=== PATIENT | male | born 1950 | race Caucasian/White ===

== ENCOUNTER → 2016-05-24 | Outpatient (CLI) | payer OTHER ==
[~2016-05-24] MED LIST: ASPI81TA28 PO; GABA-113 PO; HYDR-1838 PO; IBUP-1050 PO; LISI40TA PO; METO1TAB68 PO; NAPR1TAB9 PO; RIVA1TAB4 PO; TERA1CAP63 PO; TPRSR50 PO
--- NOTE | 2016-05-24 13:25 | DIAGNOSTIC IMAGING REPORT ---
Venous Doppler left leg LEFT VENOUS DOPP LOWER EXT UNILAT CLINICAL HISTORY: R60.0 pain. Edema. TECHNIQUE: Venous Doppler COMPARISON STUDY: None FINDINGS: No evidence for deep venous thrombosis left leg. Compressibility and augmentation characteristics are unremarkable. There is note is made of superficial thrombophlebitis of the right lower leg. IMPRESSION: 1. No evidence for deep venous thrombosis left leg. 2. Incidental note is made of superficial thrombophlebitis right lower leg Electronically signed by: Kelechi Russell M.D. 05/24/2016 1:23 PM Dictated Date/Time: 05/24/2016 1:22 PM
== END | disposition home or self-care (01) ==
LOC: C.ULTRBC 12:54
PROVIDERS: ATTEND Nurse Practitioner Family
DX: R60.0 Localized edema (principal)

== ENCOUNTER 2016-06-07 09:08 | Inpatient (IN) | payer OTHER ==
[~2016-06-07] VITALS: Ht 182.9 cm; Wt 140.3 kg
[~2016-06-07 09:08] MED LIST changes: -ASPI81TA28 PO; -GABA-113 PO; -METO1TAB68 PO; -RIVA1TAB4 PO; -TPRSR50 PO
[2016-06-07] MEDS ORDERED: ONDANSETRON INJ 2 MG/ML 2 ML VIAL IV STA (09:28)
[2016-06-07] MEDS ORDERED: SODIUM CHLORIDE 0.9% 1000ML 1,000 ML IV STA (09:28)
[2016-06-07] MEDS ORDERED: DILTIAZEM HCL 5 MG/ML 5 ML VIAL IV STA (09:28)
--- NOTE | 2016-06-07 09:41 | EMERGENCY ROOM VISIT NOTE ---
History Report prepared by Jackelyn: Joaquim Paul Under the Supervision of: Dr. Tyler Mayorga D.O. First contact with patient: 09:20 Chief Complaint: TACHYCARDIA Stated Complaint: RAPID HEART BEAT History of Present Illness The patient is a 65 year old male who presents to the Emergency Room with complaints of constant tachycardia starting prior to arrival. The patient states that he went in for a physical, and his heart rate was very fast. The patient additionally states that he is having nausea and some shortness of breath. The patient denies any chest pain or abdominal pain. He states that he can feel some chest discomfort when his heart rate goes up. The patient sates that he can become very winded after he walks. He states that he hasn't been feeling well this week, and he got a Doppler recently due to the possibility of a blood clot, however it was negative. The patient states that he has a history of hypertension, hernia repairs, and a cholecystectomy. He denies any history of A-fib. He states that he is taking lisinopril. Source of History: patient Onset: prior to arrival Position: other (global) Quality: other (tachycardia) Timing: constant Associated Symptoms: + SOB, + nausea, No abdominal pain, No chest pain Review of Systems See HPI for pertinent positives & negatives. A total of 10 systems reviewed and were otherwise negative. Past Medical & Surgical Medical Problems: (1) Bilateral pulmonary embolism (2) SVT (supraventricular tachycardia) Surgical Problems: (1) Hx of cholecystectomy Family History Cancer Social History Smoking Status: Former Smoker Alcohol Use: none Marital Status: Occupation Status: employed Current/Historical Medications Scheduled Aspirin (Aspirin Ec), 81 MG PO DAILY Gabapentin (Neurontin), 300 MG PO BID Lisinopril (Zestril), 40 MG PO QAM Terazosin Hcl (Hytrin), 10 MG PO QPM Allergies Coded Allergies: Oxycodone (Verified Adverse Reaction, Unknown, "DOESN'T LIKE FEELING", ) Physical Exam Vital Signs Date Time Temp Pulse Resp B/P Pulse Ox O2 Delivery O2 Flow Rate FiO2 06/07/16 13:16 91 18 128/91 96 Room Air 06/07/16 12:17 101 20 149/89 94 Room Air 06/07/16 10:52 103 16 118/78 96 Room Air 06/07/16 10:20 96 Nasal Cannula 3.0 06/07/16 10:18 102 17 153/96 88 Room Air 06/07/16 10:08 100 06/07/16 10:01 82 06/07/16 09:59 148 06/07/16 09:25 95 Room Air 06/07/16 09:25 95 Room Air 06/07/16 09:16 36.3 147 18 143/90 95 Room Air Physical Exam GENERAL: Patient is awake, alert, and is somewhat anxious appearing but not in pain. EYES: The conjunctivae are clear. The pupils are round and reactive. EARS, NOSE, MOUTH AND THROAT: The nose is without any evidence of any deformity. Mucous membranes are moist tongue is midline NECK: The neck is nontender and supple. RESPIRATORY: Normal respiratory effort is noted there is no evidence of wheezing rhonchi or rales CARDIOVASCULAR: Heart sounds are tachycardic and regular. No definite murmur noted to auscultation. GASTROINTESTINAL: The abdomen is mildly distended but soft. No tenderness, guarding, or rigidity noted MUSCULOSKELETAL/EXTREMITIES: There is no evidence of gross deformity full range of motion is noted in the hips and shoulders SKIN: Pedal edema bilaterally. Erythema in the left calf with mild tenderness. NEUROLOGIC: Patient is awake alert and oriented x3 Medical Decision & Procedures ER Provider Diagnostic Interpretation: Radiology results as stated below per my review and radiologist interpretation: CHEST ONE VIEW PORTABLE CLINICAL HISTORY: Atypical chest pain and tachycardia COMPARISON STUDY: No previous studies for comparison. FINDINGS: The heart is mildly enlarged. There is aortic tortuosity/ectasia. There is mild central vascular prominence without evidence of overt failure. There is no lobar consolidation. There are no pleural effusions.[ IMPRESSION: Cardiomegaly with central vascular prominence. No evidence of focal pulmonary consolidation Electronically signed by: Addison Nicole M.D. 06/07/2016 10:29 AM Dictated Date/Time: 06/07/2016 10:28 AM CHEST CTA for PULMONARY ARTERIES CT DOSE: 800.15 mGy.cm HISTORY: Chest pain dyspnea TECHNIQUE: Multiaxial CT images of the chest were performed following the intravenous administration of contrast to evaluate the pulmonary arteries. Maximal intensity projection images were also obtained. COMPARISON STUDY: None. FINDINGS: Thoracic ureters normal in course and caliber. Study is positive for bilateral pulmonary emboli. These involve the right middle as well as a right lower lobe pulmonary arterial distributions. Less common involvement is seen in the left upper lobe and third order left basilar pulmonary arterial structures. No evidence for a central or saddle embolus. IMPRESSION: 1. The study is positive for bilateral pulmonary emboli. 2. No evidence for central or saddle embolus. 3. Lungs are grossly clear. Electronically signed by: Kelechi Russell M.D. 06/07/2016 12:18 PM Dictated Date/Time: 06/07/2016 12:14 PM Laboratory Results 06/07/16 09:35 Red Blood Count 4.59, Mean Corpuscular Volume 91.9, Mean Corpuscular Hemoglobin 32.7, Mean Corpuscular Hemoglobin Concent 35.5, Mean Platelet Volume 12.1, Neutrophils (%) (Auto) 71.2, Lymphocytes (%) (Auto) 14.7, Monocytes (%) (Auto) 8.9, Eosinophils (%) (Auto) 4.4, Basophils (%) (Auto) 0.6, Neutrophils # (Auto) 6.05, Lymphocytes # (Auto) 1.25, Monocytes # (Auto) 0.76, Eosinophils # (Auto) 0.37, Basophils # (Auto) 0.05 06/07/16 09:35 Test 06/07/16 09:35 White Blood Count 8.50 K/uL (4.8-10.8) Red Blood Count 4.59 M/uL (4.7-6.1) Hemoglobin 15.0 g/dL (14.0-18.0) Hematocrit 42.2 % (42-52) Mean Corpuscular Volume 91.9 fL (80-100) Mean Corpuscular Hemoglobin 32.7 pg (25-34) Mean Corpuscular Hemoglobin Concent 35.5 g/dl (32-36) Platelet Count 189 K/uL (130-400) Mean Platelet Volume 12.1 fL (7.4-10.4) Neutrophils (%) (Auto) 71.2 % Lymphocytes (%) (Auto) 14.7 % Monocytes (%) (Auto) 8.9 % Eosinophils (%) (Auto) 4.4 % Basophils (%) (Auto) 0.6 % Neutrophils # (Auto) 6.05 K/uL (1.4-6.5) Lymphocytes # (Auto) 1.25 K/uL (1.2-3.4) Monocytes # (Auto) 0.76 K/uL (0.11-0.59) Eosinophils # (Auto) 0.37 K/uL (0-0.5) Basophils # (Auto) 0.05 K/uL (0-0.2) RDW Standard Deviation 45.7 fL (36.4-46.3) RDW Coefficient of Variation 13.6 % (11.5-14.5) Immature Granulocyte % (Auto) 0.2 % Immature Granulocyte # (Auto) 0.02 K/uL (0.00-0.02) Prothrombin Time 11.4 SECONDS (9.0-12.0) Prothromb Time International Ratio 1.1 (0.9-1.1) Activated Partial Thromboplast Time 29.4 SECONDS (21.0-31.0) Partial Thromboplastin Ratio 1.1 D-Dimer 3090 ug/L FEU (0-500) Anion Gap 12.0 mmol/L (3-11) Est Creatinine Clear Calc Drug Dose 108.6 ml/min Estimated GFR () 92.7 Estimated GFR (Non- 80.0 BUN/Creatinine Ratio 11.3 (10-20) Calcium Level 9.1 mg/dl (8.5-10.1) Magnesium Level 2.1 mg/dl (1.8-2.4) Total Bilirubin 0.8 mg/dl (0.2-1) Direct Bilirubin 0.2 mg/dl (0-0.2) Aspartate Amino Transf (AST/SGOT) 19 U/L (15-37) Alanine Aminotransferase (ALT/SGPT) 38 U/L (12-78) Alkaline Phosphatase 75 U/L (45-117) Total Creatine Kinase 48 U/L (39-308) Creatine Kinase MB 0.6 ng/ml (0.5-3.6) Creatine Kinase MB Ratio 1.3 (0-3.0) Troponin I < 0.015 ng/ml (0-0.045) Pro-B-Type Natriuretic Peptide 523 pg/ml (0-900) Total Protein 7.5 gm/dl (6.4-8.2) Albumin 3.4 gm/dl (3.4-5.0) Lipase 122 U/L (73-393) Thyroid Stimulating Hormone (TSH) 0.349 uIu/ml (0.300-4.500) Free Thyroxine 1.34 ng/dl (0.80-1.60) Laboratory results per my review. Medications Administered Medications (Trade) Dose Ordered Sig/Marcelino Route Start Time Stop Time Status Last Admin Dose Admin Sodium Chloride (Nss 1000ml) 1,000 ml @ 999 mls/hr Q1H1M STAT IV 06/07/16 09:28 06/07/16 10:28 DC 06/07/16 09:50 999 MLS/HR Ondansetron HCl (Zofran Inj) 4 mg NOW STAT IV 06/07/16 09:28 06/07/16 09:30 DC 06/07/16 09:47 4 MG Diltiazem HCl (Cardizem Inj) 20 mg NOW STAT IV 06/07/16 09:28 06/07/16 09:30 DC 06/07/16 09:52 20 MG Heparin Sodium/ Dextrose (Heparin 25,000 Unit/500ml D5W) 25,000 unit STK-MED ONCE .ROUTE 06/07/16 12:32 06/07/16 12:34 DC 06/07/16 12:38 25,000 UNIT Heparin Sodium (Porcine) (Heparin Sq 5000 Unit/0.5ml) 5,000 unit STK-MED ONCE .ROUTE 06/07/16 12:32 06/07/16 12:34 DC 06/07/16 12:38 5,000 UNIT Acetaminophen (Tylenol Tab) 650 mg Q4H PRN PO 06/07/16 13:00 07/07/16 12:59 06/07/16 17:29 650 MG ECG Indication: tachycardia Rate (beats per minute): 148 Rhythm: atrial flutter Findings: RBBB, other (No PVC) Comparison ECG Date: no prior available Change: REPEAT EKG: Sinus Tachycardia 106bpm. No ectopy, right bundle branch block noted ED Course 921: The patient was evaluated in room B12. A complete history and physical examination were performed. 0928: Cardizem Inj 20mg IV, Zofran Inj 4mg IV, NSS 1,000 ml @ 999 mls/hr IV 1117: I reevaluated the patient and discussed the plan with him. 1232: Heparin Sodium 5000 unit IV, Heparin Sodium/ Dextrose 83568 unit IV 1233: I discussed the patient's case with Dr. Hernandez. He is going to evaluate the patient for further treatment Medical Decision Differential diagnosis: Etiologies such as premature contractions, electrolyte abnormality, cardiac dysrhythmia, thyroid dysfunction, pulmonary embolism, infection, gastrointestinal, as well as others were entertained. Nursing notes reviewed. Additional history was obtained from the patient's significant other. 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 The patient was found to be in rapid wide-complex tachycardia but it had the appearance of SVT with aberrancy versus a possible atrial flutter with 2:1 conduction with an underlying right bundle- branch block. The patient was treated with Cardizem in the emergency department and appeared to convert to a sinus tachycardia. He still had very significant symptoms such as chest discomfort and difficulty breathing. He was also found have hypoxia and an elevated d-dimer. He was recently seen for leg swelling and had a Doppler which only showed superficial thrombophlebitis. The patient had a CT the chest which revealed bilateral pulmonary emboli. He was started on IV heparin in the emergency department. He was reevaluated multiple times. He was given IV fluids. His blood pressure did not drop while he was in the emergency department. I feel this represents a submassive pulmonary embolism at this time. He did have bilateral PEs however. I discussed the patient's laboratory and radiographic studies with him. I also discussed his case with the on-call [facility] hospitalist group. They have agreed to evaluate the patient in the emergency apartment for further management and disposition. The patient was reevaluated multiple times. I discussed the patient's laboratory and radiographic studies with him. Consults Time Called: 1230 Consulting Physician: Dr. Hernandez Returned Call: 1232 I discussed the patient's case with Dr. Hernandez. He is going to evaluate the patient for further treatment Impression Primary Impression: Bilateral pulmonary embolism Additional Impressions: SVT (supraventricular tachycardia) Hypoxia Critical Care I have personally spent greater than 45 minutes of critical care time in the direct management of this patient. This includes bedside care, interpretation of diagnostic studies, and testing, discussion with consultants, patient, and family members, and other required patient management activities. This 45 minutes is in excess of all separately billable procedures. Scribe Attestation The scribe's documentation has been prepared under my direction and personally reviewed by me in its entirety. I confirm that the note above accurately reflects all work, treatment, procedures, and medical decision making performed by me. Departure Information Dispostion Being Evaluated By Hospitalist Referrals Shikha Tilley (PCP) Problem Qualifiers
[2016-06-07] MEDS ORDERED: GABA-113 PO (09:46)
[2016-06-07] MEDS ORDERED: ASPI81TA28 PO (09:46)
[2016-06-07 10:24] LABS: BASO % 0.6 %; BASO ABS # 0.05 K/uL (0-0.2); COMPLETE YES; EOS % 4.4 %; HEMATOCRIT 42.2 % (42-52); IG% 0.2 %; LYMPH % 14.7 %; LYMPH ABS # 1.25 K/uL (1.2-3.4); MEAN CELL VOLUME 91.9 fL (80-100); MEAN CORPUSCULAR HEMOGLOBIN 32.7 pg (25-34); MEAN CORPUSCULAR HGB CONC 35.5 g/dl (32-36); MEAN PLATELET VOLUME 12.1 fL (7.4-10.4); MONO % 8.9 %; NEUT % 71.2 %; PLATELET COUNT 189 K/uL (130-400); RED BLOOD COUNT 4.59 M/uL (4.7-6.1)
--- NOTE | 2016-06-07 10:30 | DIAGNOSTIC IMAGING REPORT ---
CHEST ONE VIEW PORTABLE CLINICAL HISTORY: Atypical chest pain and tachycardia COMPARISON STUDY: No previous studies for comparison. FINDINGS: The heart is mildly enlarged. There is aortic tortuosity/ectasia. There is mild central vascular prominence without evidence of overt failure. There is no lobar consolidation. There are no pleural effusions.[ IMPRESSION: Cardiomegaly with central vascular prominence. No evidence of focal pulmonary consolidation Electronically signed by: Addison Nicole M.D. 06/07/2016 10:29 AM Dictated Date/Time: 06/07/2016 10:28 AM
[2016-06-07 10:42] LABS: ALT/SGPT 38 U/L (12-78); BLOOD UREA NITROGEN 11 mg/dl (7-18); BUN/CREATININE RATIO 11.3 (10-20); CALCIUM 9.1 mg/dl (8.5-10.1); CARBON DIOXIDE 24 mmol/L (21-32); CHLORIDE 106 mmol/L (98-107); CREATININE 0.98 mg/dl (0.60-1.40); GLUCOSE 133 mg/dl (70-99); POTASSIUM 3.6 mmol/L (3.5-5.1); SODIUM 142 mmol/L (136-145)
[2016-06-07 10:47] LABS: ALKALINE PHOSPHATASE 75 U/L (45-117); AST/SGOT 19 U/L (15-37); CKMB/CK RATIO 1.3 (0-3.0)
[2016-06-07 11:02] LABS: INR 1.1 (0.9-1.1); PARTIAL THROMBOPLASTIN RATIO 1.1; PROTHROMBIN TIME (PATIENT) 11.4 SECONDS (9.0-12.0)
[2016-06-07] MEDS ORDERED: OPTIRAY 320 IV PRN (11:30)
[2016-06-07 12:12] LABS: MAGNESIUM 2.1 mg/dl (1.8-2.4); THYROID STIMULATING HORMONE 0.349 uIu/ml (0.300-4.500)
--- NOTE | 2016-06-07 12:19 | DIAGNOSTIC IMAGING REPORT ---
CHEST CTA for PULMONARY ARTERIES CT DOSE: 800.15 mGy.cm HISTORY: Chest pain dyspnea TECHNIQUE: Multiaxial CT images of the chest were performed following the intravenous administration of contrast to evaluate the pulmonary arteries. Maximal intensity projection images were also obtained. COMPARISON STUDY: None. FINDINGS: Thoracic ureters normal in course and caliber. Study is positive for bilateral pulmonary emboli. These involve the right middle as well as a right lower lobe pulmonary arterial distributions. Less common involvement is seen in the left upper lobe and third order left basilar pulmonary arterial structures. No evidence for a central or saddle embolus. IMPRESSION: 1. The study is positive for bilateral pulmonary emboli. 2. No evidence for central or saddle embolus. 3. Lungs are grossly clear. Electronically signed by: Kelechi Russell M.D. 06/07/2016 12:18 PM Dictated Date/Time: 06/07/2016 12:14 PM
[2016-06-07] MEDS ORDERED: HEPARIN 25000 UNIT/500 ML D5W ONE (12:32)
[2016-06-07] MEDS ORDERED: HEPARIN SOD 5000 UNIT/0.5 ML CARP ONE (12:32)
[2016-06-07] MEDS ORDERED: ONDANSETRON INJ 2 MG/ML 2 ML VIAL IV PRN (13:00)
[2016-06-07] MEDS ORDERED: HEPARIN IV BOLUS 5,000 UNIT in SYRINGE 0 ML IV ONE (13:30)
[2016-06-07] MEDS ORDERED: METOPROLOL TARTRATE 1 MG/ML VIAL IV PRN (13:45)
[2016-06-07 13:50] VITALS: BP 150/97; TEMP 36.3; Ht 182.9 cm; Wt 140.3 kg
--- NOTE | 2016-06-07 14:10 | HISTORY & PHYSICAL EXAMINATION ---
DATE OF ADMISSION: 06/07/2016 CHIEF COMPLAINT: Tachycardia. HISTORY OF PRESENT ILLNESS: A 65-year-old male who presents to Emergency Room with tachycardia. This started earlier this morning. The patient states that a few weeks ago he noticed some redness in his left leg and it was a little swollen and he was concerned about DVT and he went to his primary care who did an ultrasound which was negative for DVT, according to the patient. Then last Sunday he started having shortness of breath but this morning he started having tachycardia. He has no chest pain, abdominal pain and he feels that he had some chest discomfort when his heart rate goes up. 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 He never had any blood clots or DVTs before. He has no history of atrial fibrillation. The patient stated he has a history of hypertension, hernia repair, cholecystectomy. He stated he also takes lisinopril. REVIEW OF SYSTEMS: Negative except as above. Ten out of 14 systems were reviewed. PAST MEDICAL HISTORY: Hypertension, hernia repair. FAMILY HISTORY: Significant for coronary artery disease and cancer. SOCIAL HISTORY: Does not smoke, does not drink, does not use drugs. . Employed. ALLERGIES: OXYCODONE. CURRENT MEDICATIONS: Aspirin 81 mg p.o. daily, gabapentin 300 mg p.o. b.i.d., lisinopril 40 mg p.o. daily, terazosin 10 mg p.o. at bedtime. PHYSICAL EXAMINATION: VITAL SIGNS: Temperature 36.3, pulse 101, respirations 20, blood pressure 149/89, pulse ox 94 on room air. GENERAL: Not in acute distress. HEAD, EYES, EARS, NOSE, AND THROAT: Normocephalic, atraumatic. PERRLA, EOMI. Mouth moist, no lesions. NECK: No JVD. Trachea midline. Throat is not enlarged. LUNGS: Clear to auscultation bilateral. No wheezes, no rhonchi. HEART: Tachycardia, S1, S2. RRR. GASTROINTESTINAL: Soft, nontender, nondistended. Bowel sounds present bilateral. Obese. EXTREMITIES: No clubbing, cyanosis, edema. SKIN: No rash, no jaundice. NEUROLOGICAL: Alert, oriented x3. Motor and sensory normal. PSYCHIATRIC: Mood and judgment are normal. DIAGNOSTIC INTERPRETATION: Chest x-ray: Cardiomegaly with central vascular prominence. No evidence of focal pulmonary consolidation. CT chest showed bilateral pulmonary embolism. No normal central saddle embolus. LABORATORY DATA: CBC normal. BMP normal except for glucose of 133. D-dimer is 3,090. LFTs are normal. His troponin less than 0.015. BNP 523, albumin of 3.4. TSH 0.349, free thyroxine 1.34. EKG 148 beats per minute, atrial flutter, right bundle branch block. Repeat EKG, heart rate 106 beats per minute. ASSESSMENT AND PLAN: This is a 65-year-old gentleman who comes with tachycardia, shortness of breath. 1. Acute bilateral pulmonary embolism. Admit patient to telemetry. Start patient on IV heparin and consult nurse navigator to see if insurance approves Xarelto or Eliquis. Continue aspirin. check ECHO 2. Tachycardia, likely related to PE. We will start patient on metoprolol as needed. 3. History of hypertension. Continue with lisinopril. 4. Deep venous thrombosis prophylaxis with IV heparin. THE PATIENT IS A FULL CODE. Time spent doing this admission 50 minutes. MTDD
[2016-06-07] MEDS ORDERED: PERFLUTREN LIPID MICROSPHERE (DEFINITY) IV ONE (15:32)
[2016-06-07 16:00] VITALS: BP 144/89; PULSE 89; TEMP 36.7; O2SAT 97
--- NOTE | 2016-06-07 16:55 | ECHOCARDIOGRAM REPORT ---
*NOTICE TO RECEIVING REPUBLICAN AGENCY This information is strictly Confidential and protected under [place] law. [place] law prohibits you from making any further disclosure of this information unless further disclosure is expressly permitted by the written consent of the person to whom it pertains or is authorized by law. A general authorization for the release of medical or other information is not sufficient for this purpose. Hospital accepts no responsibility if the information is made available to any other person, INCLUDING THE PATIENT. Interpretation Summary * Name: EVARISTO BERG Study Date: 06/07/2016 03:06 PM BP: 150/97 mmHg * Patient Location: C.ED HR: 98 * : 1950 (M/d/yyyy) Gender: Male Height: 72 in * Age: 65 yrs Ethnicity: CA Weight: 314 lb * Ordering Physician: MOIZ HERNANEDZ DO * Performed By: Becki Wong RCS * * Reason For Study: PULMONARY EMBOLUS * BSA: 2.6 m2 * -- Conclusions -- * 1. Normal left ventricular size and systolic function. Estimated EF 55-60%. No regional wall motion abnormalities. Septal flattening during diastole suggests right ventricular volume overload. Moderate concentric left ventricular hypertrophy. * 2. Moderately dilated right ventricle with mildly reduced systolic function. * 3. Mild aortic root dilatation. * 4. Mildly dilated ascending aorta. * 5. Small pericardial effusion with echogenic component. 6. No significant valvular abnormalities. * 7. Technically difficult study, enhanced with IV Definity. * 8. No prior study available for comparison. Ordering physician (Dr. Hernandez) notified of findings. Procedure Details * A complete two-dimensional transthoracic echocardiogram was performed (2D, M-mode, Doppler and color flow Doppler). * A contrast injection of Definity was performed to improve assessment of LV function. * Contrast was injected into an intravenous site in the right arm. * One vial of Definity ultrasound contrast was diluted in normal saline to a total volume of 10 ml. A total of '2' ml of solution was administered during imaging. * Lot # [id number] of Definity utilized for procedure. * Expiration date 1 JUN 03. * The attending nurse who injected the contrast agent was BECKI CHAMBERLAIN ED, RN. Left Ventricle * Normal left ventricular size and systolic function. Estimated EF 55-60%. No regional wall motion abnormalities. Septal flattening during diastole suggests right ventricular volume overload. Moderate concentric left ventricular hypertrophy. Right Ventricle * Moderately dilated right ventricle with mildly reduced systolic function. * The right ventricular systolic function is reduced as assessed by tricuspid annular plane systolic excursion (TAPSE) (TAPSE <1.6 cm). Atria * The left atrial size is normal. * The right atrium is borderline dilated. * There is no evidence of atrial septal defect, but resolution does not allow assessment for a patent foramen ovale. Mitral Valve * The mitral valve is grossly normal. * There is no mitral valve stenosis. * Significant mitral regurgitation is absent. Tricuspid Valve * The tricuspid valve is not well visualized, but is grossly normal. * There is no tricuspid stenosis. * Significant tricuspid regurgitation is absent. * Could not estimate right ventricular systolic pressure as there was no suitable TR jet. Aortic Valve * The aortic valve is trileaflet. * The aortic valve is normal in structure and function. * No hemodynamically significant valvular aortic stenosis. * There is no significant aortic regurgitation. Pulmonic Valve * The pulmonary valve is inadequately visualized, but the Doppler data is adequate for interpretation. * There is no pulmonic valvular stenosis. * There is no significant pulmonary regurgitation. Great Vessels * Mild aortic root dilatation. * Mildly dilated ascending aorta. Pericardium/Pleural * Small pericardial effusion with echogenic component. There was no visualize compression of cardiac chambers. Great Vessels * Normal inferior vena cava size and collapsability with sniff indicates a normal right atrial pressure of 3 mmHg MMode 2D Measurements and Calculations IVSd 1.5 cm IVSs 1.7 cm LVIDd 4.6 cm LVIDs 2.7 cm LVPWd 1.4 cm LVPWs 1.9 cm IVS/LVPW 1.1 FS 42.4 % EDV(Teich) 99.0 ml ESV(Teich) 26.3 ml EF(Teich) 73.5 % EDV(cubed) 99.5 ml ESV(cubed) 19.0 ml EF(cubed) 80.9 % % IVS thick 15.6 % % LVPW thick 37.4 % LV mass(C)d 268.4 grams LV mass(C)dI 104.0 grams/m\S\2 LV mass(C)s 190.4 grams LV mass(C)sI 73.8 grams/m\S\2 SV(Teich) 72.8 ml SI(Teich) 28.2 ml/m\S\2 SV(cubed) 80.5 ml SI(cubed) 31.2 ml/m\S\2 Ao root diam 4.7 cm Ao root area 17.4 cm\S\2 LA dimension 3.3 cm asc Aorta Diam 4.2 cm LA/Ao 0.71 LVOT diam 2.0 cm LVOT area 3.2 cm\S\2 LVAd ap4 34.3 cm\S\2 LVLd ap4 8.4 cm EDV(MOD-sp4) 115.8 ml EDV(sp4-el) 118.9 ml LVAs ap4 22.9 cm\S\2 LVLs ap4 7.8 cm ESV(MOD-sp4) 53.8 ml ESV(sp4-el) 57.1 ml EF(MOD-sp4) 53.5 % EF(sp4-el) 52.0 % SV(MOD-sp4) 62.0 ml SI(MOD-sp4) 24.0 ml/m\S\2 SV(sp4-el) 61.8 ml SI(sp4-el) 24.0 ml/m\S\2 Doppler Measurements and Calculations MV E max liset 107.7 cm/sec MV P1/2t max liset 114.0 cm/sec MV P1/2t 41.5 msec MVA(P1/2t) 5.3 cm\S\2 MV dec slope 804.1 cm/sec\S\2 MV dec time 0.12 sec Ao V2 max 112.5 cm/sec Ao max PG 5.1 mmHg Ao max PG (full) 2.4 mmHg MARCO(V,A) 2.3 cm\S\2 MARCO(V,D) 2.3 cm\S\2 LV V1 max PG 2.7 mmHg LV V1 max 81.5 cm/sec TV E max liset 91.2 cm/sec PA V2 max 116.7 cm/sec PA max PG 5.5 mmHg
[2016-06-07 17:21] VITALS: BP 173/95; PULSE 103; TEMP 36.5; O2SAT 91
[2016-06-07] MEDS: ACETAMINOPHEN 325 MG TAB PO PRN ×2 (17:29→23:36)
[2016-06-07 19:08] VITALS: BP 147/93; PULSE 98; TEMP 36.5; O2SAT 93
[2016-06-07 19:25] LABS: PARTIAL THROMBOPLASTIN RATIO 2.1
[2016-06-07] MEDS: GABAPENTIN 300 MG CAP PO SCH (20:45)
[2016-06-07 23:32] VITALS: BP 138/80; PULSE 103; TEMP 36.6; O2SAT 92
[2016-06-08] VITALS (10 sets, daily range): BP systolic 127–164; BP diastolic 77–100; PULSE 75–119; TEMP 36.3–36.8; O2SAT 92–96
[2016-06-08] MEDS ORDERED: IBUPROFEN 200 MG TAB PO PRN (01:45)
[2016-06-08] MEDS: HEPARIN 25,000 UNIT/500ML D5W 500 ML IV PRN ×2 (02:06→15:50)
[2016-06-08 05:12] LABS: BASO % 0.6 %; BASO ABS # 0.04 K/uL (0-0.2); COMPLETE YES; EOS % 6.4 %; HEMATOCRIT 39.7 % (42-52); IG% 0.3 %; LYMPH % 20.9 %; LYMPH ABS # 1.47 K/uL (1.2-3.4); MEAN CELL VOLUME 92.3 fL (80-100); MEAN CORPUSCULAR HEMOGLOBIN 32.1 pg (25-34); MEAN CORPUSCULAR HGB CONC 34.8 g/dl (32-36); MEAN PLATELET VOLUME 11.3 fL (7.4-10.4); MONO % 9.5 %; NEUT % 62.3 %; PLATELET COUNT 167 K/uL (130-400); WHITE BLOOD COUNT 7.04 K/uL (4.8-10.8)
[2016-06-08 05:35] LABS: PARTIAL THROMBOPLASTIN RATIO 2.6
[2016-06-08 05:50] LABS: BUN/CREATININE RATIO 11.9 (10-20); CALCIUM 8.3 mg/dl (8.5-10.1); CREATININE 0.88 mg/dl (0.60-1.40); MAGNESIUM 2.2 mg/dl (1.8-2.4); POTASSIUM 3.8 mmol/L (3.5-5.1)
--- NOTE | 2016-06-08 08:35 | Clinical Documentation Query ---
Dr. BR[facility] [place] : CLINICAL DOCUMENTATION QUERY Patient is a 65 year old male admitted for treatment of bilateral pulmonary emboli. Patient with reportedly known SVT(s). He states that recent US of the legs was negative for DVT. Studies have shown either extension of a known SVT to the deep venous system and/or release of all or most of the DVT to the lung to result in subclinical findings on ultrasound. As able, consider clarification as to the possible/suspected/likely etiology of the PE's. Your clinical opinion is sufficient. In your clinical opinion is this patient being managed for: ( x ) Bilateral PE's due to (suspected) occult DVT and/or extension of known SVT ( ) Bilateral PE's due to thromboembolism associated with atrial flutter ( ) Other explanation of clinical findings (Please Explain) ( ) Unable to determine (Please Define) ( ) Need to Discuss ( ) Not Agree The medical record reflects the following clinical findings, treatment, and risk factors. Clinical Indicators: As above Treatment: Telemetry, echocardiogram, IV Heparin, ASA Risk Factors: Sedentary employment, atrial flutter, known SVT. Please clarify and document your clinical opinion in the progress notes and discharge summary. Terms such as "probable", "suspected", "likely", "questionable", "possible", or "still to be ruled out" are acceptable. IF IN AGREEMENT, YOU MUST DOCUMENT ABOVE DIAGNOSTIC STATEMENT IN DAILY PROGRESS NOTES AND DISCHARGE SUMMARY. This document is not part of the patient's record. Thank You, Darrion Jiang, [place] [phone]
[2016-06-08] MEDS: ASPIRIN 81 MG ECTAB PO SCH (08:54)
[2016-06-08] MEDS: GABAPENTIN 300 MG CAP PO SCH ×2 (08:54→20:31)
[2016-06-08] MEDS: LISINOPRIL 40 MG TAB PO SCH (08:55)
--- NOTE | 2016-06-08 09:07 | Progress Note ---
Subjective Subjective Date of Service: Jun 08, 2016. Problem List Medical Problems: (1) Hypoxia Status: Acute Physical Exam Vital Signs Vital Signs Past 24 Hours: Date Time Temp Pulse Resp B/P Pulse Ox O2 Delivery O2 Flow Rate FiO2 06/08/16 07:56 Room Air 06/08/16 07:55 36.5 119 18 141/85 94 Room Air 06/08/16 04:00 92 Room Air 06/08/16 03:17 36.4 102 20 136/80 92 Room Air 06/08/16 00:01 Room Air 06/07/16 23:32 36.6 103 18 138/80 92 06/07/16 20:00 Room Air 06/07/16 19:08 36.5 98 18 147/93 93 Room Air 06/07/16 18:16 115 06/07/16 17:21 36.5 103 20 173/95 91 Room Air 06/07/16 16:00 97 Room Air 06/07/16 16:00 36.7 89 18 144/89 97 Room Air 06/07/16 13:50 36.3 18 150/97 Room Air 06/07/16 13:48 91 18 150/97 95 Room Air 06/07/16 13:16 91 18 128/91 96 Room Air 06/07/16 12:17 101 20 149/89 94 Room Air 06/07/16 10:52 103 16 118/78 96 Room Air 06/07/16 10:20 96 Nasal Cannula 3.0 06/07/16 10:18 102 17 153/96 88 Room Air 06/07/16 10:08 100 06/07/16 10:01 82 06/07/16 09:59 148 06/07/16 09:25 95 Room Air 06/07/16 09:25 95 Room Air 06/07/16 09:16 36.3 147 18 143/90 95 Room Air Assessment and Plan 1. Bilateral PE's due to (suspected) occult DVT and/or extension of known SVT
[2016-06-08] MEDS ORDERED: METOPROLOL SUCC 50MG EXT REL TAB PO SCH (10:00)
[2016-06-08] MEDS ORDERED: METOPROLOL TARTRATE 1 MG/ML VIAL IV PRN (12:00)
--- NOTE | 2016-06-08 12:05 | Pulmonary Consultation ---
History General Date of Service: Jun 08, 2016. Stated Complaint: Bilateral Pulmonary Embolism, Svt HPI The patient is a 65 year old male who presents to [facility] with complaints of Bilateral Pulmonary Embolism, Svt. The patient's primary care provider is Shikha Tilley. 65-yo male with PMHx hypertension, obesity and former tobacco (2-3pps x 20-years , quit 1990) presented to [facility] 06/07/16 from his physician's office with symptoms of tachycardia. He reported 1-week history of left medial calf and anterior thigh erythema and edema for which he underwent LLE doppler 05/24/16 - this was negative for DVT incidental note of superficial phlebitis of the RLE. He states that following this report, he was prescribed Gabapentin with improvement in his symptoms. Several days later he began to notice increased heart rate and sensation that he needed to take a deep breath. He denies any associated chest pain but did reports mild increased SAN with activity such as ambulating steps. He denies any associated cough or wheeze. Last week, he reported 2-day history of a "GI-flu" with abdominal symptoms and loose stools, this resolved without intervention. 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 In the ER CXR described cardiomegaly with central vascular prominence. D-dimer was elevated 3090. WBC/Hgb/Hct/Plts: 8.5/42.2/91.9. EG: tachycardia (106BPM) with LBBB. Telemetry: episodes of atrial flutter. CTA 06/07/16: Emboli suggested involving RML, RLL, AD, and left basilar vessels without saddle obstruction. Echocardiogram described diastolic septal flattening suggestive of RV overload, moderate LVH, moderate RV dilation with mild reduction in systolic function. No significant valvular abnormalities. Anticoagulation and rate control initiated and he was admitted to telemetry. Of note, he did require supplemental O2 briefly but has since been stable on room air. Today he reports he is feeling ok. He described an episode of palpitations - self limited 20-minutes prior to my arrival after taking medication. He has been ambulating to the bathroom without increased dyspnea or chest discomfort. 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 His last trip was 05/18/16 - 20-hours to the [facility]. He states he is compliant with regulations to stop every 3-4 hours to ambulate/rest. He denies any preceding trauma or other extended periods of immobility. He denies any family history of clotting disorders. He Denies any personal prior history of DVT/PE. He denies any personal oncologic history. He reports regular colonoscopies as instructed by his physician. He denies any personal history of asthma, COPD, heart disease (stress ECHO 2006: unremarkable) or dysphagia. He is a life-long [place] resident. He lives with his wive. They do not have any pets. He denies ETOH consumption. Historian: patient, family () Review of Systems Constitutional: denies: chills, fever, weakness Eyes: reports: no symptoms ENT: reports: no symptoms Cardiovascular: reports: as stated in HPI, chest pressure, edema Respiratory: reports: shortness of breath, denies: cough, wheezing Gastrointestinal: reports: no symptoms Integumentary: reports: as stated in HPI Past Medical History Past Medical History: 1. Hypertension 2. Obesity Past Surgical History: 1. Tooth extraction 2. Cholecystectomy 2004 3. Umbilical hernia repair 4. Inguinal hernia repair x 2 with mesh 2014 Family History Cancer Social History Hx Tobacco Use In Past Year?: No Smoking Status: Former Smoker Alcohol: never Drug Use: none Marital status: Housing status: lives with family Occupational Status: employed History of MDRO History of MDRO: No Allergies Coded Allergies: Oxycodone (Verified Adverse Reaction, Unknown, "DOESN'T LIKE FEELING", ) Current Medications Reported Home Medications Medications Dose Route/Sig Max Daily Dose Days Date Category Aspirin Ec (Aspirin) 81 Mg Tab 81 Mg PO DAILY 06/07/16 Reported Neurontin (Gabapentin) 300 Mg Cap 300 Mg PO BID 06/07/16 Reported Hytrin (Terazosin HCl) 10 Mg Cap 10 Mg PO QPM 05/02/13 Reported Zestril (Lisinopril) 40 Mg Tab 40 Mg PO QAM 05/02/13 Reported Physical Physical Exam Vital Signs: Date Time Temp Pulse Resp B/P Pulse Ox O2 Delivery O2 Flow Rate FiO2 06/08/16 11:32 36.6 102 18 128/77 95 Room Air 06/08/16 07:56 Room Air 2/23/17 07:55 36.5 119 18 141/85 94 Room Air 06/08/16 04:00 92 Room Air 06/08/16 03:17 36.4 102 20 136/80 92 Room Air 06/08/16 00:01 Room Air 06/07/16 23:32 36.6 103 18 138/80 92 06/07/16 20:00 Room Air 06/07/16 19:08 36.5 98 18 147/93 93 Room Air 06/07/16 18:16 115 06/07/16 17:21 36.5 103 20 173/95 91 Room Air 06/07/16 16:00 97 Room Air 06/07/16 16:00 36.7 89 18 144/89 97 Room Air 06/07/16 13:50 36.3 18 150/97 Room Air 06/07/16 13:48 91 18 150/97 95 Room Air 06/07/16 13:16 91 18 128/91 96 Room Air 06/07/16 12:17 101 20 149/89 94 Room Air Constitutional: WDWN obese male sitting in chair. No acute distress HEENT: EOMi, PERRLA, moist mucous membranes Respiratory: Non-labored respirations. No wheeze. rales or rhonchi CV: Rapid rate. Regular rhythm. No murmur appreciated. Warm and perfused peripherally. Abdomen: Soft, obese Active bowel sounds. MSK/Extremities: Moving and developed symmetrically. No pitting edema or erythema. Mild chronic stasis changes at ankles Neurologic: Alert and oriented. Excellent data recall. Appropriate affect. Diagnostics Labs Results Past 24 Hours Test 06/07/16 18:55 06/08/16 05:00 Range/Units Activated Partial Thromboplast Time 55.1 68.3 21.0-31.0 SECONDS Partial Thromboplastin Ratio 2.1 2.6 White Blood Count 7.04 4.8-10.8 K/uL Red Blood Count 4.30 4.7-6.1 M/uL Hemoglobin 13.8 14.0-18.0 g/dL Hematocrit 39.7 42-52 % Mean Corpuscular Volume 92.3 80-100 fL Mean Corpuscular Hemoglobin 32.1 25-34 pg Mean Corpuscular Hemoglobin Concent 34.8 32-36 g/dl Platelet Count 167 130-400 K/uL Mean Platelet Volume 11.3 7.4-10.4 fL Neutrophils (%) (Auto) 62.3 % Lymphocytes (%) (Auto) 20.9 % Monocytes (%) (Auto) 9.5 % Eosinophils (%) (Auto) 6.4 % Basophils (%) (Auto) 0.6 % Neutrophils # (Auto) 4.39 1.4-6.5 K/uL Lymphocytes # (Auto) 1.47 1.2-3.4 K/uL Monocytes # (Auto) 0.67 0.11-0.59 K/uL Eosinophils # (Auto) 0.45 0-0.5 K/uL Basophils # (Auto) 0.04 0-0.2 K/uL RDW Standard Deviation 45.5 36.4-46.3 fL RDW Coefficient of Variation 13.5 11.5-14.5 % Immature Granulocyte % (Auto) 0.3 % Immature Granulocyte # (Auto) 0.02 0.00-0.02 K/uL Sodium Level 145 136-145 mmol/L Potassium Level 3.8 3.5-5.1 mmol/L Chloride Level 109 98-107 mmol/L Carbon Dioxide Level 30 21-32 mmol/L Anion Gap 6.0 3-11 mmol/L Blood Urea Nitrogen 10 7-18 mg/dl Creatinine 0.88 0.60-1.40 mg/dl Est Creatinine Clear Calc Drug Dose 121.0 ml/min Estimated GFR () 103.7 Estimated GFR (Non- 89.5 BUN/Creatinine Ratio 11.9 10-20 Random Glucose 98 70-99 mg/dl Calcium Level 8.3 8.5-10.1 mg/dl Magnesium Level 2.2 1.8-2.4 mg/dl Impression Assessment and Plan 65-yo male admitted with submassive bilateral pulmonary emboli: likely provoked with h/o long distance driving and recent illness 1. Agree with current anticoagulation - heparin gtt 2. Reviewed notes from social work therapist regarding cost of Xa inhibitors - all greater than $75/month - Xarelto would be preferred agent. 3. 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 Case Discussed with Dr. Luna Patient reviewed and plan agreed upon.
--- NOTE | 2016-06-08 15:02 | Progress Note ---
Subjective Subjective Date of Service: Jun 08, 2016. Pt evaluation today including: conversation w/ patient, physical exam, chart review, review of studies, review of inpatient medication list Notes: tachycardia on tele, 112-140 BPM, denies SOB, CP Problem List Medical Problems: (1) Hypoxia Status: Acute Review of Systems Constitutional: No fever ENT: No hearing loss Respiratory: + dyspnea on exertion, No cough Cardiac: No chest pain Abdomen: No pain Male : No dysuria Neurologic: No memory loss Psychiatric: No depression symptoms Endo: No fatigue Physical Exam Vital Signs Vital Signs Past 24 Hours: Date Time Temp Pulse Resp B/P Pulse Ox O2 Delivery O2 Flow Rate FiO2 06/08/16 11:55 95 Room Air 06/08/16 11:32 36.6 102 18 128/77 95 Room Air 06/08/16 07:56 Room Air 06/08/16 07:55 36.5 119 18 141/85 94 Room Air 06/08/16 04:00 92 Room Air 06/08/16 03:17 36.4 102 20 136/80 92 Room Air 06/08/16 00:01 Room Air 06/07/16 23:32 36.6 103 18 138/80 92 06/07/16 20:00 Room Air 06/07/16 19:08 36.5 98 18 147/93 93 Room Air 06/07/16 18:16 115 06/07/16 17:21 36.5 103 20 173/95 91 Room Air 06/07/16 16:00 97 Room Air 06/07/16 16:00 36.7 89 18 144/89 97 Room Air Physical Exam: General Appearance: WD/WN, no apparent distress Eyes: bilateral eyes normal inspection ENT: hearing grossly normal Neck: supple Respiratory/Chest: chest non-tender Cardiovascular: regular rate, rhythm, + tachycardia Abdomen: normal bowel sounds Extremities: normal range of motion Neurologic/Psychiatric: alert Skin: normal color Medications Medications: Current Inpatient Medications Medications (Trade) Dose Ordered Sig/Marcelino Route Start Time Stop Time Status Last Admin Dose Admin Ioversol (Optiray 320) 100 ml UD PRN IV 06/07/16 11:30 06/11/16 11:29 Acetaminophen (Tylenol Tab) 650 mg Q4H PRN PO 06/07/16 13:00 07/07/16 12:59 06/07/16 23:36 650 MG Ondansetron HCl (Zofran Inj) 4 mg Q6H PRN IV 06/07/16 13:00 07/07/16 12:59 Aspirin (Ecotrin Tab) 81 mg DAILY PO 06/08/16 09:00 07/08/16 08:59 06/08/16 08:54 81 MG Gabapentin (Neurontin Cap) 300 mg BID PO 06/07/16 21:00 07/07/16 20:59 06/08/16 08:54 300 MG Lisinopril (Zestril Tab) 40 mg QAM PO 06/08/16 09:00 07/08/16 08:59 06/08/16 08:55 40 MG Terazosin HCl 10 mg 10 mg QPM PO 06/07/16 21:00 07/07/16 20:59 06/07/16 20:45 10 MG Heparin Sodium/ Dextrose (Heparin 25,000 Unit/500ml D5W) 500 ml @ 37 mls/hr [id number] PRN IV 06/07/16 13:15 07/07/16 13:14 06/08/16 02:06 37 MLS/HR Ibuprofen (Advil Tab) 400 mg TID PRN PO 06/08/16 01:45 07/08/16 01:44 Metoprolol Tartrate (Lopressor Iv) 5 mg Q4 PRN IV 06/08/16 12:00 07/08/16 11:59 Metoprolol Succinate (Toprol Xl Tab) 50 mg QAM PO 06/08/16 10:00 07/08/16 09:59 06/08/16 10:26 50 MG Laboratory Data Labs: Last 24 Hours Test 06/07/16 18:55 06/08/16 05:00 Activated Partial Thromboplast Time 55.1 SECONDS 68.3 SECONDS Partial Thromboplastin Ratio 2.1 2.6 White Blood Count 7.04 K/uL Red Blood Count 4.30 M/uL Hemoglobin 13.8 g/dL Hematocrit 39.7 % Mean Corpuscular Volume 92.3 fL Mean Corpuscular Hemoglobin 32.1 pg Mean Corpuscular Hemoglobin Concent 34.8 g/dl Platelet Count 167 K/uL Mean Platelet Volume 11.3 fL Neutrophils (%) (Auto) 62.3 % Lymphocytes (%) (Auto) 20.9 % Monocytes (%) (Auto) 9.5 % Eosinophils (%) (Auto) 6.4 % Basophils (%) (Auto) 0.6 % Neutrophils # (Auto) 4.39 K/uL Lymphocytes # (Auto) 1.47 K/uL Monocytes # (Auto) 0.67 K/uL Eosinophils # (Auto) 0.45 K/uL Basophils # (Auto) 0.04 K/uL RDW Standard Deviation 45.5 fL RDW Coefficient of Variation 13.5 % Immature Granulocyte % (Auto) 0.3 % Immature Granulocyte # (Auto) 0.02 K/uL Sodium Level 145 mmol/L Potassium Level 3.8 mmol/L Chloride Level 109 mmol/L Carbon Dioxide Level 30 mmol/L Anion Gap 6.0 mmol/L Blood Urea Nitrogen 10 mg/dl Creatinine 0.88 mg/dl Est Creatinine Clear Calc Drug Dose 121.0 ml/min Estimated GFR () 103.7 Estimated GFR (Non- 89.5 BUN/Creatinine Ratio 11.9 Random Glucose 98 mg/dl Calcium Level 8.3 mg/dl Magnesium Level 2.2 mg/dl Assessment and Plan A 65 yo male comes with 1. 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 SVT/wide complex tachycardia sec to above metoprolol 50 mg daily IV Lopressor IV Prn consult cards DVT/GI proph FULL Code
[2016-06-08] MEDS ORDERED: METOPROLOL TARTRATE 50 MG TAB PO STA (16:47)
--- NOTE | 2016-06-08 18:02 | CARDIOLOGY CONSULTATION ---
DATE OF CONSULTATION: 06/08/2016 TIME: 16:51 p.m. CONSULTING PHYSICIAN: Dr. Mauricio. REASON FOR CONSULTATION: Dilated right ventricle, wide-complex tachycardia, pericardial effusion. HISTORY OF PRESENT ILLNESS: Mr. Rai is a very pleasant 65-year-old gentleman with a history significant for hypertension. He presented to [facility] yesterday due to tachycardia. Due to left lower extremity pain and erythema he went to see his PCP who ordered a lower extremity duplex. This was performed on 05/24/2016. There was no DVT, but there was superficial thrombophlebitis of the right lower leg. For the pain he was given gabapentin and this helped significantly. Then, this past weekend, approximately 4-5 days ago he developed mild dyspnea with exertion and noticed that his heart rate was more tachycardic. He noticed palpitations, mostly when lying in bed at night. He denies any significant shortness of breath, but rather only dyspnea with exertion. He denies chest pain, syncope, near syncope. 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 He was diagnosed with pulmonary emboli. He has been tachycardic for the most part, but intermittently has an acceptable heart rate. He does, however, have episodes where his heart rate is near 150 beats per minute. He was started on metoprolol succinate 50 mg daily. He was started on heparin for anticoagulation in regards to his acute pulmonary emboli. He denies any worsening edema, fevers, chills, abdominal pain, nausea, vomiting, bleeding such as melena, hematochezia, or hematuria. He did have approximately 2 days of diarrhea recently, but this has since resolved. He denies strokes, TIA, diabetes, heart failure, cardiovascular disease. He does have hypertension and is treated periodically by his PCP. 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 Currently, he feels relatively well without any significant complaints. He would like to be discharged tomorrow. REVIEW OF SYSTEMS: As above and review of systems is otherwise negative. PAST MEDICAL HISTORY: 1. Hypertension. 2. Status post hernia repairs. HOME MEDICATIONS: Include aspirin 81 mg daily, gabapentin 300 mg b.i.d., lisinopril 40 mg daily, terazosin 10 mg daily. HOSPITAL MEDICATIONS: Include aspirin 81 mg daily, gabapentin 300 mg p.o. b.i.d., heparin drip per protocol, lisinopril 40 mg daily, metoprolol succinate 50 mg daily, first dose today, metoprolol tartrate IV p.r.n., terazosin 10 mg q.p.m. ALLERGIES: No known drug allergies. He has a mild intolerance, oxycodone, stating he does not like the way it makes him feel. SOCIAL HISTORY: He smoked up to 2-3 packs per day for approximately 20 years but quit in 1990. No alcohol. No drugs. He is and lives with his . He is semi-retired. 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 He has 1 son and 1 daughter. No grandchildren. FAMILY HISTORY: No known premature CAD. PHYSICAL EXAMINATION: VITAL SIGNS: Temperature 36.8 degrees, heart rate 92 beats per minute, respiration rate 16, blood pressure 148/94 mmHg. Orthostatic vitals were unremarkable. He was not orthostatic. Oxygen saturation 96% on room air. Weight 139.8 kg. GENERAL: No acute distress. He is alert and oriented. HEENT: Anicteric sclerae. NECK: Thick, but no appreciable JVD. No bruits. Normal carotid upstrokes bilaterally. CARDIAC EXAM: PMI nondisplaced. There was no ventricular heave, tachycardic and mostly regular. Normal S1, S2. No audible murmurs, rubs or gallops. LUNGS: Clear to auscultation bilaterally without wheezes, rales or rhonchi. ABDOMEN: Obese, soft, nontender, nondistended, normoactive bowel sounds, no bruits noted. EXTREMITIES: Trace left lower extremity edema. No palpable cords. 2+ radial pulses bilaterally. 2+ dorsalis pedis pulses bilaterally. PSYCHIATRIC: Affect appears appropriate. DATA: ECGs were personally reviewed. Initial ECG, tachycardia at 148 beats per minute, possible atrial flutter. Right bundle-branch block. Possible inferior infarct. Repeat ECG on 06/07/2016 at 9:58 a.m. possible sinus rhythm at 106 beats per minute but could be underlying atrial flutter. Right bundle-branch block, possible inferior infarct. Repeat ECG this morning at 8:32 a.m. probable atrial flutter at 147 beats per minute. Right bundle-branch block. Inferior infarct. Telemetry was personally reviewed and demonstrates atrial flutter with variable AV block. Echocardiogram images personally reviewed. Echo was performed on 06/07/2016. Normal LV size and systolic function. Estimated EF 55%-60%. No regional wall motion abnormalities. Septal flattening during diastole suggests right ventricular volume overload. Moderate LVH. Moderately dilated right ventricle with mildly reduced systolic function. Mild aortic root dilation. Mildly dilated ascending aorta. Small pericardial effusion with echogenic components. No significant valvular abnormalities. LABORATORY DATA: White blood cell count 7, hemoglobin 13.8, platelets 167. Sodium 145, potassium 3.8, BUN 10, creatinine 0.8, magnesium 2.2. Troponin undetectable x1. TSH 03.49, albumin 3.4. INR was 1.1, PTT 68.3. CT scan imaging personally reviewed. There does appear to be a small pericardial effusion. Radiology has also noted bilateral pulmonary emboli. ASSESSMENT AND PLAN: 1. Atrial flutter with rapid ventricular response: We discussed the diagnosis with the help of a diagram. We discussed potential cardioversion, but would first require transesophageal echo if done soon as he was not anticoagulated within the first 48 hours of his symptoms which were 4 or 5 days ago. We will also hold off on antiarrhythmic therapy without transesophageal echo, if possible. He prefers a rate control strategy. We discussed the fact that atrial flutter is typically difficult to rate control, but he maintains this preference. Will increase metoprolol succinate to 100 mg daily tomorrow and give a 1 time dose of 25 mg now. His heart rate has improved. Atrial flutter, likely secondary to his pulmonary emboli and hopefully will spontaneously convert. Recommend anticoagulation for stroke risk reduction. Anticoagulation is being initiated for his pulmonary embolism as well. If rate control cannot be adequately achieved, would consider antiarrhythmic therapy or cardioversion. We did discuss this briefly as well as a transesophageal echo as they were considered. 2. Pericardial effusion: Etiology uncertain. There is a dense echogenic component. Recommend routine malignancy evaluations if not recently done. He does not appear to be in cardiac tamponade. The effusion is not large. Would not recommend pericardiocentesis at this time. Repeat limited echo tomorrow to evaluate for any significant change in the effusion. 3. Hypertension: Blood pressure is intermittently hypertensive. Metoprolol is being titrated as noted above. 4. Right ventricular dilatation with mildly reduced systolic function: Likely secondary to multiple pulmonary emboli. Treatment of pulmonary embolism as per primary service. Hopefully, this improves over time. 5. Disposition: Cardiology will continue to follow. Plan of care communicated with primary hospitalist, Dr. Mauricio. Cardiology will continue to follow along. Thank you for allowing me to participate in the care of Mr. Rai.
[2016-06-09 00:01] VITALS: O2SAT 95
[2016-06-09 03:38] VITALS: BP_SYST 137; BP_SYST 146; BP_SYST 148; BP_DIAS 85; BP_DIAS 88; BP_DIAS 95; PULSE 106; PULSE 95; PULSE 96; TEMP 36.6; O2SAT 95
[2016-06-09 04:00] VITALS: O2SAT 95
[2016-06-09 04:58] LABS: HEMATOCRIT 39.7 % (42-52); MEAN CELL VOLUME 91.3 fL (80-100); MEAN CORPUSCULAR HEMOGLOBIN 32.2 pg (25-34); MEAN PLATELET VOLUME 11.6 fL (7.4-10.4); PLATELET COUNT 168 K/uL (130-400); RED BLOOD COUNT 4.35 M/uL (4.7-6.1); WHITE BLOOD COUNT 6.58 K/uL (4.8-10.8)
[2016-06-09 05:00] LABS: MEAN CORPUSCULAR HGB CONC 35.3 g/dl (32-36)
[2016-06-09 05:16] LABS: PARTIAL THROMBOPLASTIN RATIO 2.1
[2016-06-09] MEDS: HEPARIN 25,000 UNIT/500ML D5W 500 ML IV PRN (05:39)
[2016-06-09] MEDS: LISINOPRIL 40 MG TAB PO SCH (07:32)
[2016-06-09] MEDS: GABAPENTIN 300 MG CAP PO SCH (07:32)
[2016-06-09] MEDS: ASPIRIN 81 MG ECTAB PO SCH (07:32)
[2016-06-09 07:34] VITALS: BP_SYST 123; BP_SYST 151; BP_SYST 163; BP_DIAS 103; BP_DIAS 89; BP_DIAS 99; PULSE 109; PULSE 112; PULSE 99; TEMP 36.6; O2SAT 99
[2016-06-09] MEDS ORDERED: METOPROLOL SUCC 50MG EXT REL TAB PO SCH (09:00)
--- NOTE | 2016-06-09 09:55 | CARDIOLOGY PROGRESS NOTE ---
DATE: 06/09/2016 TIME: 9:26 a.m. SUBJECTIVE: Denies chest pain, shortness of breath, syncope, near syncope, or palpitations. Tolerating increased dose of metoprolol thus far. He has not noted any bleeding such as melena, hematochezia or hematuria. OBJECTIVE: VITAL SIGNS: Temperature is 36.6 degrees, heart rate 90, respiration rate 20, blood pressure 151/103 mmHg, oxygen saturation 99% on room air. I's and O's negative 1.2 liters so far today. Weight is 140.3 kg. GENERAL: No acute distress. He is alert. NECK: No appreciable JVD but thick neck. CARDIAC EXAM: No ventricular heave. Regular with occasional irregularity. Normal S1, S2. No audible murmurs, rubs or gallops. LUNGS: Clear to auscultation bilaterally without wheezes, rales or rhonchi. ABDOMEN: Obese, soft, nontender, nondistended. Normoactive bowel sounds. EXTREMITIES: Trace to 1+ left lower extremity edema. Trace right lower extremity edema. No cyanosis. PSYCHIATRIC: Affect appears appropriate. MEDICATIONS: Include aspirin 81 mg daily, heparin drip per protocol, lisinopril 40 mg daily, metoprolol succinate 100 mg daily starting today, terazosin 10 mg q.p.m. LABORATORY DATA: White blood cell count is 6.58, hemoglobin 14, platelets 168. Sodium 145, potassium 3.8, BUN 10, creatinine 0.88, magnesium 2.2. He had limited echo done earlier today. The images were personally reviewed. Preliminarily, LV systolic function is stable and remains normal. Right ventricle still appears dilated with reduced systolic function. The pericardial effusion does not appear enlarged and overall appears stable. Telemetry personally reviewed. Heart rate overall has improved with increased beta-austin. ASSESSMENT AND PLAN: 1. Atrial flutter with rapid ventricular response: Heart rate has improved. We discussed once again that it is difficult to control heart rate with atrial flutter, but he prefers this treatment strategy. Metoprolol succinate increased to 100 mg today. Continue anticoagulation for stroke risk reduction. We discussed the fact that it may be much more reasonable to try to reestablish sinus rhythm if he does not spontaneously convert. He would like to avoid this for now, but we discussed potentially performing cardioversion after 4 weeks of anticoagulation and therefore, a transesophageal echo would not be required. He is thinking about it. Hopefully, he spontaneously converts. 2. Pericardial effusion: Etiology uncertain. Recommend outpatient malignancy evaluation by PCP. There is no compression of the cardiac chambers to suggest tamponade. This will be monitored over time. 3. Hypertension: Blood pressure is normotensive to mildly hypertensive. Beta-austin therapy was increased today. Further adjustments can be made if necessary. 4. Right ventricular dilatation with reduced systolic function: Likely secondary to multiple pulmonary emboli. Hopefully, this improves over time. 5. Disposition: If his heart rate is adequately controlled with ambulation in the hallways earlier this afternoon, he can be discharged with close cardiology followup. Cardiology office will make an appointment and contact the equal employment opportunity officer so that it can be entered into his discharge records. If his heart rate is not adequately controlled, would recommend further titration of beta-austin or initiation of calcium-channel austin such as diltiazem. If reasonable heart rate control cannot be achieved before discharge, then would recommend transesophageal echo and cardioversion or antiarrhythmic therapy.
[2016-06-09 11:51] VITALS: BP 161/96; PULSE 79; TEMP 36.5; O2SAT 95
--- NOTE | 2016-06-09 12:35 | ECHOCARDIOGRAM REPORT ---
*NOTICE TO RECEIVING LIBERTARIAN AGENCY This information is strictly Confidential and protected under [place] law. [place] law prohibits you from making any further disclosure of this information unless further disclosure is expressly permitted by the written consent of the person to whom it pertains or is authorized by law. A general authorization for the release of medical or other information is not sufficient for this purpose. Hospital accepts no responsibility if the information is made available to any other person, INCLUDING THE PATIENT. Interpretation Summary * Name: EVARISTO BERG Study Date: 06/09/2016 08:13 AM BP: 163/99 mmHg * Patient Location: C.2T\S\E215\S\1 HR: 98 * : 1950 (M/d/yyyy) Gender: Male Height: 72 in * Age: 65 yrs Ethnicity: CA Weight: 308 lb * Ordering Physician: Dash Jay * Referring Physician: Self, Referred * Performed By: Becki Wong RCS * * Reason For Study: PERICARDIAL EFFUSION / EVAL SIZE OF EFFUSION * BSA: 2.6 m2 * -- Conclusions -- * 1. Normal left ventricular size and systolic function. EF 60-65%. No definite regional wall motion abnormalities. Cannot rule out wall motion abnormalities on this limited echo. Moderate concentric left ventricular hypertrophy. * 2. Mildly dilated right ventricle with mildly reduced systolic function. * 3. Mild biatrial dilation. * 4. Small pericardial effusion with predominantly echo genetic component. * 5. Limited echo with limited spectral Doppler as per request. * 6. Mild aortic root dilation. * 7. Compared to prior study on 06/07/2016, pericardial effusion appears stable. Procedure Details * A complete two-dimensional transthoracic echocardiogram was performed (2D, M-mode, Doppler and color flow Doppler). Left Ventricle * Normal left ventricular size and systolic function. EF 60-65%. No definite regional wall motion abnormalities. Cannot rule out wall motion abnormalities on this limited echo. Moderate concentric left ventricular hypertrophy. Right Ventricle * Mildly dilated right ventricle with mildly reduced systolic function. Atria * The left atrium is mildly dilated. * The right atrium is mildly dilated. Mitral Valve * The mitral valve is not well visualized. * There is no mitral valve stenosis. Tricuspid Valve * Tricuspid valve not well visualized but appears grossly normal in structure. Aortic Valve * The aortic valve is not well visualized. Pulmonic Valve * The pulmonic valve is not well visualized. Great Vessels * Mild aortic root dilatation. Pericardium/Pleural * Small pericardial effusion with predominantly echo genetic component. No echocardiographic evidence of tamponade physiology noted. Great Vessels * Normal inferior vena cava size and collapsability with sniff indicates a normal right atrial pressure of 3 mmHg MMode 2D Measurements and Calculations IVSd 1.5 cm LVIDd 4.9 cm LVIDs 3.2 cm LVPWd 1.5 cm IVS/LVPW 1.0 FS 34.6 % EDV(Teich) 113.3 ml ESV(Teich) 41.3 ml EF(Teich) 63.5 % EDV(cubed) 118.3 ml ESV(cubed) 33.1 ml EF(cubed) 72.0 % LV mass(C)d 317.2 grams LV mass(C)dI 123.9 grams/m\S\2 SV(Teich) 72.0 ml SI(Teich) 28.1 ml/m\S\2 SV(cubed) 85.2 ml SI(cubed) 33.3 ml/m\S\2 Ao root diam 4.6 cm Ao root area 16.7 cm\S\2 Doppler Measurements and Calculations MV E max liset 105.6 cm/sec
[2016-06-09] MEDS ORDERED: RIVAROXABAN TAB 15 MG TAB PO SCH (13:15)
[2016-06-09] MEDS ORDERED: TPRSR50 PO (13:18)
[2016-06-09] MEDS ORDERED: RIVA1TAB4 PO (13:18)
--- NOTE | 2016-06-09 13:20 | Discharge Instructions ---
Discharge Instructions Admission Reason for Admission: Bilateral Pulmonary Embolism, Svt Discharge Discharge Diagnosis / Problem: PE, aflutter Discharge Goals Goal(s): Increase independence, Improve disease control, Diagnostic testing, Therapeutic intervention Activity Recommendations Activity Limitations: per Instructions/Follow-up section Driving or Machine Use: do not drive/fly for 3 months, if need to drive, then drive for 1.5-2 hours and stop for a rest 15 min . Instructions / Follow-Up Instructions / Follow-Up . . do not drive/fly for 3 months, if need to drive, then drive for 1.5-2 hours and stop for a rest 15 min follow up primary care doctor in 1-[address] Jay 4 weeks (cards) . . Current Hospital Diet Patient's current hospital diet: AHA Diet (Heart Healthy) Discharge Diet Recommended Diet: AHA Diet (Heart Healthy) Pending Studies Studies pending at discharge: no Laboratory Results Last 24 Hours Test 06/09/16 04:50 White Blood Count 6.58 K/uL Red Blood Count 4.35 M/uL Hemoglobin 14.0 g/dL Hematocrit 39.7 % Mean Corpuscular Volume 91.3 fL Mean Corpuscular Hemoglobin 32.2 pg Mean Corpuscular Hemoglobin Concent 35.3 g/dl RDW Standard Deviation 44.9 fL RDW Coefficient of Variation 13.4 % Platelet Count 168 K/uL Mean Platelet Volume 11.6 fL Activated Partial Thromboplast Time 55.3 SECONDS Partial Thromboplastin Ratio 2.1 Medical Emergencies . Who to Call and When: Medical Emergencies: If at any time you feel your situation is an emergency, please call 911 immediately. . Non-Emergent Contact Non-Emergency issues call your: Primary Care Provider Call Non-Emergent contact if: your pain is not controlled, you have any medication questions . Past History Medical & Surgical History: (1) Atrial flutter (2) Bilateral pulmonary embolism . "Provider Documentation" section prepared by Orlando Mauricio. VTE Core Measure Inpt VTE Proph given/why not?: Other Anticoagulation
--- NOTE | 2016-06-09 13:22 | Discharge Summary ---
Discharge Summary Date of Service Jun 09, 2016. Discharge Summary Admission Date: Jun 07, 2016 at 13:36 Discharge Date: Jun 09, 2016 Discharge Disposition: Home Principal Diagnosis: PE, aflutter Consultations: cards, pulm Medication Reconciliation New Medications: Metoprolol Succinate (Metoprolol Succinate ER) 50 Mg Tabcr 100 MG PO QAM, #90 TABS 3 Refills Rivaroxaban (Xarelto) 20 Mg Tab 20 MG PO DAILY, #90 TAB 3 Refills start taking 20 mg daily after finishing 15 mg twice a day for 21 days Continued Medications: Gabapentin (Neurontin) 300 Mg Cap 300 MG PO BID, CAP Lisinopril (Zestril) 40 Mg Tab 40 MG PO QAM, TAB Terazosin Hcl (Hytrin) 10 Mg Cap 10 MG PO QPM, CAP Discontinued Medications: Aspirin (Aspirin Ec) 81 Mg Tab 81 MG PO DAILY Referrals At Discharge Follow up Referrals: Cia Agent Referral - Within a Month with Dash Jay MD Physician Referral - Within 2 Weeks with Shikha Tilley Discharge Exam Review of Systems: Constitutional: No chills ENT: No unusual epistaxis Respiratory: No sputum Cardiovascular: No chest pain Abdomen: No pain Genitourinary - Male: No hematuria Neurologic: No memory loss Psychiatric: No depression symptoms Endocrine: No fatigue Physical Exam: General Appearance: WD/WN, no apparent distress Eyes: normal inspection, EOMI ENT: hearing grossly normal Neck: supple Respiratory/Chest: chest non-tender Cardiovascular: normal peripheral pulses, + irregularly irregular Abdomen / GI: non tender, no organomegaly Extremities: normal capillary refill Neurologic/Psychiatric: alert Skin: warm/dry Hospital Course A 65 yo male comes with 1. 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 aflutter/SVT/wide complex tachycardia sec to above metoprolol 100 mg daily xl f/u cards in 4 weeks for possible cardioversion f/u PCP 1-2 weeks needs to have malignancy w/u (concerned for small pericard effusion), he had colonoscopy 2 years ago with polyps removal recs given: do not drive/fly for 3 months, if need to drive, then drive for 1.5-2 hours and stop for a rest 15 min Total Time Spent: Greater than 30 minutes This includes examination of the patient, discharge planning, medication reconciliation, and communication with other providers. Discharge Instructions Please refer to the electronic Patient Visit Report (Discharge Instructions) for additional information. Additional Copies To Shikha Tilley; Dash Jay MD
[2016-06-09 13:32] VITALS: BP 161/96; PULSE 79; TEMP 36.5; O2SAT 95
[2016-06-29] MEDS ORDERED: RIVA1TAB4 PO (15:43)
[2016-06-29] MEDS ORDERED: METO1TAB68 PO (15:43)
== END 2016-06-09 14:22 | disposition home or self-care (01) | DRG 299 ==
LOC: ENRESERVDT → ENRESERVTM → CANRESERV → C.EDB 09:09 → C.EDINP 13:36 → C.2T 17:27
PROVIDERS: ADMIT Hospitalist; ATTEND Hospitalist
DX: I82.409 Acute embolism and thrombosis of unspecified deep veins of unspecified lower extremity (principal); I26.99 Other pulmonary embolism without acute cor pulmonale; I48.92 Unspecified atrial flutter; I31.3 Pericardial effusion (noninflammatory); Z68.41 Body mass index [BMI] 40.0-44.9, adult; I10 Essential (primary) hypertension; E66.9 Obesity, unspecified; Z79.82 Long term (current) use of aspirin; Z79.899 Other long term (current) drug therapy; Z87.891 Personal history of nicotine dependence; Z82.49 Family history of ischemic heart disease and other diseases of the circulatory system

== ENCOUNTER 2016-06-28 09:38 | Inpatient (IN) | payer OTHER ==
[~2016-06-28] VITALS: Ht 182.9 cm; Wt 129.3 kg
[~2016-06-28 09:38] MED LIST changes: +GABA-113 PO; -HYDR-1838 PO; -IBUP-1050 PO; -NAPR1TAB9 PO; +RIVA1TAB4 PO; +TPRSR50 PO
[2016-06-28] MEDS ORDERED: DILTIAZEM BOLUS / DRIP IV STA (10:04)
[2016-06-28] MEDS ORDERED: DILTIAZEM HCL 5 MG/ML 5 ML VIAL IV SCH (10:30)
[2016-06-28 10:35] LABS: HEMATOCRIT 42.1 % (42-52); MEAN CELL VOLUME 91.1 fL (80-100); MEAN CORPUSCULAR HEMOGLOBIN 32.3 pg (25-34); MEAN CORPUSCULAR HGB CONC 35.4 g/dl (32-36); MEAN PLATELET VOLUME 11.8 fL (7.4-10.4); PLATELET COUNT 170 K/uL (130-400); RED BLOOD COUNT 4.62 M/uL (4.7-6.1); WHITE BLOOD COUNT 7.95 K/uL (4.8-10.8)
[2016-06-28] MEDS ORDERED: DILTIAZEM HCL INJ 125 MG in DEXTROSE 5% 100ML IV PRN (10:45)
[2016-06-28 10:48] LABS: ALT/SGPT 38 U/L (12-78); BLOOD UREA NITROGEN 14 mg/dl (7-18); BUN/CREATININE RATIO 14.1 (10-20); CALCIUM 9.1 mg/dl (8.5-10.1); CARBON DIOXIDE 27 mmol/L (21-32); CHLORIDE 107 mmol/L (98-107); CREATININE 0.98 mg/dl (0.60-1.40); GLUCOSE 133 mg/dl (70-99); POTASSIUM 3.9 mmol/L (3.5-5.1); SODIUM 141 mmol/L (136-145)
[2016-06-28 10:51] LABS: INR 1.3 (0.9-1.1); PARTIAL THROMBOPLASTIN RATIO 1.5; PROTHROMBIN TIME (PATIENT) 14.2 SECONDS (9.0-12.0)
[2016-06-28 10:58] LABS: ALB/GLOB RATIO 0.9 (0.9-2); ALKALINE PHOSPHATASE 78 U/L (45-117); AST/SGOT 19 U/L (15-37); THYROID STIMULATING HORMONE 0.196 uIu/ml (0.300-4.500)
--- NOTE | 2016-06-28 11:35 | DIAGNOSTIC IMAGING REPORT ---
CHEST ONE VIEW PORTABLE HISTORY: Atypical CHEST PAIN COMPARISON: Chest CTA and chest x-ray 06/07/2016. FINDINGS: The cardiomegaly and central pulmonary vascular congestion have improved. No focal lung consolidations. No evidence for pulmonary edema. No pleural effusions. No pneumothorax. IMPRESSION: The cardiomegaly and central pulmonary vascular congestion have improved. Electronically signed by: Kyle Bray M.D. 06/28/2016 11:34 AM Dictated Date/Time: 06/28/2016 11:33 AM
[2016-06-28] MEDS ORDERED: POLYETHYLENE (MIRALAX) 17 GM PACK PO PRN (12:15)
[2016-06-28] MEDS ORDERED: ONDANSETRON INJ 2 MG/ML 2 ML VIAL IV PRN (12:15)
[2016-06-28 12:25] VITALS: BP 115/79; PULSE 103; TEMP 36.8; O2SAT 96; Ht 182.9 cm; Wt 129.3 kg
--- NOTE | 2016-06-28 12:35 | History and Physical ---
History & Physical Date & Time of Service: Jun 28, 2016 at 12:29 Chief Complaint: HEART Primary Care Physician: Shikha Tilley History of Present Illness This is a 65-year-old male with past medical history significant for pulmonary embolism diagnosed April 2015, was placed on the xarelto at that time, metoprolol succinate, and lisinopril. Other PMHx includes hypertension, remote tobacco history of 2-3 packs per day 20 years, quit 1990. The patient was being seen in hematology oncology office this morning with Dr. Marcano, where patient was found to be in A. fib with RVR, heart rate was 147 in the clinic. Patient admits to feeling lightheaded and "off", with minor chest tightness. The patient denies ever having chest pain or shortness of breath. 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 Likely PE was due to sedentary lifestyle. Hypercoagulability workup was being completed today in the heme/onc office. The patient currently complains of a minor frontal headache. He denies changes in vision, ringing in the ears, palpitation, flutter. Patient notes that occasionally his lower extremities are swollen, however denies any of this currently. In the ED the patient's blood pressure is maintained at 110s over 80s, HR= 97, still in A. fib on monitor at bedside. The patient has been started on a Cardizem drip. TSH= 196. Chest x-ray is clear for any signs of pulmonary congestion, does show cardiomegaly. Troponin is negative Past Medical/Surgical History Pulmonary embolism Hypertension Obesity, morbid, BMI 42.1 Family History Cancer Social History Smoking Status: Former Smoker Smokeless Tobacco Use: No Alcohol Use: none Drug Use: none Marital Status: Housing status: lives with family Occupational Status: employed Multi-Drug Resistant Organisms History of MDRO: No Allergies Coded Allergies: Oxycodone (Verified Adverse Reaction, Unknown, "DOESN'T LIKE FEELING", ) Home Medications Scheduled Gabapentin (Neurontin), 300 MG PO BID Lisinopril (Zestril), 40 MG PO QAM Metoprolol Succinate (Metoprolol Succinate ER), 100 MG PO QAM Rivaroxaban (Xarelto), 20 MG PO DAILY Terazosin Hcl (Hytrin), 10 MG PO QPM Review of Systems Constitutional: No chills, No fatigue, No fever, No sweats Eyes: No diplopia ENT: No sore throat Respiratory: + dyspnea on exertion, + shortness of breath, No dyspnea at rest Cardiovascular: No chest pain, No orthopnea Abdomen: No constipation, No diarrhea, No nausea, No pain, No vomiting Musculoskeletal: No joint pain, No muscle pain Genitourinary - Male: No dysuria, No hematuria Neurologic: No balance problems, No numbness/tingling Integumentary: No itch, No rash Physical Exam Vital Signs Date Time Temp Pulse Resp B/P Pulse Ox O2 Delivery O2 Flow Rate FiO2 06/28/16 12:17 104 20 115/79 96 Room Air 06/28/16 11:37 97 18 111/79 96 Room Air 06/28/16 11:12 102 20 101/75 94 06/28/16 10:54 140 18 127/90 95 Room Air 06/28/16 10:12 94 Room Air 06/28/16 09:54 141 06/28/16 09:45 36.8 141 22 151/113 94 Room Air General Appearance: WD/WN, no apparent distress, + obese Head: normocephalic, atraumatic Eyes: PERRL, EOMI ENT: hearing grossly normal, pharynx normal, + pertinent finding (endentulous) Neck: supple, no JVD Respiratory/Chest: chest non-tender, lungs clear, no respiratory distress, no accessory muscle use Cardiovascular: no murmur, + tachycardia, + irregularly irregular Abdomen/GI: normal bowel sounds, non tender, soft, no organomegaly, + pertinent finding (obese) Back: normal inspection Extremities/Musculoskelatal: normal inspection, no calf tenderness, no pedal edema Neurologic/Psych: alert, normal mood/affect, oriented x 3 Skin: normal color, warm/dry Diagnostics Laboratory Results Results Past 24 Hours Test 06/28/16 10:20 Range/Units White Blood Count 7.95 4.8-10.8 K/uL Red Blood Count 4.62 4.7-6.1 M/uL Hemoglobin 14.9 14.0-18.0 g/dL Hematocrit 42.1 42-52 % Mean Corpuscular Volume 91.1 80-100 fL Mean Corpuscular Hemoglobin 32.3 25-34 pg Mean Corpuscular Hemoglobin Concent 35.4 32-36 g/dl RDW Standard Deviation 44.1 36.4-46.3 fL RDW Coefficient of Variation 13.4 11.5-14.5 % Platelet Count 170 130-400 K/uL Mean Platelet Volume 11.8 7.4-10.4 fL Prothrombin Time 14.2 9.0-12.0 SECONDS Prothromb Time International Ratio 1.3 0.9-1.1 Activated Partial Thromboplast Time 38.0 21.0-31.0 SECONDS Partial Thromboplastin Ratio 1.5 Sodium Level 141 136-145 mmol/L Potassium Level 3.9 3.5-5.1 mmol/L Chloride Level 107 98-107 mmol/L Carbon Dioxide Level 27 21-32 mmol/L Anion Gap 7.0 3-11 mmol/L Blood Urea Nitrogen 14 7-18 mg/dl Creatinine 0.98 0.60-1.40 mg/dl Est Creatinine Clear Calc Drug Dose 108.0 ml/min Estimated GFR () 92.7 Estimated GFR (Non- 80.0 BUN/Creatinine Ratio 14.1 10-20 Random Glucose 133 70-99 mg/dl Calcium Level 9.1 8.5-10.1 mg/dl Magnesium Level 2.0 1.8-2.4 mg/dl Total Bilirubin 0.8 0.2-1 mg/dl Aspartate Amino Transf (AST/SGOT) 19 15-37 U/L Alanine Aminotransferase (ALT/SGPT) 38 12-78 U/L Alkaline Phosphatase 78 45-117 U/L Total Creatine Kinase 39 39-308 U/L Creatine Kinase MB < 0.5 0.5-3.6 ng/ml Creatine Kinase MB Ratio 0-3.0 Troponin I < 0.015 0-0.045 ng/ml Total Protein 7.3 6.4-8.2 gm/dl Albumin 3.4 3.4-5.0 gm/dl Globulin 3.9 2.5-4.0 gm/dl Albumin/Globulin Ratio 0.9 0.9-2 Thyroid Stimulating Hormone (TSH) 0.196 0.300-4.500 uIu/ml Free Thyroxine 1.24 0.80-1.60 ng/dl Diagnostic Radiology CHEST ONE VIEW PORTABLE HISTORY: Atypical CHEST PAIN COMPARISON: Chest CTA and chest x-ray 06/07/2016. FINDINGS: The cardiomegaly and central pulmonary vascular congestion have improved. No focal lung consolidations. No evidence for pulmonary edema. No pleural effusions. No pneumothorax. IMPRESSION: The cardiomegaly and central pulmonary vascular congestion have improved. Electronically signed by: Kyle Bray M.D. 06/28/2016 11:34 AM Dictated Date/Time: 06/28/2016 11:33 AM The status of this report is Signed. EKG Vent. rate 141 BPM OR interval 144 ms QRS duration 128 ms QT/QTc 322/493 ms P-R-T axes * 53 6 Atrial fibrillation, right bundle branch block, previous inferior infarct Impression Assessment and Plan This is a 65-year-old male with past medical history significant for pulmonary embolism diagnosed April 2015, was placed on the xarelto at that time, metoprolol succinate, and lisinopril. Other PMHx includes hypertension, remote tobacco history of 2-3 packs per day 20 years, quit 1990. New onset Atrial fibrillation with RVR HTN - Patient was being seen in heme/onc office for hypercoagulability workup with history of PE when developed A. fib with RVR. 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 No focal lung consolidations. No evidence for pulmonary edema. No pleural effusions. No pneumothorax. - repeat an EKG Morbid obesity -Diet and exercise was discussed at bedside, continue to encourage weight loss History of PE - Continue on Xarelto 20 mg daily - Patient reports he has been taking medication as prescribed - Follow coags daily History of tobacco abuse - Remote [id number] history, patient quit 1990 DVT prophylaxis: Teds, CAD, xarelto CODE STATUS: Full code Disposition: Patient from home, will need to be transitioned from Cardizem drip to oral, discharge when medically stable The patient was seen and discussed with the attending, was referred attending addendum for any additions or clarifications. Level of Care Telemetry Advanced Directives Existing Advance Directive: Yes Existing Living Will: Yes Existing Power of Clothespin Machine Operator: Yes Existing Health Care Proxy: Yes Resuscitation Status FULL RESUSCITATION VTE Prophylaxis VTE Risk Assessment Done? Y/N: Yes Risk Level: Low Given or contraindicated: Other Anticoagulation, T.E.D. 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 Discussed with TAMERA Rooney and agree with findings and plan as documented in the note. Any exceptions or clarifications are listed here: Pt with h/o atrial flutter with RVR since last admit for acute PE. Has been on AC with Xarelto since that admission 3 weeks ago. He did have some left sided chest pressure when the heart rate was rapid in the 140s. Pt and report his HR has been high since discharge 3 weeks ago. It was in the 120s at his PCP visit 2 weeks ago and has never been lower than 98 except one time was in the 80s at home when checks his BP frequently since discharge. He has had some intermittent palpitations like heart pounding out of chest over the last few weeks, which returned again today when he was in the Director [employer]'s office. Since admission he was placed on a dilt gtt and then then transitioned off when HR came down into the 70s. Vitals and tele reviewed NAD, morbidly obese Neck obese and cannot visualize neck veins, no carotid bruits, no adenopathy or thyromegaly irreg irreg and normal rate CTAB no wcr and breathing unlabored Abd +BS, soft, NT, ND morbidly obese, incisional scars infraumbilical and supraumbilical as well as RUQ Ext 1+ pitting edema L>R in legs SKin no rashes Labs and rads, ECGs reviewed images personally 65 yo male with morbid obesity, Atrial flutter with RVR, recent PE on anticoagulation, HTN, and prediabetes, here with recurrent rapid A-flutter. 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
[2016-06-28 12:44] VITALS: BP 128/83; PULSE 100; TEMP 36.8; O2SAT 95
--- NOTE | 2016-06-28 14:14 | Cardiology Consultation ---
Cardiology Consultation Date of Consultation: Jun 28, 2016. Requesting Physician: Dr. Moscoso Reason for Consultation: Atrial flutter with a rapid heart rate Pt evaluation today including: conversation w/ patient, conversation w/ family , physical exam, lab review, review of studies, review of inpatient medication list History of Present Illness This is a 65-year-old gentleman who has a history of hypertension and tobacco abuse although he quit in 1990. He has a more recent history of pulmonary emboli and atrial flutter. He presented with left leg swelling and erythema in early May 2016, an ultrasound was done on 05/24/2016 and was negative for DVT however. He then presented on 06/07/2016 with about 4 or 5 days of shortness of breath and palpitations, apparently this was a new symptom complex for him. At his [employer] physical he was noted to have a heart rate of 150 bpm and he was sent to the emergency room where pulmonary emboli and atrial flutter were identified and he was started on a heparin drip that day, which was changed to Xarelto which he tells me he has been taking faithfully. I believe he is just finishing the 15 mg twice a day dose and switching to 20 mg daily. With regard to his atrial flutter options were discussed with him and he preferred rate control rather than cardioversion, he was sent home on metoprolol succinate 100 mg a day which he has been taking. He has had intermittent feelings of palpitations, however he went to his hematology appointment (he is undergoing evaluation there for a hypercoagulable state) and he was noted to have a heart rate of about 150 bpm and he was sent to the emergency room. He was found to have rapid atrial flutter. He was started on intravenous diltiazem and admitted. At the moment he feels that his heart rate is under control and he has no complaints. He denies chest discomfort, does not have orthopnea or PND and has occasional peripheral edema but not currently. Past Medical/Surgical History (1) Atrial flutter (2) Bilateral pulmonary embolism (3) Hx of cholecystectomy Family History Cancer Social History Smoking Status: Former Smoker History of Alcohol Use: No Review of Systems Constitutional: No fever, No weakness, No weight loss Respiratory: + dyspnea on exertion Cardiac: + palpitations, + see HPI, No PND, No chest pain, No edema, No orthopnea Abdomen: No GI bleeding, No diarrhea, No nausea, No pain, No vomiting Male : No nocturia more than once/night, No sexual dysfunction, No slowing stream, No urinary frequency Neurologic: No balance problems, No numbness/tingling, No paralysis, No weakness Heme: No abnormal bleeding/bruising, No clotting problems Endo: No fatigue Skin: No problem reported All Other Systems: Reviewed and Negative Allergies Coded Allergies: Oxycodone (Verified Adverse Reaction, Unknown, "DOESN'T LIKE FEELING", ) Medications Current Inpatient Medications Medications (Trade) Dose Ordered Sig/Marcelino Route Start Time Stop Time Status Last Admin Dose Admin Diltiazem HCl/ Dextrose (Cardizem Inj/D5 100ml) 125 ml @ 0 mls/hr Q0M PRN IV 06/28/16 10:45 06/28/16 15:00 06/28/16 10:51 5 MLS/HR Ondansetron HCl (Zofran Inj) 4 mg Q6H PRN IV 06/28/16 12:15 07/28/16 12:14 Polyethylene (Miralax Powder Packet) 17 gm DAILY PRN PO 06/28/16 12:15 07/28/16 12:14 Gabapentin (Neurontin Cap) 300 mg BID PO 06/28/16 21:00 07/28/16 20:59 Lisinopril (Zestril Tab) 40 mg QAM PO 06/29/16 09:00 07/29/16 08:59 Metoprolol Succinate (Toprol Xl Tab) 100 mg QAM PO 06/29/16 09:00 07/29/16 08:59 Rivaroxaban (Xarelto Tab) 20 mg QDD PO 06/28/16 16:45 07/28/16 16:44 Terazosin HCl (Hytrin Cap) 10 mg QPM PO 06/28/16 21:00 07/28/16 20:59 Physical Exam Vital Signs Past 12 Hours Date Time Temp Pulse Resp B/P Pulse Ox O2 Delivery O2 Flow Rate FiO2 06/28/16 12:44 36.8 100 20 128/83 95 Room Air 06/28/16 12:25 36.8 103 20 115/79 96 Room Air 06/28/16 12:17 104 20 115/79 96 Room Air 06/28/16 11:37 97 18 111/79 96 Room Air 06/28/16 11:12 102 20 101/75 94 06/28/16 10:54 140 18 127/90 95 Room Air 06/28/16 10:12 94 Room Air 06/28/16 09:54 141 06/28/16 09:45 36.8 141 22 151/113 94 Room Air Constitutional: General Apperance: heathly-appearing Level of Distress: NAD Psychiatric: Mental Status: active & alert Head: normocephalic Eyes: EOM: EOMI ENMT: normal ENT inspection, hearing grossly normal Neck: supple, no masses Lungs: Respiratory effort: no dyspnea, good air movement Auscultation: breath sounds normal, no wheezing Cardiovascular: Heart Auscultation: no murmurs, no rubs, no gallops, irregular rate rhythm Peripheral Pulses: Bruits: none appreciated Abdomen: Bowel Sounds: normal Inspection & Palpation: soft, no tenderness, guarding & rebound, no masses Musculoskeletal: normal strength (5/5 throughout) Extremities: no edema, no palpable cord Neurologic: Cranial Nerves: grossly intact Sensation: grossly intact Data Laboratory Results: Last 24 Hours Test 06/28/16 10:20 White Blood Count 7.95 K/uL Red Blood Count 4.62 M/uL Hemoglobin 14.9 g/dL Hematocrit 42.1 % Mean Corpuscular Volume 91.1 fL Mean Corpuscular Hemoglobin 32.3 pg Mean Corpuscular Hemoglobin Concent 35.4 g/dl RDW Standard Deviation 44.1 fL RDW Coefficient of Variation 13.4 % Platelet Count 170 K/uL Mean Platelet Volume 11.8 fL Prothrombin Time 14.2 SECONDS Prothromb Time International Ratio 1.3 Activated Partial Thromboplast Time 38.0 SECONDS Partial Thromboplastin Ratio 1.5 Sodium Level 141 mmol/L Potassium Level 3.9 mmol/L Chloride Level 107 mmol/L Carbon Dioxide Level 27 mmol/L Anion Gap 7.0 mmol/L Blood Urea Nitrogen 14 mg/dl Creatinine 0.98 mg/dl Est Creatinine Clear Calc Drug Dose 108.0 ml/min Estimated GFR () 92.7 Estimated GFR (Non- 80.0 BUN/Creatinine Ratio 14.1 Random Glucose 133 mg/dl Calcium Level 9.1 mg/dl Magnesium Level 2.0 mg/dl Total Bilirubin 0.8 mg/dl Aspartate Amino Transf (AST/SGOT) 19 U/L Alanine Aminotransferase (ALT/SGPT) 38 U/L Alkaline Phosphatase 78 U/L Total Creatine Kinase 39 U/L Creatine Kinase MB < 0.5 ng/ml Creatine Kinase MB Ratio Troponin I < 0.015 ng/ml Total Protein 7.3 gm/dl Albumin 3.4 gm/dl Globulin 3.9 gm/dl Albumin/Globulin Ratio 0.9 Thyroid Stimulating Hormone (TSH) 0.196 uIu/ml Free Thyroxine 1.24 ng/dl EKG: Atrial flutter with 2-1 AV conduction and a ventricular rate of 141 bpm Telemetry reviewed: Atrial flutter, initially rapid, now well-controlled on diltiazem Assessment & Plan #1. Atrial flutter: He presented just 3 weeks ago in atrial flutter with 2-1 AV conduction, it sounds as though the duration at that time was not known and on discussing symptoms with him clearly preceded that presentation. It has been relatively recent however and he has been anticoagulated since 06/07/2016, that is 3 weeks today. It should be relatively safe to perform cardioversion at 3 weeks of anticoagulation. He tells me that he has been faithful in taking the medication. He has been taking his beta-blockade, however continues to have symptoms compatible with rapid atrial flutter and he has had documented recurrence of 2-1 AV conduction on metoprolol succinate 100 mg daily. We could probably control his rate with a combination of metoprolol and diltiazem (he is on IV diltiazem now with good heart rate control on top of his beta-blockade). On the other hand we really should try to get him back into normal rhythm, his atrial arrhythmia may have been related to his pulmonary emboli and as such he may not have a recurrence in the near future. I therefore recommended that we perform cardioversion without antiarrhythmic therapy. I discussed the indications, procedure, wrists and alternatives with him and his and they understand and he agrees to proceed. Consent obtained. We will arrange this for tomorrow. In the meantime will continue Xarelto, which is being switched from the 15 mg twice a day dose which is used for the first 3 weeks to the 20 mg daily dose. This is the normal dose for atrial fibrillation. Thank you for allowing me to participate in his care.
--- NOTE | 2016-06-28 14:17 | EMERGENCY ROOM VISIT NOTE ---
History Report prepared by Jackelyn: Aleida Rawls Under the Supervision of: Dr. Juwan Camara M.D. First contact with patient: 09:52 Chief Complaint: CHEST PAIN Stated Complaint: HEART Nursing Triage Summary: chest discomfort on left side started at 4 am today sent over from [facility] with concerns about his EKG +SOB History of Present Illness The patient is a 65 year old male who presents to the Emergency Room from the [facility] with complaints of left sided chest discomfort that began this morning around 6 hours ago. He also notes some shortness of breath this morning. His discomfort is a 6/10 in severity. He also complains of some lightheadedness and nausea, which he relates to being stuck for an IV. Today, the patient was at the [facility] for a consultation with Dr. Villarreal - Hematology/Oncology because he was diagnosed with PEs. He is currently on Xarelto. At that time, he was tachycardic. Due to his symptoms he was referred to the ER. Per patient's , the patient has had a persistently elevated heart rate since June 07. He has followed up with Dr. Jay and he diagnosed the patient with a-flutter. The patient is on Metoprolol. He is supposed to follow up with cardiology in 2 days. Denies cough, vomiting, or other complaints. Source of History: patient Onset: 6 hours ago Position: chest (left) Symptom Intensity: 6/10 Timing: other (persistent) Associated Symptoms: + SOB, + nausea, No cough, No vomiting Note: Other symptoms: lightheadedness Review of Systems See HPI for pertinent positives & negatives. A total of 10 systems reviewed and were otherwise negative. Past Medical & Surgical Medical Problems: (1) Atrial fibrillation with RVR (2) Bilateral pulmonary embolism (3) SVT (supraventricular tachycardia) Surgical Problems: (1) Hx of cholecystectomy Family History Cancer Social History Smoking Status: Former Smoker Alcohol Use: none Marital Status: Occupation Status: employed Current/Historical Medications Scheduled Gabapentin (Neurontin), 300 MG PO BID Lisinopril (Zestril), 40 MG PO QAM Metoprolol Succinate (Metoprolol Succinate ER), 100 MG PO QAM Rivaroxaban (Xarelto), 20 MG PO DAILY Terazosin Hcl (Hytrin), 10 MG PO QPM Allergies Coded Allergies: Oxycodone (Verified Adverse Reaction, Unknown, "DOESN'T LIKE FEELING", ) Physical Exam Vital Signs Date Time Temp Pulse Resp B/P Pulse Ox O2 Delivery O2 Flow Rate FiO2 06/28/16 11:37 97 18 111/79 96 Room Air 06/28/16 11:12 102 20 101/75 94 06/28/16 10:54 140 18 127/90 95 Room Air 06/28/16 10:12 94 Room Air 06/28/16 09:54 141 06/28/16 09:45 36.8 141 22 151/113 94 Room Air Physical Exam GENERAL: Patient is in no acute distress. HEENT: No acute trauma, normocephalic atraumatic, mucous membranes moist, no nasal congestion, no scleral icterus. NECK: No stridor, no adenopathy, no meningismus, trachea is midline. LUNGS: Clear to auscultation bilaterally, no wheeze, no rhonchi, breath sounds equal. HEART: Tachycardic with a regular rhythm, no murmurs. ABDOMEN: Soft, nontender, bowel sounds positive, no hernias, no peritonitis. EXTREMITIES: No cyanosis, moderate bilateral pedal edema, full range of motion of all the joints without pain or difficulty, no signs for acute trauma. NEUROLOGIC: Oriented x 3, no acute motor or sensory deficits, no focal weakness. SKIN: No rash, no jaundice, no diaphoresis. Medical Decision & Procedures ER Provider Diagnostic Interpretation: Radiology results and stated below per my review and radiologist interpretation: CHEST ONE VIEW PORTABLE HISTORY: Atypical CHEST PAIN COMPARISON: Chest CTA and chest x-ray 06/07/2016. FINDINGS: The cardiomegaly and central pulmonary vascular congestion have improved. No focal lung consolidations. No evidence for pulmonary edema. No pleural effusions. No pneumothorax. IMPRESSION: The cardiomegaly and central pulmonary vascular congestion have improved. Electronically signed by: Kyle Bray M.D. 06/28/2016 11:34 AM Dictated Date/Time: 06/28/2016 11:33 AM Laboratory Results 06/28/16 10:20 06/28/16 10:20 Test 06/28/16 10:20 Red Blood Count 4.62 M/uL (4.7-6.1) Mean Corpuscular Volume 91.1 fL (80-100) Mean Corpuscular Hemoglobin 32.3 pg (25-34) Mean Corpuscular Hemoglobin Concent 35.4 g/dl (32-36) RDW Standard Deviation 44.1 fL (36.4-46.3) RDW Coefficient of Variation 13.4 % (11.5-14.5) Mean Platelet Volume 11.8 fL (7.4-10.4) Prothrombin Time 14.2 SECONDS (9.0-12.0) Prothromb Time International Ratio 1.3 (0.9-1.1) Activated Partial Thromboplast Time 38.0 SECONDS (21.0-31.0) Partial Thromboplastin Ratio 1.5 Anion Gap 7.0 mmol/L (3-11) Est Creatinine Clear Calc Drug Dose 108.0 ml/min Estimated GFR () 92.7 Estimated GFR (Non- 80.0 BUN/Creatinine Ratio 14.1 (10-20) Calcium Level 9.1 mg/dl (8.5-10.1) Magnesium Level 2.0 mg/dl (1.8-2.4) Total Bilirubin 0.8 mg/dl (0.2-1) Aspartate Amino Transf (AST/SGOT) 19 U/L (15-37) Alanine Aminotransferase (ALT/SGPT) 38 U/L (12-78) Alkaline Phosphatase 78 U/L (45-117) Total Creatine Kinase 39 U/L (39-308) Creatine Kinase MB < 0.5 ng/ml (0.5-3.6) Creatine Kinase MB Ratio (0-3.0) Troponin I < 0.015 ng/ml (0-0.045) Total Protein 7.3 gm/dl (6.4-8.2) Albumin 3.4 gm/dl (3.4-5.0) Globulin 3.9 gm/dl (2.5-4.0) Albumin/Globulin Ratio 0.9 (0.9-2) Thyroid Stimulating Hormone (TSH) 0.196 uIu/ml (0.300-4.500) Free Thyroxine 1.24 ng/dl (0.80-1.60) Laboratory results reviewed by me. Medications Administered Medications (Trade) Dose Ordered Sig/Marcelino Route Start Time Stop Time Status Last Admin Dose Admin Diltiazem HCl 10 mg 10 mg TODAY@1030 IV 06/28/16 10:30 06/28/16 11:00 DC 06/28/16 10:49 10 MG Diltiazem HCl/ Dextrose (Cardizem Inj/D5 100ml) 125 ml @ 0 mls/hr Q0M PRN IV 06/28/16 10:45 06/28/16 14:36 DC 06/28/16 10:51 5 MLS/HR ECG Indication: chest pain Rate (beats per minute): 141 Rhythm: other (tachycardia) Findings: RBBB, other (no obvious acute ischemia) ED Course 0958: The patient was evaluated in room A12A. A complete history and physical exam was performed. 1002: I discussed the case with [facility] He is in the office but will speak with Dr. Bray about the patient. He recommended starting the patient on a diltiazem drip. Ordered Diltiazem HCl 1 ea. 1030: Ordered Diltiazem HCl 10 mg IV. 1045: Ordered Diltiazem HCl 125 mg/Dextrose 125 ml IV. 1052: Upon reexamination the patient is feeling better. I discussed results and treatment plan with the patient. He verbalizes agreement and understanding. The patient will be evaluated for further management. 1117: I discussed the case with Dr. Danis LOREDO Hospitalist. The patient will be evaluated for further management. 1140: I reassessed the patient. He was doing better. Hospitalist was at bedside. Medical Decision Differential includes but is not limited to missed medication, dosing, rapid a- fib or a-flutter, SVT, cardiac ischemia, anemia, electrolyte imbalance. There is no leukocytosis or concerning anemia. No significant electrolyte abnormality, kidney failure or hepatitis. TSH was low however, the T4 was normal. Chest x-ray does not show CHF or pneumonia. EKG shows an SVT, likely a rapid A. fib or A. flutter or no acute ischemic changes. Cardiac enzyme testing times one is not consistent with acute cardiac injury. The patient presents with tachycardia. He has some left-sided chest discomfort and feels short of breath. The patient was given a bolus of IV diltiazem and was then placed on a diltiazem drip. This did control the heart rate. I spoke with Dr. Jay of cardiology, I did talk with the patient and case management. The on-call hospitalist was consulted. Consults Time Called: 1001 Consulting Physician: Dr. Misty Santamaria [facility] Returned Call: 1002 I discussed the case with him. He is in the office but will speak with Dr. Bray about the patient. He recommended starting the patient on a diltiazem drip. Additional Consults: Time Called: 1113 Consulted Physician: Dr. Dan[facility] Returned Call: [phone] Additional Comments: I discussed the case with her. The patient will be evaluated for further management. Impression Primary Impression: Atrial flutter with rapid ventricular response Additional Impression: Precordial chest pain Critical Care I have personally spent greater than 30 minutes of critical care time in the direct management of this patient. This includes bedside care, interpretation of diagnostic studies, and testing, discussion with consultants, patient, and family members, and other required patient management activities. This 30 minutes is in excess of all separately billable procedures. Scribe Attestation The scribe's documentation has been prepared under my direction and personally reviewed by me in its entirety. I confirm that the note above accurately reflects all work, treatment, procedures, and medical decision making performed by me. Departure Information Dispostion Being Evaluated By Hospitalist Referrals No Doctor, Assigned (PCP) Patient Instructions My [facility] Problem Qualifiers
[2016-06-28 15:05] VITALS: BP 120/79; PULSE 78; TEMP 36.6; O2SAT 94
[2016-06-28 16:00] VITALS: O2SAT 94
[2016-06-28] MEDS ORDERED: RIVAROXABAN 10 MG TAB PO SCH (16:45)
[2016-06-28] MEDS: RIVAROXABAN TAB 15 MG TAB PO SCH (17:32)
[2016-06-28 19:37] VITALS: BP 142/83; PULSE 100; TEMP 36.9; O2SAT 93
[2016-06-28] MEDS: GABAPENTIN 300 MG CAP PO SCH (19:58)
[2016-06-28 23:19] VITALS: BP 111/87; PULSE 94; TEMP 36.6; O2SAT 95
[2016-06-29] VITALS (16 sets, daily range): BP systolic 105–146; BP diastolic 75–102; PULSE 72–136; TEMP 36.4–36.7; O2SAT 92–99
[2016-06-29 06:42] LABS: BASO % 0.6 %; BASO ABS # 0.05 K/uL (0-0.2); COMPLETE YES; EOS % 6.2 %; HEMATOCRIT 40.6 % (42-52); IG% 0.3 %; LYMPH % 18.7 %; LYMPH ABS # 1.45 K/uL (1.2-3.4); MEAN CELL VOLUME 91.2 fL (80-100); MEAN CORPUSCULAR HEMOGLOBIN 31.7 pg (25-34); MEAN CORPUSCULAR HGB CONC 34.7 g/dl (32-36); MEAN PLATELET VOLUME 11.8 fL (7.4-10.4); MONO % 11.2 %; PLATELET COUNT 180 K/uL (130-400); RED BLOOD COUNT 4.45 M/uL (4.7-6.1); WHITE BLOOD COUNT 7.77 K/uL (4.8-10.8)
[2016-06-29 07:13] LABS: BLOOD UREA NITROGEN 15 mg/dl (7-18); CALCIUM 8.6 mg/dl (8.5-10.1); CARBON DIOXIDE 28 mmol/L (21-32); CHLORIDE 108 mmol/L (98-107); CREATININE 0.94 mg/dl (0.60-1.40); GLUCOSE 107 mg/dl (70-99); POTASSIUM 3.5 mmol/L (3.5-5.1); SODIUM 143 mmol/L (136-145)
[2016-06-29] MEDS: RIVAROXABAN TAB 15 MG TAB PO SCH (09:00)
[2016-06-29] MEDS ORDERED: METOPROLOL SUCC 50MG EXT REL TAB PO SCH (09:00)
[2016-06-29] MEDS: GABAPENTIN 300 MG CAP PO SCH (09:00)
[2016-06-29] MEDS ORDERED: LISINOPRIL 40 MG TAB PO SCH (09:00)
--- NOTE | 2016-06-29 10:37 | CARDIOLOGY PROGRESS NOTE ---
DATE: 06/29/2016 DATE: 06/29/2016. TIME: 10:13 a.m. SUBJECTIVE: He does feel palpitations from time to time. No significant shortness of breath at this time. No chest pain. No bleeding. No syncope or near syncope. Telemetry personally reviewed. He remains in atrial flutter, although his heart rate has been much better controlled. Diltiazem drip is currently on hold. OBJECTIVE: VITAL SIGNS: Temperature 36.7 degrees, heart rate 97 beats per minute, respiration rate 22, blood pressure 132/95 mmHg, oxygen saturation is 95% on room air. I's and O's negative 460 mL yesterday. GENERAL: No acute distress. NECK: Thick, but no appreciable JVD. CARDIAC EXAMINATION: No ventricular heave. Regular, normal S1, S2. No audible murmurs, rubs or gallops. LUNGS: Clear to auscultation bilaterally without wheezes, rales or rhonchi. ABDOMEN: Soft, nontender, nondistended, normoactive bowel sounds, obese. EXTREMITIES: No cyanosis. Trace bilateral lower extremity edema. PSYCHIATRIC: Affect appears appropriate. MEDICATIONS: Include lisinopril 40 mg daily, diltiazem drip currently on hold, Xarelto 15 mg p.o. b.i.d. with initiation of 20 mg once daily starting tomorrow, metoprolol succinate 100 mg daily. LABORATORY DATA: White blood cell count is 7.7, hemoglobin 14.1, platelets 180. Sodium 143, potassium 3.5, BUN 15, creatinine 0.94, glucose 107. Troponin undetectable. TSH 0.196. Free T4 is 1.24. INR is 1.3. Echocardiogram on 1508 on 06/28/2016 report reviewed. Normal LV systolic function, EF 60-65%. Moderate LVH. Mildly dilated RV with mildly reduced systolic function. Mild biatrial dilation. Small pericardial effusion with predominantly echogenic component, mild aortic root dilation. ECG upon presentation personally reviewed. Atrial flutter with variable AV block at 88 beats per minute. Right bundle branch block. ECG on presentation on 06/28/2016 at 9:43 a.m. demonstrated atrial flutter with 2:1 AV block at 141 beats per minute. Right bundle branch block. Possible inferior infarct. ASSESSMENT AND PLAN: 1. Atrial flutter with rapid ventricular response: Heart rate is currently well controlled; however, he has failed rate control strategy as an outpatient. Could adjust medications further; however, he will likely do better in sinus rhythm as atrial flutter is typically difficult to rate control. He is agreeable to undergo an electrical cardioversion with Dr. Bray later today. Dr. Bray, web marketing manager, has seen him in initial consultation yesterday. He has been anticoagulated for greater than 3 weeks. Continue beta [place]. If he has recurrent atrial flutter, would consider antiarrhythmic therapy versus ablation, but would involve Dr. Bray in that decision. 2. Pericardial effusion: This will be followed up. He has an appointment in the cardiology office tomorrow if he ends up being discharged later today. If he is hospitalized for a prolonged period of time, then a limited echo could be done as an inpatient, but otherwise this could be followed up as an outpatient. 3. Pulmonary embolism: He is on anticoagulation as directed by the hospitalist service. 4. Hypertension: Blood pressure appears to be adequately controlled. 5. Disposition: Cardiology will continue to follow along. He is currently n.p.o. for cardioversion which has been scheduled and will be performed by electrophysiology, Dr. Bray. Continue anticoagulation without interruption.
[2016-06-29] MEDS ORDERED: PROPOFOL IV EMULSION 10 MG/ML 20 ML VIAL IV ONE (12:12)
[2016-06-29] MEDS ORDERED: LIDOCAINE HCL 2% 2 ML VIAL (20MG/ML) ONE (12:12)
--- NOTE | 2016-06-29 12:57 | Anesthesiology Progress Note ---
Anesthesia Post Op Note Date & Time Jun 29, 2016 at 12:57 Vital Signs Pain Intensity: 0.0 Vital Signs Past 12 Hours Date Time Temp Pulse Resp B/P Pulse Ox O2 Delivery O2 Flow Rate FiO2 06/29/16 12:08 36.6 94 18 111/87 95 Room Air 06/29/16 12:00 Room Air 06/29/16 08:00 Room Air 06/29/16 08:00 Room Air 06/29/16 07:48 36.7 97 22 132/95 95 Room Air 06/29/16 04:25 36.6 136 18 137/90 92 Room Air 06/29/16 04:00 Room Air Notes Mental Status: alert / awake / arousable, participated in evaluation Pt Amnestic to Procedure: Yes Nausea / Vomiting: adequately controlled Pain: adequately controlled Airway Patency, RR, SpO2: stable & adequate BP & HR: stable & adequate Hydration State: stable & adequate Anesthetic Complications: no major complications apparent Patient successfully converted to sinus rhythm after 3 shocks. VSS. No complications.
--- NOTE | 2016-06-29 14:37 | CARDIOVERSION ---
DATE OF OPERATION: 06/29/2016 PROCEDURE PERFORMED: Electrocardioversion. STAFF PATIENT RESOURCE COORDINATOR: Dr. Rey Rowe. INDICATION: Mr. He Rai is a 65-year-old gentleman with a history of atrial flutter. He has been appropriately anticoagulated and had some difficulties with rate control and as such cardioversion seemed to be a good option today. PROCEDURE IN DETAIL: The patient was informed of risks, benefits and alternatives to the intended procedure. He understood such and wished to proceed. The patient underwent a general anesthetic administered by the anesthesiology service, and once appropriately anesthetized, underwent cardioversion initially attempted at 50 joules, which failed and subsequently 200 joules, which failed. Eventually, 360 joules converted him to a sinus rhythm. EKG confirmed the rhythm. The patient tolerated the procedure well. There were no immediate complications. IMPRESSION: Successful cardioversion from atrial flutter to normal sinus rhythm. I attest to the content of the Intraoperative Record and any orders documented therein. Any exceptio ns are noted below.
[2016-06-29] MEDS ORDERED: METO1TAB68 PO (15:43)
[2016-06-29] MEDS ORDERED: RIVA1TAB4 PO (15:43)
--- NOTE | 2016-06-29 15:50 | Discharge Instructions ---
Discharge Instructions Date of Service Jun 29, 2016. Admission Reason for Admission: Atrial flutter with Rapid Ventricular Response Discharge Discharge Diagnosis / Problem: Atrial flutter with RVR Discharge Goals Goal(s): Improve disease control, Therapeutic intervention Activity Recommendations Activity Limitations: resume your previous activity Lifting Limitations: none Exercise/Sports Limitations: gradually increase as tolerated Shower/Bathe: no limitations Driving or Machine Use: no limitations . Instructions / Follow-Up Instructions / Follow-Up You were admitted for a rapid irregular heartbeat called atrial flutter. Your heart rate was difficult to control and so you were cardioverted with electricity back to a normal heart rhythm. You should remain on your blood thinner indefinitely for both your atrial flutter and your pulmonary embolism. If you are having trouble affording the cost of the Xarelto, please inquire with your Sports Administrator about switching to warfarin/coumadin instead. Please keep your follow up appointment with the Sports Administrator tomorrow and follow up with your PCP within 1 week. You will be referred to a new PCP Dr. Nguyen at [facility]. Current Hospital Diet Patient's current hospital diet: AHA Diet (Heart Healthy) Discharge Diet Recommended Diet: AHA Diet (Heart Healthy) Procedures Procedures Performed: Direct current cardioversion Chest xray Pending Studies Studies pending at discharge: no Medical Emergencies . Who to Call and When: Medical Emergencies: If at any time you feel your situation is an emergency, please call 911 immediately. . Non-Emergent Contact Non-Emergency issues call your: Primary Care Provider, Sports Administrator Call Non-Emergent contact if: you have any medication questions you notice a rapid heart beat, heart palpitations, shortness of breath or chest pain, please call your Sports Administrator or your PCP right away. . . "Provider Documentation" section prepared by Diane Moscoso. VTE Core Measure Inpt VTE Proph given/why not?: Other Anticoagulation (Xarelto), T.EDejuan Stockings, SCD's
--- NOTE | 2016-06-29 18:49 | Discharge Summary ---
Discharge Summary Date of Service Jun 29, 2016. 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 FINDINGS: The cardiomegaly and central pulmonary vascular congestion have improved. No focal lung consolidations. No evidence for pulmonary edema. No pleural effusions. No pneumothorax. IMPRESSION: The cardiomegaly and central pulmonary vascular congestion have improved. Consultations: Cardiology Medication Reconciliation New Medications: Metoprolol Succinate (Toprol Xl) 100 Mg Tab 1 TAB PO DAILY for 30 Days, #30 TAB 0 Refills Changed Medications: Rivaroxaban (Xarelto) 20 Mg Tab 20 MG PO DAILY for 30 Days, 3 Refills (Changed from: Removed Quantity; start taking 20 mg daily after finishing 15 mg twice a day for 21 days) start taking 20 mg daily on 06/30/16 after finishing 15 mg twice a day with last dose being evening of 06/29/16 Continued Medications: Gabapentin (Neurontin) 300 Mg Cap 300 MG PO BID, CAP Lisinopril (Zestril) 40 Mg Tab 40 MG PO QAM, TAB Terazosin Hcl (Hytrin) 10 Mg Cap 10 MG PO QPM, CAP Discontinued Medications: Metoprolol Succinate (Metoprolol Succinate ER) 50 Mg Tabcr 100 MG PO QAM, #90 TABS 3 Refills Referrals At Discharge Follow up Referrals: Prepress Proofer Referral - 06/30/16 with Dash Jay MD Physician Referral - Within 1-2 Weeks with Kate Nguyen M.D. Discharge Exam Pt had successful DCCV and is recovered from anesthesia, ate lunch, feeling well , no N/V, no palpitations, no CP. Ready for discharge Review of Systems: Constitutional: No chills, No fever Eyes: No problem reported ENT: No problem reported Respiratory: No shortness of breath Cardiovascular: No chest pain, No palpitations Abdomen: No nausea, No pain, No vomiting Musculoskeletal: No problem reported Genitourinary - Male: No problem reported Neurologic: No problem reported Endocrine: No problem reported Hematologic / Lymphatic: No problem reported Integumentary: No problem reported Physical Exam: General Appearance: WD/WN, no apparent distress, + obese (morbid obesity) Eyes: normal inspection, EOMI, sclerae normal ENT: hearing grossly normal Neck: trachea midline (and obese neck) Respiratory/Chest: lungs clear, normal breath sounds, no respiratory distress, no accessory muscle use Cardiovascular: regular rate, rhythm, no edema, no gallop, no murmur Abdomen / GI: normal bowel sounds, non tender, soft (and morbidly obese) Extremities: no calf tenderness, + swelling (trace pitting dependent edema) Neurologic/Psychiatric: alert, normal mood/affect, oriented x 3 Skin: normal color, warm/dry, no rash Hospital Course This is a 65-year-old male with past medical history significant for HTN, remote smoking history, obesity, prediabetes, and pulmonary embolism diagnosed in May 2016, who was placed on the Xarelto at that time. He developed rapid atrial flutter during that admission and was started on metoprolol succinate, as well as lisinopril for HTN. The patient was being seen in hematology oncology office on the morning of admission with Dr. Marcano, where patient was found to be in Atrial flutter with RVR; his heart rate was 147 in the clinic. Patient admits to feeling lightheaded and "off", with minor chest tightness. The patient denies shortness of breath. He and his both state that his heart rate has been above 100 for most of the last 3 weeks, and that he occasionally would feel palpitations, but did not think to mention anything to the Prepress Proofer or PCP. 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 In the ED the patient's blood pressure was maintained at 110s over 80s, HR= 97- 140, still in atrial flutter noted on monitor at bedside. The patient has been started on a Cardizem drip. TSH was low at 0.196 but FT4 was normal at 1.2. Chest x-ray is clear for any signs of pulmonary congestion, does show cardiomegaly. Troponin was negative. He was admitted for management of his rapid atrial flutter. Atrial flutter with RVR, HTN - started on a Cardizem drip and transitioned off when rates went into the 70s - continued his Toprol XL 100 mg once daily, lisinopril 40 mgQAM, Hytrin 10 mg QAm - Cardiology consult obtained and Dr. Bray recommended DCCV as he had been fully anticoagulated for 3 weeks and rate control was difficult -DCCV completed on 06/29 and was successful -he should remain on Xarelto indefinitely for both his PA-Flutter as well as his PE -keep f/u appt with Cardiology in 1 day and may need Xarelto samples due to cost -may need to transition to coumadin as an outpatient given cost issues -consider Sleep Study as an outpatient Morbid obesity, Prediabetes -Diet and exercise was discussed, continue to encourage weight loss History of recent PE - Continue on Xarelto History of tobacco abuse - Remote [id number] history, patient quit 1990, asymptomatic Prophylaxis for DVT: Xarelto Dispo-to home today Total Time Spent: Greater than 30 minutes This includes examination of the patient, discharge planning, medication reconciliation, and communication with other providers. Discharge Instructions Please refer to the electronic Patient Visit Report (Discharge Instructions) for additional information. Follow-Up PCP within 1 week Cardiology in 1 day as previously scheduled Additional Copies To Kate Nguyen M.D.; Dash Jay MD
[2016-06-30] MEDS ORDERED: RIVAROXABAN 20 MG TAB PO SCH (16:45)
--- NOTE | 2016-11-28 18:34 | Procedure Note ---
Procedure Note Date of Service June 29, 2016. Procedure Note Procedure performed: Electrocardioversion Staff service crew supervisor:Steve Rowe Indication: Patient with symptomatic atrial fibrillation Procedure in detail The patient was informed of the risks benefits and alternatives to the intended procedure. He was brought to the cardiac catheterization holding area. Patient underwent administration of a general anesthetic and once appropriately anesthetized underwent cardioversion using a biphasic waveform. Patient return to sinus rhythm. Subsequent to the procedure the patient was noted to be neurologically intact. No immediate complications Impression: Successful cardioversion from atrial fibrillation to normal sinus rhythm
== END 2016-06-29 16:50 | disposition home or self-care (01) | DRG 309 ==
LOC: ENRESERVTM → ENRESERVDT → C.EDB 09:40 → C.2E 12:06
PROVIDERS: ADMIT Family Medicine; ATTEND Family Medicine
PROC: 5A2204Z Restoration of Cardiac Rhythm, Single (ICD-10-PCS; principal; 2016-06-29 13:32)
DX: I48.92 Unspecified atrial flutter (principal); I31.3 Pericardial effusion (noninflammatory); Z68.41 Body mass index [BMI] 40.0-44.9, adult; E66.01 Morbid (severe) obesity due to excess calories; I48.91 Unspecified atrial fibrillation; N40.0 Benign prostatic hyperplasia without lower urinary tract symptoms; I10 Essential (primary) hypertension; I25.10 Atherosclerotic heart disease of native coronary artery without angina pectoris; R73.03 Prediabetes; R07.2 Precordial pain; Z87.891 Personal history of nicotine dependence; Z86.711 Personal history of pulmonary embolism; Z79.01 Long term (current) use of anticoagulants; Z86.79 Personal history of other diseases of the circulatory system; Z79.899 Other long term (current) drug therapy

== ENCOUNTER → 2016-09-08 | Outpatient (CLI) | payer OTHER ==
[~2016-09-08] MED LIST changes: +METO-479 PO; -TPRSR50 PO
[2016-09-08 09:34] LABS: HEMATOCRIT 44.2 % (42-52); MEAN CELL VOLUME 91.3 fL (80-100); MEAN CORPUSCULAR HEMOGLOBIN 30.2 pg (25-34); MEAN PLATELET VOLUME 11.9 fL (7.4-10.4); PLATELET COUNT 178 K/uL (130-400); RED BLOOD COUNT 4.84 M/uL (4.7-6.1); WHITE BLOOD COUNT 6.07 K/uL (4.8-10.8)
[2016-09-08 09:44] LABS: BLOOD UREA NITROGEN 13 mg/dl (7-18); BUN/CREATININE RATIO 14.1 (10-20); CALCIUM 8.6 mg/dl (8.5-10.1); CARBON DIOXIDE 32 mmol/L (21-32); CHLORIDE 107 mmol/L (98-107); CREATININE 0.92 mg/dl (0.60-1.40); GLUCOSE 130 mg/dl (70-99); MAGNESIUM 2.3 mg/dl (1.8-2.4); POTASSIUM 3.4 mmol/L (3.5-5.1); SODIUM 144 mmol/L (136-145)
[2016-09-08 09:55] LABS: CHOLESTEROL 152 mg/dl (0-200); CHOLESTEROL/HDL RATIO 5.4; HDL CHOLESTEROL 28 mg/dl; LDL CHOLESTEROL CALCULATED 103 mg/dl; THYROID STIMULATING HORMONE 0.451 uIu/ml (0.300-4.500); TRIGLYCERIDES 105 mg/dl (0-150); VERY LOW DENSITY LIPOPROT CALC 21 mg/dl
== END | disposition home or self-care (01) ==
LOC: C.LAB1850 07:02
PROVIDERS: ATTEND Internal Medicine Cardiovascular Disease
DX: I10 Essential (primary) hypertension (principal); I48.92 Unspecified atrial flutter; R06.09 Other forms of dyspnea; I31.3 Pericardial effusion (noninflammatory); I77.810 Thoracic aortic ectasia

== ENCOUNTER → 2016-09-29 | Outpatient (CLI) | payer OTHER ==
[2016-09-29 14:34] LABS: ALT/SGPT 43 U/L (12-78); AST/SGOT 27 U/L (15-37); BLOOD UREA NITROGEN 10 mg/dl (7-18); BUN/CREATININE RATIO 9.9 (10-20); CARBON DIOXIDE 26 mmol/L (21-32); CHLORIDE 106 mmol/L (98-107); GLUCOSE 140 mg/dl (70-99); POTASSIUM 3.8 mmol/L (3.5-5.1); SODIUM 141 mmol/L (136-145)
[2016-09-29 17:41] LABS: CALCIUM 9.1 mg/dl (8.5-10.1)
== END | disposition home or self-care (01) ==
LOC: C.LAB1850 10:42
PROVIDERS: ATTEND Internal Medicine Cardiovascular Disease
DX: I10 Essential (primary) hypertension (principal); I48.92 Unspecified atrial flutter; I31.3 Pericardial effusion (noninflammatory); R06.09 Other forms of dyspnea; R07.89 Other chest pain; R60.9 Edema, unspecified; E78.5 Hyperlipidemia, unspecified

== ENCOUNTER → 2017-05-22 | Outpatient (CLI) | payer OTHER ==
[2017-05-22 12:09] LABS: HEMATOCRIT 42.7 % (42-52); HEMOGLOBIN 14.9 g/dL (14.0-18.0); MEAN CELL VOLUME 92.2 fL (80-100); MEAN CORPUSCULAR HEMOGLOBIN 32.2 pg (25-34); MEAN CORPUSCULAR HGB CONC 34.9 g/dl (32-36); MEAN PLATELET VOLUME 12.1 fL (7.4-10.4); PLATELET COUNT 153 K/uL (130-400); RED CELL DISTRIBUTION WIDTH CV 13.2 % (11.5-14.5); RED CELL DISTRIBUTION WIDTH SD 44.3 fL (36.4-46.3); WHITE BLOOD COUNT 6.17 K/uL (4.8-10.8)
[2017-05-22 12:21] LABS: ALT/SGPT 45 U/L (12-78); AST/SGOT 21 U/L (15-37); BLOOD UREA NITROGEN 18 mg/dl (7-18); CALCIUM 8.5 mg/dl (8.5-10.1); CARBON DIOXIDE 28 mmol/L (21-32); GLUCOSE 136 mg/dl (70-99); POTASSIUM 3.6 mmol/L (3.5-5.1); SODIUM 139 mmol/L (136-145)
== END | disposition home or self-care (01) ==
LOC: C.LAB1850 10:46
PROVIDERS: ATTEND Internal Medicine Cardiovascular Disease
DX: I48.92 Unspecified atrial flutter (principal); R60.9 Edema, unspecified; E78.5 Hyperlipidemia, unspecified; E87.6 Hypokalemia

== ENCOUNTER 2019-12-06 11:31 | Inpatient (IN) ==
[2019-12-06] MEDS ORDERED: ALBUTEROL HFA 8 GM INHALER INH ONE (12:06)
[2019-12-06] MEDS ORDERED: ONDANSETRON INJ 2 MG/ML 2 ML VIAL IV STA (12:06)
[2019-12-06] MEDS ORDERED: SODIUM CHLORIDE 0.9% 1000ML 1,000 ML IV ONE ×2 (12:06→15:26)
[2019-12-06] MEDS ORDERED: ACETAMINOPHEN 500 MG TAB PO STA (12:06)
[2019-12-06] MEDS ORDERED: DEXAMETHASONE SOD INJ 10 MG/ML VIAL IV ONE (12:07)
[2019-12-06] MEDS ORDERED: MAGNESIUM SULFATE / D5W 1 GM/100 ML BAG IV SCH (12:07)
--- NOTE | 2019-12-06 12:14 | Emergency Department Note ---
Impression & Plan Coronavirus infection, Hypoxia, Breathlessness, Chest pain, Weakness ED Provider Note Provider: Dirk Byrnes MD DATE OF SERVICE: 12/06/2019 CHIEF COMPLAINT: Shortness of breath weakness, upper back discomfort, nausea HISTORY OF PRESENT ILLNESS: Patient is a 69-year-old gentleman history of type 2 diabetes, atrial flutter on Xarelto, hypertension, PEs, and recent positive coronavirus test a week ago presenting today complaining of persistent fevers chills over the past week with worsening shortness of breath and developed some upper back pain this morning.Patient states decreased oral intake food and liquid. Denies any trauma. States he got ill from his who is doing okay at home. States he feels short of breath and a bit of wheeze. Denies smoking previously. No recent travel. States compliant his home medications including Xarelto. REVIEW OF SYSTEMS: A total of 10 review of systems was obtained and negative except as stated above in the HPI. PAST MEDICAL HISTORY: As noted above MEDICATIONS: reviewed home meds SOCIAL HISTORY:, nonsmoker PHYSICAL EXAM: GENERAL: alert and oriented in no acute distress on stretcher, appears fatigued Head: normocephalic and atraumatic EYES: No injection, discharge or icterus. PERRL NECK: Trachea midline. Supple. ENT: Mucous membranes pink and moist. Pharynx without erythema or exudate. LUNGS: Airway patent. No retractions. Audible wheezing. HEART: Irregular rate and rhythm. No chest wall tenderness ABDOMEN: Soft and non-tender, without guarding or rebound. No hepatosplenomegaly or masses BACK: No bilateral flank tenderness. SKIN: Acyanotic, warm, dry, without rashes EXTREMITIES: Without swelling, tenderness or deformity NEUROLOGICAL: No focal deficits. No aphasia. No facial droop or slurred speech. Normal strength and tone in the extremities. Sensation to gross touch normal. EK bpm appears to be a sinus rhythm with right bundle branch block with occasional PAC with some anterior and lateral ST flattening and T wave inversions. Compared to previous available from June 29, 2016 does appear similar. CONTINUOUS CARDIAC MONITORING: was ordered and showed a heart rate of 74 bpm in NSR with PVC Patient's hypertension was referred to the hospitalist HOSPITAL COURSE: 1158 Patient was first seen and H&P performed. 1523 Patient reassessed and updated. Patient was resting in bed. His to be updated via phone. Will contact hospitalist. Patient's laboratory studies and imaging reviewed. Differential includes Infection, dehydration, metabolic abnormality, hypo/hyperglycemia, electrolyte disturbance, anemia, hypoxia, cardiac sources, intracerebral event, toxicologic, neurologic, as well as other pathologies. IMPRESSION/MEDICAL DECISION MAKING: Presents here today, leg weakness shortness of breath with some upper chest pain. Anticoagulant Xarelto. Lower suspicion for PE. Not initially significantly hypoxic but some borderline O2 sats in the low 90s here. Audible wheeze. Given some magnesium and albuterol. Given fluid hydration due to decreased intake. Some evidence of dehydration and elevated kidney function likely due to decreased intake. Complained of some nausea as well given his dizziness as well as upper back pain and initial hypotension here, did complete CT of the head as well as a CT of the chest and abdomen to exclude acute aortic or other pathology here. No evidence of pneumothorax. EKG appears to show a sinus rhythm with PACs. No elevated troponin likely. No significant leukocytosis but lymphopenia is noted. D-dimer not significantly elevated. VBG within normal limits. No evidence of pancreatitis. I doubt there is biliary pathology. Imaging shows atypical viral pneumonia process consistent with coronavirus infection. Some dilation the appendix but no inflammatory changes he has no significant tenderness area. No believe he requires urgent emergent surgical consultation given his underlying hypoxia and coronavirus infection. Discussed with the patient and he is resting comfortably. Now on some oxygen given hypoxia particular with sleep. Updated him and his via phone per his request. Will discuss with the hospitalist further admission as an inpatient. Patient did receive a dose of dexamethasone here to possibly help with his respiratory status as well. He still somewhat short of breath and again requiring oxygen at this time. He is agreed with the plan for further inpatient care. Hospitalist team is aware of the CT findings and can consider routine inpatient consultation as the patient clinically improves if he has a change of abdominal status/pain. DIAGNOSIS: Coronavirus 19 infection, weakness, shortness of breath, chest pain DISPOSITION: Hospitalist will evaluate Patient was agreeable with this plan. 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 Type 2 diabetes mellitus Surgical History History of arthroscopy of left knee meniscus repair History of cholecystectomy History of colonoscopy History of left inguinal hernia repair History of parotidectomy left--benign cyst History of right inguinal hernia repair History of tooth extraction all teeth removed History of umbilical hernia repair Family History Father Colon cancer Mother Breast cancer Other No family history of adverse response to anesthesia Social History Smoking Status: Former smoker Second Hand Exposure: Yes ( smokes); Hx Alcohol Use: No Hx Substance Use: No Preferred Language: Guyanese Communication Ability: Effective Hearing Ability: Normal 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: No Beliefs That Will Affect Care: None marital status: Current Living Situation: Spouse current occupational status: employed Feels Safe at Home: Yes Dental Care, Regularly: No Physical Activity Frequency: Does not Exercise Allergies Allergies Allergy/AdvReac Type Severity Reaction Status Date / Time oxycodone AdvReac Mild "DOESN'T Verified 09/22/19 10:29 LIKE FEELING" Home Meds Home Medications Medication Instructions Recorded Confirmed multivitamin 1 tab PO QAM 09/20/18 09/22/19 ibuprofen 600 mg PO Q6H PRN 12/31/18 09/22/19 Previous Rx's Medication Instructions Recorded metoprolol succinate 50 mg 50 mg PO HS #90 tab 11/28/18 tablet,extended release 24 hr rivaroxaban 20 mg tablet 20 mg PO QDD #90 tab 05/01/19 terazosin 10 mg capsule 20 mg PO QPM #180 cap 05/06/19 metoprolol succinate 100 mg 100 mg PO QAM #90 tab 05/12/19 tablet,extended release 24 hr gabapentin 300 mg capsule 300 mg PO BID #180 cap 07/22/19 lisinopril 40 mg tablet 40 mg PO QAM #90 tab 09/22/19 metformin 500 mg tablet,extended 1,000 mg PO DAILY #180 tab 10/13/19 release 24 hr atorvastatin 40 mg tablet 40 mg PO HS #90 tab 10/27/19 spironolactone 25 mg tablet 25 mg PO 1200 #90 tab 10/27/19 Results & Data (ED) Vital Signs Vital Signs - 24 hr 12/06/19 11:40 12/06/19 11:49 12/06/19 11:54 Temperature 36.7 C Temperature Source Oral Pulse Rate 97 H 93 H 91 H Pulse Rate [Apical] Pulse Rate from SpO2 Sensor 90 90 Respiratory Rate 18 18 24 Respiratory Effort / Characteristics Non-Labored Spontaneous Respiratory Depth Normal Respiratory Pattern Regular Blood Pressure 84/49 L 84/49 L Blood Pressure [Left Arm] Blood Pressure Mean 60 57 Blood Pressure Mean [Left Arm] Blood Pressure Position Sitting Blood Pressure Position [Left Arm] Pulse Oximetry 93 94 93 Oxygen Delivery Method Room Air Oxygen Flow Rate Sepsis Recent Fever Within 48 Hours No Sepsis New/Unexplained Change in Mental Status No Sepsis Action Taken by Nursing No Action Required 12/06/19 12:00 12/06/19 12:06 12/06/19 12:10 Temperature Temperature Source Pulse Rate 92 H 92 H 89 Pulse Rate [Apical] Pulse Rate from SpO2 Sensor 90 87 87 Respiratory Rate 25 H 26 H 30 H Respiratory Effort / Characteristics Respiratory Depth Respiratory Pattern Blood Pressure 89/45 L 89/53 L Blood Pressure [Left Arm] Blood Pressure Mean 55 57 Blood Pressure Mean [Left Arm] Blood Pressure Position Blood Pressure Position [Left Arm] Pulse Oximetry 93 95 95 Oxygen Delivery Method Oxygen Flow Rate Sepsis Recent Fever Within 48 Hours Sepsis New/Unexplained Change in Mental Status Sepsis Action Taken by Nursing 12/06/19 12:11 12/06/19 12:20 12/06/19 12:23 Temperature Temperature Source Pulse Rate 90 95 H Pulse Rate [Apical] Pulse Rate from SpO2 Sensor 91 H 96 H Respiratory Rate 24 28 H Respiratory Effort / Characteristics Accessory Muscle Use Labored Respiratory Depth Shallow Respiratory Pattern Tachypnea Blood Pressure Blood Pressure [Left Arm] Blood Pressure Mean Blood Pressure Mean [Left Arm] Blood Pressure Position Blood Pressure Position [Left Arm] Pulse Oximetry 94 96 Oxygen Delivery Method Oxygen Flow Rate Sepsis Recent Fever Within 48 Hours Sepsis New/Unexplained Change in Mental Status Sepsis Action Taken by Nursing 12/06/19 12:29 12/06/19 12:30 12/06/19 12:40 Temperature Temperature Source Pulse Rate 81 85 78 Pulse Rate [Apical] Pulse Rate from SpO2 Sensor 84 84 74 Respiratory Rate 28 H 29 H 23 Respiratory Effort / Characteristics Respiratory Depth Respiratory Pattern Blood Pressure 124/59 L Blood Pressure [Left Arm] Blood Pressure Mean 68 Blood Pressure Mean [Left Arm] Blood Pressure Position Blood Pressure Position [Left Arm] Pulse Oximetry 93 93 92 Oxygen Delivery Method Room Air Oxygen Flow Rate Sepsis Recent Fever Within 48 Hours Sepsis New/Unexplained Change in Mental Status Sepsis Action Taken by Nursing 12/06/19 12:45 12/06/19 12:50 12/06/19 12:55 Temperature Temperature Source Pulse Rate 86 86 75 Pulse Rate [Apical] Pulse Rate from SpO2 Sensor 77 85 75 Respiratory Rate 23 18 17 Respiratory Effort / Characteristics Respiratory Depth Respiratory Pattern Blood Pressure 114/50 L Blood Pressure [Left Arm] Blood Pressure Mean 75 Blood Pressure Mean [Left Arm] Blood Pressure Position Blood Pressure Position [Left Arm] Pulse Oximetry 92 87 L 91 Oxygen Delivery Method Room Air Room Air Room Air Oxygen Flow Rate Sepsis Recent Fever Within 48 Hours Sepsis New/Unexplained Change in Mental Status Sepsis Action Taken by Nursing 12/06/19 13:00 12/06/19 13:01 12/06/19 13:05 Temperature Temperature Source Pulse Rate 79 79 Pulse Rate [Apical] Pulse Rate from SpO2 Sensor 80 82 84 Respiratory Rate 18 24 25 H Respiratory Effort / Characteristics Respiratory Depth Respiratory Pattern Blood Pressure 94/54 L Blood Pressure [Left Arm] Blood Pressure Mean 62 Blood Pressure Mean [Left Arm] Blood Pressure Position Blood Pressure Position [Left Arm] Pulse Oximetry 92 88 L 86 L Oxygen Delivery Method Room Air Room Air Room Air Oxygen Flow Rate Sepsis Recent Fever Within 48 Hours Sepsis New/Unexplained Change in Mental Status Sepsis Action Taken by Nursing 12/06/19 13:10 12/06/19 13:15 12/06/19 13:20 Temperature Temperature Source Pulse Rate 78 77 85 Pulse Rate [Apical] Pulse Rate from SpO2 Sensor 82 78 78 Respiratory Rate 23 26 H 25 H Respiratory Effort / Characteristics Respiratory Depth Respiratory Pattern Blood Pressure Blood Pressure [Left Arm] Blood Pressure Mean Blood Pressure Mean [Left Arm] Blood Pressure Position Blood Pressure Position [Left Arm] Pulse Oximetry 92 91 92 Oxygen Delivery Method Room Air Oxygen Flow Rate Sepsis Recent Fever Within 48 Hours Sepsis New/Unexplained Change in Mental Status Sepsis Action Taken by Nursing 12/06/19 13:25 12/06/19 13:30 12/06/19 13:31 Temperature Temperature Source Pulse Rate 78 72 78 Pulse Rate [Apical] Pulse Rate from SpO2 Sensor 78 74 74 Respiratory Rate 27 H 22 25 H Respiratory Effort / Characteristics Respiratory Depth Respiratory Pattern Blood Pressure Blood Pressure [Left Arm] Blood Pressure Mean Blood Pressure Mean [Left Arm] Blood Pressure Position Blood Pressure Position [Left Arm] Pulse Oximetry 92 94 92 Oxygen Delivery Method Oxygen Flow Rate Sepsis Recent Fever Within 48 Hours Sepsis New/Unexplained Change in Mental Status Sepsis Action Taken by Nursing 12/06/19 13:34 12/06/19 13:35 12/06/19 13:40 Temperature Temperature Source Pulse Rate 70 73 74 Pulse Rate [Apical] Pulse Rate from SpO2 Sensor 70 74 76 Respiratory Rate 24 23 26 H Respiratory Effort / Characteristics Respiratory Depth Respiratory Pattern Blood Pressure 90/55 L Blood Pressure [Left Arm] Blood Pressure Mean 59 Blood Pressure Mean [Left Arm] Blood Pressure Position Blood Pressure Position [Left Arm] Pulse Oximetry 90 91 92 Oxygen Delivery Method Oxygen Flow Rate Sepsis Recent Fever Within 48 Hours Sepsis New/Unexplained Change in Mental Status Sepsis Action Taken by Nursing 12/06/19 13:45 12/06/19 13:50 12/06/19 13:55 Temperature Temperature Source Pulse Rate 81 76 78 Pulse Rate [Apical] Pulse Rate from SpO2 Sensor 83 77 78 Respiratory Rate 24 22 20 Respiratory Effort / Characteristics Respiratory Depth Respiratory Pattern Blood Pressure Blood Pressure [Left Arm] Blood Pressure Mean Blood Pressure Mean [Left Arm] Blood Pressure Position Blood Pressure Position [Left Arm] Pulse Oximetry 90 89 L 83 L Oxygen Delivery Method Oxygen Flow Rate Sepsis Recent Fever Within 48 Hours Sepsis New/Unexplained Change in Mental Status Sepsis Action Taken by Nursing 12/06/19 14:00 12/06/19 14:01 12/06/19 14:20 Temperature Temperature Source Pulse Rate 85 74 Pulse Rate [Apical] Pulse Rate from SpO2 Sensor 79 75 76 Respiratory Rate 20 19 Respiratory Effort / Characteristics Respiratory Depth Respiratory Pattern Blood Pressure 101/65 Blood Pressure [Left Arm] Blood Pressure Mean 75 Blood Pressure Mean [Left Arm] Blood Pressure Position Blood Pressure Position [Left Arm] Pulse Oximetry 81 L 92 93 Oxygen Delivery Method Oxygen Flow Rate Sepsis Recent Fever Within 48 Hours Sepsis New/Unexplained Change in Mental Status Sepsis Action Taken by Nursing 12/06/19 14:25 12/06/19 14:30 12/06/19 14:31 Temperature Temperature Source Pulse Rate 76 82 73 Pulse Rate [Apical] Pulse Rate from SpO2 Sensor 75 82 72 Respiratory Rate 20 22 23 Respiratory Effort / Characteristics Respiratory Depth Respiratory Pattern Blood Pressure 107/61 Blood Pressure [Left Arm] Blood Pressure Mean 84 Blood Pressure Mean [Left Arm] Blood Pressure Position Blood Pressure Position [Left Arm] Pulse Oximetry 92 90 89 L Oxygen Delivery Method Oxygen Flow Rate Sepsis Recent Fever Within 48 Hours Sepsis New/Unexplained Change in Mental Status Sepsis Action Taken by Nursing 12/06/19 14:35 12/06/19 14:40 12/06/19 14:45 Temperature Temperature Source Pulse Rate 71 0 L 75 Pulse Rate [Apical] Pulse Rate from SpO2 Sensor 69 73 74 Respiratory Rate 25 H 22 21 Respiratory Effort / Characteristics Respiratory Depth Respiratory Pattern Blood Pressure Blood Pressure [Left Arm] Blood Pressure Mean Blood Pressure Mean [Left Arm] Blood Pressure Position Blood Pressure Position [Left Arm] Pulse Oximetry 92 92 90 Oxygen Delivery Method Oxygen Flow Rate Sepsis Recent Fever Within 48 Hours Sepsis New/Unexplained Change in Mental Status Sepsis Action Taken by Nursing 12/06/19 14:47 12/06/19 14:50 12/06/19 14:55 Temperature Temperature Source Pulse Rate 71 74 Pulse Rate [Apical] 75 Pulse Rate from SpO2 Sensor 77 73 Respiratory Rate 28 H 23 23 Respiratory Effort / Characteristics Non-Labored Spontaneous Respiratory Depth Respiratory Pattern Blood Pressure Blood Pressure [Left Arm] 101/61 Blood Pressure Mean Blood Pressure Mean [Left Arm] 74 Blood Pressure Position Blood Pressure Position [Left Arm] Lying Pulse Oximetry 92 84 L 88 L Oxygen Delivery Method Room Air Oxygen Flow Rate Sepsis Recent Fever Within 48 Hours Sepsis New/Unexplained Change in Mental Status Sepsis Action Taken by Nursing 12/06/19 15:00 12/06/19 15:01 12/06/19 15:05 Temperature Temperature Source Pulse Rate 80 74 84 Pulse Rate [Apical] Pulse Rate from SpO2 Sensor 78 71 76 Respiratory Rate 25 H 23 20 Respiratory Effort / Characteristics Respiratory Depth Respiratory Pattern Blood Pressure 112/69 Blood Pressure [Left Arm] Blood Pressure Mean 83 Blood Pressure Mean [Left Arm] Blood Pressure Position Blood Pressure Position [Left Arm] Pulse Oximetry 91 89 L 91 Oxygen Delivery Method Oxygen Flow Rate Sepsis Recent Fever Within 48 Hours Sepsis New/Unexplained Change in Mental Status Sepsis Action Taken by Nursing 12/06/19 15:10 12/06/19 15:15 12/06/19 15:20 Temperature Temperature Source Pulse Rate 77 75 69 Pulse Rate [Apical] Pulse Rate from SpO2 Sensor 77 75 72 Respiratory Rate 18 26 H 21 Respiratory Effort / Characteristics Respiratory Depth Respiratory Pattern Blood Pressure Blood Pressure [Left Arm] Blood Pressure Mean Blood Pressure Mean [Left Arm] Blood Pressure Position Blood Pressure Position [Left Arm] Pulse Oximetry 97 98 98 Oxygen Delivery Method Nasal Cannula Oxygen Flow Rate 4 Sepsis Recent Fever Within 48 Hours Sepsis New/Unexplained Change in Mental Status Sepsis Action Taken by Nursing 12/06/19 15:25 12/06/19 15:30 12/06/19 15:31 Temperature 37.2 C Temperature Source Oral Pulse Rate 76 75 78 Pulse Rate [Apical] Pulse Rate from SpO2 Sensor 75 76 78 Respiratory Rate 24 23 26 H Respiratory Effort / Characteristics Respiratory Depth Respiratory Pattern Blood Pressure 111/63 Blood Pressure [Left Arm] Blood Pressure Mean 70 Blood Pressure Mean [Left Arm] Blood Pressure Position Blood Pressure Position [Left Arm] Pulse Oximetry 98 97 97 Oxygen Delivery Method Oxygen Flow Rate Sepsis Recent Fever Within 48 Hours Sepsis New/Unexplained Change in Mental Status Sepsis Action Taken by Nursing 12/06/19 15:35 12/06/19 15:40 12/06/19 15:45 Temperature Temperature Source Pulse Rate 69 70 82 Pulse Rate [Apical] Pulse Rate from SpO2 Sensor 69 70 79 Respiratory Rate 24 23 21 Respiratory Effort / Characteristics Respiratory Depth Respiratory Pattern Blood Pressure Blood Pressure [Left Arm] Blood Pressure Mean Blood Pressure Mean [Left Arm] Blood Pressure Position Blood Pressure Position [Left Arm] Pulse Oximetry 96 97 96 Oxygen Delivery Method Oxygen Flow Rate Sepsis Recent Fever Within 48 Hours Sepsis New/Unexplained Change in Mental Status Sepsis Action Taken by Nursing 12/06/19 15:50 12/06/19 15:55 12/06/19 16:00 Temperature Temperature Source Pulse Rate 74 58 L 65 Pulse Rate [Apical] Pulse Rate from SpO2 Sensor 74 62 69 Respiratory Rate 24 22 22 Respiratory Effort / Characteristics Respiratory Depth Respiratory Pattern Blood Pressure 113/66 Blood Pressure [Left Arm] Blood Pressure Mean 85 Blood Pressure Mean [Left Arm] Blood Pressure Position Blood Pressure Position [Left Arm] Pulse Oximetry 97 95 96 Oxygen Delivery Method Oxygen Flow Rate Sepsis Recent Fever Within 48 Hours Sepsis New/Unexplained Change in Mental Status Sepsis Action Taken by Nursing 12/06/19 16:01 12/06/19 16:05 12/06/19 16:10 Temperature Temperature Source Pulse Rate 65 68 76 Pulse Rate [Apical] Pulse Rate from SpO2 Sensor 65 69 76 Respiratory Rate 20 26 H 26 H Respiratory Effort / Characteristics Respiratory Depth Respiratory Pattern Blood Pressure Blood Pressure [Left Arm] Blood Pressure Mean Blood Pressure Mean [Left Arm] Blood Pressure Position Blood Pressure Position [Left Arm] Pulse Oximetry 96 97 97 Oxygen Delivery Method Oxygen Flow Rate Sepsis Recent Fever Within 48 Hours Sepsis New/Unexplained Change in Mental Status Sepsis Action Taken by Nursing 12/06/19 16:15 12/06/19 16:20 12/06/19 16:25 Temperature Temperature Source Pulse Rate 67 68 62 Pulse Rate [Apical] Pulse Rate from SpO2 Sensor 68 66 67 Respiratory Rate 23 22 23 Respiratory Effort / Characteristics Respiratory Depth Respiratory Pattern Blood Pressure Blood Pressure [Left Arm] Blood Pressure Mean Blood Pressure Mean [Left Arm] Blood Pressure Position Blood Pressure Position [Left Arm] Pulse Oximetry 97 97 96 Oxygen Delivery Method Oxygen Flow Rate Sepsis Recent Fever Within 48 Hours Sepsis New/Unexplained Change in Mental Status Sepsis Action Taken by Nursing 12/06/19 16:30 12/06/19 16:31 12/06/19 16:35 Temperature Temperature Source Pulse Rate 63 66 71 Pulse Rate [Apical] Pulse Rate from SpO2 Sensor 67 72 69 Respiratory Rate 26 H 25 H 24 Respiratory Effort / Characteristics Respiratory Depth Respiratory Pattern Blood Pressure 114/56 L Blood Pressure [Left Arm] Blood Pressure Mean 74 Blood Pressure Mean [Left Arm] Blood Pressure Position Blood Pressure Position [Left Arm] Pulse Oximetry 97 97 98 Oxygen Delivery Method Oxygen Flow Rate Sepsis Recent Fever Within 48 Hours Sepsis New/Unexplained Change in Mental Status Sepsis Action Taken by Nursing 12/06/19 16:40 12/06/19 16:45 12/06/19 16:50 Temperature Temperature Source Pulse Rate 79 78 77 Pulse Rate [Apical] Pulse Rate from SpO2 Sensor 76 78 82 Respiratory Rate 22 24 21 Respiratory Effort / Characteristics Respiratory Depth Respiratory Pattern Blood Pressure Blood Pressure [Left Arm] Blood Pressure Mean Blood Pressure Mean [Left Arm] Blood Pressure Position Blood Pressure Position [Left Arm] Pulse Oximetry 99 96 96 Oxygen Delivery Method Oxygen Flow Rate Sepsis Recent Fever Within 48 Hours Sepsis New/Unexplained Change in Mental Status Sepsis Action Taken by Nursing 12/06/19 16:55 12/06/19 17:00 12/06/19 17:01 Temperature Temperature Source Pulse Rate 78 78 82 Pulse Rate [Apical] Pulse Rate from SpO2 Sensor 78 79 84 Respiratory Rate 22 22 22 Respiratory Effort / Characteristics Respiratory Depth Respiratory Pattern Blood Pressure 111/63 Blood Pressure [Left Arm] Blood Pressure Mean 68 Blood Pressure Mean [Left Arm] Blood Pressure Position Blood Pressure Position [Left Arm] Pulse Oximetry 96 97 95 Oxygen Delivery Method Oxygen Flow Rate Sepsis Recent Fever Within 48 Hours Sepsis New/Unexplained Change in Mental Status Sepsis Action Taken by Nursing 12/06/19 17:05 12/06/19 17:10 12/06/19 17:15 Temperature Temperature Source Pulse Rate 68 73 75 Pulse Rate [Apical] Pulse Rate from SpO2 Sensor 71 83 74 Respiratory Rate 21 26 H 21 Respiratory Effort / Characteristics Respiratory Depth Respiratory Pattern Blood Pressure Blood Pressure [Left Arm] Blood Pressure Mean Blood Pressure Mean [Left Arm] Blood Pressure Position Blood Pressure Position [Left Arm] Pulse Oximetry 97 97 97 Oxygen Delivery Method Oxygen Flow Rate Sepsis Recent Fever Within 48 Hours Sepsis New/Unexplained Change in Mental Status Sepsis Action Taken by Nursing 12/06/19 17:20 12/06/19 17:25 12/06/19 17:30 Temperature Temperature Source Pulse Rate 71 78 78 Pulse Rate [Apical] Pulse Rate from SpO2 Sensor 75 77 77 Respiratory Rate 24 20 16 Respiratory Effort / Characteristics Respiratory Depth Respiratory Pattern Blood Pressure 118/61 Blood Pressure [Left Arm] Blood Pressure Mean 66 Blood Pressure Mean [Left Arm] Blood Pressure Position Blood Pressure Position [Left Arm] Pulse Oximetry 97 97 96 Oxygen Delivery Method Oxygen Flow Rate Sepsis Recent Fever Within 48 Hours Sepsis New/Unexplained Change in Mental Status Sepsis Action Taken by Nursing 12/06/19 17:31 12/06/19 17:35 12/06/19 17:40 Temperature Temperature Source Pulse Rate 76 76 75 Pulse Rate [Apical] Pulse Rate from SpO2 Sensor 76 78 77 Respiratory Rate 19 19 20 Respiratory Effort / Characteristics Respiratory Depth Respiratory Pattern Blood Pressure Blood Pressure [Left Arm] Blood Pressure Mean Blood Pressure Mean [Left Arm] Blood Pressure Position Blood Pressure Position [Left Arm] Pulse Oximetry 97 97 97 Oxygen Delivery Method Oxygen Flow Rate Sepsis Recent Fever Within 48 Hours Sepsis New/Unexplained Change in Mental Status Sepsis Action Taken by Nursing 12/06/19 17:45 12/06/19 17:50 12/06/19 17:55 Temperature Temperature Source Pulse Rate 70 74 74 Pulse Rate [Apical] Pulse Rate from SpO2 Sensor 75 76 76 Respiratory Rate 17 20 17 Respiratory Effort / Characteristics Respiratory Depth Respiratory Pattern Blood Pressure Blood Pressure [Left Arm] Blood Pressure Mean Blood Pressure Mean [Left Arm] Blood Pressure Position Blood Pressure Position [Left Arm] Pulse Oximetry 97 97 98 Oxygen Delivery Method Oxygen Flow Rate Sepsis Recent Fever Within 48 Hours Sepsis New/Unexplained Change in Mental Status Sepsis Action Taken by Nursing 12/06/19 18:00 12/06/19 18:01 Temperature Temperature Source Pulse Rate 83 75 Pulse Rate [Apical] Pulse Rate from SpO2 Sensor 79 74 Respiratory Rate 20 12 Respiratory Effort / Characteristics Respiratory Depth Respiratory Pattern Blood Pressure 111/63 Blood Pressure [Left Arm] Blood Pressure Mean 69 Blood Pressure Mean [Left Arm] Blood Pressure Position Blood Pressure Position [Left Arm] Pulse Oximetry 96 97 Oxygen Delivery Method Oxygen Flow Rate Sepsis Recent Fever Within 48 Hours Sepsis New/Unexplained Change in Mental Status Sepsis Action Taken by Nursing Laboratory Data Result diagrams: 12/06/19 12:46 12/06/19 12:46 Lab Results 12/06/19 12/06/19 12/06/19 Range/Units 12:46 12:46 12:46 WBC 4.78 L (4.8-10.8) K/uL RBC 3.94 L (4.7-6.1) M/uL Hgb 12.9 L (14.0-18.0) g/dL Hct 36.4 L (42-52) % MCV 92.4 (80-100) fL MCH 32.7 (25-34) pg MCHC 35.4 (32-36) g/dL RDW Std Deviation 44.5 (36.4-46.3) fL RDW Coeff of Louis 13.2 (11.5-14.5) % Plt Count 135 (130-400) K/uL MPV 11.4 H (7.4-10.4) fL Immature Gran % (Auto) 0.0 % Neut % (Auto) 72.4 % Lymph % (Auto) 13.2 % Jones % (Auto) 14.4 % Eos % (Auto) 0.0 % Baso % (Auto) 0.0 % Neut # (Auto) 3.46 (1.4-6.5) K/uL Lymph # (Auto) 0.63 L (1.2-3.4) K/uL Jones # (Auto) 0.69 H (0.11-0.59) K/uL Eos # (Auto) 0.00 (0-0.5) K/uL Baso # (Auto) 0.00 (0-0.2) K/uL Immature Gran # (Auto) 0.00 (0.00-0.02) K/uL PT 12.4 H (9.0-12.0) Seconds INR 1.2 H (0.9-1.1) APTT 38.2 H (21.0-31.0) Seconds PTT Ratio 1.4 D-Dimer 220 (0-500) ug/L FEU VBG pH (7.36-7.41) VBG pCO2 (38-50) mmHg VBG pO2 mmHg VBG HCO3 mmol/L VBG O2 Saturation % VBG Base Excess mEq/L Barometric Pressure mm/Hg Sodium 135 L (136-145) mmol/L Potassium 3.9 (3.5-5.1) mmol/L Chloride 103 (98-107) mmol/L Carbon Dioxide 24 (21-32) mmol/L Anion Gap 8.0 (3-11) BUN 21 H (7-18) mg/dl Creatinine 1.60 H (0.6-1.4) mg/dl Est Cr Clr Drug Dosing 59.0 ml/min Est GFR ( Amer) 49.9 Est GFR (Non-Af Amer) 43.0 BUN/Creatinine Ratio 13.2 (10-20) Glucose 156 H (70-99) mg/dl Lactate (0.4-2.0) mmol/L Calcium 8.4 L (8.5-10.1) mg/dl Magnesium 2.1 (1.8-2.4) mg/dl Total Bilirubin 0.7 (0.2-1) mg/dl AST 58 H (15-37) U/L ALT 77 (12-78) U/L Alkaline Phosphatase 71 (45-117) U/L Troponin I < 0.015 (0-0.045) ng/ml Total Protein 6.8 (6.4-8.2) gm/dl Albumin 3.0 L (3.4-5.0) gm/dl Globulin 3.8 (2.5-4.0) gm/dl Albumin/Globulin Ratio 0.8 L (0.9-2) Lipase 171 (73-393) U/L 12/06/19 12/06/19 Range/Units 12:46 12:48 WBC (4.8-10.8) K/uL RBC (4.7-6.1) M/uL Hgb (14.0-18.0) g/dL Hct (42-52) % MCV (80-100) fL MCH (25-34) pg MCHC (32-36) g/dL RDW Std Deviation (36.4-46.3) fL RDW Coeff of Louis (11.5-14.5) % Plt Count (130-400) K/uL MPV (7.4-10.4) fL Immature Gran % (Auto) % Neut % (Auto) % Lymph % (Auto) % Jones % (Auto) % Eos % (Auto) % Baso % (Auto) % Neut # (Auto) (1.4-6.5) K/uL Lymph # (Auto) (1.2-3.4) K/uL Jones # (Auto) (0.11-0.59) K/uL Eos # (Auto) (0-0.5) K/uL Baso # (Auto) (0-0.2) K/uL Immature Gran # (Auto) (0.00-0.02) K/uL PT (9.0-12.0) Seconds INR (0.9-1.1) APTT (21.0-31.0) Seconds PTT Ratio D-Dimer (0-500) ug/L FEU VBG pH 7.40 (7.36-7.41) VBG pCO2 41 (38-50) mmHg VBG pO2 47 mmHg VBG HCO3 24 mmol/L VBG O2 Saturation 81.7 % VBG Base Excess -0.6 mEq/L Barometric Pressure 731.2 mm/Hg Sodium (136-145) mmol/L Potassium (3.5-5.1) mmol/L Chloride (98-107) mmol/L Carbon Dioxide (21-32) mmol/L Anion Gap (3-11) BUN (7-18) mg/dl Creatinine (0.6-1.4) mg/dl Est Cr Clr Drug Dosing ml/min Est GFR ( Amer) Est GFR (Non-Af Amer) BUN/Creatinine Ratio (10-20) Glucose (70-99) mg/dl Lactate 1.2 (0.4-2.0) mmol/L Calcium (8.5-10.1) mg/dl Magnesium (1.8-2.4) mg/dl Total Bilirubin (0.2-1) mg/dl AST (15-37) U/L ALT (12-78) U/L Alkaline Phosphatase (45-117) U/L Troponin I (0-0.045) ng/ml Total Protein (6.4-8.2) gm/dl Albumin (3.4-5.0) gm/dl Globulin (2.5-4.0) gm/dl Albumin/Globulin Ratio (0.9-2) Lipase (73-393) U/L Administered Medications Discontinued Medications Acetaminophen (Acetaminophen 500 Mg Tab) 1,000 mg PO NOW STA Stop: 12/06/19 12:07 Last Admin: 12/06/19 12:21 Dose: 1,000 mg Documented by: [id number] Albuterol (Albuterol Hfa 8 Gm Inhaler) 6 puffs INH NOW ONE Stop: 12/06/19 12:07 Last Admin: 12/06/19 12:20 Dose: 6 puffs Documented by: [id number] Dexamethasone (Dexamethasone Sod Inj 10 Mg/Ml Vial) 10 mg IV NOW ONE Stop: 12/06/19 12:08 Last Admin: 12/06/19 12:45 Dose: 10 mg Documented by: [id number] Sodium Chloride (Nss 1000ml) 1,000 mls @ 999 mls/hr IV .Q1H1M ONE Stop: 12/06/19 13:06 Last Infusion: 12/06/19 14:32 Dose: 0 mls/hr Documented by: [id number] Admin: 12/06/19 12:36 Dose: 999 mls/hr Documented by: [id number] Magnesium Sulfate/Dextrose (Magnesium Sulfate / D5w) 1 gm in 100 mls @ 400 mls/hr IV Q15M WALLY Stop: 12/06/19 12:21 Last Infusion: 12/06/19 13:34 Dose: 0 mls/hr Documented by: [id number] Admin: 12/06/19 12:46 Dose: 400 mls/hr Documented by: [id number] Ioversol (Optiray 320 125ml) 120 ml IV ONCE ONE Stop: 12/06/19 14:03 Last Admin: 12/06/19 14:02 Dose: 120 ml Documented by: [id number] Ondansetron HCl (Ondansetron Inj 2 Mg/Ml 2 Ml Vial) 4 mg IV NOW STA Stop: 12/06/19 12:07 Last Admin: 12/06/19 12:45 Dose: 4 mg Documented by: [id number] Discharge Plan Visit Data Chief Complaint: Respiratory Problems Stated Complaint: POSITIVE COVID ED Provider: Dirk Byrnes Discharge Problem: Coronavirus infection, Hypoxia, Breathlessness, Chest pain, Weakness Patient Disposition: Admitted As Inpatient Forms Stand Alone Forms: My [facility] Prescriptions Prescriptions: No Action metoprolol succinate 50 mg tablet extended release 24 hr 50 mg PO HS Qty: 90 RF: 3 rivaroxaban 20 mg tablet 20 mg PO QDD Qty: 90 RF: 3 terazosin 10 mg capsule 20 mg PO QPM Qty: 180 RF: 3 gabapentin 300 mg capsule 300 mg PO BID Qty: 180 RF: 1 metformin 500 mg tablet extended release 24 hr 1,000 mg PO DAILY Qty: 180 RF: 1 spironolactone 25 mg tablet 25 mg PO 1200 Qty: 90 RF: 3 atorvastatin 40 mg tablet 40 mg PO HS Qty: 90 RF: 3 multivitamin [Daily Multi-Vitamin] tablet 1 tab PO QAM RF: 0 metoprolol succinate 100 mg tablet extended release 24 hr 100 mg PO QAM Qty: 90 RF: 3 lisinopril 40 mg tablet 40 mg PO QAM Qty: 90 RF: 3 ibuprofen 200 mg Tablet 600 mg PO Q6H PRN (Reason: Pain) RF: 0 Referrals Referrals: Ellen Underwood CRNP [Primary Care Provider] - Discharge Problem: Chest pain Qualifiers: Chest pain type: unspecified Qualified Code(s): R07.9 - Chest pain, unspecified
[2019-12-06 13:03] LABS: Hematocrit (blood only) 36.4 % (42-52); Hemoglobin 12.9 g/dL (14.0-18.0); Lymphocytes # (auto) 0.63 K/uL (1.2-3.4); Lymphocytes % (auto) 13.2 %; Mean Corpuscular Hemoglobin 32.7 pg (25-34); Mean Corpuscular Hgb Conc 35.4 g/dL (32-36); Mean Corpuscular Volume 92.4 fL (80-100); Mean Platelet Volume 11.4 fL (7.4-10.4); Monocytes # (auto) 0.69 K/uL (0.11-0.59); Monocytes % (auto) 14.4 %; Neutrophils # (auto) 3.46 K/uL (1.4-6.5); Neutrophils % (auto) 72.4 %; Platelet Count 135 K/uL (130-400); RDW Coefficient of Variation 13.2 % (11.5-14.5); RDW Standard Deviation 44.5 fL (36.4-46.3); Red Blood Count 3.94 M/uL (4.7-6.1); White Blood Count 4.78 K/uL (4.8-10.8)
[2019-12-06 13:04] LABS: Base Excess VBG -0.6 mEq/L; Oxygen Saturation VBG 81.7 %; pH VBG 7.4 (7.36-7.41)
--- NOTE | 2019-12-06 13:05 | XRay Report ---
XR chest 1V portable HISTORY: Dyspnea COMPARISON: Chest 06/28/2016. FINDINGS: The heart remains mildly enlarged. Stable linear scarlike density at the left lung base. Mi ld diffuse interstitial thickening, unchanged. This is likely chronic. No new focal lung consolidatio ns to suggest pneumonia. No evidence for edema. No pneumothorax. No pleural effusions. IMPRESSION: No significant change compared to the prior study. No acute process. Stable mild cardiomegaly. ACT 112: Negative or not required by law. Electronically signed by: Kyle Bray M.D. 12/06/2019 1:04 PM
[2019-12-06 13:14] LABS: D Dimer 220 ug/L FEU (0-500); INR 1.2 (0.9-1.1); Partial Thromboplastin Ratio 1.4; Partial Thromboplastin Time 38.2 Seconds (21.0-31.0); Prothrombin Time 12.4 Seconds (9.0-12.0)
[2019-12-06 13:25] LABS: Alanine Aminotransferase 77 U/L (12-78); Aspartate Aminotransferase 58 U/L (15-37); BUN Creatinine Ratio 13.2 (10-20); Blood Urea Nitrogen 21 mg/dl (7-18); Calcium 8.4 mg/dl (8.5-10.1); Carbon Dioxide 24 mmol/L (21-32); Chloride 103 mmol/L (98-107); Est GFR (African American) 49.9; Glucose 156 mg/dl (70-99); Lipase 171 U/L (73-393); Magnesium 2.1 mg/dl (1.8-2.4); Potassium 3.9 mmol/L (3.5-5.1); Sodium 135 mmol/L (136-145)
[2019-12-06 13:30] LABS: Albumin Globulin Ratio 0.8 (0.9-2); Alkaline Phosphatase 71 U/L (45-117); Bilirubin,Total 0.7 mg/dl (0.2-1); Globulin 3.8 gm/dl (2.5-4.0); Total Protein 6.8 gm/dl (6.4-8.2); Troponin I < 0.015 ng/ml (0-0.045)
[2019-12-06] MEDS ORDERED: OPTIRAY 320 125ml IV ONE (14:02)
--- NOTE | 2019-12-06 14:34 | CT Scan Report ---
HEAD CT NONCONTRAST CT DOSE: HISTORY: weak, dizzy TECHNIQUE: Multiaxial CT images of the head were performed without the use of intravenous contrast. A utomated exposure control was utilized for this study. A dose lowering technique was utilized adheri ng to the principles of ALARA. Comparison: None. Findings: The paranasal sinuses and mastoid air cells are clear. The calvarium and skull base are int act. The ventricles and sulci are within normal limits. There is no mass, hematoma, midline shift, or acute infarct. Impression: No acute intracranial abnormality. ACT 112: Negative or not required by law. Electronically signed by: Kyle Bray M.D. 12/06/2019 2:33 PM
--- NOTE | 2019-12-06 14:53 | CT Scan Report ---
CHEST CTA for AORTIC DISSECTION, ABDOMEN AND PELVIS CT ANGIOGRAM CT DOSE: 2964.75 mGycm HISTORY: upper back pain, shortness of breath, +COVID TECHNIQUE: Multiaxial CT images of the chest, abdomen, and pelvis were performed both before and afte r the intravenous administration of contrast to evaluate the aorta. Maximal intensity projection imag es were also obtained. A dose lowering technique was utilized adhering to the principles of ALARA. COMPARISON STUDY: Chest CTA 06/07/2016. Abdomen and pelvis CT 04/15/2013. FINDINGS: Chest CTA: Noncontrast imaging through the chest shows no evidence for an nature mural hematoma withi n the thoracic aorta. The thoracic aorta is normal in course and caliber with no evidence for dissect ion. Suboptimal contrast opacification of the pulmonary arteries to assess for a pulmonary embolus. H owever, the main pulmonary arteries appear patent. The heart is borderline enlarged. Trace left pleur al effusion. No significant pericardial effusion. Calcified subcarinal lymph nodes. No mediastinal or hilar lymphadenopathy. Multinodular thyroid goiter is again noted. No fractures within the visualize d osseous structures. No pneumothorax. The central airways are patent. A few scattered bilateral grou ndglass and consolidative airspace opacities most pronounced along the periphery of the left lung. Th is favors an atypical pneumonia such as a viral process. Calcified right hilar lymph nodes are also n oted. Abdomen and pelvis CTA: Moderate calcified plaque within the normal caliber abdominal aorta. No evide nce for a dissection. The celiac, mesenteric, and renal arteries appear patent. Prior cholecystectomy . Mild hepatic steatosis. The spleen, adrenal glands, and pancreas are unremarkable. A 4.7 cm cyst wi thin the lower pole of the left kidney. Moderate bilateral cortical renal thinning/scarring. A few ad ditional smaller hypodensities within the kidneys are noted. These also favors cysts. A 6 mm stone wi thin the left kidney. No hydronephrosis. No retroperitoneal lymphadenopathy. Evidence for prior mesh repair of a supraumbilical hernia. The prostate gland is enlarged. The bladder is not well-distended. Colonic diverticulosis. No evidence for diverticulitis. No bowel wall thickening or obstruction. Thi ckened appendix measuring up to 1 cm diameter. However, no periappendiceal inflammatory changes ident ified at this time. IMPRESSION: 1. No evidence for an aortic dissection. 2. Scattered patchy groundglass and consolidative airspace opacities seen within the lungs. This favo rs an atypical pneumonia such as a viral process. 3. The appendix measures up to 1 cm in diameter and demonstrates an enhancing wall. However, there is no periappendiceal fat stranding at this time to suggest acute appendicitis. Surgical consultation r ecommended to assess for an appendiceal lesion or the less likely possibility of an early acute appen dicitis. 4. Additional findings as described above. ACT 112: Negative or not required by law. Electronically signed by: Kyle Bray M.D. 12/06/2019 2:51 PM
[2019-12-06] MEDS ORDERED: ONDANSETRON INJ 2 MG/ML 2 ML VIAL IV PRN (18:44)
[2019-12-06] MEDS ORDERED: POLYETHYLENE (MIRALAX) 17 GM PACK PO PRN (18:44)
[2019-12-06] MEDS ORDERED: ACETAMINOPHEN 325 MG TAB PO PRN (18:44)
[2019-12-06] MEDS ORDERED: ALUMINUM/MAGNESIUM SUSP 30 ML UDC PO PRN (18:44)
[2019-12-06] MEDS ORDERED: CARBOHYDRATES FOR HYPOGLYCEMIA PO PRN (19:33)
[2019-12-06] MEDS ORDERED: GLUCAGON FOR INJ 1 MG VIAL SQ PRN (19:33)
[2019-12-06] MEDS ORDERED: GLUCOSE 40% GEL 15 GM TUBE PO PRN (19:33)
[2019-12-06] MEDS ORDERED: GLUCOSE 10 TABS/TUBE PO PRN (19:33)
[2019-12-06] MEDS ORDERED: DEXTROSE 50% 50 ML SYRINGE IV PRN (19:33)
--- NOTE | 2019-12-06 19:44 | History & Physical Report ---
Date of Service December 06, 2019 Assessment & Plan (1) COVID-19: Discussed with Dr Lopez (pulmonary) and will start remdesivir IV 5 day course, given duration of illness and concurrent diabetes recommended against Decadron at this time. D-dimer, LDH, troponin, CRP, CPK, ferritin with AM labs (2) Hypoxia: Does not appear to be in respiratory distress. Aim sats > 92% (3) Acute hypotension: This appears improved after normal saline bolus. Will discontinue spironolactone and lisinopril. Reduce dose of terazosin to 10 mg every afternoon. Continue metoprolol succinate with hold parameters Present on Admission?: Yes (4) Elevated serum creatinine: NSS 1 L bolus given in ER. We will avoid further IV fluids at present as hemodynamically stable, patient has good oral intake, and wish to avoid pulmonary edema with COVID-19. Discontinue ibuprofen for now. Discontinue lisinopril and spironolactone as above for hypotension. (5) Paroxysmal atrial flutter: Continue metoprolol succinate 100 mg p.o. every morning and 50 mg p.o. at bedtime with hold parameters (6) Type 2 diabetes mellitus: Prior HbA1c 6.5 in September 2019. Hold metformin 500 mg p.o. twice daily. Since he had Decadron in the ER will need additional BSG at midnight with NovoLog correction. Otherwise BSG ACHS, a.m. 100-140, correction factor 45 mg/sL/unit, carb ratio 1 unit per 15 g At basal dosing if needing excessive NovoLog dosing - given low amounts of metfo rmin will defer for now. Continue gabapentin 300 mg twice daily for peripheral neuropathy. (7) Obesity hypoventilation syndrome: Suspected. Would also recommend sleep study as an outpatient. (8) Anemia: Normocytic anemia. Appears to be at his baseline. Repeat with a.m. labs (9) BPH (benign prostatic hyperplasia): Reduced dose of terazosin due to hypotension. (10) Abnormal CT of the abdomen: Concern for possible early acute appendicitis on CT. Clinically he has no pain on his right side. I do not feel a general surgical consultation is needed. Continue to monitor for right-sided abdominal pain. (11) Hyperlipidemia: Patient refuses his usual atorvastatin due to concerns for leg cramps. I discussed prescribing him a reduced dose which he also refused. (12) DVT prophylaxis: History of bilateral PEs. He is on Xarelto primarily for paroxysmal atrial flutter, will continue this for prophylaxis. Admission and Anticipated Discharge Date Admission Date: December 06, 2019 History of Present Illness Chief Complaint: Hypoxia, hypotension, outpatient diagnosis of COVID-19 Primary Care Provider: LILIYA Moseley He Rai is a 69-year-old male with significant medical history of morbid obesity, type 2 diabetes, atrial flutter, history of bilateral PEs who presents to the ER on the advice of his daughter due to hypotension in the setting of COVID-19 diagnosis. Shortness of breath, coughing, loss of taste started 10-12 days ago. He was tested for for SARS-COV-2 8 days ago and was subsequently positive. Increasing shortness of breath and small amount of wheezing since. He denies any asthma, COPD or smoking history. No prior sleep study or known obstructive sleep apnea. Dizziness started this morning. Not taking his spironolactone for the last 4 days due to concerns about low blood pressure. No vertigo or room spinning sensation. Ongoing persistent fevers. Allergies Allergy/AdvReac Type Severity Reaction Status Date / Time oxycodone AdvReac Mild "DOESN'T Verified 09/22/19 10:29 LIKE FEELING" Home Medications Home Medications Medication Instructions Recorded Confirmed Type multivitamin 1 tab PO QAM 09/20/18 12/06/19 History metoprolol succinate 50 mg 50 mg PO HS #90 tab 11/28/18 12/06/19 Rx tablet,extended release 24 hr ibuprofen 600 mg PO Q6H PRN 12/31/18 12/06/19 History terazosin 10 mg capsule 20 mg PO QPM #180 cap 05/06/19 12/06/19 Rx metoprolol succinate 100 mg 100 mg PO QAM #90 tab 05/12/19 12/06/19 Rx tablet,extended release 24 hr gabapentin 300 mg capsule 300 mg PO BID #180 cap 07/22/19 12/06/19 Rx lisinopril 40 mg tablet 40 mg PO QAM #90 tab 09/22/19 12/06/19 Rx atorvastatin 40 mg tablet 40 mg PO HS #90 tab 10/27/19 12/06/19 Rx spironolactone 25 mg tablet 25 mg PO 1200 #90 tab 10/27/19 12/06/19 Rx metformin 500 mg PO BID 12/06/19 12/06/19 History rivaroxaban 20 mg PO QAM 12/06/19 12/06/19 History Past Med/Surg History Medical History (Updated 12/07/19 @ 21:08 by Vishal Hernandez DO) Atrial flutter BPH (benign prostatic hyperplasia) History of colon polyps Hyperlipidemia Hypertension Obesity, morbid, BMI 40.0-49.9 On anticoagulant therapy xarelto daily 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--bilateral--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 for xarelto--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 Type 2 diabetes mellitus Surgical History History of arthroscopy of left knee meniscus repair History of cholecystectomy History of colonoscopy History of left inguinal hernia repair History of parotidectomy left--benign cyst History of right inguinal hernia repair History of tooth extraction all teeth removed History of umbilical hernia repair Family History Father Colon cancer Mother Breast cancer Other No family history of adverse response to anesthesia Social History Smoking Status: Former smoker Cigarettes Per Day: 2 packs a day; Second Hand Exposure: No; Do You Dip or Chew Tobacco: No; Hx Alcohol Use: No Hx Substance Use: No Preferred Language: French Communication Ability: Effective Hearing Ability: Normal Flue Lining Dipper Required: No Beliefs That Will Affect Care: None marital status: Current Living Situation: Spouse current occupational status: employed Other Information That Helps Us Care for You: No Feels Safe at Home: Yes Safety Concerns: Feels Safe At This Time Dental Care, Regularly: No Physical Activity Frequency: Does not Exercise Review of Systems Review of Systems: All systems reviewed & are unremarkable except as noted in HPI & below He has not taken spironolactone for the last 3 to 4 days due to concern for his low blood pressure. He does not weigh himself daily but does not feel his weight has increased during this time. Usually takes 600 mg ibuprofen twice daily due to chronic pains. BPH symptoms well controlled with terazosin 20 mg p.o. every afternoon - informed patient will reduce dose due to hypotension. Physical Exam Constitutional: well developed and + morbidly obese; + not well nourished and no acute distress Eyes: + anicteric sclerae; normal pupil size ENMT: Ears: no external ear abnormality Nose: no external nose abnormality Mouth: + dry oral mucous membranes Neck: normal visual inspection, + short neck and + thick neck Respiratory: normal respiratory effort, lungs clear to auscultation Auscultation: no diminished lung sounds, no crackles, no rales, no rhonchi and no wheezes Cardiovascular: Rate/Rhythm: regular rate and regular rhythm Heart Sounds: no murmur Extremities: normal capillary refill and + pedal edema (Trace equal bilateral ankles); no calf tenderness Gastrointestinal (Abdomen): normal bowel sounds, soft, nontender, no hepatosplenomegaly Musculoskeletal: no cyanosis or clubbing, extremities motor strength 5/5 Skin: no rashes, warm and dry turgor not decreased Neurologic: moves all extremities and awake; no focal motor deficits and not confused Speech / Cognition: normal speech Motor/Sensory: no tremor, no pronator drift and no sensory deficit Psychiatric: A+Ox3, euthymic affect Genitourinary: no CVA tenderness Results & Data Results & Data ([facility]) Vital Signs (Past 12 Hours) Vital Signs Temp Pulse Pulse Pulse Resp BP BP 12/06/19 19:36 75 12/06/19 19:03 36.7 C 79 20 109/69 12/06/19 18:31 78 16 118/61 12/06/19 18:01 75 12 12/06/19 18:00 83 20 111/63 12/06/19 17:55 74 17 12/06/19 17:50 74 20 12/06/19 17:45 70 17 12/06/19 17:40 75 20 12/06/19 17:35 76 19 12/06/19 17:31 76 19 12/06/19 17:30 78 16 118/61 12/06/19 17:25 78 20 12/06/19 17:20 71 24 12/06/19 17:15 75 21 12/06/19 17:10 73 26 H 12/06/19 17:05 68 21 12/06/19 17:01 82 22 12/06/19 17:00 78 22 111/63 12/06/19 16:55 78 22 12/06/19 16:50 77 21 12/06/19 16:45 78 24 12/06/19 16:40 79 22 12/06/19 16:35 71 24 12/06/19 16:31 66 25 H 12/06/19 16:30 63 26 H 114/56 L 12/06/19 16:25 62 23 12/06/19 16:20 68 22 12/06/19 16:15 67 23 12/06/19 16:10 76 26 H 12/06/19 16:05 68 26 H 12/06/19 16:01 65 20 12/06/19 16:00 65 22 113/66 12/06/19 15:55 58 L 22 12/06/19 15:50 74 24 12/06/19 15:45 82 21 12/06/19 15:40 70 23 12/06/19 15:35 69 24 12/06/19 15:31 37.2 C 78 26 H 12/06/19 15:30 75 23 111/63 12/06/19 15:25 76 24 12/06/19 15:20 69 21 12/06/19 15:15 75 26 H 12/06/19 15:10 77 18 12/06/19 15:05 84 20 12/06/19 15:01 74 23 12/06/19 15:00 80 25 H 112/69 12/06/19 14:55 74 23 12/06/19 14:50 71 23 12/06/19 14:47 75 28 H 101/61 12/06/19 14:45 75 21 12/06/19 14:40 0 L 22 12/06/19 14:35 71 25 H 12/06/19 14:31 73 23 12/06/19 14:30 82 22 107/61 12/06/19 14:25 76 20 12/06/19 14:20 12/06/19 14:01 74 19 12/06/19 14:00 85 20 101/65 12/06/19 13:55 78 20 12/06/19 13:50 76 22 12/06/19 13:45 81 24 12/06/19 13:40 74 26 H 12/06/19 13:35 73 23 12/06/19 13:34 70 24 90/55 L 12/06/19 13:31 78 25 H 12/06/19 13:30 72 22 12/06/19 13:25 78 27 H 08/22/20 13:20 85 25 H 12/06/19 13:15 77 26 H 12/06/19 13:10 78 23 12/06/19 13:05 25 H 12/06/19 13:01 79 24 12/06/19 13:00 79 18 94/54 L 12/06/19 12:55 75 17 12/06/19 12:50 86 18 12/06/19 12:45 86 23 114/50 L 12/06/19 12:40 78 23 12/06/19 12:30 85 29 H 12/06/19 12:29 81 28 H 124/59 L 12/06/19 12:20 95 H 28 H 12/06/19 12:11 90 24 12/06/19 12:10 89 30 H 89/53 L 12/06/19 12:06 92 H 26 H 89/45 L 12/06/19 12:00 92 H 25 H 12/06/19 11:54 91 H 24 12/06/19 11:49 93 H 18 84/49 L 12/06/19 11:40 36.7 C 97 H 18 84/49 L Pulse Ox 12/06/19 19:36 12/06/19 19:03 95 12/06/19 18:31 95 12/06/19 18:01 97 12/06/19 18:00 96 12/06/19 17:55 98 12/06/19 17:50 97 12/06/19 17:45 97 12/06/19 17:40 97 12/06/19 17:35 97 12/06/19 17:31 97 12/06/19 17:30 96 12/06/19 17:25 97 12/06/19 17:20 97 12/06/19 17:15 97 12/06/19 17:10 97 12/06/19 17:05 97 12/06/19 17:01 95 12/06/19 17:00 97 12/06/19 16:55 96 12/06/19 16:50 96 12/06/19 16:45 96 12/06/19 16:40 99 12/06/19 16:35 98 12/06/19 16:31 97 12/06/19 16:30 97 12/06/19 16:25 96 12/06/19 16:20 97 12/06/19 16:15 97 12/06/19 16:10 97 12/06/19 16:05 97 12/06/19 16:01 96 12/06/19 16:00 96 12/06/19 15:55 95 12/06/19 15:50 97 12/06/19 15:45 96 12/06/19 15:40 97 12/06/19 15:35 96 12/06/19 15:31 97 12/06/19 15:30 97 12/06/19 15:25 98 12/06/19 15:20 98 12/06/19 15:15 98 12/06/19 15:10 97 12/06/19 15:05 91 12/06/19 15:01 89 L 12/06/19 15:00 91 12/06/19 14:55 88 L 12/06/19 14:50 84 L 12/06/19 14:47 92 12/06/19 14:45 90 12/06/19 14:40 92 12/06/19 14:35 92 12/06/19 14:31 89 L 12/06/19 14:30 90 12/06/19 14:25 92 12/06/19 14:20 93 12/06/19 14:01 92 12/06/19 14:00 81 L 12/06/19 13:55 83 L 12/06/19 13:50 89 L 12/06/19 13:45 90 12/06/19 13:40 92 12/06/19 13:35 91 12/06/19 13:34 90 12/06/19 13:31 92 12/06/19 13:30 94 12/06/19 13:25 92 12/06/19 13:20 92 12/06/19 13:15 91 12/06/19 13:10 92 12/06/19 13:05 86 L 12/06/19 13:01 88 L 12/06/19 13:00 92 12/06/19 12:55 91 12/06/19 12:50 87 L 12/06/19 12:45 92 12/06/19 12:40 92 12/06/19 12:30 93 12/06/19 12:29 93 12/06/19 12:20 96 12/06/19 12:11 94 12/06/19 12:10 95 12/06/19 12:06 95 12/06/19 12:00 93 12/06/19 11:54 93 12/06/19 11:49 94 12/06/19 11:40 93 Diagnostic Findings XR chest 1V portable IMPRESSION: No significant change compared to the prior study. No acute process. Stable mild cardiomegaly. CHEST CTA for AORTIC DISSECTION, ABDOMEN AND PELVIS CT ANGIOGRAM IMPRESSION: 1. No evidence for an aortic dissection. 2. Scattered patchy groundglass and consolidative airspace opacities seen within the lungs. This favors an atypical pneumonia such as a viral process. 3. The appendix measures up to 1 cm in diameter and demonstrates an enhancing wall. However, there is no periappendiceal fat stranding at this time to suggest acute appendicitis. Surgical consultation recommended to assess for an appendiceal lesion or the less likely possibility of an early acute appendicitis. 4. Additional findings as described above. HEAD CT NONCONTRAST Impression: No acute intracranial abnormality. Code Status & VTE Plan Code Status DNR/DNI -patient declined me updating his family and discussing this with them, he was encouraged to inform them of his wish not to be intubated VTE Prophylaxis Plan VTE Prophylaxis will be ordered: Yes PG Care Time/CCT Total # of Minutes Spent Total Time Spent with Patient: Total time spent is greater than 50% in coordination of care (as documented) at patient's floor/unit and/or counseling patient: Coding Level of Care Code 52763 Initial Inpt Care Lvl 3 Diagnoses COVID-19 U07.1 Hypoxia R09.02 Acute hypotension I95.9 Elevated serum creatinine R79.89 Paroxysmal atrial flutter I48.92 Type 2 diabetes mellitus E11.9 Obesity hypoventilation syndrome E66.2 Anemia D64.9 BPH (benign prostatic hyperplasia) N40.[address] of the abdomen R93.5 Hyperlipidemia E78.5 DVT prophylaxis Z29.9
[2019-12-06] MEDS: INSULIN ASPART 100 UNITS/ML 3 ML PEN SC SCH (20:10)
[2019-12-06] MEDS ORDERED: REMDESIVIR 200 mg: Day 1 IV ONE (20:30)
[2019-12-06] MEDS: METOPROLOL SUCC 50MG EXT REL TAB PO SCH (21:21)
[2019-12-06] MEDS: TERAZOSIN HCL 5 MG CAP PO SCH (21:24)
[2019-12-06] MEDS: GABAPENTIN 300 MG CAP PO SCH (21:25)
[2019-12-06 22:21] LABS: Appearance Urine Clear (Clear); Bacteria Urine Automated Negative (Negative); Bilirubin Urine Negative (Negative); Blood Urine Negative (Negative); Color Urine Dark Yellow; Epithelial Cell Urine Auto >30 /lpf (0-5); Glucose Urine UA Trace (Negative); Ketones Urine Negative (Negative); Leukocyte Esterase Urine Negative (Negative); Nitrite Urine Negative (Negative); Protein Urine 1+ (Negative); RBC Urine Automated 0-4 /hpf (0-4); Specific Gravity Urine > 1.045 (1.000-1.030); Urobilinogen Urine Negative (Negative)
[2019-12-06] MEDS: NSS 30mL Flush, Days 1-5 IV SCH (23:40)
[2019-12-07] MEDS ORDERED: INSULIN ASPART 100 UNITS/ML 3 ML PEN SC ONE
[2019-12-07 06:54] LABS: Hematocrit (blood only) 36.1 % (42-52); Hemoglobin 12.3 g/dL (14.0-18.0); Lymphocytes # (auto) 0.49 K/uL (1.2-3.4); Lymphocytes % (auto) 12.2 %; Mean Corpuscular Hemoglobin 31.5 pg (25-34); Mean Corpuscular Hgb Conc 34.1 g/dL (32-36); Mean Corpuscular Volume 92.6 fL (80-100); Mean Platelet Volume 10.9 fL (7.4-10.4); Monocytes % (auto) 12.4 %; Neutrophils # (auto) 3.04 K/uL (1.4-6.5); Neutrophils % (auto) 75.4 %; Platelet Count 125 K/uL (130-400); RDW Coefficient of Variation 13.3 % (11.5-14.5); RDW Standard Deviation 44.8 fL (36.4-46.3); White Blood Count 4.03 K/uL (4.8-10.8)
[2019-12-07 07:11] LABS: D Dimer 280 ug/L FEU (0-500)
[2019-12-07 07:21] LABS: Alanine Aminotransferase 66 U/L (12-78); Albumin Level 2.6 gm/dl (3.4-5.0); Aspartate Aminotransferase 42 U/L (15-37); BUN Creatinine Ratio 21.3 (10-20); Blood Urea Nitrogen 25 mg/dl (7-18); Calcium 7.5 mg/dl (8.5-10.1); Carbon Dioxide 25 mmol/L (21-32); Chloride 108 mmol/L (98-107); Creatinine Clr Calc Pharmacy 79.3 ml/min; Est GFR (African American) 71.3; Est GFR (Non-African American) 61.5; Glucose 173 mg/dl (70-99); Potassium 4.4 mmol/L (3.5-5.1); Sodium 136 mmol/L (136-145)
[2019-12-07 07:35] LABS: Albumin Globulin Ratio 0.7 (0.9-2); Alkaline Phosphatase 62 U/L (45-117); Bilirubin,Total 0.4 mg/dl (0.2-1); C Reactive Protein 3.29 mg/dl (0-0.29); Creatine Kinase 124 U/L (39-308); Ferritin 822.7 ng/ml (8-388); Globulin 3.8 gm/dl (2.5-4.0); Thyroid Stimulating Hormone 0.058 uIu/ml (0.300-4.500); Total Protein 6.4 gm/dl (6.4-8.2); Troponin I < 0.015 ng/ml (0-0.045)
[2019-12-07 07:48] LABS: T4 Free Thyroxine 1.22 ng/dl (0.8-1.6)
[2019-12-07] MEDS: METOPROLOL SUCC 50MG EXT REL TAB PO SCH ×2 (08:36→20:09)
[2019-12-07] MEDS: RIVAROXABAN 20 MG TAB PO SCH (08:47)
[2019-12-07] MEDS: GABAPENTIN 300 MG CAP PO SCH ×2 (08:47→20:11)
[2019-12-07] MEDS: MULTIVITAMIN TAB PO SCH (08:47)
[2019-12-07] MEDS: INSULIN ASPART 100 UNITS/ML 3 ML PEN SC SCH ×3 (08:52→17:02)
[2019-12-07] MEDS ORDERED: AZITHROMYCIN 250 MG TAB PO ONE (16:53)
--- NOTE | 2019-12-07 16:55 | Hospitalist Progress Note ---
Date of Service December 07, 2019 Assessment & Plan (1) COVID-19: tested positive 11/27 which is now 9 days ago he has no fever, his d dimer is 280 could be considered to be severe case since he is requiring 3-4L NC to keep saturations > 90% complete 5 days of Remdisivir, today is day 2 will add Zithromax 500mg today and 250mg daily x 4 days for productive cough, green sputum, cover for atypical bacterial infection patient does not want Decadron, refuses, also his sugars would become profoundly elevated since he refuses insulin keep in hospital until he no longer requires oxygen he lives with his who is also COVID positive but she is recovered (2) Hypoxia: no distress at all ABG sats > 92% removed oxygen today during my exam, saturation 91% on room air while he was laying down later RN found him saturating in low 80's after he walked short distance to bathroom now with 3.[address] titrate down to room air as tolerated (3) Acute hypotension: resolved after NSS bolus in ED, likely dehydrated as his Cr was 1.6 and he had poor oral intake hold spironolactone and lisinopril reduce terazosin to 10mg PM continue metoprolol BP in 120's systolic today (4) Acute kidney injury: Cr elevated at 1.6 on admission improved to 1.1 with NSS eating and drinking better, hold on further IV fluids hold lisinopril and aldactone (5) Paroxysmal atrial flutter: Continue metoprolol succinate 100 mg p.o. every morning and 50 mg p.o. at bedtime with hold parameters HR controlled today (6) Type 2 diabetes mellitus: Prior HbA1c 6.5 in September 2019. patient claimed he felt "off" with glucose of 130 this afternoon, says his sugars normally run closer to 200 he refuses to get any further Novolog, will discontinue he refuses to take Metformin Continue gabapentin 300 mg twice daily for peripheral neuropathy. (7) Obesity hypoventilation syndrome: Suspected. Would also recommend sleep study as an outpatient. (8) Anemia: Normocytic anemia. Appears to be at his baseline. Hb stable (9) BPH (benign prostatic hyperplasia): Reduced dose of terazosin due to hypotension. (10) Abnormal CT of the abdomen: Concern for possible early acute appendicitis on CT. Clinically he has no pain on his right side. I do not feel a general surgical consultation is needed. no complaints of abdominal pain today (11) DVT prophylaxis: History of bilateral PEs. He is on Xarelto primarily for paroxysmal atrial flutter, will continue this for prophylaxis. Admission and Anticipated Discharge Date Admission Date: December 06, 2019 Subjective patient laying on his right side, covered up with several blankets says he started with symptoms over a week ago for COVID, his got sick first he got tested on 11/27 so he is 9 days out he has not had a fever since admission, just says he feels cold and needs the blankets he says he ate and drank better today than he has he said that his and daughter wanted him to come to the hospital because he was so weak he has some mild shortness of breath, has a cough with occasional green mucous, no hemoptysis reviewed labs, has leukopenia with WBC 4k, Cr is down to 1.1, it was 1.6 on admission electrolytes stable D dimer noted to be only 280 which would suggest less severe disease CT chest with evidence of bilateral infiltrates consistent with viral pneumonia, COVID he asked if he could go home, explained that he would need to be stable on room air to go home tried to remove oxygen, he was 91% on room air for about 30 minutes, then he went to the bathroom, was in the low 80's and cyanotic resolved with 3.5 liters NC he felt unwell earlier today, his sugar was 130, he was upset, says his sugar is never that low, does not want insulin he says his sugar is always > 200 explained that it is better to have well controlled sugars when fighting an infection he refuses Novolog, asked if I could resume his Metformin and he said "I don't want that stuff" Review of Systems Review of Systems: All systems reviewed & are unremarkable except as noted in Subjective Physical Exam Constitutional: well developed, + ill appearing and + morbidly obese; no acute distress Eyes: PERRL, conjunctivae normal, anicteric sclerae ENMT: external ear and nose normal, oropharynx normal Neck: trachea midline, no thyromegaly Respiratory: normal respiratory effort and + cough; no respiratory distress and not tachypneic Auscultation: lungs clear to auscultation bilaterally; no crackles, no rales and no wheezes Cardiovascular: RRR, no murmur, no edema Gastrointestinal (Abdomen): normal bowel sounds, soft, nontender, no hepatosplenomegaly Musculoskeletal: no cyanosis or clubbing, extremities motor strength 5/5 Skin: no rashes, warm and dry Neurologic: patellar DTR's 2+ bilat, sensation intact and PERRL, EOMI, accommodation nl, no face palsy, no dysarthria Psychiatric: A+Ox3, euthymic affect Lymphatic: no cervical or axillary lymphadenopathy Results & Data Results & Data ([facility]) Vital Signs (Past 12 Hours) Vital Signs Temp Pulse Pulse Resp BP BP Pulse Ox 12/07/19 15:00 109 H 12/07/19 14:53 36.8 C 74 22 146/86 H 94 12/07/19 12:00 36.8 C 74 20 98/54 L 97 12/07/19 07:43 59 L 12/07/19 06:42 37 C 64 16 97/54 L 95 Laboratory Results Laboratory Results - last 24 hr 12/06/19 12/06/19 12/06/19 19:17 21:30 23:36 WBC RBC Hgb Hct MCV MCH MCHC RDW Std Deviation RDW Coeff of Louis Plt Count MPV Immature Gran % (Auto) Neut % (Auto) Lymph % (Auto) [place] % (Auto) Eos % (Auto) Baso % (Auto) Neut # (Auto) Lymph # (Auto) [place] # (Auto) Eos # (Auto) Baso # (Auto) Immature Gran # (Auto) D-Dimer Sodium Potassium Chloride Carbon Dioxide Anion Gap BUN Creatinine Est Cr Clr Drug Dosing Est GFR ( Amer) Est GFR (Non-Af Amer) BUN/Creatinine Ratio Glucose POC Glucose 275 H 268 H Calcium Ferritin Total Bilirubin AST ALT Alkaline Phosphatase Lactate Dehydrogenase Total Creatine Kinase Troponin I C-Reactive Protein Total Protein Albumin Globulin Albumin/Globulin Ratio TSH Free T4 Urine Color Dark Yellow Urine Appearance Clear Urine pH 5.0 Ur Specific [place] > 1.045 H Urine Protein 1+ H Urine Glucose (UA) Trace H Urine Ketones Negative Urine Blood Negative Urine Nitrite Negative Urine Bilirubin Negative Urine Urobilinogen Negative Ur Leukocyte Esterase Negative Urine WBC (Auto) 5-10 H Urine RBC (Auto) 0-4 U Hyaline Cast (Auto) 1-5 U Epithel Cells (Auto) >30 H Urine Bacteria (Auto) Negative Ur Renal Epithelial Cell Not Reportable 12/07/19 12/07/19 12/07/19 06:29 06:29 06:29 WBC 4.03 L RBC 3.90 L Hgb 12.3 L Hct 36.1 L MCV 92.6 MCH 31.5 MCHC 34.1 RDW Std Deviation 44.8 RDW Coeff of Louis 13.3 Plt Count 125 L MPV 10.9 H Immature Gran % (Auto) 0.0 Neut % (Auto) 75.4 Lymph % (Auto) 12.2 [place] % (Auto) 12.4 Eos % (Auto) 0.0 Baso % (Auto) 0.0 Neut # (Auto) 3.04 Lymph # (Auto) 0.49 L [place] # (Auto) 0.50 Eos # (Auto) 0.00 Baso # (Auto) 0.00 Immature Gran # (Auto) 0.00 D-Dimer 280 Sodium 136 Potassium 4.4 Chloride 108 H Carbon Dioxide 25 Anion Gap 3.0 BUN 25 H Creatinine 1.19 D Est Cr Clr Drug Dosing 79.3 Est GFR ( Amer) 71.3 Est GFR (Non-Af Amer) 61.5 BUN/Creatinine Ratio 21.3 H Glucose 173 H POC Glucose Calcium 7.5 L Ferritin 822.7 H Total Bilirubin 0.4 AST 42 H ALT 66 Alkaline Phosphatase 62 Lactate Dehydrogenase Total Creatine Kinase 124 Troponin I < 0.015 C-Reactive Protein 3.29 H Total Protein 6.4 Albumin 2.6 L Globulin 3.8 Albumin/Globulin Ratio 0.7 L TSH 0.058 L Free T4 1.22 Urine Color Urine Appearance Urine pH Ur Specific [place] Urine Protein Urine Glucose (UA) Urine Ketones Urine Blood Urine Nitrite Urine Bilirubin Urine Urobilinogen Ur Leukocyte Esterase Urine WBC (Auto) Urine RBC (Auto) U Hyaline Cast (Auto) U Epithel Cells (Auto) Urine Bacteria (Auto) Ur Renal Epithelial Cell 12/07/19 12/07/19 12/07/19 06:29 08:50 12:14 WBC RBC Hgb Hct MCV MCH MCHC RDW Std Deviation RDW Coeff of Louis Plt Count MPV Immature Gran % (Auto) Neut % (Auto) Lymph % (Auto) [place] % (Auto) Eos % (Auto) Baso % (Auto) Neut # (Auto) Lymph # (Auto) [place] # (Auto) Eos # (Auto) Baso # (Auto) Immature Gran # (Auto) D-Dimer Sodium Potassium Chloride Carbon Dioxide Anion Gap BUN Creatinine Est Cr Clr Drug Dosing Est GFR ( Amer) Est GFR (Non-Af Amer) BUN/Creatinine Ratio Glucose POC Glucose 171 H 159 H Calcium Ferritin Total Bilirubin AST ALT Alkaline Phosphatase Lactate Dehydrogenase 154 Total Creatine Kinase Troponin I C-Reactive Protein Total Protein Albumin Globulin Albumin/Globulin Ratio TSH Free T4 Urine Color Urine Appearance Urine pH Ur Specific [place] Urine Protein Urine Glucose (UA) Urine Ketones Urine Blood Urine Nitrite Urine Bilirubin Urine Urobilinogen Ur Leukocyte Esterase Urine WBC (Auto) Urine RBC (Auto) U Hyaline Cast (Auto) U Epithel Cells (Auto) Urine Bacteria (Auto) Ur Renal Epithelial Cell 12/07/19 14:37 WBC RBC Hgb Hct MCV MCH MCHC RDW Std Deviation RDW Coeff of Louis Plt Count MPV Immature Gran % (Auto) Neut % (Auto) Lymph % (Auto) [place] % (Auto) Eos % (Auto) Baso % (Auto) Neut # (Auto) Lymph # (Auto) [place] # (Auto) Eos # (Auto) Baso # (Auto) Immature Gran # (Auto) D-Dimer Sodium Potassium Chloride Carbon Dioxide Anion Gap BUN Creatinine Est Cr Clr Drug Dosing Est GFR ( Amer) Est GFR (Non-Af Amer) BUN/Creatinine Ratio Glucose POC Glucose 135 H Calcium Ferritin Total Bilirubin AST ALT Alkaline Phosphatase Lactate Dehydrogenase Total Creatine Kinase Troponin I C-Reactive Protein Total Protein Albumin Globulin Albumin/Globulin Ratio TSH Free T4 Urine Color Urine Appearance Urine pH Ur Specific [place] Urine Protein Urine Glucose (UA) Urine Ketones Urine Blood Urine Nitrite Urine Bilirubin Urine Urobilinogen Ur Leukocyte Esterase Urine WBC (Auto) Urine RBC (Auto) U Hyaline Cast (Auto) U Epithel Cells (Auto) Urine Bacteria (Auto) Ur Renal Epithelial Cell Medications Administered Current Inpatient Medications Acetaminophen (Acetaminophen 325 Mg Tab) 650 mg PO Q4H PRN PRN Reason: Pain or Fever Stop: 01/05/20 18:43 Al Hydrox/Mg Hydrox/Simethicone (Aluminum/Magnesium Susp 30 Ml Udc) 15 ml PO Q4H PRN PRN Reason: Dyspepsia Stop: 01/05/20 18:43 Azithromycin (Azithromycin 250 Mg Tab) 500 mg PO NOW ONE Stop: 12/07/19 16:54 Azithromycin ([facility] 250 Mg Tab) [facility] Stop: 12/15/19 08:59 Dextrose (Dextrose 50% 50 Ml Syringe) 25 - 50 ml IV UD PRN; Protocol PRN Reason: Hypoglycemia Protocol Stop: 01/05/20 19:32 Gabapentin (Gabapentin 300 Mg Cap) 300 mg PO BID [facility] Stop: 01/05/20 20:59 Last Admin: 12/07/19 08:47 Dose: 300 mg Documented by: Glucagon (Glucagon For Inj 1 Mg Vial) 1 mg SQ UD PRN; Protocol PRN Reason: Hypoglycemia Protocol Stop: 01/05/20 19:32 Glucose (Glucose 10 Tabs/Tube) 4 - 8 tabs PO UD PRN; Protocol PRN Reason: Hypoglycemia Protocol Stop: 01/05/20 19:32 Glucose (Glucose 40% Gel 15 Gm Tube) 15 - 30 gm PO UD PRN; Protocol PRN Reason: Hypoglycemia Protocol Stop: 01/05/20 19:32 Remdesivir 100 mg/ Sodium (Chloride) 250 mls @ 250 mls/hr IV Q24H [facility]; Protocol Stop: 12/10/19 20:59 Metoprolol Succinate (Metoprolol Succ 50mg Ext Rel Tab) 50 mg PO [facility] Stop: 01/05/20 20:59 Last Admin: 12/06/19 21:21 Dose: 50 mg Documented by: Metoprolol Succinate (Metoprolol Succ 50mg Ext Rel Tab) 100 mg PO [facility] Stop: 01/06/20 08:59 Last Admin: 12/07/19 08:36 Dose: Not Given Documented by: Miscellaneous (Carbohydrates For Hypoglycemia ) 15 - 30 gm PO UD PRN PRN Reason: Hypoglycemia Protocol Stop: 01/05/20 19:32 Multivitamins (Multivitamin Tab) 1 tab PO [facility] Stop: 01/06/20 08:59 Last Admin: 12/07/19 08:47 Dose: 1 tab Documented by: Ondansetron HCl (Ondansetron Inj 2 Mg/Ml 2 Ml Vial) 4 mg IV Q6H PRN PRN Reason: Nausea Stop: 01/05/20 18:43 Polyethylene Glycol (Polyethylene (Miralax) 17 Gm Pack) 17 gm PO DAILY PRN PRN Reason: Constipation Stop: 01/05/20 18:43 Rivaroxaban (Rivaroxaban 20 Mg Tab) 20 mg PO QAM [facility] Stop: 01/06/20 08:59 Last Admin: 12/07/19 08:47 Dose: 20 mg Documented by: Sodium Chloride (Nss 30ml Flush, Days 1-5) 30 ml IV Q24H [facility] Stop: 12/10/19 20:01 Last Admin: 12/06/19 23:40 Dose: 30 ml Documented by: Terazosin HCl (Terazosin Hcl 5 Mg Cap) 10 mg PO QPM [facility] Stop: 01/05/20 20:59 Last Admin: 12/06/19 21:24 Dose: 10 mg Documented by: PG Care Time/CCT Total # of Minutes Spent Total Time Spent with Patient: Total time spent is greater than 50% in coordination of care (as documented) at patient's floor/unit and/or counseling patient: Coding Level of Care Code 87212 Subseq Hosp Care Lvl 3 Diagnoses COVID-19 U07.1 Hypoxia R09.02 Acute hypotension I95.9 Acute kidney injury N17.9 Paroxysmal atrial flutter I48.92 Type 2 diabetes mellitus E11.9 Obesity hypoventilation syndrome E66.2 Anemia D64.9 BPH (benign prostatic hyperplasia) N40.[address] of the abdomen R93.5 DVT prophylaxis Z29.9
[2019-12-07] MEDS: TERAZOSIN HCL 5 MG CAP PO SCH (20:10)
[2019-12-07] MEDS: REMDESIVIR 100mg: Days 2-5 IV SCH (20:11)
[2019-12-07] MEDS: NSS 30mL Flush, Days 1-5 IV SCH (21:33)
[2019-12-07] MEDS: MELATONIN 3 MG TAB PO PRN (23:00)
[2019-12-08] MEDS: RIVAROXABAN 20 MG TAB PO SCH (08:06)
[2019-12-08] MEDS: MULTIVITAMIN TAB PO SCH (08:06)
[2019-12-08] MEDS: METOPROLOL SUCC 50MG EXT REL TAB PO SCH ×2 (08:07→20:16)
[2019-12-08] MEDS: GABAPENTIN 300 MG CAP PO SCH ×2 (08:07→20:16)
[2019-12-08] MEDS: AZITHROMYCIN 250 MG TAB PO SCH (08:08)
[2019-12-08] MEDS ORDERED: VANCOMYCIN CONSULT ACTIVE PRN (09:16)
--- NOTE | 2019-12-08 09:16 | Electrocardiogram Report ---
Test Reason : Blood Pressure : / mmHG Vent. Rate : 095 BPM Atrial Rate : 144 BPM P-R Int : 000 ms QRS Dur : 138 ms QT Int : 392 ms P-R-T Axes : 021 073 003 degrees QTc Int : 492 ms Sinus rhythm with frequent Premature atrial complexes Right bundle branch block Possible Old Inferior infarct (cited on or before 29-JUN-2016) Abnormal ECG When compared with ECG of 29-JUN-2016 12:59, Premature atrial complexes now present Confirmed by Caio Nobles ([id number]) on 12/08/2019 9:15:34 AM Referred By: ED Confirmed By:Caio Nobles
[2019-12-08] MEDS ORDERED: VANCOMYCIN HCL 2,750 MG in SODIUM CHLORIDE 0.9% 500 ML IV ONE (09:30)
--- NOTE | 2019-12-08 09:45 | Pharmacy Report ---
Pharmacy Abx Initial Consult - Date of Service December 08, 2019 - Pharmacy Dosing Scope Date of Consult: 12/08/2019 Consultation requested by: Dr. Moscoso Pharmacy is consulted to initiate Vancomycin IV dosing therapy, order appropriate labs and adjust drug dose/frequency. - Subjective The patient is a 69 year old M admitted on 12/06/19 17:00. - Objective Height: 5 ft 8 in Weight: 140 kg Vital Signs (Past 12hrs): Vital Signs Temp Pulse Pulse Resp BP Pulse Ox 12/08/19 08:00 37.0 C 74 105/58 L 95 12/08/19 05:56 37 C 85 14 95/57 L 93 12/08/19 01:30 83 12/07/19 23:02 37.2 C 89 18 113/65 95 - Risk Factors for Resistance * None - Assessment & Plan Assessment 69 year old M admitted on 12/05 secondary to SOB, cough, hypotension. * Patient is COVID-19 positive from 11/27. On remdesivir 5 day course. Requiring 3 L NC to maintain sats > 90%. * On azithromycin for pneumonia as well. Now started on Vanc for GPC's growing in 1 of 4 bottle from blood cultures. * Of note, patient is afebrile, no leukocytosis. Renal fxn is improving. Plan Vancomycin for treatment of Bacteremia Vancomycin IV * Estimated PK Parameters: Vd 0.6 L/kg, Pepe 0.08 hr-1, t1/2 ~9 hrs * Loading dose: 2750 mg (20 mg/kg) * Maintenance dose: 1750 mg IV (12 mg/kg) every 12 hours * Goal trough: ~ 15 mcg/mL * Trough level ordered for Saturday 12/09 prior to the 4th maintenance dose to reflect steady state levels * A less than traditional dose has been selected due to likelihood of drug accumulation in obese patient. Pharmacy will continue to follow and will adjust dose/frequency as necessary. Thank you.
[2019-12-08 10:59] LABS: Basophils # (auto) 0.01 K/uL (0-0.2); Basophils % (auto) 0.2 %; Hematocrit (blood only) 35.3 % (42-52); Hemoglobin 12.2 g/dL (14.0-18.0); Immature Granulocytes # (auto) 0.01 K/uL (0.00-0.02); Immature Granulocytes % (auto) 0.2 %; Lymphocytes # (auto) 0.69 K/uL (1.2-3.4); Lymphocytes % (auto) 12.6 %; Mean Corpuscular Hemoglobin 32.1 pg (25-34); Mean Corpuscular Hgb Conc 34.6 g/dL (32-36); Mean Corpuscular Volume 92.9 fL (80-100); Mean Platelet Volume 11.4 fL (7.4-10.4); Monocytes # (auto) 1.22 K/uL (0.11-0.59); Monocytes % (auto) 22.3 %; Neutrophils # (auto) 3.53 K/uL (1.4-6.5); Neutrophils % (auto) 64.7 %; Platelet Count 151 K/uL (130-400); RDW Coefficient of Variation 13.6 % (11.5-14.5); RDW Standard Deviation 46.1 fL (36.4-46.3); White Blood Count 5.46 K/uL (4.8-10.8)
[2019-12-08 11:31] LABS: Albumin Level 2.5 gm/dl (3.4-5.0); BUN Creatinine Ratio 23.2 (10-20); Calcium 7.9 mg/dl (8.5-10.1); Creatinine Clr Calc Pharmacy 85.8 ml/min; Est GFR (African American) 78.4; Est GFR (Non-African American) 67.7
[2019-12-08 11:34] LABS: Albumin Globulin Ratio 0.7 (0.9-2); Bilirubin,Total 0.4 mg/dl (0.2-1); Globulin 3.5 gm/dl (2.5-4.0)
--- NOTE | 2019-12-08 16:42 | Hospitalist Progress Note ---
Date of Service December 08, 2019 Assessment & Plan (1) COVID-19: tested positive 11/27 and started having symptoms on 11/30 Remains afebrile, his d dimer is 280 could be considered to be severe case since he is requiring 3-4L NC to keep saturations > 90% Will complete 5 days of Remdesivir,last day will be 12/09, but could extend to 10 day course if he worsens/goes on vent -continue on Zithromax 250mg daily x 4 days for productive cough, green sputum, cover for atypical bacterial infection patient does not want Decadron, refuses, also his sugars would become profoundly elevated since he refuses insulin Still with headache, malaise, low appetite, hypoxia. Multiple risk factors/comorbidities i.e. obesity, DMII for worse prognosis With continued SOB today he lives with his who is also COVID positive but she is recovered -follow CBC, CMP, LDH, ferritin, ESR, CRP, D-dimer in AM -continue supplemental O2 to keep POx>90-92% -advised to try prone position if can tolerate -check CXR in AM (2) Hypoxia: Secondary to COVID-19 and PNA continue O2 as above for Aim sats > 92% (3) Acute hypotension: resolved after NSS bolus in ED, likely dehydrated as his Cr was 1.6 and he had poor oral intake Now improved BPs but low normal -continue to hold spironolactone and lisinopril reduced terazosin to 10mg PM continue metoprolol home doses (4) Elevated serum creatinine: Acute kidney injury on admission, [employer] 1.6 as above NSS 1 L bolus given in ER. -will avoid further IV fluids at present as hemodynamically stable, wish to avoid pulmonary edema with COVID-19. Discontinued ibuprofen for now. -continue to hold lisinopril and spironolactone for hypotension (5) Paroxysmal atrial flutter: in NSR on tele, ECG on admission with RBBB,frequent PACs Had a DCCV in 2016 for Aflutter Continue metoprolol succinate 100 mg p.o. every morning and 50 mg p.o. at bedtime with hold parameters Continue Xarelto (6) Type 2 diabetes mellitus: Prior HbA1c 6.5 in September 2019. patient claimed he felt "off" with glucose of 130 here, says his sugars normally run closer to 200 he refuses to get any further Novolog, have since discontinued he refuses to take Metformin Continue gabapentin 300 mg twice daily for peripheral neuropathy. (7) Obesity hypoventilation syndrome: Suspected. Would also recommend sleep study as an outpatient. (8) Anemia: Normocytic anemia. Appears to be at his baseline. Hb stable (9) BPH (benign prostatic hyperplasia): Reduced dose of terazosin due to hypotension. (10) Abnormal CT of the abdomen: Concern for possible early acute appendicitis on CT with thickened appendix on imaging but no signs of inflammation. Clinically he has no pain on his right side. I do not feel a general surgical consultation is needed. no complaints of abdominal pain today -will discuss with Surgery and arrange for outpt f/u after improves from COVID (11) Hyperlipidemia: Patient refuses his usual atorvastatin due to concerns for leg cramps. (12) Bacteremia: 1/2 BCxs here with GPC, could be contaminate -start Vanco and f/u ID of BCx (13) DVT prophylaxis: History of bilateral PEs. He is on Xarelto primarily for paroxysmal atrial flutter, will continue this for prophylaxis. Dispo-continued stay Prognosis guarded Admission and Anticipated Discharge Date Admission Date: December 06, 2019 Subjective Pt feels SOB today despite normal POx levels and then felt slightly better after RN turned up his O2 to 3L again after being on 2L.Has a mild headache. Appetite is low but RN got him to eat a little bit today. Denies abd pain, no diarrhea. Is coughing up yellow sputum. Tele with NSR, rates 90-120 Review of Systems Review of Systems: All systems reviewed & are unremarkable except as noted in HPI & below Physical Exam Constitutional: WD/WN, vitals as above + ill appearing and + morbidly obese Eyes: + anicteric sclerae Neck: trachea midline, no thyromegaly Respiratory: normal respiratory effort, lungs clear to auscultation Cardiovascular: RRR, no murmur, no edema Chest (Breasts): Chest: normal inspection of chest Gastrointestinal (Abdomen): normal bowel sounds, soft, nontender, no hepatosplenomegaly Musculoskeletal: Extremities: extremities normal to inspection; no cyanosis and no clubbing Skin: no rashes, warm and dry Neurologic: moves all extremities and awake; no focal motor deficits Psychiatric: A+Ox3, euthymic affect Lymphatic: no lymphedema Results & Data Results & Data ([facility]) Vital Signs (Past 12 Hours) Vital Signs Temp Pulse Resp BP Pulse Ox 12/08/19 14:15 37.0 C 86 125/71 95 12/08/19 11:27 36.6 C 86 133/73 96 12/08/19 08:00 37.0 C 74 105/58 L 95 12/08/19 05:56 37 C 85 14 95/57 L 93 Laboratory Results 12/08/19 12/08/19 12/08/19 Range/Units 16:10 11:04 10:40 WBC (4.8-10.8) K/uL RBC (4.7-6.1) M/uL Hgb (14.0-18.0) g/dL Hct (42-52) % MCV (80-100) fL MCH (25-34) pg MCHC (32-36) g/dL RDW Std Deviation (36.4-46.3) fL RDW Coeff of Louis (11.5-14.5) % Plt Count (130-400) K/uL MPV (7.4-10.4) fL Immature Gran % (Auto) % Neut % (Auto) % Lymph % (Auto) % [place] % (Auto) % Eos % (Auto) % Baso % (Auto) % Neut # (Auto) (1.4-6.5) K/uL Lymph # (Auto) (1.2-3.4) K/uL [place] # (Auto) (0.11-0.59) K/uL Eos # (Auto) (0-0.5) K/uL Baso # (Auto) (0-0.2) K/uL Immature Gran # (Auto) (0.00-0.02) K/uL Sodium 135 L (136-145) mmol/L Potassium 4.0 (3.5-5.1) mmol/L Chloride 104 (98-107) mmol/L Carbon Dioxide 27 (21-32) mmol/L Anion Gap 4.0 (3-11) BUN 26 H (7-18) mg/dl Creatinine 1.10 (0.6-1.4) mg/dl Est Cr Clr Drug Dosing 85.8 ml/min Est GFR ( Amer) 78.4 Est GFR (Non-Af Amer) 67.7 BUN/Creatinine Ratio 23.2 H (10-20) Glucose 125 H (70-99) mg/dl POC Glucose 143 H 132 H (70-99) mg/dl Calcium 7.9 L (8.5-10.1) mg/dl Total Bilirubin 0.4 (0.2-1) mg/dl AST 63 H (15-37) U/L ALT 61 (12-78) U/L Alkaline Phosphatase 56 (45-117) U/L Total Protein 6.0 L (6.4-8.2) gm/dl Albumin 2.5 L (3.4-5.0) gm/dl Globulin 3.5 (2.5-4.0) gm/dl Albumin/Globulin Ratio 0.7 L (0.9-2) 12/08/19 12/08/19 Range/Units 10:40 08:00 WBC 5.46 (4.8-10.8) K/uL RBC 3.80 L (4.7-6.1) M/uL Hgb 12.2 L (14.0-18.0) g/dL Hct 35.3 L (42-52) % MCV 92.9 (80-100) fL MCH 32.1 (25-34) pg MCHC 34.6 (32-36) g/dL RDW Std Deviation 46.1 (36.4-46.3) fL RDW Coeff of Louis 13.6 (11.5-14.5) % Plt Count 151 (130-400) K/uL MPV 11.4 H (7.4-10.4) fL Immature Gran % (Auto) 0.2 % Neut % (Auto) 64.7 % Lymph % (Auto) 12.6 % [place] % (Auto) 22.3 % Eos % (Auto) 0.0 % Baso % (Auto) 0.2 % Neut # (Auto) 3.53 (1.4-6.5) K/uL Lymph # (Auto) 0.69 L (1.2-3.4) K/uL [place] # (Auto) 1.22 H (0.11-0.59) K/uL Eos # (Auto) 0.00 (0-0.5) K/uL Baso # (Auto) 0.01 (0-0.2) K/uL Immature Gran # (Auto) 0.01 (0.00-0.02) K/uL Sodium (136-145) mmol/L Potassium (3.5-5.1) mmol/L Chloride (98-107) mmol/L Carbon Dioxide (21-32) mmol/L Anion Gap (3-11) BUN (7-18) mg/dl Creatinine (0.6-1.4) mg/dl Est Cr Clr Drug Dosing ml/min Est GFR ( Amer) Est GFR (Non-Af Amer) BUN/Creatinine Ratio (10-20) Glucose (70-99) mg/dl POC Glucose 134 H (70-99) mg/dl Calcium (8.5-10.1) mg/dl Total Bilirubin (0.2-1) mg/dl AST (15-37) U/L ALT (12-78) U/L Alkaline Phosphatase (45-117) U/L Total Protein (6.4-8.2) gm/dl Albumin (3.4-5.0) gm/dl Globulin (2.5-4.0) gm/dl Albumin/Globulin Ratio (0.9-2) PG Care Time/CCT Total # of Minutes Spent Total Time Spent with Patient: Total time spent is greater than 50% in coordination of care (as documented) at patient's floor/unit and/or counseling patient: Coding Level of Care Code 12785 Subseq Hosp Care Lvl 3 Diagnoses COVID-19 U07.1 Hypoxia R09.02 Acute hypotension I95.9 Elevated serum creatinine R79.89 Paroxysmal atrial flutter I48.92 Type 2 diabetes mellitus E11.9 Obesity hypoventilation syndrome E66.2 Anemia D64.9 BPH (benign prostatic hyperplasia) N40.[address] of the abdomen R93.5 Hyperlipidemia E78.5 Bacteremia R78.81 DVT prophylaxis Z29.9
[2019-12-08] MEDS ORDERED: TRAZODONE HCL 50 MG TAB PO ONE (19:51)
[2019-12-08] MEDS: REMDESIVIR 100mg: Days 2-5 IV SCH (20:15)
[2019-12-08] MEDS: TERAZOSIN HCL 5 MG CAP PO SCH (20:17)
[2019-12-08] MEDS: VANCOMYCIN HCL 1,750 MG in SODIUM CHLORIDE 0.9% 500 ML IV SCH (21:39)
[2019-12-08] MEDS: NSS 30mL Flush, Days 1-5 IV SCH (21:39)
[2019-12-09 06:38] LABS: Basophils # (auto) 0.01 K/uL (0-0.2); Basophils % (auto) 0.3 %; Eosinophils # (auto) 0.01 K/uL (0-0.5); Eosinophils % (auto) 0.3 %; Hematocrit (blood only) 33.6 % (42-52); Hemoglobin 11.5 g/dL (14.0-18.0); Immature Granulocytes # (auto) 0.01 K/uL (0.00-0.02); Immature Granulocytes % (auto) 0.3 %; Lymphocytes # (auto) 0.68 K/uL (1.2-3.4); Lymphocytes % (auto) 17.4 %; Mean Corpuscular Hemoglobin 31.4 pg (25-34); Mean Corpuscular Hgb Conc 34.2 g/dL (32-36); Mean Corpuscular Volume 91.8 fL (80-100); Monocytes # (auto) 0.89 K/uL (0.11-0.59); Monocytes % (auto) 22.8 %; Neutrophils % (auto) 58.9 %; Platelet Count 136 K/uL (130-400); RDW Coefficient of Variation 13.3 % (11.5-14.5); RDW Standard Deviation 44.8 fL (36.4-46.3); Red Blood Count 3.66 M/uL (4.7-6.1)
[2019-12-09 06:56] LABS: D Dimer 410 ug/L FEU (0-500)
[2019-12-09 07:11] LABS: Albumin Level 2.2 gm/dl (3.4-5.0); BUN Creatinine Ratio 21.4 (10-20); C Reactive Protein 4.01 mg/dl (0-0.29); Calcium 7.7 mg/dl (8.5-10.1); Creatinine Clr Calc Pharmacy 109.7 ml/min; Est GFR (African American) 101.8; Est GFR (Non-African American) 87.9; Magnesium 2.2 mg/dl (1.8-2.4); Potassium 3.8 mmol/L (3.5-5.1)
[2019-12-09 07:15] LABS: Albumin Globulin Ratio 0.7 (0.9-2); Bilirubin,Total 0.5 mg/dl (0.2-1); Ferritin 940.5 ng/ml (8-388); Globulin 3.4 gm/dl (2.5-4.0); Total Protein 5.6 gm/dl (6.4-8.2)
[2019-12-09] MEDS: VANCOMYCIN HCL 1,750 MG in SODIUM CHLORIDE 0.9% 500 ML IV SCH ×2 (08:29→21:30)
[2019-12-09] MEDS: RIVAROXABAN 20 MG TAB PO SCH (08:29)
[2019-12-09] MEDS: GABAPENTIN 300 MG CAP PO SCH ×2 (08:29→20:14)
[2019-12-09] MEDS: METOPROLOL SUCC 50MG EXT REL TAB PO SCH ×2 (08:30→20:14)
[2019-12-09] MEDS: AZITHROMYCIN 250 MG TAB PO SCH (08:30)
[2019-12-09] MEDS: MULTIVITAMIN TAB PO SCH (08:31)
--- NOTE | 2019-12-09 09:57 | XRay Report ---
XR chest 1V portable CLINICAL HISTORY: Pneumonia,COVID-19 COMPARISON STUDY: December 06, 2019 FINDINGS: The cardiac and mediastinal contours remain stable. Left hemidiaphragm is obscured suggesti ng left lower lobe atelectasis/consolidation. There is mild diffuse interstitial thickening. There is blunting of both lateral costophrenic angles.[ IMPRESSION: Slight progression in the left lower lobe atelectasis/consolidation. ACT 112: Negative or not required by law. Electronically signed by: Addison Nicole M.D. 12/09/2019 9:56 AM
--- NOTE | 2019-12-09 18:25 | Hospitalist Progress Note ---
Date of Service December 09, 2019 Assessment & Plan (1) COVID-19: tested positive 11/27 and started having symptoms on 11/30 Remains afebrile, his d dimer was 280 and now up slightly to 410 ESR 21, CRP up slightly to 4 from 3.2. Ferritin up slightly to 940 from 822. LDH normal at 217, AST is down to 59. Procalcitonin is negative WBC count slightly lower today at 3.9, platelets slightly lower at 136. could be considered to be severe case since he was requiring 3-4L NC to keep saturations > 90%, however hypoxia is improving today Headache is resolved, malaise is improved, appetite is improving, and hypoxia is improving. Chest x-ray does appear slightly worse today and he is still having productive cough but is no longer short of breath. Despite slightly worse laboratory values and chest x-ray, he clinically appears better. Will complete 5 days of Remdesivir,last day will be 12/09, but could extend to 10 day course if he worsens/goes on vent -continue on Zithromax 250mg daily x 3 more days for productive cough, green sputum, cover for atypical bacterial infection patient does not want Decadron, refuses, also his sugars would become profoundly elevated since he refuses insulin -follow CBC, CMP, LDH, ferritin, ESR, CRP, D-dimer in AM -continue supplemental O2 to keep POx>90-92%-wean off as tolerated -Encourage to continue prone position as tolerated-he was able to do it a little bit in the last 24 hours -Follow chest x-ray to resolution after discharge (2) Hypoxia: Secondary to COVID-19 and PNA continue O2 as above for Aim sats > 92% Overall improving, down to 1 L nasal cannula -Add flutter valve every 4 hours (3) Acute hypotension: resolved after NSS bolus in ED, likely dehydrated as his Cr was 1.6 and he had poor oral intake Now improved BPs but low normal -will restart spironolactone and lisinopril in the morning reduced terazosin to 10mg PM continue metoprolol home doses (4) Elevated serum creatinine: 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 -will avoid further IV fluids at present as hemodynamically stable, wish to avoid pulmonary edema with COVID-19. Discontinued ibuprofen for now. -Can now restart lisinopril and spironolactone as above (5) Paroxysmal atrial flutter: Remains in NSR on tele, ECG on admission with RBBB,frequent PACs Had a DCCV in 2017 for Aflutter Continue metoprolol succinate 100 mg p.o. every morning and 50 mg p.o. at bedtime with hold parameters Continue Xarelto (6) Type 2 diabetes mellitus: Prior HbA1c 6.5 in September 2019. patient claimed he felt "off" with glucose of 130 here, says his sugars normally run closer to 200. However, blood sugars have been much better controlled he is not complaining of this any longer he refuses to get any further Novolog, have since discontinued he refuses to take Metformin Continue gabapentin 300 mg twice daily for peripheral neuropathy. (7) Obesity hypoventilation syndrome: Suspected. Would also recommend sleep study as an outpatient. (8) Anemia: Normocytic anemia. Appears to be at his baseline. Hb stable (9) BPH (benign prostatic hyperplasia): Reduced dose of terazosin due to hypotension. (10) Abnormal CT of the abdomen: Concern for possible early acute appendicitis on CT with thickened appendix on imaging but no signs of inflammation. Clinically he has no pain on his right side. I do not feel a general surgical consultation is needed. no complaints of abdominal pain today -Recommend outpatient surgery f/u after improves from [facility]-discussed with patient and his (11) Hyperlipidemia: Patient refuses his usual atorvastatin due to concerns for leg cramps. (12) Bacteremia: 1/2 BCxs here with coagulase-negative Staphylococcus and a second organism of gram-positive cocci in clusters, most likely a contaminate -Continue Vanco and f/u ID of second organism when available-DC vancomycin if second organism is also a contaminant (13) Thrombocytopenia: Platelets have trended downward slightly to 136 today, likely secondary to viral infection Follow CBC in the morning (14) DVT prophylaxis: History of bilateral PEs. He is on Xarelto primarily for paroxysmal atrial flutter, will continue this for prophylaxis. Dispo-continued stay but overall improving, patient is hopeful for discharged home tomorrow Will need a two-step prior to discharge likely for oxygen requirement Admission and Anticipated Discharge Date Admission Date: December 06, 2019 Subjective Patient feeling better today, appetite is improved and is now eating. He feels much less short of breath and has been weaned down to 1 L. He had a bowel movement just before I saw him and when he returned from the toilet I checked his pulse ox on room air and it was 91-92%. I did however place the oxygen back on at 1 L and he came up to 94-95%. He is still coughing up some yellow sputum. Remains afebrile. Feels more energy today and is anxious about getting discharged hopefully tomorrow. Telemetry with sinus arrhythmia, PVCs, PACs, rate 60s to 80s Review of Systems Review of Systems: All systems reviewed & are unremarkable except as noted in HPI & below Physical Exam Constitutional: WD/WN, vitals as above + morbidly obese; no acute distress Eyes: + anicteric sclerae Neck: trachea midline, no thyromegaly Respiratory: normal respiratory effort; no labored breathing Auscultation: + diminished lung sounds (At the bases bilaterally); no crackles, no rhonchi and no wheezes Cardiovascular: RRR, no murmur, no edema Chest (Breasts): Chest: normal inspection of chest Gastrointestinal (Abdomen): normal bowel sounds, soft, nontender, no hepatosplenomegaly Musculoskeletal: Extremities: extremities normal to inspection; no cyanosis and no clubbing Skin: no rashes, warm and dry Neurologic: moves all extremities and awake; no focal motor deficits Psychiatric: A+Ox3, euthymic affect Lymphatic: no lymphedema Results & Data Results & Data ([facility]) Vital Signs (Past 12 Hours) Vital Signs Temp Pulse Pulse Resp BP BP Pulse Ox 12/09/19 15:40 37.1 C 70 16 138/76 95 12/09/19 14:20 66 12/09/19 12:00 36.8 C 70 18 123/71 96 12/09/19 08:30 36.6 C 83 18 111/80 95 12/09/19 07:00 71 Laboratory Results 12/09/19 12/09/19 12/09/19 Range/Units 15:55 12:03 08:34 WBC (4.8-10.8) K/uL RBC (4.7-6.1) M/uL Hgb (14.0-18.0) g/dL Hct (42-52) % MCV (80-100) fL MCH (25-34) pg MCHC (32-36) g/dL RDW Std Deviation (36.4-46.3) fL RDW Coeff of Louis (11.5-14.5) % Plt Count (130-400) K/uL MPV (7.4-10.4) fL Immature Gran % (Auto) % Neut % (Auto) % Lymph % (Auto) % [place] % (Auto) % Eos % (Auto) % Baso % (Auto) % Neut # (Auto) (1.4-6.5) K/uL Lymph # (Auto) (1.2-3.4) K/uL [place] # (Auto) (0.11-0.59) K/uL Eos # (Auto) (0-0.5) K/uL Baso # (Auto) (0-0.2) K/uL Immature Gran # (Auto) (0.00-0.02) K/uL ESR (0-14) mm/hr D-Dimer (0-500) ug/L FEU Sodium (136-145) mmol/L Potassium (3.5-5.1) mmol/L Chloride (98-107) mmol/L Carbon Dioxide (21-32) mmol/L Anion Gap (3-11) BUN (7-18) mg/dl Creatinine (0.6-1.4) mg/dl Est Cr Clr Drug Dosing ml/min Est GFR ( Amer) Est GFR (Non-Af Amer) BUN/Creatinine Ratio (10-20) Glucose (70-99) mg/dl POC Glucose 160 H 156 H 117 H (70-99) mg/dl Calcium (8.5-10.1) mg/dl Magnesium (1.8-2.4) mg/dl Ferritin (8-388) ng/ml Total Bilirubin (0.2-1) mg/dl AST (15-37) U/L ALT (12-78) U/L Alkaline Phosphatase (45-117) U/L Lactate Dehydrogenase (87-241) U/L C-Reactive Protein (0-0.29) mg/dl Total Protein (6.4-8.2) gm/dl Albumin (3.4-5.0) gm/dl Globulin (2.5-4.0) gm/dl Albumin/Globulin Ratio (0.9-2) Procalcitonin (0-0.5) ng/ml 12/09/19 12/09/19 12/09/19 Range/Units 06:12 06:12 06:12 WBC 3.90 L (4.8-10.8) K/uL RBC 3.66 L (4.7-6.1) M/uL Hgb 11.5 L (14.0-18.0) g/dL Hct 33.6 L (42-52) % MCV 91.8 (80-100) fL MCH 31.4 (25-34) pg MCHC 34.2 (32-36) g/dL RDW Std Deviation 44.8 (36.4-46.3) fL RDW Coeff of Louis 13.3 (11.5-14.5) % Plt Count 136 (130-400) K/uL MPV 11.0 H (7.4-10.4) fL Immature Gran % (Auto) 0.3 % Neut % (Auto) 58.9 % Lymph % (Auto) 17.4 % [place] % (Auto) 22.8 % Eos % (Auto) 0.3 % Baso % (Auto) 0.3 % Neut # (Auto) 2.30 (1.4-6.5) K/uL Lymph # (Auto) 0.68 L (1.2-3.4) K/uL [place] # (Auto) 0.89 H (0.11-0.59) K/uL Eos # (Auto) 0.01 (0-0.5) K/uL Baso # (Auto) 0.01 (0-0.2) K/uL Immature Gran # (Auto) 0.01 (0.00-0.02) K/uL ESR (0-14) mm/hr D-Dimer (0-500) ug/L FEU Sodium (136-145) mmol/L Potassium (3.5-5.1) mmol/L Chloride (98-107) mmol/L Carbon Dioxide (21-32) mmol/L Anion Gap (3-11) BUN (7-18) mg/dl Creatinine (0.6-1.4) mg/dl Est Cr Clr Drug Dosing ml/min Est GFR ( Amer) Est GFR (Non-Af Amer) BUN/Creatinine Ratio (10-20) Glucose (70-99) mg/dl POC Glucose (70-99) mg/dl Calcium (8.5-10.1) mg/dl Magnesium (1.8-2.4) mg/dl Ferritin (8-388) ng/ml Total Bilirubin (0.2-1) mg/dl AST (15-37) U/L ALT (12-78) U/L Alkaline Phosphatase (45-117) U/L Lactate Dehydrogenase 217 (87-241) U/L C-Reactive Protein (0-0.29) mg/dl Total Protein (6.4-8.2) gm/dl Albumin (3.4-5.0) gm/dl Globulin (2.5-4.0) gm/dl Albumin/Globulin Ratio (0.9-2) Procalcitonin < 0.05 (0-0.5) ng/ml 12/09/19 12/09/19 12/09/19 Range/Units 06:12 06:12 06:12 WBC (4.8-10.8) K/uL RBC (4.7-6.1) M/uL Hgb (14.0-18.0) g/dL Hct (42-52) % MCV (80-100) fL MCH (25-34) pg MCHC (32-36) g/dL RDW Std Deviation (36.4-46.3) fL RDW Coeff of Louis (11.5-14.5) % Plt Count (130-400) K/uL MPV (7.4-10.4) fL Immature Gran % (Auto) % Neut % (Auto) % Lymph % (Auto) % [place] % (Auto) % Eos % (Auto) % Baso % (Auto) % Neut # (Auto) (1.4-6.5) K/uL Lymph # (Auto) (1.2-3.4) K/uL [place] # (Auto) (0.11-0.59) K/uL Eos # (Auto) (0-0.5) K/uL Baso # (Auto) (0-0.2) K/uL Immature Gran # (Auto) (0.00-0.02) K/uL ESR 21 H (0-14) mm/hr D-Dimer 410 (0-500) ug/L FEU Sodium 136 (136-145) mmol/L Potassium 3.8 (3.5-5.1) mmol/L Chloride 106 (98-107) mmol/L Carbon Dioxide 25 (21-32) mmol/L Anion Gap 5.0 (3-11) BUN 18 (7-18) mg/dl Creatinine 0.86 (0.6-1.4) mg/dl Est Cr Clr Drug Dosing 109.7 ml/min Est GFR ( Amer) 101.8 Est GFR (Non-Af Amer) 87.9 BUN/Creatinine Ratio 21.4 H (10-20) Glucose 110 H (70-99) mg/dl POC Glucose (70-99) mg/dl Calcium 7.7 L (8.5-10.1) mg/dl Magnesium 2.2 (1.8-2.4) mg/dl Ferritin 940.5 H (8-388) ng/ml Total Bilirubin 0.5 (0.2-1) mg/dl AST 59 H (15-37) U/L ALT 57 (12-78) U/L Alkaline Phosphatase 55 (45-117) U/L Lactate Dehydrogenase (87-241) U/L C-Reactive Protein 4.01 H (0-0.29) mg/dl Total Protein 5.6 L (6.4-8.2) gm/dl Albumin 2.2 L (3.4-5.0) gm/dl Globulin 3.4 (2.5-4.0) gm/dl Albumin/Globulin Ratio 0.7 L (0.9-2) Procalcitonin (0-0.5) ng/ml 12/08/19 Range/Units 20:13 WBC (4.8-10.8) K/uL RBC (4.7-6.1) M/uL Hgb (14.0-18.0) g/dL Hct (42-52) % MCV (80-100) fL MCH (25-34) pg MCHC (32-36) g/dL RDW Std Deviation (36.4-46.3) fL RDW Coeff of Louis (11.5-14.5) % Plt Count (130-400) K/uL MPV (7.4-10.4) fL Immature Gran % (Auto) % Neut % (Auto) % Lymph % (Auto) % [place] % (Auto) % Eos % (Auto) % Baso % (Auto) % Neut # (Auto) (1.4-6.5) K/uL Lymph # (Auto) (1.2-3.4) K/uL [place] # (Auto) (0.11-0.59) K/uL Eos # (Auto) (0-0.5) K/uL Baso # (Auto) (0-0.2) K/uL Immature Gran # (Auto) (0.00-0.02) K/uL ESR (0-14) mm/hr D-Dimer (0-500) ug/L FEU Sodium (136-145) mmol/L Potassium (3.5-5.1) mmol/L Chloride (98-107) mmol/L Carbon Dioxide (21-32) mmol/L Anion Gap (3-11) BUN (7-18) mg/dl Creatinine (0.6-1.4) mg/dl Est Cr Clr Drug Dosing ml/min Est GFR ( Amer) Est GFR (Non-Af Amer) BUN/Creatinine Ratio (10-20) Glucose (70-99) mg/dl POC Glucose 131 H (70-99) mg/dl Calcium (8.5-10.1) mg/dl Magnesium (1.8-2.4) mg/dl Ferritin (8-388) ng/ml Total Bilirubin (0.2-1) mg/dl AST (15-37) U/L ALT (12-78) U/L Alkaline Phosphatase (45-117) U/L Lactate Dehydrogenase (87-241) U/L C-Reactive Protein (0-0.29) mg/dl Total Protein (6.4-8.2) gm/dl Albumin (3.4-5.0) gm/dl Globulin (2.5-4.0) gm/dl Albumin/Globulin Ratio (0.9-2) Procalcitonin (0-0.5) ng/ml Diagnostic Findings Chest x-ray image personally reviewed by me and agree with the following report: XR chest 1V portable CLINICAL HISTORY: Pneumonia,COVID-19 COMPARISON STUDY: December 06, 2019 FINDINGS: The cardiac and mediastinal contours remain stable. Left hemidiaphragm is obscured suggesting left lower lobe atelectasis/consolidation. There is mild diffuse interstitial thickening. There is blunting of both lateral costophrenic angles.[ IMPRESSION: Slight progression in the left lower lobe atelectasis/consolidation. PG Care Time/CCT Total # of Minutes Spent Total Time Spent with Patient: Total time spent is greater than 50% in coordination of care (as documented) at patient's floor/unit and/or counseling patient: Coding Level of Care Code 31606 Subseq Hosp Care Lvl 3 Diagnoses COVID-19 U07.1 Hypoxia R09.02 Acute hypotension I95.9 Elevated serum creatinine R79.89 Paroxysmal atrial flutter I48.92 Type 2 diabetes mellitus E11.9 Obesity hypoventilation syndrome E66.2 Anemia D64.9 BPH (benign prostatic hyperplasia) N40.[address] of the abdomen R93.5 Hyperlipidemia E78.5 Bacteremia R78.81 Thrombocytopenia D69.6 DVT prophylaxis Z29.9
[2019-12-09] MEDS: REMDESIVIR 100mg: Days 2-5 IV SCH (20:13)
[2019-12-09] MEDS: NSS 30mL Flush, Days 1-5 IV SCH (20:14)
[2019-12-09] MEDS: TERAZOSIN HCL 5 MG CAP PO SCH (20:14)
[2019-12-09] MEDS: MELATONIN 3 MG TAB PO PRN (20:26)
[2019-12-10] MEDS ORDERED: VANCOMYCIN TROUGH ONE (08:30)
[2019-12-10 08:42] LABS: Basophils # (auto) 0.02 K/uL (0-0.2); Basophils % (auto) 0.4 %; Eosinophils # (auto) 0.04 K/uL (0-0.5); Eosinophils % (auto) 0.9 %; Hematocrit (blood only) 36.8 % (42-52); Hemoglobin 12.6 g/dL (14.0-18.0); Immature Granulocytes # (auto) 0.02 K/uL (0.00-0.02); Immature Granulocytes % (auto) 0.4 %; Lymphocytes # (auto) 0.67 K/uL (1.2-3.4); Lymphocytes % (auto) 14.8 %; Mean Corpuscular Hemoglobin 31.8 pg (25-34); Mean Corpuscular Hgb Conc 34.2 g/dL (32-36); Mean Corpuscular Volume 92.9 fL (80-100); Mean Platelet Volume 10.6 fL (7.4-10.4); Monocytes % (auto) 17.7 %; Neutrophils # (auto) 2.97 K/uL (1.4-6.5); Neutrophils % (auto) 65.8 %; Platelet Count 174 K/uL (130-400); RDW Coefficient of Variation 13.3 % (11.5-14.5); RDW Standard Deviation 45.4 fL (36.4-46.3); Red Blood Count 3.96 M/uL (4.7-6.1); White Blood Count 4.52 K/uL (4.8-10.8)
[2019-12-10 08:52] LABS: D Dimer 440 ug/L FEU (0-500)
[2019-12-10] MEDS ORDERED: lisinopriL 40 MG TAB PO SCH (09:00)
[2019-12-10] MEDS: GABAPENTIN 300 MG CAP PO SCH (09:01)
[2019-12-10] MEDS: VANCOMYCIN HCL 1,750 MG in SODIUM CHLORIDE 0.9% 500 ML IV SCH (09:03)
[2019-12-10] MEDS: RIVAROXABAN 20 MG TAB PO SCH (09:04)
[2019-12-10] MEDS: METOPROLOL SUCC 50MG EXT REL TAB PO SCH (09:04)
[2019-12-10] MEDS: AZITHROMYCIN 250 MG TAB PO SCH (09:05)
[2019-12-10] MEDS: MULTIVITAMIN TAB PO SCH (09:05)
[2019-12-10 09:07] LABS: Albumin Level 2.5 gm/dl (3.4-5.0); C Reactive Protein 3.75 mg/dl (0-0.29); Calcium 8.2 mg/dl (8.5-10.1); Creatinine Clr Calc Pharmacy 119.7 ml/min; Est GFR (African American) 105.4; Magnesium 2.4 mg/dl (1.8-2.4); Potassium 3.8 mmol/L (3.5-5.1)
[2019-12-10 09:12] LABS: Albumin Globulin Ratio 0.7 (0.9-2); Bilirubin,Total 0.7 mg/dl (0.2-1); Ferritin 910.4 ng/ml (8-388); Globulin 3.6 gm/dl (2.5-4.0); Total Protein 6.1 gm/dl (6.4-8.2)
--- NOTE | 2019-12-10 10:56 | Pharmacy Report ---
Pharmacy Abx Dose Short Note - Date of Service December 10, 2019 - Assessment & Plan Assessment 69 year old M admitted on 12/05 secondary to SOB, cough, hypotension. * Patient is COVID-19 positive from 11/27. On remdesivir 5 day course - today is last day. O2 requirements have improved, on RA right now. * On azithromycin for pneumonia as well. * Anaerobic bottle from 1 blood culture is growing two separate gram positive organisms: one is coagulase negative staphylococcus not lugdunensis and other GPC in clusters has not been identified yet. * Of note: patient is afebrile, no leukocytosis. Renal fxn at baseline. Plan Vancomycin * Trough level of 15.2 mcg/mL is therapeutic * Continue dose of 1750 mg IV every 12 hours * Goal trough level: ~ 15 mcg/mL * Trough level ordered for December 11 at 0830 to ensure patient does not accumulate on this dose given elevated BMI. Pharmacy will continue to follow and will adjust dose/frequency as necessary. Thank you.
[2019-12-10] MEDS ORDERED: SPIRONOLACTONE 25 MG TAB PO SCH (12:00)
--- NOTE | 2019-12-10 12:07 | Discharge Summary ---
Date of Service December 10, 2019 Admission HPI Per Admitting Provider He Rai is a 69-year-old male with significant medical history of morbid obesity, type 2 diabetes, atrial flutter, history of bilateral PEs who presents to the ER on the advice of his daughter due to hypotension in the setting of COVID-19 diagnosis. Shortness of breath, coughing, loss of taste started 10-12 days ago. He was tested for for SARS-COV-2 8 days ago and was subsequently positive. Increasing shortness of breath and small amount of wheezing since. He denies any asthma, COPD or smoking history. No prior sleep study or known obstructive sleep apnea. Dizziness started this morning. Not taking his sp ironolactone for the last 4 days due to concerns about low blood pressure. No vertigo or room spinning sensation. Ongoing persistent fevers. Principal Diagnosis COVID-19, pneumonia, acute hypoxic respiratory failure Discharge Exam Constitutional WD/WN, vitals as above + morbidly obese; no acute distress Eyes + anicteric sclerae ENMT external ear and nose normal, oropharynx normal Neck trachea midline, no thyromegaly Respiratory normal respiratory effort, lungs clear to auscultation normal respiratory effort; no labored breathing Auscultation: + diminished lung sounds (At the bases bilaterally); no crackles, no rhonchi and no wheezes Cardiovascular RRR, no murmur, no edema Chest (Breasts) Chest: normal inspection of chest Gastrointestinal (Abdomen) normal bowel sounds, soft, nontender, no hepatosplenomegaly Musculoskeletal Extremities: extremities normal to inspection; no cyanosis and no clubbing Skin no rashes, warm and dry Neurologic moves all extremities and awake; no focal motor deficits Psychiatric A+Ox3, euthymic affect Lymphatic no lymphedema Discharge Data Allergies Allergy/AdvReac Type Severity Reaction Status Date / Time oxycodone AdvReac Mild "DOESN'T Verified 09/22/19 10:29 LIKE FEELING" Consultations 12/06/19 15:23 ED Decision to Admit Stat Ordered Studies 12/06/19 12:14 CT angio abdomen pelvis w con Stat CT angio chest dissec wo/w con Stat CT head/brain wo con Stat Chest x-ray x2 Hospital Course (1) COVID-19: tested positive 11/27 and started having symptoms on 11/30 Remains afebrile, his d dimer was 280 and now up slightly to 440 ESR 21, CRP back down to 3, ferritin trending back down to 910. LDH normal at 217, AST is down to 56. Procalcitonin is negative WBC count normal and mild thrombocytopenia is now resolved could be considered to be severe case since he was requiring 3-4L NC to keep saturations > 90%, however hypoxia is now resolved. He was 91% on room air with exertion around the room with walking on the day of discharge and was 93-95% on room air at rest. He does not need oxygen for discharge. Headache is resolved, malaise is improved, appetite is improving, and hypoxia resolved as above Chest x-ray did appear slightly worse on repeat on 12/08, and he is still having productive cough but is no longer short of breath. Clinically appears much improved He received 4 days of Remdesivir and was adamant about being discharged prior to the fifth dose being given. -continue on Zithromax 250mg daily x 1 more day for productive cough, green sputum, cover for atypical bacterial infection patient does not want Decadron, refuses, also his sugars would become profoundly elevated since he refuses insulin -Follow chest x-ray to resolution after discharge -Stable for discharged home, remain on quarantine until symptom-free for 7 days (2) Hypoxia: Secondary to COVID-19 and PNA Now resolved, was requiring 3 to 4 L at most Continue flutter valve at home 91% on room air with exertion in the room, 93-95% on room air at rest on the day of discharge (3) Acute hypotension: resolved after NSS bolus in ED, likely dehydrated as his Cr was 1.6 and he had poor oral intake Now improved BPs -Have since restarted spironolactone and lisinopril reduced terazosin to 10mg PM while here but he can go back to his usual dose of 20 mg upon discharge continue metoprolol home doses (4) Elevated serum creatinine: Acute kidney injury on admission, buttonhole facer 1.6 as above. Creatinine has been normal for many days NSS 1 L bolus given in ER. -will avoid further IV fluids at present as hemodynamically stable, wish to avoid pulmonary edema with COVID-19. Discontinued ibuprofen also due to being on Xarelto Held lisinopril and spironolactone which have now since been restarted (5) Paroxysmal atrial flutter: Remains in NSR on tele, ECG on admission with RBBB,frequent PACs Had a DCCV in 2017 for Aflutter Continue metoprolol succinate 100 mg p.o. every morning and 50 mg p.o. at bedtime with hold parameters Continue Xarelto (6) Type 2 diabetes mellitus: Prior HbA1c 6.5 in September 2019. patient claimed he felt "off" with glucose of 130 here, says his sugars normally run closer to 200. However, blood sugars have been much better controlled he is not complaining of this any longer he refuses to get any further Novolog, have since discontinued he refuses to take Metformin Continue gabapentin 300 mg twice daily for peripheral neuropathy. (7) Obesity hypoventilation syndrome: Suspected. Would also recommend sleep study as an outpatient. (8) Anemia: Normocytic anemia. Appears to be at his baseline. Hb stable (9) BPH (benign prostatic hyperplasia): Reduced dose of terazosin due to hypotension. Can restart home dose on discharge as blood pressures are improved (10) Abnormal CT of the abdomen: Concern for possible early acute appendicitis on CT with thickened appendix on imaging but no signs of inflammation. Clinically he has no pain on his right side. I do not feel a general surgical consultation is needed. no complaints of abdominal pain today -Recommend outpatient surgery f/u after improves from COVID-discussed with patient and his (11) Hyperlipidemia: Patient refuses his usual atorvastatin due to concerns for leg cramps. (12) Bacteremia: 1/2 BCxs here with coagulase-negative Staphylococcus and a second organism of gram-positive cocci in clusters, most likely a contaminate -Received 48 hours of IV Vanco and f/u ID of second organism when available-no need to continue IV vancomycin-discharging today We will follow-up on blood culture result after discharge (13) Thrombocytopenia: Platelets have trended downward slightly to 136 likely secondary to viral infection but are now improved on the day of discharge 178 (14) DVT prophylaxis: History of bilateral PEs. He is on Xarelto primarily for paroxysmal atrial flutter, continued this for prophylaxis. Dispo-stable for discharge to home Total Time Total Time Spent Total Time Spent (In Minutes): Greater than 30 minutes Total Time Includes: Examination of the Patient, Discharge Planning and Medication Reconciliation Discharge Plan Discharge Items Patient Disposition: Home - Self-Care Reason For Visit: COVID-19 Discharge Diagnosis: COVID-19, Pneumonia, Acute respiratory failure with hypoxia Condition on Discharge: Fair Activity: As commented below Lifting: Gradually increase as tolerated Bathing: No limitations Exercise/Sports: Gradually increase as tolerated Driving/Machine Use: No driving until fully recovered in 1-2 weeks Weightbearing: Full weightbearing Non-emergency contact: Primary Care Provider Call non-emergency contact if: you have any medication questions, your symptoms worsen and you have a fever Follow-up/Referrals: Ellen Underwood CRNP [Primary Care Provider] - (Please follow up within 2 weeks. ) Jatin Teran MD, FACS [Physician] - (Please call for a new patient appointment for enlarged appendix seen on CT scan.) Diet: Carb Consistent or DM2 and Heart Healthy Addtl Attending Provider Instructions: Please finish out 1 more day of the azithromycin on 12/10 for pneumonia. He did not require oxygen at the time of discharge. You can gradually increase your physical activity as tolerated. If you have worsening shortness of breath, cough, fever, or inability to tolerate food and drink by mouth, please contact your doctor right away. Please make sure you follow-up with a general surgeon once you recover from your COVID-19 for your enlarged appendix seen on CAT scan. You should also have a repeat chest x-ray in about 3 to 4 weeks ordered by your primary care physician to ensure that your pneumonia has completely cleared up. Home Isolation COVID-19 Instructions The following information about Home Isolation is from the CDC Website: https://www.cdc.gov/coronavirus/2019-ncov/hcp/nablwwtw-mggqlkr-wwkoho.html Stay home except to get medical care People who are mildly ill with COVID-19 are able to isolate at home during their illness. You should restrict activities outside your home, except for getting medical care. Do not go to work, school, or public areas. Avoid using public transportation, ride-sharing, or taxis. Separate yourself from other people and animals in your home People: As much as possible, you should stay in a specific room and away from other people in your home. Also, you should use a separate bathroom, if available. Animals: You should restrict contact with pets and other animals while you are sick with COVID-19, just like you would around other people. Although there have not been reports of pets or other animals becoming sick with COVID-19, it is still recommended that people sick with COVID-19 limit contact with animals until more information is known about the virus. When possible, have another member of your household care for your animals while you are sick. If you are sick with COVID-19, avoid contact with your pet, including petting, snuggling, being kissed or licked, and sharing food. If you must care for your pet or be around animals while you are sick, wash your hands before and after you interact with pets and wear a face mask. Call ahead before visiting your doctor If you have a medical appointment, call the healthcare provider and tell them that you have or may have COVID-19. This will help the healthcare providers office take steps to keep other people from getting infected or exposed. Wear a face mask You should wear a face mask when you are around other people (e.g., sharing a room or vehicle) or pets and before you enter a healthcare providers office. If you are not able to wear a face mask (for example, because it causes trouble breathing), then people who live with you should not stay in the same room with you, or they should wear a face mask if they enter your room. Cover your coughs and sneezes Cover your mouth and nose with a tissue when you cough or sneeze. Throw used tissues in a lined trash can. Immediately wash your hands with soap and water for at least 20 seconds or, if soap and water are not available, clean your hands with an alcohol-based hand soda dialyzer that contains at least 60% alcohol. Clean your hands often Wash your hands often with soap and water for at least 20 seconds, especially after blowing your nose, coughing, or sneezing; going to the bathroom; and before eating or preparing food. If soap and water are not readily available, use an alcohol-based hand soda dialyzer with at least 60% alcohol, covering all surfaces of your hands and rubbing them together until they feel dry. Soap and water are the best option if hands are visibly dirty. Avoid touching your eyes, nose, and mouth with unwashed hands. Avoid sharing personal household items You should not share dishes, drinking glasses, cups, eating utensils, towels, or bedding with other people or pets in your home. After using these items, they should be washed thoroughly with soap and water. Clean all high-touch surfaces everyday High touch surfaces include counters, tabletops, doorknobs, bathroom fixtures, toilets, phones, keyboards, tablets, and bedside tables. Also, clean any surfaces that may have blood, stool, or body fluids on them. Use a household cleaning spray or wipe, according to the label instructions. Labels contain instructions for safe and effective use of the cleaning product including precautions you should take when applying the product, such as wearing gloves and making sure you have good ventilation during use of the product. Monitor your symptoms Seek prompt medical attention if your illness is worsening (e.g., difficulty breathing).Beforeseeking care, call your healthcare provider and tell them that you have, or are being evaluated for, COVID-19. Put on a face mask before you enter the facility. These steps will help the healthcare providers office to keep other people in the office or waiting room from getting infected or exposed. Ask your healthcare provider to call the local or state health department. Persons who are placed under active monitoring or facilitated self- monitoring should follow instructions provided by their local health department or occupational health professionals, as appropriate. When working with your local health department check their available hours. If you have a medical emergency and need to call 911, notify the dispatch personnel that you have, or are being evaluated for COVID-19. If possible, put on a face mask before emergency medical services arrive. Discontinuing home isolation Patients with confirmed COVID-19 should remain under home isolation precautions until the risk of secondary transmission to others is thought to be low. The decision to discontinue home isolation precautions should be made on a [id number]-me-[id number] basis, in consultation with healthcare providers and state and local health departments. Pending Studies at Discharge: Yes Studies:: Final blood culture results Stand-Alone Forms: My [facility] Medications and DC Order Prescriptions: New azithromycin 250 mg Tablet 250 mg PO QAM Qty: 1 RF: 0 acetaminophen 325 mg Tablet 650 mg PO Q4H PRN (Reason: fever or pain) Qty: 30 RF: 0 Continued metoprolol succinate 50 mg tablet extended release 24 hr 50 mg PO HS Qty: 90 RF: 3 terazosin 10 mg capsule 20 mg PO QPM Qty: 180 RF: 3 gabapentin 300 mg capsule 300 mg PO BID Qty: 180 RF: 1 spironolactone 25 mg tablet 25 mg PO 1200 Qty: 90 RF: 3 atorvastatin 40 mg tablet 40 mg PO HS Qty: 90 RF: 3 multivitamin [Daily Multi-Vitamin] tablet 1 tab PO QAM RF: 0 metoprolol succinate 100 mg tablet extended release 24 hr 100 mg PO QAM Qty: 90 RF: 3 lisinopril 40 mg tablet 40 mg PO QAM Qty: 90 RF: 3 metformin 500 mg tablet extended release 24 hr 500 mg PO BID RF: 0 rivaroxaban 20 mg tablet 20 mg PO QAM RF: 0 Discontinued ibuprofen 200 mg Tablet 600 mg PO Q6H PRN (Reason: Pain) RF: 0 Discharge Orders: Discharge Order (Routine); Ordered 12/10/19 Ordered By: Diane Moscoso Admission Data Admit Date/Time: 12/06/19 17:00 Attending Provider: Diane Moscoso Admit Provider: Alex Brown Primary Care Provider: Ellen Underwood Other Providers: Alex Brown Coding Level of Care Code D/C Day Management >30 mins Diagnoses COVID-19 U07.1 Hypoxia R09.02 Acute hypotension I95.9 Elevated serum creatinine R79.89 Paroxysmal atrial flutter I48.92 Type 2 diabetes mellitus E11.9 Obesity hypoventilation syndrome E66.2 Anemia D64.9 BPH (benign prostatic hyperplasia) N40.[address] of the abdomen R93.5 Hyperlipidemia E78.5 Bacteremia R78.81 Thrombocytopenia D69.6 DVT prophylaxis Z29.9
[2019-12-12] MEDS ORDERED: VANCOMYCIN TROUGH ONE (08:30)
== END 2019-12-10 13:10 | disposition home or self-care (01) | DRG 177 ==
LOC: ED 11:31 → SUATTDRO 17:00 → 2W 17:00

== ENCOUNTER 2020-05-12 19:13 | Observation (INO) ==
[2020-05-12] MEDS ORDERED: ONDANSETRON INJ 2 MG/ML 2 ML VIAL IV STA (19:38)
[2020-05-12] MEDS ORDERED: SODIUM CHLORIDE 0.9% 500 ML IV SCH (19:45)
[2020-05-12 19:47] LABS: Basophils # (auto) 0.02 K/uL (0-0.2); Basophils % (auto) 0.1 %; Eosinophils # (auto) 0.05 K/uL (0-0.5); Eosinophils % (auto) 0.3 %; Hematocrit (blood only) 41.2 % (42-52); Hemoglobin 14.4 g/dL (14.0-18.0); Immature Granulocytes # (auto) 0.06 K/uL (0.00-0.02); Immature Granulocytes % (auto) 0.3 %; Lymphocytes # (auto) 1.14 K/uL (1.2-3.4); Lymphocytes % (auto) 6.4 %; Mean Corpuscular Hemoglobin 32.5 pg (25-34); Mean Platelet Volume 11.5 fL (7.4-10.4); Monocytes # (auto) 1.12 K/uL (0.11-0.59); Monocytes % (auto) 6.3 %; Neutrophils # (auto) 15.48 K/uL (1.4-6.5); Neutrophils % (auto) 86.6 %; Platelet Count 169 K/uL (130-400); RDW Coefficient of Variation 12.7 % (11.5-14.5); RDW Standard Deviation 43.5 fL (36.4-46.3); Red Blood Count 4.43 M/uL (4.7-6.1); White Blood Count 17.87 K/uL (4.8-10.8)
[2020-05-12 19:54] LABS: iSTAT Creatinine 0.8 mg/dl (0.6-1.3); iSTAT Hemoglobin 14.6 g/dl (14.0-18.0); iSTAT Ionized Calcium 1.15 mmol/l (1.12-1.32)
[2020-05-12 19:58] LABS: INR 1.2 (0.9-1.1); Partial Thromboplastin Ratio 1.3; Partial Thromboplastin Time 35.9 Seconds (21.0-31.0); Prothrombin Time 12.8 Seconds (9.0-12.0)
[2020-05-12] MEDS: MoRPHine SULFATE 4 MG/ML 1 ML CARP\\VIAL IV PRN ×2 (19:58→21:28)
[2020-05-12 20:05] LABS: Alanine Aminotransferase 45 U/L (12-78); Albumin Level 3.9 gm/dl (3.4-5.0); Aspartate Aminotransferase 20 U/L (15-37); BUN Creatinine Ratio 15.2 (10-20); Blood Urea Nitrogen 15 mg/dl (7-18); Calcium 8.9 mg/dl (8.5-10.1); Carbon Dioxide 27 mmol/L (21-32); Chloride 107 mmol/L (98-107); Creatinine Clr Calc Pharmacy 94.2 ml/min; Est GFR (Non-African American) 75.9; Glucose 170 mg/dl (70-99); Lipase 124 U/L (73-393); Sodium 140 mmol/L (136-145)
[2020-05-12 20:08] LABS: Albumin Globulin Ratio 1.1 (0.9-2); Alkaline Phosphatase 76 U/L (45-117); Globulin 3.6 gm/dl (2.5-4.0); Total Protein 7.5 gm/dl (6.4-8.2)
--- NOTE | 2020-05-12 20:12 | Emergency Department Note ---
Impression & Plan Acute appendicitis, Abdominal pain ED Provider Note NAME: EVARISTO BERG AGE: 69 SEX: M : 1950 ARRIVES VIA: Walk-In INFORMANT: Patient, ED PROVIDER(S): Tyler Mayorga DO CHIEF COMPLAINT: Abdominal pain HPI: The patient is a 69-year-old male who presented to the emergency department for an evaluation of lower abdominal pain. The patient states he began having lower abdominal pain over the last 24 hours. The pain localizes to his right lower quadrant. The patient states that he was seen in our facility previously for different complaints. At that time he had an abnormal CT which showed a possibly enlarged appendix. The patient was evaluated and referred to surgery but it was not felt to be consistent with appendicitis as he had no pain at that time. He returns the emergency department today for lower abdominal pain and feels that this could be his appendix. He denies having any fever nausea or vomiting. He states the pain is moderate to severe and worsened with any ambulation. He does have a history of pulmonary embolism as well as paroxysmal atrial flutter. He does take oral anticoagulation and states he has been compliant with all of his outpatient medications. He denies having any hematuria. He denies having any back pain or recent falls. Patient was not seen by his primary care physician. He states his pain is moderate at this time and worsen with movement. He denies having any inguinal swelling. ROS: See above HPI for pertinent positives & negatives. A total of 10 systems reviewed and were otherwise negative. PAST MEDICAL HISTORY: See Below PAST SURGICAL HISTORY: See Below FAMILY HISTORY: See Below SOCIAL HISTORY: See Below HOME MEDICATIONS: See Below ALLERGIES: See Below VITALS: See Below PHYSICAL EXAMINATION: GENERAL: The patient is awake and alert. He is somewhat anxious appearing overall uncomfortable EYES: The conjunctivae are clear. The pupils are round and reactive. EARS, NOSE, MOUTH AND THROAT: The nose is without any evidence of any deformity. NECK: The neck is nontender and supple. RESPIRATORY: Normal respiratory effort is noted there is no evidence of wheezing rhonchi or rales CARDIOVASCULAR: Regular rate and rhythm noted there no murmurs rubs or gallops normal S1 normal S2. GASTROINTESTINAL: Abdomen was mildly distended. There is significant tenderness in the right lower quadrant with guarding in the right lower quadrant. There are no inguinal masses appreciated. MUSCULOSKELETAL/EXTREMITIES: There is no evidence of gross deformity full range of motion is noted in the hips and shoulders. SKIN: There is no obvious evidence of any rash. Trace pedal edema was noted bilaterally. NEUROLOGIC: Patient is awake alert and oriented x3. MEDICAL DECISION MAKING: The patient is a 69-year-old male who presented to the emergency department for an evaluation of abdominal pain. The patient's history and physical exam appear to be consistent with appendicitis. He had an elevated white blood cell count. CT abdomen and pelvis was obtained which appears to be consistent appendicitis. I discussed the patient's laboratory and radiographic studies with him. He was treated with IV fluids and IV pain medication in the emergency department. I discussed this case with the on-call general surgeon. He is agreed to evaluate the patient in the emergency department for further management and disposition. Triage Nursing notes reviewed. Prior medical records reviewed Vital Signs: reviewed and remarkable for no significant abnormalities Differential diagnosis: Appendicitis, testicular torsion, infections, diverticulitis, UTI, obstruction, mesenteric ischemia, aortic pathology, inflammatory bowel disease, renal colic, PUD, pancreatitis, biliary pathology, hernia, volvulus, constipation, as well as other pathologies. ER treatment provided: See below Diagnostics interpreted by me: ECG: EKG was obtained in the emergency department. My interpretation is sinus rhythm at 92 bpm. Right bundle branch block pattern was noted. PACs were noted. This was compared to a tracing from December 052019. No significant changes were noted. Cardiac Monitoring: An order was placed for continuous cardiac monitoring. The m onitor shows a rate of 89 bpm with sinus rhythm. Laboratory studies: As stated above and show below. Imaging studies: See below Consultation(s): 2134: I discussed this case with Dr. Agee who is on-call for general surgery. 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 Surgical History History of arthroscopy of left knee meniscus repair History of colonoscopy History of left inguinal hernia repair History of parotidectomy left--benign cyst History of right inguinal hernia repair History of tooth extraction all teeth removed History of umbilical hernia repair Hx of cholecystectomy Family History Father Colon cancer Mother Breast cancer Other Family history of colon cancer No family history of adverse response to anesthesia Social History Smoking Status: Former smoker Cigarettes Per Day: 2 packs a day; Second Hand Exposure: No; Hx Alcohol Use: No Hx Substance Use: No Preferred Language: Japanese Communication Ability: Effective Hearing Ability: Normal [place] Required: No Beliefs That Will Affect Care: None marital status: Current Living Situation: Spouse current occupational status: employed Feels Safe at Home: Yes Dental Care, Regularly: No Physical Activity Frequency: Does not Exercise Assistive Devices: Oxygen - Continuous Allergies Allergies Allergy/AdvReac Type Severity Reaction Status Date / Time oxycodone AdvReac Mild "DOESN'T Verified 05/12/20 20:07 LIKE FEELING" Home Meds Home Medications Medication Instructions Recorded Confirmed multivitamin 1 tab PO QAM 09/20/18 05/12/20 spironolactone 25 mg PO QDL 05/12/20 05/12/20 Previous Rx's Medication Instructions Recorded metoprolol succinate 100 mg 100 mg PO QAM #90 tab 05/12/19 tablet,extended release 24 hr lisinopril 40 mg tablet 40 mg PO QAM #90 tab 09/22/19 atorvastatin 40 mg tablet 40 mg PO HS #90 tab 10/27/19 acetaminophen 650 mg PO Q4H PRN #30 tab 12/10/19 gabapentin 300 mg capsule 300 mg PO BID #180 cap 01/27/20 metoprolol succinate 50 mg 50 mg PO HS #90 tab 02/23/20 tablet,extended release 24 hr metformin 500 mg tablet,extended 500 mg PO BID #180 tab 05/03/20 release 24 hr rivaroxaban 20 mg tablet 20 mg PO QAM #90 tab 05/03/20 terazosin 10 mg capsule 20 mg PO QPM #180 cap 05/10/20 Results & Data (ED) Vital Signs Vital Signs - 24 hr 05/12/20 19:14 05/12/20 19:38 05/12/20 21:14 Temperature 36.5 C Temperature Source Temporal Artery Scan Pulse Rate 88 Pulse Rate [Apical] 93 H Pulse Rhythm [Apical] Regular Pulse Strength [Apical] Normal Respiratory Rate 19 18 Respiratory Effort / Characteristics Non-Labored Respiratory Depth Normal Blood Pressure 171/82 H Blood Pressure [Right Arm] 136/81 Blood Pressure Mean 111 Blood Pressure Mean [Right Arm] 99 Blood Pressure Position [Right Arm] Lying Pulse Oximetry 96 93 Oxygen Delivery Method Room Air Room Air Room Air Sepsis Recent Fever Within 48 Hours No Sepsis New/Unexplained Change in Mental Status No Sepsis Action Taken by Nursing No Action Required Home Medications Current Medication List: was personally reviewed by me Laboratory Data Attestation: I reviewed the patient's lab results. Result diagrams: 05/12/20 19:35 05/12/20 19:35 Lab Results 05/12/20 05/12/20 05/12/20 Range/Units 19:35 19:35 19:35 WBC 17.87 H (4.8-10.8) K/uL RBC 4.43 L (4.7-6.1) M/uL Hgb 14.4 (14.0-18.0) g/dL POC Hgb (14.0-18.0) g/dl Hct 41.2 L (42-52) % POC Hct (42-52) % MCV 93.0 (80-100) fL MCH 32.5 (25-34) pg MCHC 35.0 (32-36) g/dL RDW Std Deviation 43.5 (36.4-46.3) fL RDW Coeff of Loius 12.7 (11.5-14.5) % Plt Count 169 (130-400) K/uL MPV 11.5 H (7.4-10.4) fL Immature Gran % (Auto) 0.3 % Neut % (Auto) 86.6 % Lymph % (Auto) 6.4 % [place] % (Auto) 6.3 % Eos % (Auto) 0.3 % Baso % (Auto) 0.1 % Neut # (Auto) 15.48 H (1.4-6.5) K/uL Lymph # (Auto) 1.14 L (1.2-3.4) K/uL [place] # (Auto) 1.12 H (0.11-0.59) K/uL Eos # (Auto) 0.05 (0-0.5) K/uL Baso # (Auto) 0.02 (0-0.2) K/uL Immature Gran # (Auto) 0.06 H (0.00-0.02) K/uL PT 12.8 H (9.0-12.0) Seconds INR 1.2 H (0.9-1.1) APTT 35.9 H (21.0-31.0) Seconds PTT Ratio 1.3 POC Sodium (135-144) mmol/L Sodium 140 (136-145) mmol/L POC Potassium (3.3-5.0) mmol/L Potassium 4.0 (3.5-5.1) mmol/L POC Chloride (101-112) mmol/L Chloride 107 (98-107) mmol/L Carbon Dioxide 27 (21-32) mmol/L POC Total CO2 (24-31) mmol/L Anion Gap 6.0 (3-11) POC Anion Gap (16-25) mmol/L POC BUN (7-18) mg/dl BUN 15 (7-18) mg/dl Creatinine 1.00 (0.6-1.4) mg/dl POC Creatinine (0.6-1.3) mg/dl Est Cr Clr Drug Dosing 94.2 ml/min Est GFR ( Amer) 88.0 Est GFR (Non-Af Amer) 75.9 BUN/Creatinine Ratio 15.2 (10-20) Glucose 170 H (70-99) mg/dl POC Glucose (other) (70-99) mg/dl Calcium 8.9 (8.5-10.1) mg/dl POC Ioniz Calcium Andrew (1.12-1.32) mmol/l Total Bilirubin 1.0 (0.2-1) mg/dl AST 20 (15-37) U/L ALT 45 (12-78) U/L Alkaline Phosphatase 76 (45-117) U/L Troponin I < 0.015 (0-0.045) ng/ml Total Protein 7.5 (6.4-8.2) gm/dl Albumin 3.9 (3.4-5.0) gm/dl Globulin 3.6 (2.5-4.0) gm/dl Albumin/Globulin Ratio 1.1 (0.9-2) Lipase 124 (73-393) U/L Urine Color Urine Appearance (Clear) Urine pH (4.5-7.5) Ur Specific [place] (1.000-1.030) Urine Protein (Negative) Urine Glucose (UA) (Negative) Urine Ketones (Negative) Urine Blood (Negative) Urine Nitrite (Negative) Urine Bilirubin (Negative) Urine Urobilinogen (Negative) Ur Leukocyte Esterase (Negative) COVID-19 Eval Order SARS-CoV-2, RNA, NAAT (NEGATIVE) 05/12/20 05/12/20 05/12/20 Range/Units 19:36 19:42 19:54 WBC (4.8-10.8) K/uL RBC (4.7-6.1) M/uL Hgb (14.0-18.0) g/dL POC Hgb 14.6 (14.0-18.0) g/dl Hct (42-52) % POC Hct 43 (42-52) % MCV (80-100) fL MCH (25-34) pg MCHC (32-36) g/dL RDW Std Deviation (36.4-46.3) fL RDW Coeff of Louis (11.5-14.5) % Plt Count (130-400) K/uL MPV (7.4-10.4) fL Immature Gran % (Auto) % Neut % (Auto) % Lymph % (Auto) % [place] % (Auto) % Eos % (Auto) % Baso % (Auto) % Neut # (Auto) (1.4-6.5) K/uL Lymph # (Auto) (1.2-3.4) K/uL [place] # (Auto) (0.11-0.59) K/uL Eos # (Auto) (0-0.5) K/uL Baso # (Auto) (0-0.2) K/uL Immature Gran # (Auto) (0.00-0.02) K/uL PT (9.0-12.0) Seconds INR (0.9-1.1) APTT (21.0-31.0) Seconds PTT Ratio POC Sodium 139 (135-144) mmol/L Sodium (136-145) mmol/L POC Potassium 4.0 (3.3-5.0) mmol/L Potassium (3.5-5.1) mmol/L POC Chloride 102 (101-112) mmol/L Chloride (98-107) mmol/L Carbon Dioxide (21-32) mmol/L POC Total CO2 26 (24-31) mmol/L Anion Gap (3-11) POC Anion Gap 16.0 (16-25) mmol/L POC BUN 15 (7-18) mg/dl BUN (7-18) mg/dl Creatinine (0.6-1.4) mg/dl POC Creatinine 0.8 (0.6-1.3) mg/dl Est Cr Clr Drug Dosing ml/min Est GFR ( Amer) Est GFR (Non-Af Amer) BUN/Creatinine Ratio (10-20) Glucose (70-99) mg/dl POC Glucose (other) 171 H (70-99) mg/dl Calcium (8.5-10.1) mg/dl POC Ioniz Calcium Andrew 1.15 (1.12-1.32) mmol/l Total Bilirubin (0.2-1) mg/dl AST (15-37) U/L ALT (12-78) U/L Alkaline Phosphatase (45-117) U/L Troponin I (0-0.045) ng/ml Total Protein (6.4-8.2) gm/dl Albumin (3.4-5.0) gm/dl Globulin (2.5-4.0) gm/dl Albumin/Globulin Ratio (0.9-2) Lipase (73-393) U/L Urine Color Yellow Urine Appearance Clear (Clear) Urine pH 6.5 (4.5-7.5) Ur Specific [place] 1.020 (1.000-1.030) Urine Protein Negative (Negative) Urine Glucose (UA) Negative (Negative) Urine Ketones 2+ H (Negative) Urine Blood Negative (Negative) Urine Nitrite Negative (Negative) Urine Bilirubin Negative (Negative) Urine Urobilinogen Negative (Negative) Ur Leukocyte Esterase Negative (Negative) COVID-19 Eval Order Covid19 [facility] SARS-CoV-2, RNA, NAAT (NEGATIVE) 05/12/20 Range/Units 19:54 WBC (4.8-10.8) K/uL RBC (4.7-6.1) M/uL Hgb (14.0-18.0) g/dL POC Hgb (14.0-18.0) g/dl Hct (42-52) % POC Hct (42-52) % MCV (80-100) fL MCH (25-34) pg MCHC (32-36) g/dL RDW Std Deviation (36.4-46.3) fL RDW Coeff of Louis (11.5-14.5) % Plt Count (130-400) K/uL MPV (7.4-10.4) fL Immature Gran % (Auto) % Neut % (Auto) % Lymph % (Auto) % [place] % (Auto) % Eos % (Auto) % Baso % (Auto) % Neut # (Auto) (1.4-6.5) K/uL Lymph # (Auto) (1.2-3.4) K/uL [place] # (Auto) (0.11-0.59) K/uL Eos # (Auto) (0-0.5) K/uL Baso # (Auto) (0-0.2) K/uL Immature Gran # (Auto) (0.00-0.02) K/uL PT (9.0-12.0) Seconds INR (0.9-1.1) APTT (21.0-31.0) Seconds PTT Ratio POC Sodium (135-144) mmol/L Sodium (136-145) mmol/L POC Potassium (3.3-5.0) mmol/L Potassium (3.5-5.1) mmol/L POC Chloride (101-112) mmol/L Chloride (98-107) mmol/L Carbon Dioxide (21-32) mmol/L POC Total CO2 (24-31) mmol/L Anion Gap (3-11) POC Anion Gap (16-25) mmol/L POC BUN (7-18) mg/dl BUN (7-18) mg/dl Creatinine (0.6-1.4) mg/dl POC Creatinine (0.6-1.3) mg/dl Est Cr Clr Drug Dosing ml/min Est GFR ( Amer) Est GFR (Non-Af Amer) BUN/Creatinine Ratio (10-20) Glucose (70-99) mg/dl POC Glucose (other) (70-99) mg/dl Calcium (8.5-10.1) mg/dl POC Ioniz Calcium Andrew (1.12-1.32) mmol/l Total Bilirubin (0.2-1) mg/dl AST (15-37) U/L ALT (12-78) U/L Alkaline Phosphatase (45-117) U/L Troponin I (0-0.045) ng/ml Total Protein (6.4-8.2) gm/dl Albumin (3.4-5.0) gm/dl Globulin (2.5-4.0) gm/dl Albumin/Globulin Ratio (0.9-2) Lipase (73-393) U/L Urine Color Urine Appearance (Clear) Urine pH (4.5-7.5) Ur Specific [place] (1.000-1.030) Urine Protein (Negative) Urine Glucose (UA) (Negative) Urine Ketones (Negative) Urine Blood (Negative) Urine Nitrite (Negative) Urine Bilirubin (Negative) Urine Urobilinogen (Negative) Ur Leukocyte Esterase (Negative) COVID-19 Eval Order SARS-CoV-2, RNA, NAAT NEGATIVE (NEGATIVE) Administered Medications Morphine Sulfate (Morphine Sulfate 4 Mg/Ml 1 Ml Carp\\Vial) 4 mg IV Q15M PRN PRN Reason: Pain Stop: 05/26/20 19:37 Last Admin: 05/12/20 21:28 Dose: 4 mg Documented by: [id number] Admin: 05/12/20 19:58 Dose: 4 mg Documented by: [id number] Discontinued Medications Sodium Chloride (Nss) 500 mls @ 999 mls/hr IV .Q31M WALLY Stop: 05/12/20 20:15 Last Infusion: 05/12/20 20:43 Dose: 0 mls/hr Documented by: [id number] Admin: 05/12/20 19:58 Dose: 999 mls/hr Documented by: [id number] Ioversol (Optiray 320 125ml) 118 ml IV ONCE ONE Stop: 05/12/20 20:42 Last Admin: 05/12/20 20:41 Dose: 118 ml Documented by: [id number] Ondansetron HCl (Ondansetron Inj 2 Mg/Ml 2 Ml Vial) 4 mg IV NOW STA Stop: 05/12/20 19:39 Last Admin: 05/12/20 19:58 Dose: 4 mg Documented by: [id number] Imaging Data Radiologist's Impression: Patient: EVARISTO BERG Admit Date: 05/12/20 MR#: [id number] Address1: [address] [place] [address] Acct ID:[id number] Address2: [place] [address] Date: 1950 [facility] Zip: [place] [id number] Age: 69 Location: ED Sex: M Room/Bed: Att Phy: Diagnosis: ABDOMINAL PAIN, LOW GRADE FEVER Tammie Phy: Ellen Underwood CRNP Service Date: 05/12/20 [facility] Phy: Interpreting Phy: Juwan Marie MD Admit Phy: Ordering Phy: Tyler Mayorga, cc: ~ CT SCAN OF THE ABDOMEN AND PELVIS WITH IV CONTRAST CLINICAL HISTORY: Right lower quadrant abdominal pain. COMPARISON STUDY: Abdominal CT dated 12/06/2019. TECHNIQUE: Following the IV administration of 118 cc of Optiray 320, CT scan of the abdomen and pelvis is performed from the lung bases to the proximal femora. Images are reviewed in the axial, sagittal, and coronal planes. IV contrast was administered without complication. A dose lowering technique was utilized adhering to the principles of ALARA. CT DOSE: 973.81 mGycm FINDINGS: Lung bases: The heart is normal in size and without pericardial effusion. A small calcified granuloma seen at the right lung base. The lung bases are otherwise clear as imaged. Liver: The contrast-enhanced liver is normal in size, contour, and attenuation. There is no intrahepatic biliary ductal dilatation. The hepatic veins and portal veins are patent. Gallbladder: Surgically absent noting clips in the gallbladder fossa. Spleen: Normal in size and attenuation. Pancreas: Unremarkable. Adrenal glands: Unremarkable. Kidneys: The contrast enhanced kidneys demonstrate cortical atrophy and are without hydronephrosis. The kidneys enhance symmetrically. Bilateral renal cysts measure up to 5 cm. Additional subcentimeter cortical hypodensities also likely represent cysts but are too small for definitive characterization. A 10 mm nonobstructing calculus is noted in the left kidney. Abdominal vasculature: There is advanced atherosclerotic calcification and mild ectasia of the abdominal aorta. Bowel: There are scattered colonic diverticula without CT evidence of acute diverticulitis. No bowel obstruction is seen. The appendix is distended and fluid-filled measuring up to 1.6 cm in diameter. A large calcified appendicolith is seen at the base of the appendix on image #265. The appendiceal wall is thickened and there is periappendiceal inflammation. Findings are consistent with acute appendicitis. No organized fluid collection is seen to suggest abscess. Peritoneum: There is no intraperitoneal free air or abdominal ascites. There is evidence of previous ventral hernia repair. Lymphadenopathy: None. Pelvic viscera: The prostate gland is enlarged and heterogeneous, measuring 6.5 cm in transverse diameter. There is median lobe hypertrophy. The bladder is decompressed and grossly unremarkable Skeletal structures: The skeletal structures are osteopenic. There is mild to moderate lumbosacral spondylosis. No lytic or blastic lesions are seen. IMPRESSION: 1. Findings are consistent with acute appendicitis. There is no evidence of abscess or perforation. 2. Left-sided nephrolithiasis. 3. Additional findings as above. ACT 112: Negative or not required by law. Electronically signed by: Juwan Marie M.D. 05/12/2020 8:56 PM Dictated: 05/12/202047 Transcribed: 05/12/202047 Blood Pressure Blood Pressure Findings: Normal blood pressure Discharge Plan Visit Data Chief Complaint: Abdominal Pain Stated Complaint: ABDOMINAL PAIN, LOW GRADE FEVER ED Provider: Tyler Mayorga Discharge Problem: Acute appendicitis, Abdominal pain Patient Disposition: Being Evaluated by Surgeon Condition: Good Forms Stand Alone Forms: [facility] [place]ELI Prescriptions Prescriptions: No Action atorvastatin 40 mg tablet 40 mg PO HS Qty: 90 RF: 3 gabapentin 300 mg capsule 300 mg PO BID Qty: 180 RF: 1 metoprolol succinate 50 mg tablet extended release 24 hr 50 mg PO HS Qty: 90 RF: 3 metformin 500 mg tablet extended release 24 hr 500 mg PO BID Qty: 180 RF: 3 rivaroxaban 20 mg tablet 20 mg PO QAM Qty: 90 RF: 1 terazosin 10 mg capsule 20 mg PO QPM Qty: 180 RF: 1 multivitamin [Daily Multi-Vitamin] tablet 1 tab PO QAM RF: 0 metoprolol succinate 100 mg tablet extended release 24 hr 100 mg PO QAM Qty: 90 RF: 3 lisinopril 40 mg tablet 40 mg PO QAM Qty: 90 RF: 3 spironolactone 25 mg tablet 25 mg PO QDL RF: 0 acetaminophen 325 mg Tablet 650 mg PO Q4H PRN (Reason: fever or pain) Qty: 30 RF: 0 Referrals Referrals: Ellen Underwood CRNP [Primary Care Provider] - Discharge Problem: Acute appendicitis Qualifiers: Acute appendicitis type: with localized peritonitis Appendicitis gangrene presence: without gangrene Appendicitis perforation presence: without perforation Appendicitis abscess presence: without abscess Qualified Code(s): K35.30 - Acute appendicitis with localized peritonitis, without perforation or gangrene Abdominal pain Qualifiers: Abdominal location: right lower quadrant Qualified Code(s): R10.31 - Right lower quadrant pain
[2020-05-12] MEDS ORDERED: OPTIRAY 320 125ml IV ONE (20:41)
[2020-05-12 20:51] LABS: Troponin I < 0.015 ng/ml (0-0.045)
--- NOTE | 2020-05-12 20:58 | CT Scan Report ---
CT SCAN OF THE ABDOMEN AND PELVIS WITH IV CONTRAST CLINICAL HISTORY: Right lower quadrant abdominal pain. COMPARISON STUDY: Abdominal CT dated 12/06/2019. TECHNIQUE: Following the IV administration of 118 cc of Optiray 320, CT scan of the abdomen and pelv is is performed from the lung bases to the proximal femora. Images are reviewed in the axial, sagitta l, and coronal planes. IV contrast was administered without complication. A dose lowering technique w as utilized adhering to the principles of ALARA. CT DOSE: 973.81 mGycm FINDINGS: Lung bases: The heart is normal in size and without pericardial effusion. A small calcified granuloma seen at the right lung base. The lung bases are otherwise clear as imaged. Liver: The contrast-enhanced liver is normal in size, contour, and attenuation. There is no intrahepa tic biliary ductal dilatation. The hepatic veins and portal veins are patent. Gallbladder: Surgically absent noting clips in the gallbladder fossa. Spleen: Normal in size and attenuation. Pancreas: Unremarkable. Adrenal glands: Unremarkable. Kidneys: The contrast enhanced kidneys demonstrate cortical atrophy and are without hydronephrosis. T he kidneys enhance symmetrically. Bilateral renal cysts measure up to 5 cm. Additional subcentimeter cortical hypodensities also likely represent cysts but are too small for definitive characterization. A 10 mm nonobstructing calculus is noted in the left kidney. Abdominal vasculature: There is advanced atherosclerotic calcification and mild ectasia of the abdomi nal aorta. Bowel: There are scattered colonic diverticula without CT evidence of acute diverticulitis. No bowel obstruction is seen. The appendix is distended and fluid-filled measuring up to 1.6 cm in diameter. A large calcified appendicolith is seen at the base of the appendix on image #265. The appendiceal wa ll is thickened and there is periappendiceal inflammation. Findings are consistent with acute appendi citis. No organized fluid collection is seen to suggest abscess. Peritoneum: There is no intraperitoneal free air or abdominal ascites. There is evidence of previous ventral hernia repair. Lymphadenopathy: None. Pelvic viscera: The prostate gland is enlarged and heterogeneous, measuring 6.5 cm in transverse diam eter. There is median lobe hypertrophy. The bladder is decompressed and grossly unremarkable Skeletal structures: The skeletal structures are osteopenic. There is mild to moderate lumbosacral sp ondylosis. No lytic or blastic lesions are seen. IMPRESSION: 1. Findings are consistent with acute appendicitis. There is no evidence of abscess or perforation. 2. Left-sided nephrolithiasis. 3. Additional findings as above. ACT 112: Negative or not required by law. Electronically signed by: Juwan Marie M.D. 05/12/2020 8:56 PM
[2020-05-12 21:17] LABS: Appearance Urine Clear (Clear); Bilirubin Urine Negative (Negative); Blood Urine Negative (Negative); Color Urine Yellow; Glucose Urine UA Negative (Negative); Ketones Urine 2+ (Negative); Leukocyte Esterase Urine Negative (Negative); Nitrite Urine Negative (Negative); Protein Urine Negative (Negative); Urobilinogen Urine Negative (Negative); pH Urine 6.5 (4.5-7.5)
--- NOTE | 2020-05-12 22:02 | Surgery Consultation ---
Date of Consultation May 12, 2020 Assessment & Plan (1) Acute appendicitis: (2) Acute appendicitis with generalized peritonitis: pt is a 69 year-old male who presents to Er with one day history acute abdominal pain, worse last 7 hours. IMP: acute appendicitis with peritonitis, possible perforation, pt took last dose anticoagulant 6pm today, base on pt is 69 year-old, DM, PE, atrial flutter, large appendix 1.6cm, with A large calcified appendicolith, and peritonitis signs, possible appendix perforation, I recommend to do laparoscopic appendectomy, possible open, other option is wait for 1-2 days, pt may develop sepsis, pt wants to do surgery tonight, D/W benefits, risks and alternatives of the surgery, the risks - infection, bleeding ( higher chance)may need transfusion, abscess, sepsis, injury bowel, incision hernia, [place], DVT, PE, stroke and , pt understood, he agrees with the surgery, I answered all questions, COVID-19 test negative today, per-op antibiotic, D/W ER attending. Present on Admission?: Yes History of Present Illness History of Present Illness CHIEF COMPLAINT: Abdominal pain HPI: The patient is a 69-year-old male who presented to the emergency department for an evaluation of lower abdominal pain. The patient states he began having lower abdominal pain over the last 24 hours. The pain localizes to his right lower quadrant. The patient states that he was seen in our facility previously for different complaints. At that time he had an abnormal CT which showed a possibly enlarged appendix. The patient was evaluated and referred to surgery but it was not felt to be consistent with appendicitis as he had no pain at that time. He returns the emergency department today for lower abdominal pain and feels that this could be his appendix. He denies having any fever nausea or vomiting. He states the pain is moderate to severe and worsened with any ambulation. He does have a history of pulmonary embolism as well as paroxysmal atrial flutter. He does take oral anticoagulation and states he has been compliant with all of his outpatient medications. He denies having any hematuria. He denies having any back pain or recent falls. Patient was not seen by his primary care physician. He states his pain is moderate at this time and worsen with movement. He denies having any inguinal swelling. I ( Rafia Agee MD ) got a call for consult acute appendicitis, I reviewed pt's H/P, labs, CT scan with pt, pt is still have significant RLQ, the pain is 9/10, the pain is getting worse since 2pm today, pt took last dose rivaroxaban at 6pm today for his PE, pt denies SOB, CT scan diagnosis: acute appendicitis, 1.6cm diameter appendix, WBC 17,800. ROS: See above HPI for pertinent positives & negatives. A total of 10 systems reviewed and were otherwise negative. PAST MEDICAL HISTORY: See Below PAST SURGICAL HISTORY: See Below FAMILY HISTORY: See Below SOCIAL HISTORY: See Below HOME MEDICATIONS: See Below ALLERGIES: See Below VITALS: See Below Allergies Allergy/AdvReac Type Severity Reaction Status Date / Time oxycodone AdvReac Mild "DOESN'T Verified 05/12/20 20:07 LIKE FEELING" Home Medications Medication Instructions Recorded Confirmed Type multivitamin 1 tab PO QAM 09/20/18 05/12/20 History metoprolol succinate 100 mg 100 mg PO QAM #90 tab 05/12/19 05/12/20 Rx tablet,extended release 24 hr lisinopril 40 mg tablet 40 mg PO QAM #90 tab 09/22/19 05/12/20 Rx atorvastatin 40 mg tablet 40 mg PO HS #90 tab 10/27/19 05/12/20 Rx acetaminophen 650 mg PO Q4H PRN #30 tab 12/10/19 05/12/20 Rx gabapentin 300 mg capsule 300 mg PO BID #180 cap 01/27/20 05/12/20 Rx metoprolol succinate 50 mg 50 mg PO HS #90 tab 02/23/20 05/12/20 Rx tablet,extended release 24 hr metformin 500 mg tablet,extended 500 mg PO BID #180 tab 05/03/20 05/12/20 Rx release 24 hr rivaroxaban 20 mg tablet 20 mg PO QAM #90 tab 05/03/20 05/12/20 Rx terazosin 10 mg capsule 20 mg PO QPM #180 cap 05/10/20 05/12/20 Rx spironolactone 25 mg PO QDL 05/12/20 05/12/20 History Patient History Medical History Bilateral pulmonary embolism Family history of colon cancer History of colon polyps Obesity, morbid, BMI 40.0-49.9 Pulmonary embolism 2015--bilateral--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 Surgical History History of arthroscopy of left knee meniscus repair History of colonoscopy History of left inguinal hernia repair History of parotidectomy left--benign cyst History of right inguinal hernia repair History of tooth extraction all teeth removed History of umbilical hernia repair Hx of cholecystectomy Family History Father Colon cancer Mother Breast cancer Other Family history of colon cancer No family history of adverse response to anesthesia Social History Smoking Status: Former smoker Cigarettes Per Day: 2 packs a day; Second Hand Exposure: No; Hx Alcohol Use: No Hx Substance Use: No Preferred Language: Armenian Communication Ability: Effective Hearing Ability: Normal Group Chief Operator Required: No Beliefs That Will Affect Care: None marital status: Current Living Situation: Spouse current occupational status: employed Feels Safe at Home: Yes Dental Care, Regularly: No Physical Activity Frequency: Does not Exercise Assistive Devices: Oxygen - Continuous Review of Systems Review of Systems: All systems reviewed & are unremarkable except as noted in HPI & below Constitutional: as per Subjective / HPI obesity Eyes: as per Subjective / HPI Ear, Nose, Mouth, Throat: as per Subjective / HPI Respiratory: as per Subjective / HPI COVID 19 + , 11/2019, PE, hypoventilation syndrome Cardiovascular: as per Subjective / HPI Additional Comments: HTN, h yperlipidemia, paroxysmal atrial flutter Gastrointestinal: as per Subjective / HPI Genitourinary: + as per Subjective / HPI and + problem reported (BPH) Musculoskeletal: as per Subjective / HPI Integumentary: as per Subjective / HPI Neurologic: as per Subjective / HPI Psychiatric: as per Subjective / HPI Endocrine: as per Subjective / HPI DM Hematologic / Lymphatic: as per Subjective / HPI anticoagulant therapy Allergy / Immunological: as per Subjective / HPI Physical Exam Constitutional: WD/WN, vitals as above well developed, well nourished, + acute distress and + ill appearing Eyes: PERRL, conjunctivae normal, anicteric sclerae ENMT: external ear and nose normal, oropharynx normal Neck: trachea midline, no thyromegaly Respiratory: normal respiratory effort, lungs clear to auscultation normal respiratory effort Cardiovascular: Rate/Rhythm: + irregularly irregular Heart Sounds: normal S1 and normal S2 Gastrointestinal (Abdomen): Percussion/Palpation: + abdomen tender, + guarding and + abdomen rigid tenderness at RLQ and LLQ with rebound pain, mild distend, BS -, incision scar just below and above the umbilical area Musculoskeletal: no cyanosis or clubbing, extremities motor strength 5/5 Skin: no rashes, warm and dry Neurologic: awake Psychiatric: Orientation: alert and oriented x 3 Results & Data ([facility]) Vital Signs (Past 12 Hours) Vital Signs Temp Pulse Pulse Resp BP BP Pulse Ox 05/12/20 21:14 93 H 18 136/81 93 05/12/20 19:14 36.5 C 88 19 171/82 H 96 Laboratory Results Abnormal lab results 05/12/20 05/12/20 05/12/20 Range/Units 19:35 19:35 19:35 WBC 17.87 H (4.8-10.8) K/uL RBC 4.43 L (4.7-6.1) M/uL Hct 41.2 L (42-52) % MPV 11.5 H (7.4-10.4) fL Neut # (Auto) 15.48 H (1.4-6.5) K/uL Lymph # (Auto) 1.14 L (1.2-3.4) K/uL [place] # (Auto) 1.12 H (0.11-0.59) K/uL Immature Gran # (Auto) 0.06 H (0.00-0.02) K/uL PT 12.8 H (9.0-12.0) Seconds INR 1.2 H (0.9-1.1) APTT 35.9 H (21.0-31.0) Seconds Glucose 170 H (70-99) mg/dl POC Glucose (other) (70-99) mg/dl Urine Ketones (Negative) 05/12/20 05/12/20 Range/Units 19:36 19:42 WBC (4.8-10.8) K/uL RBC (4.7-6.1) M/uL Hct (42-52) % MPV (7.4-10.4) fL Neut # (Auto) (1.4-6.5) K/uL Lymph # (Auto) (1.2-3.4) K/uL [place] # (Auto) (0.11-0.59) K/uL Immature Gran # (Auto) (0.00-0.02) K/uL PT (9.0-12.0) Seconds INR (0.9-1.1) APTT (21.0-31.0) Seconds Glucose (70-99) mg/dl POC Glucose (other) 171 H (70-99) mg/dl Urine Ketones 2+ H (Negative) CT SCAN OF THE ABDOMEN AND PELVIS WITH IV CONTRAST CLINICAL HISTORY: Right lower quadrant abdominal pain. COMPARISON STUDY: Abdominal CT dated 12/06/2019. TECHNIQUE: Following the IV administration of 118 cc of Optiray 320, CT scan of the abdomen and pelvis is performed from the lung bases to the proximal femora. Images are reviewed in the axial, sagittal, and coronal planes. IV contrast was administered without complication. A dose lowering technique was utilized adhering to the principles of ALARA. CT DOSE: 973.81 mGycm FINDINGS: Lung bases: The heart is normal in size and without pericardial effusion. A small calcified granuloma seen at the right lung base. The lung bases are otherwise clear as imaged. Liver: The contrast-enhanced liver is normal in size, contour, and attenuation. There is no intrahepatic biliary ductal dilatation. The hepatic veins and portal veins are patent. Gallbladder: Surgically absent noting clips in the gallbladder fossa. Spleen: Normal in size and attenuation. Pancreas: Unremarkable. Adrenal glands: Unremarkable. Kidneys: The contrast enhanced kidneys demonstrate cortical atrophy and are without hydronephrosis. The kidneys enhance symmetrically. Bilateral renal cysts measure up to 5 cm. Additional subcentimeter cortical hypodensities also likely represent cysts but are too small for definitive characterization. A 10 mm nonobstructing calculus is noted in the left kidney. Abdominal vasculature: There is advanced atherosclerotic calcification and mild ectasia of the abdominal aorta. Bowel: There are scattered colonic diverticula without CT evidence of acute diverticulitis. No bowel obstruction is seen. The appendix is distended and fluid-filled measuring up to 1.6 cm in diameter. A large calcified appendicolith is seen at the base of the appendix on image #[id number]. The appendiceal wall is thickened and there is periappendiceal inflammation. Findings are consistent with acute appendicitis. No organized fluid collection is seen to suggest abscess. Peritoneum: There is no intraperitoneal free air or abdominal ascites. There is evidence of previous ventral hernia repair. Lymphadenopathy: None. Pelvic viscera: The prostate gland is enlarged and heterogeneous, measuring 6.5 cm in transverse diameter. There is median lobe hypertrophy. The bladder is decompressed and grossly unremarkable Skeletal structures: The skeletal structures are osteopenic. There is mild to moderate lumbosacral spondylosis. No lytic or blastic lesions are seen. IMPRESSION: 1. Findings are consistent with acute appendicitis. There is no evidence of abscess or perforation. 2. Left-sided nephrolithiasis. 3. Additional findings as above. (1) Acute appendicitis Acute appendicitis type: with localized peritonitis Appendicitis abscess presence: without abscess Appendicitis gangrene presence: without gangrene Appendicitis perforation presence: without perforation Qualified Code(s): K35.30 - Acute appendicitis with localized peritonitis, without perforation or gangrene
[2020-05-12] MEDS ORDERED: BACITRACIN OINT 15 GM TUBE ONE (22:21)
[2020-05-12] MEDS ORDERED: LIDOCAINE HCL 1% 20 ML VIAL ONE (22:21)
[2020-05-12] MEDS ORDERED: BUPIVACAINE 0.5 % 5 MG/1 ML MPF 30ML VIAL ONE (22:21)
--- NOTE | 2020-05-12 22:26 | Anesthesiology Consultation ---
Date of Service May 12, 2020 Assessment & Plan Chart Review Chart Review: Acceptable Risk for Surgery and Patient NOT seen in Pre Admission Testing Consults Requested none History Surgery Operation Date: 05/12/20 23:00 Proposed Procedures p Laparoscopic Appendectomy - Rafia Agee MD Height/Weight Height: 5 ft 8 in Weight: 139.5 kg Allergies Allergy/AdvReac Type Severity Reaction Status Date / Time oxycodone AdvReac Mild "DOESN'T Verified 05/12/20 20:07 LIKE FEELING" Medications Home Medications Medication Instructions Recorded Confirmed Last Taken multivitamin 1 tab PO QAM 09/20/18 05/12/20 05/11/20 metoprolol succinate 100 mg 100 mg PO QAM #90 tab 05/12/19 05/12/20 05/11/20 tablet,extended release 24 hr lisinopril 40 mg tablet 40 mg PO QAM #90 tab 09/22/19 05/12/20 05/11/20 atorvastatin 40 mg tablet 40 mg PO HS #90 tab 10/27/19 05/12/20 05/11/20 acetaminophen 650 mg PO Q4H PRN #30 tab 12/10/19 05/12/20 Unknown gabapentin 300 mg capsule 300 mg PO BID #180 cap 01/27/20 05/12/20 05/11/20 metoprolol succinate 50 mg 50 mg PO HS #90 tab 02/23/20 05/12/20 05/11/20 tablet,extended release 24 hr metformin 500 mg tablet,extended 500 mg PO BID #180 tab 05/03/20 05/12/20 05/11/20 release 24 hr rivaroxaban 20 mg tablet 20 mg PO QAM #90 tab 05/03/20 05/12/20 05/12/20 terazosin 10 mg capsule 20 mg PO QPM #180 cap 05/10/20 05/12/20 05/11/20 spironolactone 25 mg PO QDL 05/12/20 05/12/20 05/11/20 Active Medications Generic Name Dose Route Start Last Admin Trade Name Freq PRN Reason Stop Dose Admin Morphine Sulfate 4 mg 05/12/20 19:38 05/12/20 21:28 Morphine Sulfate 4 Mg/Ml 1 Ml Carp\\Vial IV 05/26/20 19:37 4 mg Q15M PRN Administration Pain Past Medical History Medical History Bilateral pulmonary embolism Family history of colon cancer History of colon polyps Obesity, morbid, BMI 40.0-49.9 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--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--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 Past Family History Family History Father Colon cancer Mother Breast cancer Other Family history of colon cancer No family history of adverse response to anesthesia Past Surgical History Surgical History History of arthroscopy of left knee meniscus repair History of colonoscopy History of left inguinal hernia repair History of parotidectomy left--benign cyst History of right inguinal hernia repair History of tooth extraction all teeth removed History of umbilical hernia repair Hx of cholecystectomy Social History Smoking Status: Former smoker tobacco type: cigarettes Smoking cigarettes per day: 2 packs a day Hx Alcohol Use: No Hx Substance Use: No substance use type: does not use Physical Exam Vital Signs Last Vital Signs Temp 36.5 C 05/12/20 19:14 Pulse 93 H 05/12/20 21:14 Resp 18 05/12/20 21:14 BP 136/81 05/12/20 21:14 Pulse Ox 93 05/12/20 21:14 Testing Laboratory Results 05/12/20 19:35 05/12/20 19:35 PT 12.8 Seconds (9.0-12.0) H 05/12/20 19:35 INR 1.2 (0.9-1.1) H 05/12/20 19:35 APTT 35.9 Seconds (21.0-31.0) H 05/12/20 19:35 Urine Color Yellow 05/12/20 19:36 Urine Appearance Clear (Clear) 05/12/20 19:36 Urine pH 6.5 (4.5-7.5) 05/12/20 19:36 Ur Specific [place] 1.020 (1.000-1.030) 05/12/20 19:36 Urine Protein Negative (Negative) 05/12/20 19:36 Urine Glucose (UA) Negative (Negative) 05/12/20 19:36 Urine Ketones 2+ (Negative) H 05/12/20 19:36 Urine Nitrite Negative (Negative) 05/12/20 19:36 Ur Leukocyte Esterase Negative (Negative) 05/12/20 19:36 05/12/20 19:42 POC Glucose (other) 171 H Electrocardiogram Date: 12/06/19 Findings: + NSR @ (94) Frequent Premature atrial complexes Right bundle branch block Possible Old Inferior infarct (cited on or before 29-JUN-2016) Abnormal ECG When compared with ECG of 29-JUN-2016 12:59, Premature atrial complexes now present
[2020-05-12] MEDS ORDERED: PIPERACILL/TAZOBAC CONSULT ACTIVE PRN (22:30)
[2020-05-12] MEDS ORDERED: PIPERACILLIN/TAZOBACTAM 3.375 GM in DEXTROSE 5% 100 ML/100 ML BAG IV STA (22:30)
--- NOTE | 2020-05-12 22:30 | History & Physical Bridge Note ---
Date of Service May 12, 2020 History & Physical Bridge Note I have examined the patient, reviewed the History & Physical and in the interval since the performance of the History & Physical I have noted the following changes of clinical significance: no changes noted
[2020-05-12] MEDS ORDERED: LIDOCAINE HCL 2% 2 ML VIAL/AMP(20MG/ML) INFIL ONE (22:51)
[2020-05-12] MEDS ORDERED: SUCCINYLCHOLINE 100MG/5ML SYR IV ONE (22:51)
[2020-05-12] MEDS ORDERED: fentaNYL citrate 100 MCG/2 ML VIAL ONE (22:51)
[2020-05-12] MEDS ORDERED: ROCURONIUM BROMIDE 10 MG/ML 5 ML VIAL IV ONE (22:51)
[2020-05-12] MEDS ORDERED: PROPOFOL IV EMULSION 10 MG/ML 20 ML VIAL IV ONE (22:51)
[2020-05-12] MEDS ORDERED: ATROPINE SULFATE 0.1 MG/ML 10ML SYR IV PRN (23:45)
[2020-05-12] MEDS ORDERED: fentaNYL citrate 100 MCG/2 ML VIAL IV PRN (23:45)
[2020-05-12] MEDS ORDERED: ONDANSETRON INJ 2 MG/ML 2 ML VIAL IV PRN (23:45)
[2020-05-12] MEDS ORDERED: ePHEDrine sulfate 50 MG/ML AMP IV PRN (23:45)
[2020-05-13] MEDS ORDERED: SUGAMMADEX SODIUM 200 MG/2 ML VIAL IV ONE (00:27)
[2020-05-13] MEDS ORDERED: ATROPINE SULFATE 1MG/2.5ML SYR ONE (00:27)
[2020-05-13] MEDS ORDERED: ePHEDrine sulfate 50 MG/ML SYR ONE (00:40)
[2020-05-13] MEDS ORDERED: GLYCOPYRROLATE 0.2 MG/ML VIAL ONE (00:40)
[2020-05-13] MEDS ORDERED: PHENYLEPHRINE 100MCG/ML 5ML SYR ONE (00:40)
[2020-05-13] MEDS ORDERED: ONDANSETRON INJ 2 MG/ML 2 ML VIAL ONE ×2 (00:53)
--- NOTE | 2020-05-13 01:06 | Post Operative Brief Note ---
Immediate Post Op Note v1 Date of Surgery May 13, 2020 Pre & Post Diagnosis Operation Date: 05/12/20 23:00 Pre-Op Diagnosis: Acute appendicitis with generalized peritonitis Post-Op Diagnosis: Acute appendicitis with generalized peritonitis I identified the patient and participated in the time-out.: Yes Procedure Operation Date: 05/12/20 23:00 Actual Procedures p Laparoscopic Appendectomy - Rafia Agee MD Surgeon Rafia Agee MD Hosiery Mater surgical elastic knitter Estimated Blood Loss 10 Findings Consistent with Post-Op Diagnosis acute appendicitis, with gangrene, micro-perforation Fluids 600ml Specimens appendix Anesthesia Type General Complications none Disposition Accompanied Patient To Recovery: Yes Disposition: Recovery Room Overlapping Procedure I was immediately available: during the entire case.
[2020-05-13] MEDS ORDERED: ONDANSETRON INJ 2 MG/ML 2 ML VIAL IV PRN (01:14)
[2020-05-13] MEDS ORDERED: ESMOLOL HCL INJ 10 MG/ML 10ML VIAL IV ONE (01:18)
[2020-05-13] MEDS ORDERED: METOPROLOL TARTRATE 1 MG/ML VIAL IV STA (01:36)
[2020-05-13] MEDS ORDERED: METOPROLOL TARTRATE 1 MG/ML VIAL IV ONE (01:42)
[2020-05-13] MEDS ORDERED: HYDROmorphone INJ 1 MG/ML SYRINGE IV PRN (01:47)
[2020-05-13] MEDS ORDERED: ACETAMINOPHEN 325 MG TAB PO PRN (01:47)
[2020-05-13] MEDS ORDERED: LACTATED RINGER'S 1,000 ML IV SCH (01:47)
[2020-05-13] MEDS ORDERED: PIPERACILL/TAZOBAC CONSULT ACTIVE PRN (01:47)
--- NOTE | 2020-05-13 02:00 | Anesthesiology Progress Note ---
Date of Service May 13, 2020 Anesthesia Post Procedure Vital Signs Vital Signs: Temp Pulse Pulse Resp BP BP Pulse Ox 05/13/20 01:50 95 H 18 114/81 05/13/20 01:46 107 H 133/67 05/13/20 01:40 108 H 17 117/55 L 92 05/13/20 01:30 36.3 C L 105 H 23 109/79 98 05/12/20 22:54 82 18 134/74 94 05/12/20 21:14 93 H 18 136/81 93 05/12/20 19:14 36.5 C 88 19 171/82 H 96 Transfer of Care Handoff Completed per policy Notes Mental Status: alert / awake / arousable and participated in evaluation Patient Amnestic to Procedure: Yes Nausea / Vomiting: adequately controlled Pain: adequately controlled Airway Patency, RR, SpO2: stable & adequate BP & HR: stable & adequate Hydration State: stable & adequate Anesthetic Complications: no major complications apparent and Pt Satisfied with anesthetic care
--- NOTE | 2020-05-13 02:59 | Operative Report (OR) ---
DATE OF OPERATION: 05/13/2020 PREOPERATIVE DIAGNOSES: Acute appendicitis with peritonitis. POSTOPERATIVE DIAGNOSES: Acute appendicitis with peritonitis. OPERATION: Laparoscopic appendectomy. SURGEON: Rafia Agee MD. ANESTHESIA: General. ESTIMATED BLOOD LOSS: About 10 mL FINDINGS: Acute appendicitis with gangrene and microperforation. COMPLICATIONS: None. INDICATIONS FOR THE PROCEDURE: This is a 69-year-old gentleman who presented to ED with 1-day history of right lower quadrant pain. The patient had a CT scan diagnosis of acute appendicitis. I recommended to do a laparoscopic appendectomy, possible open. I did talk to the patient about the benefit, the risk, alternate procedure. I indicated the risks may include but not limited such as bleeding, infection, may need a blood transfusion, abscess, sepsis, DVT, myocardial infarction, stroke, injury to the bowel, even . The patient understands. He signed informed consent and I answered all questions. DETAILS OF PROCEDURE: We brought the patient to the OR, put the patient in the supine position. The patient received SCD on bilateral legs to prevent DVT. Also, patient received 3.375 grams Zosyn IV for prophylactic antibiotic. The patient received general anesthesia without difficulty. Abdomen was prepped and draped in routine sterile fashion. After time-out, I injected local anesthesia by using 1% lidocaine mixed with 0.5% Marcaine just above umbilicus. Then I made a small incision just above umbilicus, opened fascia and opened peritoneum under direct vision, put a Julio trocar in, connected to CO2 to create pneumoperitoneum. Flow rate was 6 liter per minute. Pressure not more than 14 mmHg. Once we got a nice pneumoperitoneum, we put the camera in, looked around the abdomen, shows a normal finding on the small bowel, large bowel; however, also patient has some adhesion on the umbilicus hernia repair area. The appendix shows significant enlarged diameter about 1.6 cm and with significant acute appendicitis, gangrene of the appendix through the microperforation, there was minimal fluid around the appendix. Once we confirmed diagnosis, we put another 5 mm trocar on the right side of the abdomen. Once all trocars in, we mobilized appendix, used the harmonic to take down appendiceal, rechecked, no active bleeding. Then, we used a 45 mm Endo-ANGIE staple for transection on the base of the appendix, rechecked the staple line intact and no active bleeding, no leak. At this moment, we removed the appendix through the catch bag. Then we reinserted Julio trocar in, connected to CO2 to create pneumoperitoneum, again looked around the abdomen, no active bleeding, no leak from staple line. No active bleeding from inside the abdomen. Then we removed all trocar under direct vision. No active bleeding from the trocar sites. Pneumoperitoneum was released, then I closed the umbilical incision, just above the umbilical incision, fascial layer by using 3-0 Vicryl [id number] x2, closed subcutaneous layer by using 2-0 Vicryl interruptedly, closed skin by using 4-0 Vicryl continuous running, closed another two 5 mm trocar site of skin only by using 4-0 Vicryl. Then we put the dressing on. The patient tolerated the procedure well. All instrument, needle and sponge count were correct x2 at the end of the case. The patient transferred to recovery room in stable condition. Specimen sent to pathology. After the procedure, I did talk to the patient about the OR finding and the procedure we did, he understands. I attest to the content of the Intraoperative Record and any orders documented therein. Any exception s are noted below.
[2020-05-13] MEDS ORDERED: GLUCOSE 40% GEL 15 GM TUBE PO PRN (05:00)
[2020-05-13] MEDS ORDERED: GLUCOSE 10 TABS/TUBE PO PRN (05:00)
[2020-05-13] MEDS ORDERED: CARBOHYDRATES FOR HYPOGLYCEMIA PO PRN (05:00)
[2020-05-13] MEDS ORDERED: DEXTROSE 50% 50 ML SYRINGE IV PRN (05:00)
[2020-05-13] MEDS ORDERED: GLUCAGON FOR INJ 1 MG VIAL IM PRN (05:00)
[2020-05-13] MEDS: PIPERACILLIN/TAZOBACTAM 4.5 GM in DEXTROSE 5% 100 ML IV SCH ×3 (05:07→21:03)
[2020-05-13 05:18] LABS: Basophils # (auto) 0.03 K/uL (0-0.2); Basophils % (auto) 0.2 %; Eosinophils # (auto) 0.02 K/uL (0-0.5); Eosinophils % (auto) 0.1 %; Hematocrit (blood only) 37.1 % (42-52); Hemoglobin 12.8 g/dL (14.0-18.0); Immature Granulocytes # (auto) 0.03 K/uL (0.00-0.02); Immature Granulocytes % (auto) 0.2 %; Lymphocytes # (auto) 0.36 K/uL (1.2-3.4); Lymphocytes % (auto) 2.4 %; Mean Corpuscular Hemoglobin 32.3 pg (25-34); Mean Corpuscular Hgb Conc 34.5 g/dL (32-36); Mean Corpuscular Volume 93.7 fL (80-100); Monocytes # (auto) 1.07 K/uL (0.11-0.59); Monocytes % (auto) 7.1 %; Neutrophils # (auto) 13.51 K/uL (1.4-6.5); Platelet Count 150 K/uL (130-400); RDW Coefficient of Variation 13.2 % (11.5-14.5); RDW Standard Deviation 45.3 fL (36.4-46.3); Red Blood Count 3.96 M/uL (4.7-6.1); White Blood Count 15.02 K/uL (4.8-10.8)
[2020-05-13 05:53] LABS: Albumin Level 3.1 gm/dl (3.4-5.0); BUN Creatinine Ratio 14.6 (10-20); Calcium 8.1 mg/dl (8.5-10.1); Creatinine Clr Calc Pharmacy 82.7 ml/min; Est GFR (African American) 74.3; Est GFR (Non-African American) 64.1
[2020-05-13 05:59] LABS: Bilirubin,Total 1.4 mg/dl (0.2-1); Total Protein 6.1 gm/dl (6.4-8.2)
--- NOTE | 2020-05-13 07:15 | Surgery Progress Note ---
Date of Service F/U S/P lap appy, POD 7 hours, pt is doing better, no significant abdominal pain, no nausea, no vomiting, no fever, H/H stable, WBC down to 13,000 May 13, 2020 Assessment & Plan (1) Acute appendicitis: (2) Acute appendicitis with generalized peritonitis: pt is a 69 year-old male who presents to Er with one day history acute abdominal pain, worse last 7 hours. IMP: acute appendicitis with peritonitis, possible perforation, pt took last dose anticoagulant 6pm today, base on pt is 69 year-old, DM, PE, atrial flutter, large appendix 1.6cm, with A large calcified appendicolith, and peritonitis signs, possible appendix perforation, I recommend to do laparoscopic appendectomy, possible open, other option is wait for 1-2 days, pt may develop sepsis, pt wants to do surgery tonight, D/W benefits, risks and alternatives of the surgery, the risks - infection, bleeding ( higher chance)may need transfusion, abscess, sepsis, injury bowel, incision hernia, AK, DVT, PE, stroke and , pt understood, he agrees with the surgery, I answered all questions, COVID-19 test negative today, per-op antibiotic, D/W ER attending. 05/13/2020 7:14AM F/U S/P lap appy doing better, H/H stable, OOB, continue treatment, repeat labs in am, will F/U Admission and Anticipated Discharge Date Admission Date: May 13, 2020 Review of Systems Constitutional: as per Subjective / HPI obesity Eyes: as per Subjective / HPI Ear, Nose, Mouth, Throat: as per Subjective / HPI Respiratory: as per Subjective / HPI COVID 19 + , 11/2019, PE, hypoventilation syndrome Cardiovascular: as per Subjective / HPI Additional Comments: HTN, hyperlipidemia, paroxysmal atrial flutter Gastrointestinal: as per Subjective / HPI Genitourinary: + as per Subjective / HPI and + problem reported (BPH) Musculoskeletal: as per Subjective / HPI Integumentary: as per Subjective / HPI Neurologic: as per Subjective / HPI Psychiatric: as per Subjective / HPI Endocrine: as per Subjective / HPI DM Hematologic / Lymphatic: as per Subjective / HPI anticoagulant therapy Allergy / Immunological: as per Subjective / HPI Physical Exam Constitutional: WD/WN, vitals as above well developed, well nourished, + acute distress and + ill appearing Eyes: PERRL, conjunctivae normal, anicteric sclerae ENMT: external ear and nose normal, oropharynx normal Neck: trachea midline, no thyromegaly Respiratory: normal respiratory effort, lungs clear to auscultation normal respiratory effort Cardiovascular: Rate/Rhythm: + irregularly irregular Heart Sounds: normal S1 and normal S2 Gastrointestinal (Abdomen): Percussion/Palpation: abdomen soft mild tenderness at incision site, no active bleeding, no distend, BS + Musculoskeletal: no cyanosis or clubbing, extremities motor strength 5/5 Skin: no rashes, warm and dry Neurologic: awake Psychiatric: Orientation: alert and oriented x 3 Results & Data ([facility]) Vital Signs (Past 12 Hours) Vital Signs Temp Pulse Pulse Pulse Resp BP BP 05/13/20 05:38 37.2 C 95 H 18 99/61 L 05/13/20 04:35 36.8 C 93 H 18 93/58 L 05/13/20 03:41 05/13/20 03:35 36.9 C 98 H 18 100/66 05/13/20 03:20 36.7 C 91 H 18 107/63 05/13/20 03:05 37.0 C 99 H 18 102/66 05/13/20 02:10 36.6 C 95 H 17 115/72 05/13/20 02:00 93 H 21 120/75 05/13/20 01:50 95 H 18 114/81 05/13/20 01:46 107 H 133/67 05/13/20 01:40 108 H 17 117/55 L 05/13/20 01:30 36.3 C L 105 H 23 109/79 05/12/20 22:54 82 18 134/74 05/12/20 21:14 93 H 18 136/81 05/12/20 19:14 36.5 C 88 19 171/82 H Pulse Ox 05/13/20 05:38 94 05/13/20 04:35 93 05/13/20 03:41 94 05/13/20 03:35 94 05/13/20 03:20 80 L 05/13/20 03:05 95 05/13/20 02:10 96 05/13/20 02:00 95 05/13/20 01:50 97 05/13/20 01:46 05/13/20 01:40 92 05/13/20 01:30 98 05/12/20 22:54 94 05/12/20 21:14 93 05/12/20 19:14 96 Laboratory Results Abnormal lab results 05/12/20 05/12/20 05/12/20 Range/Units 19:35 19:35 19:35 WBC 17.87 H (4.8-10.8) K/uL RBC 4.43 L (4.7-6.1) M/uL Hgb (14.0-18.0) g/dL Hct 41.2 L (42-52) % MPV 11.5 H (7.4-10.4) fL Neut # (Auto) 15.48 H (1.4-6.5) K/uL Lymph # (Auto) 1.14 L (1.2-3.4) K/uL Hettinger # (Auto) 1.12 H (0.11-0.59) K/uL Immature Gran # (Auto) 0.06 H (0.00-0.02) K/uL PT 12.8 H (9.0-12.0) Seconds INR 1.2 H (0.9-1.1) APTT 35.9 H (21.0-31.0) Seconds Chloride (98-107) mmol/L Anion Gap (3-11) Glucose 170 H (70-99) mg/dl POC Glucose (70-99) mg/dl POC Glucose (other) (70-99) mg/dl Calcium (8.5-10.1) mg/dl Total Bilirubin (0.2-1) mg/dl AST (15-37) U/L ALT (12-78) U/L Total Protein (6.4-8.2) gm/dl Albumin (3.4-5.0) gm/dl Urine Ketones (Negative) 05/12/20 05/12/20 05/13/20 Range/Units 19:36 19:42 01:40 WBC (4.8-10.8) K/uL RBC (4.7-6.1) M/uL Hgb (14.0-18.0) g/dL Hct (42-52) % MPV (7.4-10.4) fL Neut # (Auto) (1.4-6.5) K/uL Lymph # (Auto) (1.2-3.4) K/uL Hettinger # (Auto) (0.11-0.59) K/uL Immature Gran # (Auto) (0.00-0.02) K/uL PT (9.0-12.0) Seconds INR (0.9-1.1) APTT (21.0-31.0) Seconds Chloride (98-107) mmol/L Anion Gap (3-11) Glucose (70-99) mg/dl POC Glucose 188 H (70-99) mg/dl POC Glucose (other) 171 H (70-99) mg/dl Calcium (8.5-10.1) mg/dl Total Bilirubin (0.2-1) mg/dl AST (15-37) U/L ALT (12-78) U/L Total Protein (6.4-8.2) gm/dl Albumin (3.4-5.0) gm/dl Urine Ketones 2+ H (Negative) 05/13/20 05/13/20 Range/Units 05:06 05:06 WBC 15.02 H (4.8-10.8) K/uL RBC 3.96 L (4.7-6.1) M/uL Hgb 12.8 L (14.0-18.0) g/dL Hct 37.1 L (42-52) % MPV 11.0 H (7.4-10.4) fL Neut # (Auto) 13.51 H (1.4-6.5) K/uL Lymph # (Auto) 0.36 L (1.2-3.4) K/uL Hettinger # (Auto) 1.07 H (0.11-0.59) K/uL Immature Gran # (Auto) 0.03 H (0.00-0.02) K/uL PT (9.0-12.0) Seconds INR (0.9-1.1) APTT (21.0-31.0) Seconds Chloride 109 H (98-107) mmol/L Anion Gap 2.0 L (3-11) Glucose 161 H (70-99) mg/dl POC Glucose (70-99) mg/dl POC Glucose (other) (70-99) mg/dl Calcium 8.1 L (8.5-10.1) mg/dl Total Bilirubin 1.4 H (0.2-1) mg/dl AST 81 H (15-37) U/L ALT 106 H (12-78) U/L Total Protein 6.1 L (6.4-8.2) gm/dl Albumin 3.1 L (3.4-5.0) gm/dl Urine Ketones (Negative) (1) Acute appendicitis Acute appendicitis type: with localized peritonitis Appendicitis abscess presence: without abscess Appendicitis gangrene presence: without gangrene Appendicitis perforation presence: without perforation Qualified Code(s): K35.30 - Acute appendicitis with localized peritonitis, without perforation or gangrene
[2020-05-13] MEDS: SODIUM CHLORIDE 0.9% 1000ML 1,000 ML IV SCH ×3 (08:19→22:46)
[2020-05-13] MEDS: GABAPENTIN 300 MG CAP PO SCH ×2 (08:19→20:59)
[2020-05-13] MEDS: MULTIVITAMIN TAB PO SCH (08:51)
[2020-05-13] MEDS ORDERED: METOPROLOL SUCC 50MG EXT REL TAB PO SCH ×2 (09:00→21:00)
[2020-05-13] MEDS ORDERED: lisinopril 40 MG TAB PO SCH (09:00)
[2020-05-13] MEDS: INSULIN ASPART 100 UNITS/ML 3 ML PEN SC SCH ×4 (09:28→21:06)
--- NOTE | 2020-05-13 10:15 | Electrocardiogram Report ---
Test Reason : Blood Pressure : / mmHG Vent. Rate : 092 BPM Atrial Rate : 093 BPM P-R Int : 174 ms QRS Dur : 148 ms QT Int : 384 ms P-R-T Axes : 043 052 012 degrees QTc Int : 474 ms Sinus rhythm with Premature atrial complexes Right bundle branch block possible Inferior infarct (cited on or before 29-JUN-2016) Abnormal ECG When compared with ECG of 06-DEC-2019 11:56, No significant change was found Confirmed by Rey Rowe ([id number]) on 05/13/2020 10:14:45 AM Referred By: REFERRED SELF Confirmed By:Wilfrido Rowe
[2020-05-13] MEDS ORDERED: SPIRONOLACTONE 25 MG TAB PO SCH (11:30)
[2020-05-13] MEDS: HYDROCODONE/ACETAMOPHEN 5/325MG TAB PO PRN (12:46)
[2020-05-13] MEDS ORDERED: METOPROLOL SUCC 50MG EXT REL TAB PO ONE (12:48)
--- NOTE | 2020-05-13 13:20 | Hospitalist Consultation ---
Date of Consultation May 13, 2020 Assessment & Plan (1) Acute appendicitis: Patient presented with abdominal pain and a CT of the abdomen pelvis confirmed acute appendicitis Patient was taken to the operating theater by Dr. Agee and an appendectomy was performed Patient tolerated the procedure well This morning the patient is sitting in bedside chair and is tolerating meals No nausea, vomiting, diarrhea. No fever. Anticipate discharge home tomorrow Further management per general surgery (2) Hypertension: Patient is on lisinopril and metoprolol succinate These agents were held this morning due to a soft blood pressure with a systolic pressure of 99 Continue to monitor blood pressure and reintroduce home medications as tolerated No additional antihypertensives are needed at this time Continue all home medications on discharge (3) Type 2 diabetes mellitus: Patient on Metformin as a single agent at home Will use sliding scale insulin while in inpatient and hold Metformin Further management as an outpatient (4) BPH (benign prostatic hyperplasia): Patient denies any acute issues right now. Hold alpha-austin due to soft blood pressure Continue all home medications on discharge (5) Paroxysmal atrial flutter: Patient is on metoprolol succinate and chronically anticoagulated Currently in atrial fibrillation with rate control in the 80s Will hold morning dose of metoprolol due to soft blood pressure Continue all usual medications on discharge (6) Obesity hypoventilation syndrome: Patient is on CPAP at home We will hold CPAP while inpatient secondary to abdominal surgery Oxygenating well on room air Continue CPAP therapy per surgery on discharge (7) Pulmonary embolism: Previous history of bilateral pulmonary emboli Currently anticoagulated chronically No criteria by Wells criteria to indicate current PE Continue anticoagulation on discharge (8) DVT prophylaxis: Patient anticoagulated on rivaroxaban as an outpatient Further DVT prophylaxis per general surgery Thank you for including us in the care of this patient. We will continue to follow along with you. Please refer to Dr. Foster's addendum for further recommendations. Supervising Physician Co-Signing Physician Notes Patient was seen and examined independently I discussed the case with Juwan CHAU I reviewed pertinent past medical social family history and also the plan of care and agree with the plan of care. Patient status post laparoscopic appendectomy doing well in the post procedural time course has already been given oral diet by surgery general medical problems of diabetes paroxysmal atrial fib flutter are stable his anticoagulation has been held surrounding his surgical procedure will likely will be restarted at time of discharge Patient is comfortable with only minimal abdominal pain cardiac exam is rate controlled and irregular lungs are clear with decreased bases breath sounds and abdomen is obese and soft Any exceptions will be noted below History of Present Illness Attending Physician: Rafia Agee MD History of Present Illness Attending: Dr. Foster This is a 69 yo male that has been having intermittent abdominal pain for the past several months. He has had no n/v/d and denies fever, chills, sweats, rigors. He has no recent COVID contacts. He did have a positive COVID history 11/2019. He has had some decrease in appetite but no vomiting after foods. He denies previous surgical or GI evaluation for pain. He presented to the ED yeste rday to increased, intolerable abdominal pain. Since his appendectomy, he denies further complaint other than typical post surgical discomfort and some slight bloating. He has a past medical history including HTN, tobacco use (quit 1990), obesity, pre-diabetes, BPH, LUCERO/OHVS, hx PE, atrial fibrillation on chronic anticoagulation with rivaroxaban, dyslipidemia. He has no other acute complaints. He lives with his at home. Allergies Allergy/AdvReac Type Severity Reaction Status Date / Time oxycodone AdvReac Mild "DOESN'T Verified 05/12/20 20:07 LIKE FEELING" Home Medications Medication Instructions Recorded Confirmed Type multivitamin 1 tab PO QAM 09/20/18 05/12/20 History metoprolol succinate 100 mg 100 mg PO QAM #90 tab 05/12/19 05/12/20 Rx tablet,extended release 24 hr lisinopril 40 mg tablet 40 mg PO QAM #90 tab 09/22/19 05/12/20 Rx atorvastatin 40 mg tablet 40 mg PO HS #90 tab 10/27/19 05/12/20 Rx acetaminophen 650 mg PO Q4H PRN #30 tab 12/10/19 05/12/20 Rx gabapentin 300 mg capsule 300 mg PO BID #180 cap 01/27/20 05/12/20 Rx metoprolol succinate 50 mg 50 mg PO HS #90 tab 02/23/20 05/12/20 Rx tablet,extended release 24 hr metformin 500 mg tablet,extended 500 mg PO BID #180 tab 05/03/20 05/12/20 Rx release 24 hr rivaroxaban 20 mg tablet 20 mg PO QAM #90 tab 05/03/20 05/12/20 Rx terazosin 10 mg capsule 20 mg PO QPM #180 cap 05/10/20 05/12/20 Rx spironolactone 25 mg PO QDL 05/12/20 05/12/20 History Patient History Medical History Atrial fibrillation Bilateral pulmonary embolism Family history of colon cancer History of colon polyps Obesity, morbid, BMI 40.0-49.9 Prediabetes Pulmonary embolism 2015--bilateral--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 Surgical History History of arthroscopy of left knee meniscus repair History of colonoscopy History of left inguinal hernia repair History of parotidectomy left--benign cyst History of right inguinal hernia repair History of tooth extraction all teeth removed History of umbilical hernia repair Hx of cholecystectomy Family History Father Colon cancer Mother Breast cancer Other Family history of colon cancer No family history of adverse response to anesthesia Social History Smoking Status: Former smoker Cigarettes Per Day: 2 packs a day; Smoking End Date: quit 91; Second Hand Exposure: No; Do You Dip or Chew Tobacco: No; Tobacco Cessation Education Requested by Patient: No Hx Alcohol Use: No Hx Substance Use: No Preferred Language: Swazi Communication Ability: Effective Hearing Ability: Normal 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 Designer 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: No Beliefs That Will Affect Care: None marital status: Current Living Situation: Spouse Current Living Situation Comment: current occupational status: employed Feels Safe at Home: Yes Safety Concerns: Feels Safe At This Time Dental Care, Regularly: No Physical Activity Frequency: Does not Exercise Assistive Devices: Oxygen - Continuous Assistive Devices Comment: reading glasses-not here on admission Review of Systems Review of Systems: All systems reviewed & are unremarkable except as noted in HPI & below Physical Exam Physical Exam: GENERAL : No acute distress EYES: No icterus, gaze conjugate NOSE: No evidence of epistaxis MOUTH: No lesions or candidiasis NECK: Supple LUNGS: CTA B/L, no wheezes, rales or rhonchi HEART: Irregular, irregular. Rate controlled in the 80s ABDOMEN: Soft, NT, ND, BS Present EXTREMITIES: Trace B/L LE edema at the sock lines, pedal pulses intact NEURO: A&OX3 Results & Data Results & Data ([facility]) Vital Signs (Past 12 Hours) Vital Signs Temp Pulse Pulse Pulse Resp BP BP 05/13/20 07:53 36.2 C L 87 17 112/68 05/13/20 05:38 37.2 C 95 H 18 99/61 L 05/13/20 04:35 36.8 C 93 H 18 93/58 L 05/13/20 03:41 05/13/20 03:35 36.9 C 98 H 18 100/66 05/13/20 03:20 36.7 C 91 H 18 107/63 05/13/20 03:05 37.0 C 99 H 18 102/66 05/13/20 02:10 36.6 C 95 H 17 115/72 05/13/20 02:00 93 H 21 120/75 05/13/20 01:50 95 H 18 114/81 05/13/20 01:46 107 H 133/67 05/13/20 01:40 108 H 17 117/55 L 05/13/20 01:30 36.3 C L 105 H 23 109/79 Pulse Ox 05/13/20 07:53 94 05/13/20 05:38 94 05/13/20 04:35 93 05/13/20 03:41 94 05/13/20 03:35 94 05/13/20 03:20 80 L 05/13/20 03:05 95 05/13/20 02:10 96 05/13/20 02:00 95 05/13/20 01:50 97 05/13/20 01:46 05/13/20 01:40 92 05/13/20 01:30 98 Laboratory Results 05/13/20 05:06 05/13/20 05:06 Laboratory Tests 11/28/19 14:56 SARS-CoV-2 RNA (RT-PCR) DETECTED A* Diagnostic Findings CT SCAN OF THE ABDOMEN AND PELVIS WITH IV CONTRAST CLINICAL HISTORY: Right lower quadrant abdominal pain. COMPARISON STUDY: Abdominal CT dated 12/06/2019. TECHNIQUE: Following the IV administration of 118 cc of Optiray 320, CT scan of the abdomen and pelvis is performed from the lung bases to the proximal femora. Images are reviewed in the axial, sagittal, and coronal planes. IV contrast was administered without complication. A dose lowering technique was utilized adhering to the principles of ALARA. CT DOSE: 973.81 mGycm FINDINGS: Lung bases: The heart is normal in size and without pericardial effusion. A small calcified granuloma seen at the right lung base. The lung bases are otherwise clear as imaged. Liver: The contrast-enhanced liver is normal in size, contour, and attenuation. There is no intrahepatic biliary ductal dilatation. The hepatic veins and portal veins are patent. Gallbladder: Surgically absent noting clips in the gallbladder fossa. Spleen: Normal in size and attenuation. Pancreas: Unremarkable. Adrenal glands: Unremarkable. Kidneys: The contrast enhanced kidneys demonstrate cortical atrophy and are without hydronephrosis. The kidneys enhance symmetrically. Bilateral renal cysts measure up to 5 cm. Additional subcentimeter cortical hypodensities also likely represent cysts but are too small for definitive characterization. A 10 mm nonobstructing calculus is noted in the left kidney. Abdominal vasculature: There is advanced atherosclerotic calcification and mild ectasia of the abdominal aorta. Bowel: There are scattered colonic diverticula without CT evidence of acute diverticulitis. No bowel obstruction is seen. The appendix is distended and fluid-filled measuring up to 1.6 cm in diameter. A large calcified appendicolith is seen at the base of the appendix on image #[id number]. The appendiceal wall is thickened and there is periappendiceal inflammation. Findings are consistent with acute appendicitis. No organized fluid collection is seen to suggest abscess. Peritoneum: There is no intraperitoneal free air or abdominal ascites. There is evidence of previous ventral hernia repair. Lymphadenopathy: None. Pelvic viscera: The prostate gland is enlarged and heterogeneous, measuring 6.5 cm in transverse diameter. There is median lobe hypertrophy. The bladder is decompressed and grossly unremarkable Skeletal structures: The skeletal structures are osteopenic. There is mild to moderate lumbosacral spondylosis. No lytic or blastic lesions are seen. IMPRESSION: 1. Findings are consistent with acute appendicitis. There is no evidence of abscess or perforation. 2. Left-sided nephrolithiasis. 3. Additional findings as above. ACT 112: Negative or not required by law. Electronically signed by: Juwan Marie M.D. 05/12/2020 8:56 PM PG Care Time/CCT Total # of Minutes Spent Total Time Spent with Patient: Total time spent is greater than 50% in coordination of care (as documented) at patient's floor/unit and/or counseling patient: 40 minutes Coding Level of Care Code 71756 Inpt Consult Level 4 Diagnoses Acute appendicitis K35.30 Acute appendicitis type: with localized peritonitis Appendicitis abscess presence: without abscess Appendicitis gangrene presence: without gangrene Appendicitis perforation presence: without perforation Hypertension I10 Hypertension type: unspecified Type 2 diabetes mellitus E11.9 Diabetes mellitus complication status: without complication Diabetes mellitus mcfp insulin use: without mcfp use BPH (benign prostatic hyperplasia) N40.0 Lower urinary tract symptom presence: symptoms absent Paroxysmal atrial flutter I48.92 Obesity hypoventilation syndrome E66.2 Pulmonary embolism I26.94 Pulmonary embolism type: multiple subsegmental (without acute cor pulmonale) DVT prophylaxis Z29.9 (1) BPH (benign prostatic hyperplasia) Lower urinary tract symptom presence: symptoms absent Qualified Code(s): N40.0 - Benign prostatic hyperplasia without lower urinary tract symptoms (2) Type 2 diabetes mellitus Diabetes mellitus complication status: without complication Diabetes mellitus mcfp insulin use: without logistics planning engineer use Qualified Code(s): E11.9 - Type 2 diabetes mellitus without complications (3) Pulmonary embolism Pulmonary embolism type: multiple subsegmental (without acute cor pulmonale) Qualified Code(s): I26.94 - Multiple subsegmental pulmonary emboli without acute cor pulmonale (4) Hypertension Hypertension type: unspecified Qualified Code(s): I10 - Essential (primary) hypertension (5) Acute appendicitis Acute appendicitis type: with localized peritonitis Appendicitis abscess presence: without abscess Appendicitis gangrene presence: without gangrene Appendicitis perforation presence: without perforation Qualified Code(s): K35.30 - Acute appendicitis with localized peritonitis, without perforation or gangrene
--- NOTE | 2020-05-13 13:43 | Hospitalist Consultation ---
Date of Consultation May 13, 2020 History of Present Illness Reason for Consultation: -- Post-op Medical Management. -- POD#0 Emergent Laparoscopic Appendectomy. Requesting Physician: Rafia Agee MD Attending Physician: Alex Chan MD History of Present Illness Mr. Rai is a 69 year old male with a history of Hypertension, Hyperlipidemia, Type 2 Diabetes Mellitus, BPH, Morbid Obesity, Obesity Hypoventilation Syndrome, Paroxysmal Atrial Flutter s/p Cardioversion 06/29/2016, Paroxysmal Atrial Fibrillation, Dilated Aortic Root, and a history of Bilateral Pulmonary Emboli who presented to [facility] ER yesterday after having lower abdominal pain x 24 hour, but that pain progressively got worse and localized to the RLQ. CT Scan of Abdomen and Pelvis were consistent with acute Appendicitis. Patient underwent emergent Laparoscopic Appendectomy late last night/early this morning with Dr. Agee -- patient's appendix was inflamed, gangrenous, and microperforation was present. Fortunately, No evidence of intra-abdominal abscess formation. The surgery went well and patient has not had any complications. His WBC# is trending down, H&H are stable, but his total bilirubin, AST, and ALT are elevated. Patient is currently being seen in room 354. He offers no complaints other than some soreness at the surgical site. He has resumed a normal diet without difficulty and is tolerating oral fluids. He denies any nausea, fever, chills, or any swallowing issues. patient is otherwise feeling well. He denies any chest pain, SOB, palpitations, syncope, or near-syncope. He further denies any recent episodes of A-Fib or A-Flutter to his knowledge. Patient's Metformin was held today, and patient is refusing sliding scale Insulin and BSG checks because "the last time I was here they really messed up my blood sugars". Current BSG is 153 mg/dl. Mr. Rai is chronically anticoagulated due to his history of bilateral pu lmonary emboli and history of A-Fib and A-Flutter. His last dose of Xarelto was yesterday. Xarelto is currently on hold. Allergies Allergy/AdvReac Type Severity Reaction Status Date / Time oxycodone AdvReac Mild "DOESN'T Verified 05/12/20 20:07 LIKE FEELING" Home Medications Medication Instructions Recorded Confirmed Type multivitamin 1 tab PO QAM 09/20/18 05/12/20 History metoprolol succinate 100 mg 100 mg PO QAM #90 tab 05/12/19 05/12/20 Rx tablet,extended release 24 hr lisinopril 40 mg tablet 40 mg PO QAM #90 tab 09/22/19 05/12/20 Rx atorvastatin 40 mg tablet 40 mg PO HS #90 tab 10/27/19 05/12/20 Rx acetaminophen 650 mg PO Q4H PRN #30 tab 12/10/19 05/12/20 Rx gabapentin 300 mg capsule 300 mg PO BID #180 cap 01/27/20 05/12/20 Rx metoprolol succinate 50 mg 50 mg PO HS #90 tab 02/23/20 05/12/20 Rx tablet,extended release 24 hr metformin 500 mg tablet,extended 500 mg PO BID #180 tab 05/03/20 05/12/20 Rx release 24 hr rivaroxaban 20 mg tablet 20 mg PO QAM #90 tab 05/03/20 05/12/20 Rx terazosin 10 mg capsule 20 mg PO QPM #180 cap 05/10/20 05/12/20 Rx spironolactone 25 mg PO QDL 05/12/20 05/12/20 History Patient History Medical History (Updated 05/13/20 @ 13:34 by Juwan Howard PA-C) Atrial fibrillation Bilateral pulmonary embolism Family history of colon cancer History of colon polyps Obesity, morbid, BMI 40.0-49.9 Prediabetes Pulmonary embolism 2015--bilateral--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 Surgical History History of arthroscopy of left knee meniscus repair History of colonoscopy History of left inguinal hernia repair History of parotidectomy left--benign cyst History of right inguinal hernia repair History of tooth extraction all teeth removed History of umbilical hernia repair Hx of cholecystectomy Family History Father Colon cancer Mother Breast cancer Other Family history of colon cancer No family history of adverse response to anesthesia Social History Smoking Status: Former smoker Cigarettes Per Day: 2 packs a day; Smoking End Date: quit ; Second Hand Exposure: No; Do You Dip or Chew Tobacco: No; Tobacco Cessation Education Requested by Patient: No Hx Alcohol Use: No Hx Substance Use: No Preferred Language: Lithuanian Communication Ability: Effective Hearing Ability: Normal 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 Machine 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 HEENT: Head is atraumatic, normocephalic. EOM's intact. Sclerae are anicteric. Facies symmetric. No perioral cyanosis. NECK: No JVD. JVP is not elevated. Carotid upstrokes are + 2 bilaterally without obvious bruits. CHEST/LUNGS: Clear to auscultation throughout all lung [place]. No wheezes, rales, or crackles. CVS: S1 and S2 are regular, distant without obvious murmurs, gallops, or rubs. PMI is nonpalpable. No lifts, heaves, or thrills. No abdominal aortic or renal bruits. ABDOMINAL EXAM: Bowel sounds are present. EXTREMITIES: No clubbing or cyanosis. Pretibial +1 edema present bilaterally. Intact radial pulses bilaterally. NEUROLOGIC EXAM: Patient is awake, alert, and oriented. Pleasant and cooperative. Answers questions appropriately. Speech is clear. Normal movement in all 4 extremities. Gait pattern was not assessed. Results & Data Results & Data ([facility]) Vital Signs (Past 12 Hours) Vital Signs Temp Pulse Pulse Pulse Resp BP BP 05/13/20 07:53 36.2 C L 87 17 112/68 05/13/20 05:38 37.2 C 95 H 18 99/61 L 05/13/20 04:35 36.8 C 93 H 18 93/58 L 05/13/20 03:41 05/13/20 03:35 36.9 C 98 H 18 100/66 05/13/20 03:20 36.7 C 91 H 18 107/63 05/13/20 03:05 37.0 C 99 H 18 102/66 05/13/20 02:10 36.6 C 95 H 17 115/72 05/13/20 02:00 93 H 21 120/75 05/13/20 01:50 95 H 18 114/81 05/13/20 01:46 107 H 133/67 05/13/20 01:40 108 H 17 117/55 L 05/13/20 01:30 36.3 C L 105 H 23 109/79 Pulse Ox 05/13/20 07:53 94 05/13/20 05:38 94 05/13/20 04:35 93 05/13/20 03:41 94 05/13/20 03:35 94 05/13/20 03:20 80 L 05/13/20 03:05 95 05/13/20 02:10 96 05/13/20 02:00 95 05/13/20 01:50 97 05/13/20 01:46 05/13/20 01:40 92 05/13/20 01:30 98 Laboratory Results Laboratory Results - last 24 hr 05/12/20 05/12/20 05/12/20 19:35 19:35 19:35 WBC 17.87 H RBC 4.43 L Hgb 14.4 POC Hgb Hct 41.2 L POC Hct MCV 93.0 MCH 32.5 MCHC 35.0 RDW Std Deviation 43.5 RDW Coeff of Louis 12.7 Plt Count 169 MPV 11.5 H Immature Gran % (Auto) 0.3 Neut % (Auto) 86.6 Lymph % (Auto) 6.4 Boundary % (Auto) 6.3 Eos % (Auto) 0.3 Baso % (Auto) 0.1 Neut # (Auto) 15.48 H Lymph # (Auto) 1.14 L Boundary # (Auto) 1.12 H Eos # (Auto) 0.05 Baso # (Auto) 0.02 Immature Gran # (Auto) 0.06 H PT 12.8 H INR 1.2 H APTT 35.9 H PTT Ratio 1.3 POC Sodium Sodium 140 POC Potassium Potassium 4.0 POC Chloride Chloride 107 Carbon Dioxide 27 POC Total CO2 Anion Gap 6.0 POC Anion Gap POC BUN BUN 15 Creatinine 1.00 POC Creatinine Est Cr Clr Drug Dosing 94.2 Est GFR ( Amer) 88.0 Est GFR (Non-Af Amer) 75.9 BUN/Creatinine Ratio 15.2 Glucose 170 H POC Glucose POC Glucose (other) Calcium 8.9 POC Ioniz Calcium Andrew Total Bilirubin 1.0 AST 20 ALT 45 Alkaline Phosphatase 76 Troponin I < 0.015 Total Protein 7.5 Albumin 3.9 Globulin 3.6 Albumin/Globulin Ratio 1.1 Lipase 124 Urine Color Urine Appearance Urine pH Ur Specific [place] Urine Protein Urine Glucose (UA) Urine Ketones Urine Blood Urine Nitrite Urine Bilirubin Urine Urobilinogen Ur Leukocyte Esterase COVID-19 Eval Order SARS-CoV-2, RNA, NAAT Blood Type Antibody Screen 05/12/20 05/12/20 05/12/20 19:36 19:42 19:54 WBC RBC Hgb POC Hgb 14.6 Hct POC Hct 43 MCV MCH MCHC RDW Std Deviation RDW Coeff of Louis Plt Count MPV Immature Gran % (Auto) Neut % (Auto) Lymph % (Auto) Boundary % (Auto) Eos % (Auto) Baso % (Auto) Neut # (Auto) Lymph # (Auto) Boundary # (Auto) Eos # (Auto) Baso # (Auto) Immature Gran # (Auto) PT INR APTT PTT Ratio POC Sodium 139 Sodium POC Potassium 4.0 Potassium POC Chloride 102 Chloride Carbon Dioxide POC Total CO2 26 Anion Gap POC Anion Gap 16.0 POC BUN 15 BUN Creatinine POC Creatinine 0.8 Est Cr Clr Drug Dosing Est GFR ( Amer) Est GFR (Non-Af Amer) BUN/Creatinine Ratio Glucose POC Glucose POC Glucose (other) 171 H Calcium POC Ioniz Calcium Andrew 1.15 Total Bilirubin AST ALT Alkaline Phosphatase Troponin I Total Protein Albumin Globulin Albumin/Globulin Ratio Lipase Urine Color Yellow Urine Appearance Clear Urine pH 6.5 Ur Specific [place] 1.020 Urine Protein Negative Urine Glucose (UA) Negative Urine Ketones 2+ H Urine Blood Negative Urine Nitrite Negative Urine Bilirubin Negative Urine Urobilinogen Negative Ur Leukocyte Esterase Negative COVID-19 Eval [facility] SARS-CoV-2, RNA, NAAT Blood Type Antibody Screen 05/12/20 05/12/20 05/13/20 19:54 23:38 01:40 WBC RBC Hgb POC Hgb Hct POC Hct MCV MCH MCHC RDW Std Deviation RDW Coeff of Louis Plt Count MPV Immature Gran % (Auto) Neut % (Auto) Lymph % (Auto) Boundary % (Auto) Eos % (Auto) Baso % (Auto) Neut # (Auto) Lymph # (Auto) Boundary # (Auto) Eos # (Auto) Baso # (Auto) Immature Gran # (Auto) PT INR APTT PTT Ratio POC Sodium Sodium POC Potassium Potassium POC Chloride Chloride Carbon Dioxide POC Total CO2 Anion Gap POC Anion Gap POC BUN BUN Creatinine POC Creatinine Est Cr Clr Drug Dosing Est GFR ( Amer) Est GFR (Non-Af Amer) BUN/Creatinine Ratio Glucose POC Glucose 188 H POC Glucose (other) Calcium POC Ioniz Calcium Andrew Total Bilirubin AST ALT Alkaline Phosphatase Troponin I Total Protein Albumin Globulin Albumin/Globulin Ratio Lipase Urine Color Urine Appearance Urine pH Ur Specific [place] Urine Protein Urine Glucose (UA) Urine Ketones Urine Blood Urine Nitrite Urine Bilirubin Urine Urobilinogen Ur Leukocyte Esterase COVID-19 Eval Order SARS-CoV-2, RNA, NAAT NEGATIVE Blood Type A Positive Antibody Screen NEGATIVE 05/13/20 05/13/20 05/13/20 05:06 05:06 08:50 WBC 15.02 H RBC 3.96 L Hgb 12.8 L POC Hgb Hct 37.1 L POC Hct MCV 93.7 MCH 32.3 MCHC 34.5 RDW Std Deviation 45.3 RDW Coeff of Louis 13.2 Plt Count 150 MPV 11.0 H Immature Gran % (Auto) 0.2 Neut % (Auto) 90.0 Lymph % (Auto) 2.4 Boundary % (Auto) 7.1 Eos % (Auto) 0.1 Baso % (Auto) 0.2 Neut # (Auto) 13.51 H Lymph # (Auto) 0.36 L Bound[place] # (Auto) 1.07 H Eos # (Auto) 0.02 Baso # (Auto) 0.03 Immature Gran # (Auto) 0.03 H PT INR APTT PTT Ratio POC Sodium Sodium 139 POC Potassium Potassium 4.0 POC Chloride Chloride 109 H Carbon Dioxide 28 POC Total CO2 Anion Gap 2.0 L POC Anion Gap POC BUN BUN 17 Creatinine 1.15 POC Creatinine Est Cr Clr Drug Dosing 82.7 Est GFR ( Amer) 74.3 Est GFR (Non-Af Amer) 64.1 BUN/Creatinine Ratio 14.6 Glucose 161 H POC Glucose 153 H POC Glucose (other) Calcium 8.1 L POC Ioniz Calcium Andrew Total Bilirubin 1.4 H AST 81 H ALT 106 H Alkaline Phosphatase 73 Troponin I Total Protein 6.1 L Albumin 3.1 L Globulin 3.0 Albumin/Globulin Ratio 1.0 Lipase Urine Color Urine Appearance Urine pH Ur Specific [place] Urine Protein Urine Glucose (UA) Urine Ketones Urine Blood Urine Nitrite Urine Bilirubin Urine Urobilinogen Ur Leukocyte Esterase COVID-19 Eval Order SARS-CoV-2, RNA, NAAT Blood Type Antibody Screen Diagnostic Findings CT Scan Abdomen and Pelvis 05/12/2020: Description: Lung bases: The heart is normal in size and without pericardial effusion. A small calcified granuloma seen at the right lung base. The lung bases are otherwise clear as imaged. Liver: The contrast-enhanced liver is normal in size, contour, and attenuation. There is no intrahepatic biliary ductal dilatation. The hepatic veins and portal veins are patent. Gallbladder: Surgically absent noting clips in the gallbladder fossa. Spleen: Normal in size and attenuation. Pancreas: Unremarkable. Adrenal glands: Unremarkable. Kidneys: The contrast enhanced kidneys demonstrate cortical atrophy and are without hydronephrosis. The kidneys enhance symmetrically. Bilateral renal cysts measure up to 5 cm. Additional subcentimeter cortical hypodensities also likely represent cysts but are too small for definitive characterization. A 10 mm nonobstructing calculus is noted in the left kidney. Abdominal vasculature: There is advanced atherosclerotic calcification and mild ectasia of the abdominal aorta. Bowel: There are scattered colonic diverticula without CT evidence of acute diverticulitis. No bowel obstruction is seen. The appendix is distended and fluid-filled measuring up to 1.6 cm in diameter. A large calcified appendicolith is seen at the base of the appendix on image #[id number]. The appendiceal wall is thickened and there is periappendiceal inflammation. Findings are consistent with acute appendicitis. No organized fluid collection is seen to suggest abscess. Peritoneum: There is no intraperitoneal free air or abdominal ascites. There is evidence of previous ventral hernia repair. Lymphadenopathy: None. Pelvic viscera: The prostate gland is enlarged and heterogeneous, measuring 6.5 cm in transverse diameter. There is median lobe hypertrophy. The bladder is decompressed and grossly unremarkable Skeletal structures: The skeletal structures are osteopenic. There is mild to moderate lumbosacral spondylosis. No lytic or blastic lesions are seen. IMPRESSION: 1. Findings are consistent with acute appendicitis. There is no evidence of abscess or perforation. 2. Left-sided nephrolithiasis. 3. Additional findings as above. Medications Administered Hydrocodone Bitart/Acetaminophen (Hydrocodone/Acetamophen 5/325mg Tab) 1 tab PO Q4H PRN PRN Reason: Pain Stop: 05/27/20 01:46 Last Admin: 05/13/20 12:46 Dose: 1 tab Documented by: [id number] Gabapentin (Gabapentin 300 Mg Cap) 300 mg PO BID [facility] Stop: 06/12/20 08:59 Last Admin: 05/13/20 08:19 Dose: 300 mg Documented by: [id number] Piperacillin Sod/Tazobactam (Sod 4.5 gm/ Dextrose) 120 mls @ 30 mls/hr IV Q8H [facility]; Protocol Stop: 05/23/20 02:59 Last Admin: 05/13/20 12:46 Dose: 30 mls/hr Documented by: [id number] Infusion: 05/13/20 09:07 Dose: 0 mls/hr Documented by: [id number] Admin: 05/13/20 05:07 Dose: 30 mls/hr Documented by: [id number] Sodium Chloride (Nss 1000ml) 1,000 mls @ 80 mls/hr IV .[id number] [facility] Stop: 06/12/20 07:44 Last Admin: 05/13/20 08:19 Dose: 80 mls/hr Documented by: [id number] Insulin Aspart (Insulin Aspart 100 Units/Ml 3 Ml Pen) 0 units SC ACHS [facility] Stop: 06/12/20 07:29 Last Admin: 05/13/20 13:24 Dose: Not Given Documented by: [id number] Cosigned by: [id number] Admin: 05/13/20 09:28 Dose: Not Given Documented by: [id number] Multivitamins (Multivitamin Tab) 1 tab PO QAM [facility] Stop: 06/12/20 08:59 Last Admin: 05/13/20 08:51 Dose: 1 tab Documented by: [id number] Discontinued Medications Bacitracin (Bacitracin Oint 15 Gm Tube) Confirm Administered Dose 45 appln .ROUTE .STK-MED ONE Stop: 05/12/20 22:22 Last Admin: 05/13/20 00:45 Dose: 45 appln Documented by: [id number] Bupivacaine HCl (Bupivacaine 0.5 % 5 Mg/1 Ml Mpf 30ml Vial) Confirm Administered Dose 30 ml .ROUTE .STK-MED ONE Stop: 05/12/20 22:22 Last Admin: 05/13/20 00:57 Dose: 20 ml Documented by: [id number] Sodium Chloride (Nss) 500 mls @ 999 mls/hr IV .Q31M [facility] Stop: 05/12/20 20:15 Last Infusion: 05/12/20 20:43 Dose: 0 mls/hr Documented by: [id number] Admin: 05/12/20 19:58 Dose: 999 mls/hr Documented by: [id number] Piperacillin Sod/Tazobactam (Sod 3.375 gm/ Dextrose) 100 ml in 115 mls @ 230 mls/hr IV NOW STA Stop: 05/12/20 22:59 Last Infusion: 05/13/20 05:12 Dose: 0 mls/hr Documented by: [id number] Admin: 05/12/20 22:40 Dose: 230 mls/hr Documented by: [id number] Lactated Ringer's (Lr) 1,000 mls @ 80 mls/hr IV .[id number] [facility] Stop: 06/12/20 01:46 Last Infusion: 05/13/20 07:42 Dose: 0 mls/hr Documented by: [id number] Admin: 05/13/20 03:19 Dose: 80 mls/hr Documented by: [id number] Ioversol (Optiray 320 125ml) 118 ml IV ONCE ONE Stop: 05/12/20 20:42 Last Admin: 05/12/20 20:41 Dose: 118 ml Documented by: [id number] Lidocaine HCl (Lidocaine Hcl 1% 20 Ml Vial) Confirm Administered Dose 20 ml .ROUTE .STK-MED ONE Stop: 05/12/20 22:22 Last Admin: 05/13/20 00:59 Dose: 20 ml Documented by: [id number] Metoprolol Succinate (Metoprolol Succ 50mg Ext Rel Tab) 100 mg PO NOW ONE Stop: 05/13/20 12:49 Last Admin: 05/13/20 13:30 Dose: 100 mg Documented by: [id number] Metoprolol Tartrate (Metoprolol Tartrate 1 Mg/Ml Vial) 5 mg IV NOW STA Stop: 05/13/20 01:37 Last Admin: 05/13/20 01:46 Dose: 5 mg Documented by: [id number] Metoprolol Tartrate (Metoprolol Tartrate 1 Mg/Ml Vial) Confirm Administered Dose 5 mg IV .STK-MED ONE Stop: 05/13/20 01:43 Last Admin: 05/13/20 03:17 Dose: Not Given Documented by: [id number] Morphine Sulfate (Morphine Sulfate 4 Mg/Ml 1 Ml Carp\\Vial) 4 mg IV Q15M PRN PRN Reason: Pain Stop: 05/26/20 19:37 Last Admin: 05/12/20 21:28 Dose: 4 mg Documented by: [id number] Admin: 05/12/20 19:58 Dose: 4 mg Documented by: [id number] Ondansetron HCl (Ondansetron Inj 2 Mg/Ml 2 Ml Vial) 4 mg IV NOW STA Stop: 05/12/20 19:39 Last Admin: 05/12/20 19:58 Dose: 4 mg Documented by: [id number] PG Care Time/CCT Total # of Minutes Spent Total Time Spent with Patient: Total time spent is greater than 50% in coordination of care (as documented) at patient's floor/unit and/or counseling patient: Coding
[2020-05-13] MEDS ORDERED: TERAZOSIN HCL 5 MG CAP PO SCH ×2 (21:00)
[2020-05-13] MEDS ORDERED: ATORVASTATIN 40 MG TAB PO SCH (21:00)
[2020-05-14] MEDS: SODIUM CHLORIDE 0.9% 1000ML 1,000 ML IV SCH (03:27)
[2020-05-14] MEDS: HYDROCODONE/ACETAMOPHEN 5/325MG TAB PO PRN (05:05)
[2020-05-14] MEDS: PIPERACILLIN/TAZOBACTAM 4.5 GM in DEXTROSE 5% 100 ML IV SCH ×2 (05:05→13:50)
[2020-05-14 07:18] LABS: Basophils # (auto) 0.04 K/uL (0-0.2); Basophils % (auto) 0.4 %; Eosinophils # (auto) 0.32 K/uL (0-0.5); Eosinophils % (auto) 3.5 %; Hematocrit (blood only) 34.4 % (42-52); Hemoglobin 11.7 g/dL (14.0-18.0); Immature Granulocytes # (auto) 0.01 K/uL (0.00-0.02); Immature Granulocytes % (auto) 0.1 %; Lymphocytes # (auto) 0.78 K/uL (1.2-3.4); Lymphocytes % (auto) 8.5 %; Mean Corpuscular Hemoglobin 32.2 pg (25-34); Mean Corpuscular Volume 94.8 fL (80-100); Mean Platelet Volume 11.8 fL (7.4-10.4); Monocytes # (auto) 0.75 K/uL (0.11-0.59); Monocytes % (auto) 8.2 %; Neutrophils # (auto) 7.28 K/uL (1.4-6.5); Neutrophils % (auto) 79.3 %; Platelet Count 137 K/uL (130-400); RDW Coefficient of Variation 13.4 % (11.5-14.5); RDW Standard Deviation 46.5 fL (36.4-46.3); Red Blood Count 3.63 M/uL (4.7-6.1); White Blood Count 9.18 K/uL (4.8-10.8)
[2020-05-14 07:54] LABS: Albumin Level 2.9 gm/dl (3.4-5.0); BUN Creatinine Ratio 17.9 (10-20); Calcium 8.3 mg/dl (8.5-10.1); Est GFR (African American) 53.5; Est GFR (Non-African American) 46.1; Potassium 3.6 mmol/L (3.5-5.1)
[2020-05-14 07:57] LABS: Albumin Globulin Ratio 0.9 (0.9-2); Bilirubin,Total 1.2 mg/dl (0.2-1); Globulin 3.2 gm/dl (2.5-4.0); Total Protein 6.1 gm/dl (6.4-8.2)
[2020-05-14] MEDS: MULTIVITAMIN TAB PO SCH (08:56)
[2020-05-14] MEDS: GABAPENTIN 300 MG CAP PO SCH (08:56)
[2020-05-14] MEDS: INSULIN ASPART 100 UNITS/ML 3 ML PEN SC SCH ×2 (09:06→12:31)
[2020-05-14] MEDS: METOPROLOL SUCC 50MG EXT REL TAB PO SCH ×2 (09:36→10:13)
--- NOTE | 2020-05-14 10:05 | Hospitalist Progress Note ---
Date of Service May 14, 2020 Assessment & Plan (1) Acute appendicitis: Patient presented with abdominal pain and a CT of the abdomen pelvis confirmed acute appendicitis Patient was taken to the operating theater by Dr. Agee and an appendectomy was performed POD #1 s/p lap appy Pain control, PT/OT, DVT proph per primary -- Per conversation with Dr. Agee, to hold his Xarelto for today. h/h stable BP low 95/57 this morning and metoprolol was held but HRs up to 120s and patient feeling dizzy. No shortness of breath/palpations/chest pain. Cr also elevated to 1.51, likely from hypotension EKG pending CXR pending Orthostatics obtained and were positive Will provide 250cc NSS bolus Repeat BMP this afternoon Patient to continue to hold lisinopril/spironolactone and check BPs at home. Can resume in another 1-2 days if BMP improving Abx per primary service (2) Hypertension: Actually hypotensive, leading to elevation of Cr Holding spironolactone and lisinopril -- to continue to hold at discharge and will provide 250 cc bolus for + orthostatics Continue metoprolol for elevated HR EKG pending (3) Type 2 diabetes mellitus: Patient on Metformin as a single agent at home Resume metformin at discharge (4) BPH (benign prostatic hyperplasia): Patient denies any acute issues right now. Hold alpha-austin due to soft blood pressure -- can resume outpatient once BP improved (5) Paroxysmal atrial flutter: Patient is on metoprolol succinate and chronically anticoagulated currently afib to the 120s, improving to 100bpm currently Metoprolol initially held -- requested to be given Xarelto to be resumed tomorrow hopefully -- per Dr. Agee, to continue to hold fo r today (6) Obesity hypoventilation syndrome: Patient is on CPAP at home We will hold CPAP while inpatient secondary to abdominal surgery Oxygenating well on room air Continue CPAP therapy per surgery on discharge (7) Pulmonary embolism: Previous history of bilateral pulmonary emboli Currently anticoagulated chronically No criteria by Wells criteria to indicate current PE Continue anticoagulation on discharge as above (8) DVT prophylaxis: Patient anticoagulated on rivaroxaban as an outpatient Further DVT prophylaxis per general surgery Thank you for including us in the care of this patient. We will continue to follow along with you. Hospitalist service will sign off. If EKG/CXR stable and BMP this afternoon with improvement of Cr, would be ok with discharge with close outpatient follow up. (2) Hypertension: (3) Type 2 diabetes mellitus: (4) BPH (benign prostatic hyperplasia): (5) Paroxysmal atrial flutter: (6) Obesity hypoventilation syndrome: (7) Pulmonary embolism: (8) DVT prophylaxis: Admission and Anticipated Discharge Date Admission Date: May 13, 2020 Subjective Patient evaluated this morning. Was feeling dizzy getting up to the side of the bed but attributes this to laying in bed for a long period of time. No palpitations despite elevated heart rate or shortness of breath. Discussed low blood pressure and elevated kidney numbers and will obtain orthostatic BPs and provide IVF if needed. Patient initially upset about possibly not going home today. Discussed as he has a BP cuff at home and typically will hold his lisinopril when his pressures are low. Discussed if possible, will provide lap slip for repeat BMP if adamant about going today. Feeling well, passing gas. No BM yet but feels he has to have one. Not having any abdominal pain, fever, chills, chest pain, shortness of breath, nausea or dysuria. + Orthos- will provide 250cc bolus. Have nursing give his metoprolol and repeat BMP prior to d/c this afternoon. Review of Systems Review of Systems: All systems reviewed & are unremarkable except as noted in HPI & below Physical Exam Constitutional: WD/WN, vitals as above comfortable; no acute distress Eyes: + anicteric sclerae and PERRL ENMT: dry mm Neck: normal visual inspection and trachea midline Respiratory: normal respiratory effort, lungs clear to auscultation Cardiovascular: Rate/Rhythm: + irregularly irregular Vessels: no JVD Extremities: no edema Gastrointestinal (Abdomen): Inspection/Auscultation: normal bowel sounds Percussion/Palpation: abdomen soft; abdomen nontender, no guarding and abdomen not rigid abd incisions c/d/i Musculoskeletal: Head/Neck/Chest: normocephalic and head atraumatic Skin: warm, dry Neurologic: PERRL, EOMI, accommodation nl, no face palsy, no dysarthria Psychiatric: Orientation: alert and oriented x 3 Lymphatic: no cervical or axillary lymphadenopathy Results & Data Results & Data ([facility]) Vital Signs (Past 12 Hours) Vital Signs Temp Pulse Resp BP BP Pulse Ox 05/14/20 08:58 120 H 94/62 L 05/14/20 07:26 36.6 C 110 H 20 102/68 93 05/13/20 23:52 95 H 105/66 05/13/20 23:13 37.0 C 92 H 14 81/49 L 92 PG Care Time/CCT Total # of Minutes Spent Total Time Spent with Patient: Total time spent is greater than 50% in coordination of care (as documented) at patient's floor/unit and/or counseling patient: Coding Level of Care Code 47481 Subseq Hosp Care Lvl 2 Diagnoses Acute appendicitis K35.30 Acute appendicitis type: with localized peritonitis Appendicitis abscess presence: without abscess Appendicitis gangrene presence: without gangrene Appendicitis perforation presence: without perforation Hypertension I10 Hypertension type: unspecified Type 2 diabetes mellitus E11.9 Diabetes mellitus complication status: without complication Diabetes mellitus long term care administrator insulin use: without long term care administrator use BPH (benign prostatic hyperplasia) N40.0 Lower urinary tract symptom presence: symptoms absent Paroxysmal atrial flutter I48.92 Obesity hypoventilation syndrome E66.2 Pulmonary embolism I26.94 Pulmonary embolism type: multiple subsegmental (without acute cor pulmonale) DVT prophylaxis Z29.9 (1) BPH (benign prostatic hyperplasia) Lower urinary tract symptom presence: symptoms absent Qualified Code(s): N40.0 - Benign prostatic hyperplasia without lower urinary tract symptoms (2) Type 2 diabetes mellitus Diabetes mellitus complication status: without complication Diabetes mellitus skilled nursing insulin use: without long term care administrator use Qualified Code(s): E11.9 - Type 2 diabetes mellitus without complications (3) Pulmonary embolism Pulmonary embolism type: multiple subsegmental (without acute cor pulmonale) Qualified Code(s): I26.94 - Multiple subsegmental pulmonary emboli without acute cor pulmonale (4) Hypertension Hypertension type: unspecified Qualified Code(s): I10 - Essential (primary) hypertension (5) Acute appendicitis Acute appendicitis type: with localized peritonitis Appendicitis abscess presence: without abscess Appendicitis gangrene presence: without gangrene Appendicitis perforation presence: without perforation Qualified Code(s): K35.30 - Acute appendicitis with localized peritonitis, without perforation or gangrene
[2020-05-14] MEDS ORDERED: SODIUM CHLORIDE 0.9% 1000ML 250 ML IV ONE (10:10)
--- NOTE | 2020-05-14 10:26 | Surgery Progress Note ---
Date of Service May 14, 2020 Assessment & Plan (1) Acute appendicitis with generalized peritonitis: POD # 1 s/p laparoscopic appendectomy -afebrile, leukocytosis resolved - Hypotensive this am systolic bp 94, dizziness when standing up to walk - no postop abdominal pain today - Tachycardic, afib - bump in creatinine 1.5 today - adequate urine output Plan: Hypotensive with increase in BUN/creatinine likely dehydration. Medicine ordering bolus of fluids and repeat bmp this afternoon. Am metoprolol dose given. EKG/CXR ordered by medicine Doing well from surgical standpoint. Patient adamant he is going home this afternoon. Surgical discharge instructions reviewed with patient Will check with medicine prior to discharge of what medications to hold/resume at home. Will need close PCP follow-up Okay to resume Xarelto tonight F/u surgical office in 2 weeks (2) Hypotension: + orthostatic vs BUN/Creatinine elevated today likely dehydration IV fluid bolus given repeat bmp at 13:[address] Agee has seen and examined pt, agrees with above. Admission and Anticipated Discharge Date Admission Date: May 13, 2020 Subjective minimal abdominal pain feeling better than yesterday no nausea or vomiting, tolerating diet [place] a little dizziness when getting up to walk no chest pain/shortness of breath, palpitations urinating fine passing a lot of gas Physical Exam Constitutional: well developed, well nourished and + morbidly obese; no acute distress Respiratory: normal respiratory effort; no respiratory distress and no labored breathing Cardiovascular: Rate/Rhythm: + tachycardic and + irregularly irregular Gastrointestinal (Abdomen): Inspection/Auscultation: abdomen normal to inspection and + abdominal surgical incision (covered with steri strips, dry blood present); abdomen not distended Percussion/Palpation: abdomen soft; abdomen nontender, no guarding and abdomen not rigid Skin: no rashes, warm and dry Psychiatric: Orientation: alert, oriented x 3 and cooperative Results & Data ([facility]) Vital Signs (Past 12 Hours) Vital Signs Temp Pulse Resp BP BP Pulse Ox 05/14/20 10:13 100 H 20 95/57 L 91 05/14/20 10:12 124 H 20 92/61 L 93 05/14/20 10:11 36.8 C 99 H 18 126/70 91 05/14/20 08:58 120 H 94/62 L 05/14/20 07:26 36.6 C 110 H 20 102/68 93 05/13/20 23:52 95 H 105/66 05/13/20 23:13 37.0 C 92 H 14 81/49 L 92 Laboratory Results 05/14/20 05/14/20 Range/Units 06:01 06:01 WBC 9.18 (4.8-10.8) K/uL RBC 3.63 L (4.7-6.1) M/uL Hgb 11.7 L (14.0-18.0) g/dL Hct 34.4 L (42-52) % MCV 94.8 (80-100) fL MCH 32.2 (25-34) pg MCHC 34.0 (32-36) g/dL RDW Std Deviation 46.5 H (36.4-46.3) fL RDW Coeff of Louis 13.4 (11.5-14.5) % Plt Count 137 (130-400) K/uL MPV 11.8 H (7.4-10.4) fL Immature Gran % (Auto) 0.1 % Neut % (Auto) 79.3 % Lymph % (Auto) 8.5 % Lassen % (Auto) 8.2 % Eos % (Auto) 3.5 % Baso % (Auto) 0.4 % Neut # (Auto) 7.28 H (1.4-6.5) K/uL Lymph # (Auto) 0.78 L (1.2-3.4) K/uL Lassen # (Auto) 0.75 H (0.11-0.59) K/uL Eos # (Auto) 0.32 (0-0.5) K/uL Baso # (Auto) 0.04 (0-0.2) K/uL Immature Gran # (Auto) 0.01 (0.00-0.02) K/uL Sodium 137 (136-145) mmol/L Potassium 3.6 (3.5-5.1) mmol/L Chloride 106 (98-107) mmol/L Carbon Dioxide 25 (21-32) mmol/L Anion Gap 6.0 (3-11) BUN 27 H D (7-18) mg/dl Creatinine 1.51 H D (0.6-1.4) mg/dl Est Cr Clr Drug Dosing 63.0 ml/min Est GFR ( Amer) 53.5 Est GFR (Non-Af Amer) 46.1 BUN/Creatinine Ratio 17.9 (10-20) Glucose 126 H (70-99) mg/dl Calcium 8.3 L (8.5-10.1) mg/dl Total Bilirubin 1.2 H (0.2-1) mg/dl AST 28 (15-37) U/L ALT 68 (12-78) U/L Alkaline Phosphatase 60 (45-117) U/L Total Protein 6.1 L (6.4-8.2) gm/dl Albumin 2.9 L (3.4-5.0) gm/dl Globulin 3.2 (2.5-4.0) gm/dl Albumin/Globulin Ratio 0.9 (0.9-2)
--- NOTE | 2020-05-14 10:37 | XRay Report ---
XR chest 1V portable CLINICAL HISTORY: hypotensive, not done pre-operatively COMPARISON STUDY: 12/09/2019 FINDINGS: The heart is enlarged. There is no overt failure. There are basilar opacity statistically a telectatic. There is no lobar consolidation. There are no large pleural effusions..[ IMPRESSION: 1. Mild cardiomegaly 2. Basilar opacities statistically atelectatic. ACT 112: Negative or not required by law. Electronically signed by: Addison Nicole M.D. 05/14/2020 10:36 AM
--- NOTE | 2020-05-14 13:03 | Electrocardiogram Report ---
Test Reason : Blood Pressure : / mmHG Vent. 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
[2020-05-14 13:13] LABS: BUN Creatinine Ratio 17.8 (10-20); Calcium 8.2 mg/dl (8.5-10.1); Creatinine Clr Calc Pharmacy 66.5 ml/min; Est GFR (African American) 57.1; Est GFR (Non-African American) 49.3; Potassium 4.1 mmol/L (3.5-5.1)
[2020-05-15] MEDS ORDERED: metFORMIN HCL ER 500 MG TABCR PO SCH (08:00)
--- NOTE | 2020-05-17 07:56 | Discharge Summary ---
Date of Service May 17, 2020 Admission HPI Per Admitting Provider I ( Rafia Agee MD ) got a call for consult acute appendicitis, I reviewed pt's H/P, labs, CT scan with pt, pt is still have significant RLQ, the pain is 9/10, the pain is getting worse since 2pm today, pt took last dose rivaroxaban at 6pm today for his PE, pt denies SOB, CT scan diagnosis: acute appendicitis, 1.6cm diameter appendix, WBC 17,800. ROS: See above HPI for pertinent positives & negatives. A total of 10 systems reviewed and were otherwise negative. Principal Diagnosis Acute appendicitis with microperforation Discharge Data Allergies Allergy/AdvReac Type Severity Reaction Status Date / Time oxycodone AdvReac Mild "DOESN'T Verified 05/12/20 20:07 LIKE FEELING" Consultations 05/12/20 21:07 Consult General Surgery Stat 05/13/20 07:20 Consult Hospitalist Routine Procedures Performed Operation Date: 05/12/20 23:00 Actual Procedures p Laparoscopic Appendectomy - Rafia Agee MD Ordered Studies 05/12/20 19:38 CT abd pelvis IV con only Stat Hospital Course (1) Acute appendicitis with generalized peritonitis: Patient was taken to operating room for laparoscopic appendectomy by Dr. Agee. Patient found to have acute appendicitis with microperforation. Patient tolerated procedure without difficulty. Transferred to medical/surgical floor for postop care. IV zosyn was continued given microperforation, IV fluids, IV zofran prn nausea, IV dilaudid and PO Hydrocodone as needed for pain. Diet was advanced to clear liquids. POD # 0, 7 hours postop, afebrile, vss, no n/v, wbc downt o 13K. Diet was advanced as tolerated, encouraged OOB to chair. POD # 1, afebrile, leukocytosis resolved. Hypotensive with systolic in 90's, slightly dizzy, no chest pain/sob. Tachycardic with HR in 120's. BMP with increase in creatinine to 1.5 however urinating without difficulty. H&H stable. Medicine on board. Ordered cxr, EKG, and fluid bolus. CXR with atelectasis, EKG with Atrial fibrillation with rapid ventricular response. Bmp was repeated at 1 pm and creatinine was stable at 1.47. Patient was adamant that he was going home today as he was having no pain, tolerating diet, and feeling fine. Patient was discharged home on POD # 1 in stable condition. Advised to hold his lisinopril and spironolactone for 2 days and monitor BP at home. He was to resume his Xarelto in the evening. Close follow-up with PCP and repeat BMP in 2 days. (2) Hypotension: + orthostatic vs on POD # 1 BUN/Creatinine elevated today likely dehydration IV fluid bolus given repeat bmp at 13:00- creatinine stable at 1.47 course as above (3) Tachycardia: atrial fibrillation with rapid ventricular response on EKG patient asymptomatic, likely secondary to holding meds given low BP Metoprolol was given in morning on POD # 1 course as above Total Time Total Time Spent Total Time Spent (In Minutes): 2 hours Total Time Includes: Examination of the Patient, Discharge Planning, Medication Reconciliation and Communication With Other Providers Discharge Plan Discharge Items Patient Disposition: Home - Self-Care Reason For Visit: ACUTE ABDOMINAL PAIN Discharge Diagnosis: Acute gangrenous Appendicitis Condition on Discharge: Good Activity: Per Instructions section Non-emergency contact: Primary Care Provider and Surgeon Call non-emergency contact if: you have any medication questions, your symptoms worsen, your pain is not controlled, your pain is worsening, your pain is concerning for you, you have a fever, your temperature is above 101, your wound has increased redness, your wound has increased drainage and your wound pain has increased Follow-up/Referrals: Ellen Underwood CRNP [Primary Care Provider] - Rafia Agee MD [Physician] - 06/02/20 11:30 am Diet: Regular Ambulatory Orders: Basic Metabolic Panel (Routine) Timeframe: 2 Days Location: Determined by Patient Ordered By: Myra Haq Attending Provider Instructions: General Surgery Discharge Instructions: - No heavy lifting over 25 pounds for 4 weeks - No strenuous activity for 4 weeks - No submerging incisions underwater for 2 weeks (no bathing, swimming, or hot tubs) - No driving while taking narcotic pain medication or until you are pain free - You may shower 3 days after your surgery. Sponge bath around incisions in meantime. Let water run over incisions and pat dry. - Leave steri strips on incisions for 7 days and then remove. They may fall off on their own that is okay. - You may take extra strength Tylenol or Ibuprofen as needed for mild pain - 650 mg of Tylenol every 6 hours as needed - 600 mg of Ibuprofen every 6 hours as needed (take with food) - May take narcotic pain medication as needed for severe pain, take as direct - recommend Stool softener (Colace, [id number]) while taking narcotic pain medication to prevent constipation/straining. - Follow-up in surgical office in 2 weeks, call office at [phone] to make an appointment. Given your low blood pressure and increased kidney function in hospital , hospitalist recommends you hold your lisinopril and spironolactone next 2 days. Please monitor your blood pressure at home and call your PCP if it is high. Also recommends repeat basic metabolic panel (BMP) in 2 days. An order has been placed for blood work. You can resume your rivaroxaban tonight. Pending Studies at Discharge: Yes Stand-Alone Forms: [facility] [place], Opioid Pain Management, Smoking Cessation Medications and DC Order Prescriptions: New hydrocodone-acetaminophen 5-325 mg tablet 1 tab PO Q6H PRN (Reason: pain) Qty: 5 RF: 0 Continued atorvastatin 40 mg tablet 40 mg PO HS Qty: 90 RF: 3 gabapentin 300 mg capsule 300 mg PO BID Qty: 180 RF: 1 metoprolol succinate 50 mg tablet extended release 24 hr 50 mg PO HS Qty: 90 RF: 3 metformin 500 mg tablet extended release 24 hr 500 mg PO BID Qty: 180 RF: 3 rivaroxaban 20 mg tablet 20 mg PO QAM Qty: 90 RF: 1 terazosin 10 mg capsule 20 mg PO QPM Qty: 180 RF: 1 multivitamin [Daily Multi-Vitamin] tablet 1 tab PO QAM RF: 0 metoprolol succinate 100 mg tablet extended release 24 hr 100 mg PO QAM Qty: 90 RF: 3 acetaminophen 325 mg Tablet 650 mg PO Q4H PRN (Reason: fever or pain) Qty: 30 RF: 0 Discontinued lisinopril 40 mg tablet 40 mg PO QAM Qty: 90 RF: 3 spironolactone 25 mg tablet 25 mg PO QDL RF: 0 Discharge Orders: Discharge Order (Routine); Ordered 05/14/20 Ordered By: Heidi Morrow/Other Patient Handouts: 5 Steps for Eating Healthier, Managing Diabetes: The A1C Test Admission Data Admit Date/Time: 05/13/20 01:15 Attending Provider: Rafia Agee Admit Provider: Rafia Agee Primary Care Provider: Ellen Underwood Other Providers: Rafia Agee ; David Foster Other Interventions: Discharge Summary Assessment (RN) Last Done: 05/14/20 13:58
== END 2020-05-14 15:04 | disposition home or self-care (01) ==
LOC: ED 19:13 → 3W 22:54 → ASU 22:54

== ENCOUNTER 2023-11-19 17:22 | Inpatient (IN) ==
--- NOTE | 2023-11-19 17:34 | ED Triage Note ---
Date of Service November 19, 2023 Provider in Triage Author: Lei Ledesma History of Present Illness This patient was briefly evaluated while in triage. An abbreviated physical exam was performed. This patient is a 73-year-old Male who presents to the ED for evaluation of leg pain. Notes he tripped over a tree branch cutting a tree down. Does not wear oxygen normally. Does not use CPAP or bipap. Noted to be at 88% in triage on room air. Injured right leg last , 10-11 days ago. No chest pain. On anticoagulant- Xarelto Physical Exam GENERAL: 73 year old male. In no acute distress. SKIN: RLE edema and erythema. HEART: IRRegular rate and rhythm. LUNGS: Clear to auscultation. NEURO: Alert and oriented. No deficits. MUSCULOSKELETAL: RLE edema PSYCH: Patient is pleasant and answers all questions appropriately. Initial orders for labs and / or imaging were placed and patient was placed directly in room for further eval
--- NOTE | 2023-11-19 17:56 | Emergency Department Note ---
Impression & Plan Hypoxia, Anemia, Contusion ED Provider Note NAME: EVARISTO BERG AGE: 73 SEX: M : 1950 ARRIVES VIA: Walk-In INFORMANT: Patient ED PROVIDER(S): Elliot Steiner DO CHIEF COMPLAINT: LLE pain HPI: Patient is a 73-year-old male who presents to the ER with a past medical history of diabetes, A-fib, and hypertension anticoagulated for left lower extremity pain. He notes he fell 11 days ago and hurt his leg. He has been having redness and swelling tracking up the leg. He notes it is warm and tender. Denies any fevers. Denies any headache or change in vision. No chest pain or shortness of breath that he is aware of. Denies any history of COPD. No dysuria, urgency, or frequency. No other exacerbating or remitting factors. ADDITIONAL HISTORY OBTAINED: Per HPI Chronic Medical/Social Conditions Affecting Care: Per HPI PAST MEDICAL HISTORY:See Below PAST SURGICAL HISTORY:See Below FAMILY HISTORY:See Below SOCIAL HISTORY:See Below HOME MEDICATIONS:See Below ALLERGIES:See Below VITALS:See Below PHYSICAL EXAMINATION: GENERAL: Sitting up in bed, alert, morbidly obese, disheveled EYE EXAM: normal conjunctiva. OROPHARYNX: mucous membranes are moist LUNGS: Wheezing bilaterally. Normal chest wall mechanics HEART: no murmurs, S1 normal and S2 normal ABDOMEN: abdomen soft, non-tender, normo-active bowel sounds, no masses, no rebound or guarding. BACK: Back is symmetrical on inspection and there is no deformity, no midline tenderness, no CVA tenderness. SKIN: no rashes and no bruising UPPER EXTREMITIES: upper extremities are grossly normal. LOWER EXTREMITIES: Left leg is larger than right with erythema on the dorsal surface of the foot tracking up the anterior ogles[place] and bruising layering in the posterior foot. DPs and PTs 2 out of 4. Gross station intact. NEURO EXAM: Normal sensorium, cranial nerves II-XII grossly intact, normal speech, no gross weakness of arms, no gross weakness of legs. MEDICAL DECISION MAKING: Patient is a 73-year-old male who presents the ER for left lower extremity pain following a fall 11 days ago. IV was established blood work was obtained. Upon presentation he was found to be hypoxic at 88% on room air. He did have some wheezing. He was given neb treatment. He has been taking Xarelto. Doubt PE. CBC shows no significant leukocytosis or anemia. BMP is fairly unremarkable with the exception of a slightly elevated glucose at 211. INR unremarkable. Troponin negative. Left lower extremity did have a fair amount of erythema and bruising. Unclear if this is truly infected but was covered with IV antibiotics. With the hypoxia remained on 2 L nasal cannula and was given neb treatments and discussed the case with the hospitalist for further evaluation management treatment Consults/Care Managements Discussions: Per [facility] Triage Nursing notes reviewed. Limited review of prior medical records performed Vital Signs: reviewed and remarkable for no significant abnormalities Differential diagnosis: Differential diagnoses includes but is not limited to pneumonia, bronchitis, COPD/Asthma exacerbation, pneumothorax, pulmonary embolism, congestive heart failure, acute coronary syndrome ER treatment provided: See below Diagnostics interpreted by me include EKG and cardiac monitoring as listed below: -Cardiac Monitoring: An order was placed for continuous cardiac monitoring. The monitor shows a rate of 80 with sinus rhythm. -ECG: Sinus rhythm rate 80 Normal axis Right bundle branch block T wave inversions in V1 through V6 QTc 472 -Laboratory studies:Interpreted by me as stated above in MDM and shown below. Imaging studies: Xrays: As interpreted by me: X-ray of the tib-fib shows no acute fracture Chest x-ray with bilateral opacities Venous Doppler of the left lower extremity was pending upon admission CTs show: none Procedures:none Critical Care: I have personally spent 32 minutes of critical care time in the direct management of this patient. This includes bedside care, interpretation of diagnostic studies, and testing, discussion with consultants, patient, and family members, and other required patient management activities. This 32 minutes is in excess of all separately billable procedures. Past Med/Surg History Problem List (Updated 11/19/23 @ 21:28 by Elliot Steiner DO) Contusion (Acute) Anemia (Acute) Hypoxia (Acute) Pain of left lower extremity Encounter for pre-operative examination Dilated aortic root Staring episodes Edema History of atrial flutter Lower extremity edema Chronic leg pain Type 2 diabetes mellitus without complication, with no history of insulin use Severe obesity (BMI >= 40) Incisional hernia, without obstruction or gangrene Herniation through surgical site Umbilical hernia (Chronic) Atrial fibrillation, permanent Loose stools (Chronic) Dyslipidemia (Chronic) Renal cyst (Chronic) Diverticulosis (Chronic) Left nephrolithiasis (Chronic) Anemia (Acute) BPH (benign prostatic hyperplasia) (Chronic) On anticoagulant therapy xarelto daily Hypertension (Chronic) Medical History History of diverticulosis History of atrial fibrillation pt unsure --- afib or if he had a. flutter. follows with Dr Jay Peripheral neuropathy History of anemia History of COVID-19 07/2019 - hospitalized at [facility] d/t sob, cough, fever. 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 Agee History of parotidectomy left--benign cyst History of arthroscopy of left knee meniscus repair History of umbilical hernia repair History of left inguinal hernia repair (05/09/13) Repair of giant left indirect inguinal hernia with mesh 05/09/13 Dr. Kelechi Hernandez History of right inguinal hernia repair History of colonoscopy History of tooth extraction all teeth removed Hx of cholecystectomy (07/29/04) Laparoscopic cholecystectomy with intraoperative cholangiogram 07/28/04 Dr. Jarod Maya Family History Father Colon cancer Mother Breast cancer Other Family history of colon cancer No family history of adverse response to anesthesia Social History Smoking Status: Former smoker Tobacco Type: Cigarettes packs per day: 2; Cigarettes Per Day: 2 packs a day; Second Hand Exposure: Yes ( smokes outside); Do You Dip or Chew Tobacco: No; Hx Alcohol Use: No Hx Substance Use: No Preferred Language: Italian Communication Ability: Effective Hearing Ability: Normal Pharmacometrician Required: No Beliefs That Will Affect Care: None marital status: Current Living Situation: Spouse current occupational status: employed and retired How many Children do You have: 2 Feels Safe at Home: Yes during the past year weight has: remained stable Dental Care, Regularly: No Physical Activity Frequency: Does not Exercise Seatbelt Use: always Assistive Devices: Glasses Allergies Allergies Allergy/AdvReac Type Severity Reaction Status Date / Time oxycodone AdvReac Mild "DOESN'T Verified 11/15/23 08:57 LIKE FEELING" Home Meds Home Medications Medication Instructions Recorded Confirmed multivitamin (Daily Multi-Vitamin 1 tab PO QAM 09/20/18 11/19/23 tablet) furosemide 20 mg tablet 20 mg PO QAM weight gain, 11/06/23 11/19/23 shortness of breath, swelling rivaroxaban 20 mg tablet (Xarelto) 20 mg PO HS 11/06/23 11/19/23 terazosin 10 mg capsule 20 mg PO HS 11/06/23 11/19/23 Previous Rx's Medication Instructions Recorded acetaminophen 325 mg tablet 650 mg (2 x 325 mg) PO Q4H PRN 12/10/19 fever or pain #30 tabs metoprolol succinate 50 mg 50 mg PO HS #90 tabs 02/04/23 tablet,extended release 24 hr metformin 500 mg tablet,extended 500 mg PO BID #180 tabs 04/20/23 release 24 hr atorvastatin 40 mg tablet 40 mg PO HS #90 tabs 05/28/23 metoprolol succinate 100 mg 100 mg PO QAM #90 tabs 06/06/23 tablet,extended release 24 hr gabapentin 300 mg capsule 300 mg PO BID #180 caps 07/04/23 spironolactone 25 mg tablet 25 mg PO 1200 #90 tabs 07/04/23 Results & Data (ED) Vital Signs Vital Signs - 24 hr 11/19/23 17:30 11/19/23 17:42 11/19/23 17:42 Temperature 36.5 C Temperature Source Temporal Artery Scan Pulse Rate 86 Pulse Rate from SpO2 Sensor Respiratory Rate 24 Respiratory Depth Normal Blood Pressure 138/65 148/84 H 148/84 H Blood Pressure Mean 89 105 105 Pulse Oximetry 88 L Oxygen Delivery Method Room Air Sepsis Recent Fever Within 48 Hours No Sepsis New/Unexplained Change in Mental Status No Sepsis Action Taken by Nursing No Action Required 11/19/23 17:45 11/19/23 17:54 11/19/23 18:03 Temperature Temperature Source Pulse Rate 81 80 78 Pulse Rate from SpO2 Sensor 78 77 Respiratory Rate 24 16 Respiratory Depth Blood Pressure Blood Pressure Mean Pulse Oximetry 93 97 Oxygen Delivery Method Sepsis Recent Fever Within 48 Hours Sepsis New/Unexplained Change in Mental Status Sepsis Action Taken by Nursing 11/19/23 18:33 11/19/23 19:00 11/19/23 19:39 Temperature Temperature Source Pulse Rate 91 H Pulse Rate from SpO2 Sensor 79 88 96 H Respiratory Rate 18 Respiratory Depth Blood Pressure Blood Pressure Mean Pulse Oximetry 100 95 98 Oxygen Delivery Method Sepsis Recent Fever Within 48 Hours Sepsis New/Unexplained Change in Mental Status Sepsis Action Taken by Nursing 11/19/23 20:18 11/19/23 20:48 Temperature Temperature Source Pulse Rate 87 76 Pulse Rate from SpO2 Sensor 86 76 Respiratory Rate 17 Respiratory Depth Blood Pressure Blood Pressure Mean Pulse Oximetry 92 95 Oxygen Delivery Method Sepsis Recent Fever Within 48 Hours Sepsis New/Unexplained Change in Mental Status Sepsis Action Taken by Nursing Laboratory Data 11/19/23 17:00 11/19/23 17:00 Lab Results 11/19/23 Range/Units 17:00 WBC 6.47 (4.8-10.8) K/ul RBC 4.01 L (4.70-6.10) M/uL Hgb 12.8 L (14.0-18.0) g/dl Hct 38.5 L (42.0-52.0) % MCV 96.0 (80.0-100.0) fL MCH 31.9 (25.0-34.0) pg MCHC 33.2 (32.0-36.0) g/dL RDW Std Deviation 47.9 H (36.4-46.3) fL RDW Coeff of Louis 13.5 (11.5-14.5) % Plt Count 194 (130-400) K/uL MPV 11.8 (9.4-12.4) fL Immature Gran % (Auto) 0.3 % Neut % (Auto) 68.0 % Lymph % (Auto) 13.9 % [place] % (Auto) 11.9 % Eos % (Auto) 5.1 % Baso % (Auto) 0.8 % Neut # (Auto) 4.40 (1.40-6.50) K/uL Lymph # (Auto) 0.90 L (1.20-3.40) K/uL [place] # (Auto) 0.77 H (0.11-0.59) K/uL Eos # (Auto) 0.33 (0.00-0.50) K/uL Baso # (Auto) 0.05 (0.00-0.20) K/uL Immature Gran # (Auto) 0.02 (0.01-0.20) K/uL PT 11.9 (9.0-12.0) Seconds INR 1.1 (0.9-1.1) APTT 31 (21-31) Seconds PTT Ratio 1.2 Sodium 141 (136-145) mmol/L Potassium 4.1 (3.5-5.1) mmol/L Chloride 106 (98-107) mmol/L Carbon Dioxide 28 (21-32) mmol/L Anion Gap 7 (3-11) BUN 20 (6-23) mg/dl Creatinine 1.15 (0.6-1.4) mg/dl Est Cr Clr Drug Dosing 76.8 ml/min Est GFR ( Amer) 72.3 ml/min Est GFR (Non-Af Amer) 62.3 ml/min BUN/Creatinine Ratio 17.4 (10-20) Glucose 211 H (70-99(Fasting)) mg/dl Calcium 8.9 (8.6-10.3) mg/dl Total Bilirubin 0.7 (0.2-1.0) mg/dl AST 21 (13-39) U/L ALT 20 (7-52) U/L Alkaline Phosphatase 78 (34-104) U/L Troponin I High Sens 5.1 (0-20) pg/ml Total Protein 6.5 (6.0-8.3) gm/dl Albumin 3.7 (3.4-5.0) gm/dl Globulin 2.8 (2.5-4.0) gm/dl Albumin/Globulin Ratio 1.3 (0.9-2) Procalcitonin Cancelled Administered Medications Discontinued Medications Acetaminophen (Acetaminophen 500 Mg Tab) 1,000 mg PO NOW STA Stop: 11/19/23 20:18 Last Admin: 11/19/23 21:17 Dose: 1,000 mg Documented By: DEMARCO Albuterol (Albut/Ipratrop 3mg/0.5mg Neb 3 Ml Vial) 6 ml NEB NOW STA; Protocol Stop: 11/19/23 18:02 Last Admin: 11/19/23 18:21 Dose: 6 ml Documented By: DEMARCO Ceftriaxone Sodium (Rocephin) 2,000 mg in 50 mls @ 100 mls/hr IV NOW STA Stop: 11/19/23 18:30 Last Infusion: 11/19/23 20:03 Dose: Infused Documented By: Admin: 11/19/23 19:36 Dose: 100 mls/hr Documented By: DEMARCO Imaging Data Radiologist's Impression: Chest X-Ray 11/19/23 17:53 XR chest 1V portable CLINICAL HISTORY: Shortness of breath. COMPARISON STUDY: Chest CT December 06, 2019. Chest radiograph May 14, 2020. FINDINGS: There is no pneumothorax or pleural effusion. Cardiomegaly is unchanged. There is no evidence for pulmonary edema. No definite consolidation to suggest pneumonia. Areas of increased attenuation projecting over the lower lungs are likely related to overlying soft tissues. IMPRESSION: 1. No definite acute cardiopulmonary findings. 2. Areas of increased attenuation projecting over the lower lungs. The findings are likely artifactual related to overlying soft tissues. Although less likely, an infectious process could appear similar. ACT 112: Negative or not required by law. Electronically signed by: Sunny Bowling M.D. 11/19/2023 6:15 PM Discharge Plan Visit Data Chief Complaint: Leg Injury/Pain Stated Complaint: LT LEG, SWELLING, PAIN, TRIPPED LAST WEEK ED Provider: Elliot Steiner Discharge Problem: Hypoxia, Anemia, Contusion Forms Stand Alone Forms: My [facility] [employer] Prescriptions Prescriptions: No Action metoprolol succinate 50 mg tablet extended release 24 hr 50 mg PO HS Qty: 90 3RF metformin 500 mg tablet extended release 24 hr 500 mg PO BID Qty: 180 3RF atorvastatin 40 mg tablet 40 mg PO HS Qty: 90 3RF metoprolol succinate 100 mg tablet extended release 24 hr 100 mg PO QAM Qty: 90 3RF multivitamin [Daily Multi-Vitamin] tablet 1 tab PO QAM gabapentin 300 mg capsule 300 mg PO BID Qty: 180 3RF spironolactone 25 mg tablet 25 mg PO 1200 Qty: 90 3RF acetaminophen 325 mg Tablet 650 mg PO Q4H PRN (Reason: fever or pain) Qty: 30 0RF Rx Instructions: [id number] Xarelto 20 mg tablet 20 mg PO HS furosemide 20 mg tablet 20 mg PO QAM terazosin 10 mg capsule 20 mg PO HS Referrals Referrals: Nicole Parnell MD [Primary Care Provider] - Discharge Problem: Anemia Qualifiers: Anemia type: unspecified type Qualified Code(s): D64.9 - Anemia, unspecified Contusion Qualifiers: Encounter type: initial encounter Contusion area: lower leg Laterality: left Q ualified Code(s): S80.12XA - Contusion of left lower leg, initial encounter
--- NOTE | 2023-11-19 18:16 | XRay Report ---
XR chest 1V portable CLINICAL HISTORY: Shortness of breath. COMPARISON STUDY: Chest CT December 06, 2019. Chest radiograph May 14, 2020. FINDINGS: There is no pneumothorax or pleural effusion. Cardiomegaly is unchanged. There is no eviden ce for pulmonary edema. No definite consolidation to suggest pneumonia. Areas of increased attenuatio n projecting over the lower lungs are likely related to overlying soft tissues. IMPRESSION: 1. No definite acute cardiopulmonary findings. 2. Areas of increased attenuation projecting over the lower lungs. The findings are likely artifactua l related to overlying soft tissues. Although less likely, an infectious process could appear similar . ACT 112: Negative or not required by law. Electronically signed by: Sunny Bowling M.D. 11/19/2023 6:15 PM
[2023-11-19] MEDS: ALBUT/IPRATROP 3MG/0.5MG NEB 3 ML VIAL NEB STA (18:21)
[2023-11-19 18:37] LABS: Basophils # (auto) 0.05 K/uL (0.00-0.20); Basophils % (auto) 0.8 %; Eosinophils # (auto) 0.33 K/uL (0.00-0.50); Eosinophils % (auto) 5.1 %; Hematocrit (blood only) 38.5 % (42.0-52.0); Hemoglobin 12.8 g/dl (14.0-18.0); Immature Granulocytes # (auto) 0.02 K/uL (0.01-0.20); Immature Granulocytes % (auto) 0.3 %; Lymphocytes % (auto) 13.9 %; Mean Corpuscular Hemoglobin 31.9 pg (25.0-34.0); Mean Corpuscular Hgb Conc 33.2 g/dL (32.0-36.0); Mean Platelet Volume 11.8 fL (9.4-12.4); Monocytes # (auto) 0.77 K/uL (0.11-0.59); Monocytes % (auto) 11.9 %; Platelet Count 194 K/uL (130-400); RDW Coefficient of Variation 13.5 % (11.5-14.5); RDW Standard Deviation 47.9 fL (36.4-46.3); Red Blood Count 4.01 M/uL (4.70-6.10); White Blood Count 6.47 K/ul (4.8-10.8)
[2023-11-19 18:58] LABS: Albumin Globulin Ratio 1.3 (0.9-2); Albumin Level 3.7 gm/dl (3.4-5.0); BUN Creatinine Ratio 17.4 (10-20); Bilirubin,Total 0.7 mg/dl (0.2-1.0); Calcium 8.9 mg/dl (8.6-10.3); Creatinine Clr Calc Pharmacy 76.8 ml/min; Est GFR (African American) 72.3 ml/min; Est GFR (Non-African American) 62.3 ml/min; Globulin 2.8 gm/dl (2.5-4.0); Potassium 4.1 mmol/L (3.5-5.1); Total Protein 6.5 gm/dl (6.0-8.3)
[2023-11-19 19:02] LABS: Troponin I High Sensitivity 5.1 pg/ml (0-20)
[2023-11-19 19:04] LABS: INR 1.1 (0.9-1.1); Partial Thromboplastin Ratio 1.2; Partial Thromboplastin Time 31 Seconds (21-31); Prothrombin Time 11.9 Seconds (9.0-12.0)
--- NOTE | 2023-11-19 19:35 | History & Physical Report ---
Date of Service November 19, 2023 Assessment & Plan (1) Pain of left lower extremity: Plan: Admit to [facility] telemetry on pulse oximetry Currently hemodynamically stable, stable on room air, nontoxic-appearing Presented to the ED for progressive left lower extremity pain, swelling/erythema, and bruising since his fall tripping over a tree branch on 11/08/2023 Patient was given a dose of ceftriaxone prior to admission due to concerns for possible cellulitis, low suspicion for cellulitis at this time X-rays of the left tibia/fibula and left foot were obtained but have not been officially read, on my review appears the patient has a significant fracture running from the medial left cuneiform possibly affecting the left intermediate cuneiform and extending into the proximal left second metatarsal Will need to follow-up on the read of the left lower extremity venous Doppler CT scan as he could also have acute DVT due to recent trauma and having to hold his Xarelto for 3 days prior to his colonoscopy on 11/15/2023 Pain control with Tylenol and morphine for now Will place podiatry consult, bedrest for now as he is high risk for falls Will continue home Xarelto for now, may need to adjust anticoagulation if left lower extremity venous Doppler positive for DVT Heart healthy/DM type II diet AM CBC, CMP, mag, PT/INR (2) Hypoxia: Plan: Patient was reported to have an episode of hypoxia with SpO2 in the high 80s on room air On initial evaluation the patient had SpO2 sensor on the same arm as his blood pressure cuff, when I placed the SpO2 sensor, left upper extremity SpO2 was stable on room air with good waveform Chest x-ray noted increased attenuation projecting over the lower lungs which is likely related to heart of oral and soft tissues but infectious pathology cannot be ruled out Patient was given a dose of ceftriaxone in the ED for possible pneumonia At this time his transient hypoxia is most likely due to obesity hypoventilation syndrome and likely undiagnosed sleep apnea Will hold further antibiotics tonight as he is covered for 24 hours with ceftriaxone, follow Pro-Shahid ordered in the ED Incentive spirometry, as needed O2 to keep SpO2 at or above 92% (3) Type 2 diabetes mellitus without complication, with no history of insulin use: Plan: Hold metformin Monitor BSG ACHS, goal is [id number] Will start 5 units Lantus twice daily, CF of 30 CR 15 ACHS Adjust regimen as needed (4) Atrial fibrillation, permanent: Plan: Currently stable Continue metoprolol and home Xarelto (5) BPH (benign prostatic hyperplasia): Plan: Continue terazosin (6) Hypertension: Plan: Currently stable Continue spironolactone Plan The patient was discussed with Dr. Epstein at time of admission History of Present Illness Chief Complaint: left leg pain, swelling, erythema Primary Care Provider: Nicole Parnell MD He is a 73-year-old male with a past medical history significant for morbid obesity, DM type II, atrial fibrillation on Eliquis, dyslipidemia, hypertension who presented to the [facility] ED on 11/19/2023 with a chief complaint of progressive right lower extremity swelling, erythema, and pain. The patient reportedly injured his right lower extremity after tripping and falling over a tree branch while trimming trees. He was noted to be hypoxic at 88% on room air but otherwise stable. Labs including CBC, CMP, and high- sensitivity troponin were unremarkable. Chest x-ray was read as THROAT: No sore throat, difficulty swallowing, or hoarseness. Definite acute cardiopulmonary findings. But did note an area of increased attenuation projecting over the lower lungs. Read as likely artifactual related to overlying soft tissues but could not rule out infectious process. Venous Doppler of the right lower extremity had been obtained for this. Not yet read prior to admission. Prior to admission patient was given an albuterol nebulizer treatment and a dose of ceftriaxone for likely cellulitis of the left lower extremity. Patient was sitting in bed no acute distress at time of exam with his at bedside, history was obtained from both. Patient explains that approximately 11 days ago (11/08/2023), he was working outside trimming tree branches when he tripped over one of the recently cut tree branches got him the fall to the ground. He explains that he did hit the anterior aspect of his left oglesby on the tree branch causing him to lose his balance and fall backwards. He states he landed on his back, did not hit his head or lose consciousness. Since his fall he has had progressive left lower extremity/foot pain, swelling, bruising/erythema. He has significantly more pain when trying to put weight on the left lower extremity. Denies recent fever, chills, chest pain, shortness of breath, cough, abdominal pain, nausea/vomiting, dysuria/hematuria, diarrhea, melena. He denies being tested/diagnosed with LUCERO and does not have a previous history of pulmonary disease. They explain that he had a recent colonoscopy on 11/15/2023. He did hold his Xarelto for 3 days prior to his colonoscopy but restarted the evening of 11/15/2023. He is not missed other recent doses since. We discussed CODE STATUS, he confirms that he wishes to be full code and for his to make medical decisions for him if he cannot make himself. Please refer to Dr. Epstein's attestation for any changes to the treatment plan Allergies Allergy/AdvReac Type Severity Reaction Status Date / Time oxycodone AdvReac Mild "DOESN'T Verified 11/15/23 08:57 LIKE FEELING" Home Medications Medication Instructions Recorded Confirmed Type multivitamin (Daily Multi-Vitamin 1 tab PO QAM 09/20/18 11/19/23 History tablet) acetaminophen 325 mg tablet 650 mg (2 x 325 mg) PO Q4H PRN 12/10/19 11/19/23 Rx fever or pain #30 tabs metoprolol succinate 50 mg 50 mg PO HS #90 tabs 02/04/23 11/19/23 Rx tablet,extended release 24 hr metformin 500 mg tablet,extended 500 mg PO BID #180 tabs 04/20/23 11/19/23 Rx release 24 hr atorvastatin 40 mg tablet 40 mg PO HS #90 tabs 05/28/23 11/19/23 Rx metoprolol succinate 100 mg 100 mg PO QAM #90 tabs 06/06/23 11/19/23 Rx tablet,extended release 24 hr gabapentin 300 mg capsule 300 mg PO BID #180 caps 07/04/23 11/19/23 Rx spironolactone 25 mg tablet 25 mg PO 1200 #90 tabs 07/04/23 11/19/23 Rx furosemide 20 mg tablet 20 mg PO QAM weight gain, 11/06/23 11/19/23 History shortness of breath, swelling rivaroxaban 20 mg tablet (Xarelto) 20 mg PO HS 11/06/23 11/19/23 History terazosin 10 mg capsule 20 mg PO HS 11/06/23 11/19/23 History Past Med/Surg History Problem List (Updated 11/19/23 @ 21:28 by Elliot M Steiner, DO) Contusion (Acute) Anemia (Acute) Hypoxia (Acute) Pain of left lower extremity Encounter for pre-operative examination Dilated aortic root Staring episodes Edema History of atrial flutter Lower extremity edema Chronic leg pain Type 2 diabetes mellitus without complication, with no history of insulin use Severe obesity (BMI >= 40) Incisional hernia, without obstruction or gangrene Herniation through surgical site Umbilical hernia (Chronic) Atrial fibrillation, permanent Loose stools (Chronic) Dyslipidemia (Chronic) Renal cyst (Chronic) Diverticulosis (Chronic) Left nephrolithiasis (Chronic) Anemia (Acute) BPH (benign prostatic hyperplasia) (Chronic) On anticoagulant therapy xarelto daily Hypertension (Chronic) Medical History History of diverticulosis History of atrial fibrillation pt unsure --- afib or if he had a. flutter. follows with Dr Jay Peripheral neuropathy History of anemia History of COVID-19 07/2019 - hospitalized at [facility] d/t sob, cough, fever. 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 Agee History of parotidectomy left--benign cyst History of arthroscopy of left knee meniscus repair History of umbilical hernia repair History of left inguinal hernia repair (05/09/13) Repair of giant left indirect inguinal hernia with mesh 05/09/13 Dr. Kelechi Hernandez History of right inguinal hernia repair History of colonoscopy History of tooth extraction all teeth removed Hx of cholecystectomy (07/29/04) Laparoscopic cholecystectomy with intraoperative cholangiogram 07/28/04 Dr. Jarod Maya Family History Father Colon cancer Mother Breast cancer Other Family history of colon cancer No family history of adverse response to anesthesia Social History Smoking Status: Former smoker Tobacco Type: Cigarettes packs per day: 2; Cigarettes Per Day: 2 packs a day; Second Hand Exposure: Yes ( smokes outside); Do You Dip or Chew Tobacco: No; Hx Alcohol Use: No Hx Substance Use: No Preferred Language: Bruneian Communication Ability: Effective Hearing Ability: Normal Senior It Security Analyst Required: No Beliefs That Will Affect Care: None marital status: Current Living Situation: Spouse current occupational status: employed and retired How many Children do You have: 2 Feels Safe at Home: Yes Safety Concerns: Feels Safe At This Time during the past year weight has: remained stable Dental Care, Regularly: No Physical Activity Frequency: Does not Exercise Seatbelt Use: always Assistive Devices: Glasses Physical Exam 2 Physical Exam: Physical Exam: General: In no acute distress, stated age, morbidly obese, non-toxic appearing HEENT: Normocephalic, atraumatic, no scleral icterus, pupils around round, symmetrical, and reactive to light, moist mucus membranes, trachea midline, no thyromegaly Chest/Pulm: No respiratory distress, symmetrical chest expansion, clear breath sounds throughout Cardiac: Irregular rate and rhythm, no murmurs noted Abdomen: Negative for ascites and bruising, normoactive bowel sounds, soft, non-tender to palpation throughout Musculoskeletal: Patient with significant swelling, erythema, and dependent bruising of the left foot and lower extremity up to the distal left knee. >Significant tenderness to palpation of the dorsal aspect of the left foot >Swelling of the anterior aspect of the proximal tibia with pain on palpation but without crepitus Extremities: Significant swelling of the left lower extremity compared to right, Distal pulses of the left lower extremity are difficult to palpate due to swelling of lower extremity is warm with cap refill less than 3 seconds on the left foot Skin: See picture attached below Neuro: Alert and oriented to person, place, month, year, and president, no focal defects, no tremors noted Psych: No acute distress, calm and cooperative during the exam Results & Data Results & Data Vital Signs (Past 12 Hours) Vital Signs Temp Pulse Resp BP Pulse Ox O2 Del Method 11/19/23 17:45 81 11/19/23 17:30 36.5 C 86 24 138/65 88 L Room Air Laboratory Results Abnormal lab results 11/19/23 Range/Units 17:00 RBC 4.01 L (4.70-6.10) M/uL Hgb 12.8 L (14.0-18.0) g/dl Hct 38.5 L (42.0-52.0) % RDW Std Deviation 47.9 H (36.4-46.3) fL Lymph # (Auto) 0.90 L (1.20-3.40) K/uL [place] # (Auto) 0.77 H (0.11-0.59) K/uL Glucose 211 H (70-99(Fasting)) mg/dl Diagnostic Findings Chest X-Ray 11/19/23 17:53 XR chest 1V portable CLINICAL HISTORY: Shortness of breath. COMPARISON STUDY: Chest CT December 06, 2019. Chest radiograph May 14, 2020. FINDINGS: There is no pneumothorax or pleural effusion. Cardiomegaly is unchanged. There is no evidence for pulmonary edema. No definite consolidation to suggest pneumonia. Areas of increased attenuation projecting over the lower lungs are likely related to overlying soft tissues. IMPRESSION: 1. No definite acute cardiopulmonary findings. 2. Areas of increased attenuation projecting over the lower lungs. The findings are likely artifactual related to overlying soft tissues. Although less likely, an infectious process could appear similar. ACT 112: Negative or not required by law. Electronically signed by: Sunny Bowling M.D. 11/19/2023 6:15 PM Code Status & VTE Plan Code Status Full code VTE Prophylaxis Plan VTE Prophylaxis will be ordered: Yes Supervising Physician Co-Signing Physician Notes Attending addendum: I have physically seen this patient, have supervised the ONELIA's activities, and agree with the H&P unless as otherwise noted. Assessment and Plan: Left lower extremity pain- Patient reports being outside, tripped over piece of wood about 5 days ago, and since that time to have worsening pain over the past 2 days in particular. X-rays left tib-fib are normal X-rays left foot show fractures, with formal reading still pending Venous Doppler left lower extremity negative for DVT Status post ceftriaxone 2 g IV from the ED, hold on further antibiotics at this time Consult to podiatry Transient hypoxia/obesity hypoventilation syndrome- Nasal cannula oxygen, titrate to keep pulse ox 95 to 92% Diabetes mellitus- Hold metformin Insulin glargine as noted Place on Accu-Cheks with NovoLog SSI Atrial fibrillation/hypertension- Continue metoprolol, spironolactone, Xarelto Repeat CBC with differential, basic metabolic panel and magnesium level in the a.m. PG Care Time/CCT Total # of Minutes Spent Total Time Spent with Patient: Total time spent is greater than 50% in coordination of care (as documented) at patient's floor/unit and/or counseling patient: Coding [place] [address] INT INP/OBS CARE 3/75MIN Patient Type Established Medical Decision Making High Complexity Diagnoses Pain of left lower extremity M79.605 Hypoxia R09.02 Type 2 diabetes mellitus without complication, with no history of insulin use E11.9 Atrial fibrillation, permanent I48.21 Benign prostatic hyperplasia without lower urinary tract symptoms N40.0 Lower urinary tract symptom presence: symptoms absent Hypertension, unspecified type I10 Hypertension type: unspecified Time Spent (min) 7 (5) BPH (benign prostatic hyperplasia) Lower urinary tract symptom presence: symptoms absent Qualified Code(s): N 40.0 - Benign prostatic hyperplasia without lower urinary tract symptoms (6) Hypertension Hypertension type: unspecified Qualified Code(s): I10 - Essential (primary) hypertension
[2023-11-19] MEDS: cefTRIAXone SODIUM 2,000 MG/50 ML BAG IV STA (19:36)
[2023-11-19] MEDS ORDERED: GLUCOSE 40% GEL 15 GM TUBE PO PRN (20:18)
[2023-11-19] MEDS ORDERED: DEXTROSE 50% 50 ML SYRINGE IV PRN (20:18)
[2023-11-19] MEDS ORDERED: GLUCAGON FOR INJ 1 MG VIAL SQ PRN (20:18)
[2023-11-19] MEDS ORDERED: GLUCOSE 10 TAB/TUBE PO PRN (20:18)
[2023-11-19] MEDS ORDERED: CARBOHYDRATES FOR HYPOGLYCEMIA PO PRN (20:18)
[2023-11-19] MEDS ORDERED: MoRPHine SULFATE 2 MG/ML CARP IV PRN (20:44)
[2023-11-19] MEDS: ACETAMINOPHEN 500 MG TAB PO STA (21:17)
[2023-11-19] MEDS ORDERED: ACETAMINOPHEN 325 MG TAB PO PRN (21:33)
[2023-11-19] MEDS: LANTUS PER UNIT CHARGE SQ SCH (21:47)
[2023-11-19] MEDS: INSULIN ASPART PER UNIT CHARGE SC SCH (21:47)
[2023-11-19] MEDS: GABAPENTIN 300 MG CAP PO SCH (22:04)
[2023-11-19] MEDS: TERAZOSIN HCL 5 MG CAP PO SCH (22:04)
[2023-11-19] MEDS: RIVAROXABAN 20 MG TAB PO SCH (22:04)
[2023-11-19] MEDS: ATORVASTATIN 40 MG TAB PO SCH (22:04)
--- NOTE | 2023-11-19 22:04 | Ultrasound Report ---
Exam(s): US VENOUS LEFT LOWER EXTREMITY EXAM: US Duplex Left Lower Extremity Veins CLINICAL HISTORY: Reason for exam: LLE edema. TECHNIQUE: Real-time duplex ultrasound scan of the left lower extremity veins integrating B-mode two-dimensional vascular structure, Doppler spectral analysis, color flow Doppler imaging and compression. COMPARISON: No relevant prior studies available. FINDINGS: Deep veins: Unremarkable. No DVT in the visualized common femoral, femoral, proximal deep femoral or popliteal veins. The veins demonstrate normal color flow, are normally compressible, with normal phasic flow and/or augmentation response. Superficial veins: Unremarkable. No thrombus in the visualized great saphenous vein. Soft tissues: No acute findings. No popliteal cyst. IMPRESSION: Normal left lower extremity duplex venous ultrasound. Electronically signed by: Elliot Cedillo MD 11/19/23 22:02 PM
[2023-11-19] MEDS: METOPROLOL SUCC 50MG EXT REL TAB PO SCH (22:05)
[2023-11-20] MEDS: ACETAMINOPHEN 325 MG TAB PO SCH (03:23)
--- NOTE | 2023-11-20 07:00 | XRay Report ---
LEFT FOOT 3 VIEWS CLINICAL HISTORY: Left foot pain. FINDINGS: 3 views of the left foot are obtained. No prior studies are available for comparison at the time of dictation. The skeletal structures are osteopenic. There is a minimally displaced intra-aldo cular fracture through the base of the fourth proximal phalanx. No additional fracture is seen. Arthr itic change is noted throughout the foot, greatest at the first metatarsophalangeal joint. A plantar heel spur is noted. Diffuse soft tissue edema is seen throughout the left foot. IMPRESSION: 1. Fracture through the base of the fourth proximal phalanx. 2. No additional fracture is seen. 3. Diffuse soft tissue edema. 4. Degenerative change and plantar heel spur as above. Electronically signed by: Juwan Marie M.D. 11/20/2023 6:58 AM
--- NOTE | 2023-11-20 07:13 | XRay Report ---
XR tibia fibula LT 2V CLINICAL HISTORY: Left oglesby pain. COMPARISON: Left knee radiographs April 20, 2011. FINDINGS: No fractures within the left tibia or fibula are identified. There are no osseous lesions. Left lower leg soft tissue swelling is present. Talar dome is intact. Moderate left knee osteoarthri tis is present. IMPRESSION: 1. No fractures within the left tibia or fibula. 2. Left lower leg soft tissue swelling. ACT 112: Negative or not required by law. Electronically signed by: Sunny Bowling M.D. 11/20/2023 7:11 AM
[2023-11-20] MEDS: METOPROLOL SUCC 50MG EXT REL TAB PO SCH (07:40)
[2023-11-20 08:43] LABS: Basophils # (auto) 0.06 K/uL (0.00-0.20); Eosinophils # (auto) 0.27 K/uL (0.00-0.50); Eosinophils % (auto) 4.5 %; Hematocrit (blood only) 36.5 % (42.0-52.0); Hemoglobin 12.4 g/dl (14.0-18.0); Immature Granulocytes # (auto) 0.02 K/uL (0.01-0.20); Immature Granulocytes % (auto) 0.3 %; Lymphocytes % (auto) 13.5 %; Mean Corpuscular Hemoglobin 32.4 pg (25.0-34.0); Mean Corpuscular Volume 95.3 fL (80.0-100.0); Mean Platelet Volume 11.7 fL (9.4-12.4); Monocytes # (auto) 0.67 K/uL (0.11-0.59); Monocytes % (auto) 11.3 %; Neutrophils # (auto) 4.12 K/uL (1.40-6.50); Neutrophils % (auto) 69.4 %; Platelet Count 175 K/uL (130-400); RDW Coefficient of Variation 13.6 % (11.5-14.5); RDW Standard Deviation 47.3 fL (36.4-46.3); Red Blood Count 3.83 M/uL (4.70-6.10); White Blood Count 5.94 K/ul (4.8-10.8)
[2023-11-20 09:00] LABS: Albumin Globulin Ratio 1.3 (0.9-2); Albumin Level 3.5 gm/dl (3.4-5.0); BUN Creatinine Ratio 17.9 (10-20); Bilirubin,Total 0.9 mg/dl (0.2-1.0); Calcium 8.6 mg/dl (8.6-10.3); Creatinine Clr Calc Pharmacy 95.1 ml/min; Est GFR (Non-African American) 78.5 ml/min; Globulin 2.7 gm/dl (2.5-4.0); Magnesium 1.7 mg/dl (1.7-2.4); Potassium 3.5 mmol/L (3.5-5.1); Total Protein 6.2 gm/dl (6.0-8.3)
[2023-11-20 09:03] LABS: INR 1.3 (0.9-1.1); Prothrombin Time 13.6 Seconds (9.0-12.0)
--- NOTE | 2023-11-20 10:13 | Electrocardiogram Report ---
Test Reason : Blood Pressure : */* mmHG Vent. Rate : 80 BPM Atrial Rate : * BPM P-R Int : * ms QRS Dur : 140 ms QT Int : 410 ms P-R-T Axes : * 98 6 degrees QTcB Int : 472 ms Atrial fibrillation Right bundle branch block Abnormal ECG Confirmed by Rey Rowe ([id number]) on 11/20/2023 10:13:00 AM Referred By: REFERRED SELF Confirmed By: Rey Rowe
[2023-11-20] MEDS: SPIRONOLACTONE 25 MG TAB PO SCH (11:58)
--- NOTE | 2023-11-20 18:38 | Discharge Summary ---
Discharge Summary Date of Service November 20, 2023 Principal Dx & Hospital Course #1 = Principal Diagnosis (1) Pain of left lower extremity: 73-year-old man on apixaban for A-fib who presented to the ED for progressive left lower extremity pain, swelling/erythema, and bruising since his fall tripping over a tree branch on 11/08/2023 Patient was given a dose of ceftriaxone prior to admission due to concerns for possible cellulitis, low suspicion for cellulitis at this time X-rays of the left tibia/fibula were negative for fracture and lower extremity duplex was negative for DVT x-ray of left foot showed nondisplaced proximal fourth phalanx fracture at the base. Discussed with photography sales associate recommended that he may use a stiff shoe/surgical shoe for a few weeks if needed for comfort, surgical treatment not needed, may follow-up with photography sales associate as outpatient -- otherwise he has some ecchymosis at the proximal oglesby below the knee, fairly extensive ecchymoses around the ankle however has been able to bear weight without significant pain. swelling is mainly related to ecchymoses and potentially some mild sprain, setting of chronic lower extremity edema and impaired venous return related to morbid obesity - he does have bilateral lower extremity edema and has been taking Lasix 20 mg daily as well as spironolactone. I instructed him to elevate his left leg whenever he has at rest and may take 40 mg of Lasix every morning for several days until edema improves (2) Hypoxia: Patient was reported to have an episode of hypoxia with SpO2 in the high 80s on room air while in the ED On initial evaluation the patient had SpO2 sensor on the same arm as his blood pressure cuff, when I placed the SpO2 sensor, left upper extremity SpO2 was stable on room air with good waveform Chest x-ray noted increased attenuation projecting over the lower lungs which is likely related to heart of oral and soft tissues transient hypoxia was most likely due to obesity hypoventilation syndrome and likely undiagnosed sleep apnea, did not recur recommended he strongly consider sleep study, he has refused this in the past andwill think about it (3) Type 2 diabetes mellitus without complication, with no history of insulin use: resume usual home medications (4) Atrial fibrillation, permanent: Continue metoprolol and home Xarelto (5) BPH (benign prostatic hyperplasia): Continue terazosin (6) Hypertension: Currently stable Continue spironolactone, metoprolol Notes For Next Care Provider refer for sleep apnea testing if he will agree to it in the future Medication Changes From Visit none Admission HPI Per Admitting Provider He is a 73-year-old male with a past medical history significant for morbid obesity, DM type II, atrial fibrillation on Eliquis, dyslipidemia, hypertension who presented to the [facility] ED on 11/19/2023 with a chief complaint of progressive right lower extremity swelling, erythema, and pain. The patient reportedly injured his right lower extremity after tripping and falling over a tree branch while trimming trees. He was noted to be hypoxic at 88% on room air but otherwise stable. Labs including CBC, CMP, and high- sensitivity troponin were unremarkable. Chest x-ray was read as THROAT: No sore throat, difficulty swallowing, or hoarseness. Definite acute cardiopulmonary findings. But did note an area of increased attenuation projecting over the lower lungs. Read as likely artifactual related to overlying soft tissues but could not rule out infectious process. Venous Doppler of the right lower extremity had been obtained for this. Not yet read prior to admission. Prior to admission patient was given an albuterol nebulizer treatment and a dose of ceftriaxone for likely cellulitis of the left lower extremity. Patient was sitting in bed no acute distress at time of exam with his at bedside, history was obtained from both. Patient explains that approximately 11 days ago (11/08/2023), he was working outside trimming tree branches when he tripped over one of the recently cut tree branches got him the fall to the ground. He explains that he did hit the anterior aspect of his left oglesby on the tree branch causing him to lose his balance and fall backwards. He states he landed on his back, did not hit his head or lose consciousness. Since his fall he has had progressive left lower extremity/foot pain, swelling, bruising/erythema. He has significantly more pain when trying to put weight on the left lower extremity. Denies recent fever, chills, chest pain, shortness of breath, cough, abdominal pain, nausea/vomiting, dysuria/hematuria, diarrhea, melena. He denies being tested/diagnosed with LUCERO and does not have a previous history of pulmonary disease. They explain that he had a recent colonoscopy on 11/15/2023. He did hold his Xarelto for 3 days prior to his colonoscopy but restarted the evening of 11/15/2023. He is not missed other recent doses since. We discussed CODE STATUS, he confirms that he wishes to be full code and for his to make medical decisions for him if he cannot make himself. Discharge Exam PHYSICAL EXAMINATION Last 24h vital signs reviewed, see documentation in flowsheet General: comfortable appearing, no distress HEENT: Normocephalic, atraumatic, pupils round and equal, sclerae anicteric, no conjunctival injection, moist mucus membranes Lungs: Normal respiratory effort. Clear to auscultation bilaterally. No RRW Heart: Regular rate and rhythm, no murmurs. No JVD Abdomen: Soft, nontender, nondistended. large pannus Bowel sounds present. Extremities: Warm, dry, well-perfused. 2+ left greater than right lower extremity pitting edema. no tenderness of left forefoot including at base of fourth phalanx. Ecchymosis present on anterior oglesby distal to the knee, ecchymoses surrounding the ankle. erythema seems related to ecchymoses and there is no warmth or tenderness to suggest a cellulitis Neuro: Alert and oriented x 4, face symmetric, moves 4 extremities well Psych: Normal affect and behavior Updated Medication List Medication Instructions Recorded Confirmed Type multivitamin (Daily Multi-Vitamin 1 tab PO QAM 09/20/18 11/19/23 History tablet) acetaminophen 325 mg tablet 650 mg (2 x 325 mg) PO Q4H PRN 12/10/19 11/19/23 Rx fever or pain #30 tabs metoprolol succinate 50 mg 50 mg PO HS #90 tabs 02/04/23 11/19/23 Rx tablet,extended release 24 hr metformin 500 mg tablet,extended 500 mg PO BID #180 tabs 04/20/23 11/19/23 Rx release 24 hr atorvastatin 40 mg tablet 40 mg PO HS #90 tabs 05/28/23 11/19/23 Rx metoprolol succinate 100 mg 100 mg PO QAM #90 tabs 06/06/23 11/19/23 Rx tablet,extended release 24 hr gabapentin 300 mg capsule 300 mg PO BID #180 caps 07/04/23 11/19/23 Rx spironolactone 25 mg tablet 25 mg PO 1200 #90 tabs 07/04/23 11/19/23 Rx rivaroxaban 20 mg tablet (Xarelto) 20 mg PO HS 11/06/23 11/19/23 History terazosin 10 mg capsule 20 mg PO HS 11/06/23 11/19/23 History furosemide 20 mg tablet 20 mg PO DAILY #30 tabs 11/20/23 Rx Hospital Stay Data Consultations 11/19/23 19:58 ED Decision to Admit Stat 11/19/23 20:13 Consult Podiatry Routine Diagnostic Imagining Performed 11/19/23 17:34 US venous doppler LE LT Stat Venous Doppler Study 11/19/23 17:34 Exam(s): US VENOUS LEFT LOWER EXTREMITY EXAM: US Duplex Left Lower Extremity Veins CLINICAL HISTORY: Reason for exam: LLE edema. TECHNIQUE: Real-time duplex ultrasound scan of the left lower extremity veins integrating B-mode two-dimensional vascular structure, Doppler spectral analysis, color flow Doppler imaging and compression. COMPARISON: No relevant prior studies available. FINDINGS: Deep veins: Unremarkable. No DVT in the visualized common femoral, femoral, proximal deep femoral or popliteal veins. The veins demonstrate normal color flow, are normally compressible, with normal phasic flow and/or augmentation response. Superficial veins: Unremarkable. No thrombus in the visualized great saphenous vein. Soft tissues: No acute findings. No popliteal cyst. IMPRESSION: Normal left lower extremity duplex venous ultrasound. Electronically signed by: Elliot Cedillo MD 11/19/23 22:02 PM Chest X-Ray 11/19/23 17:53 XR chest 1V portable CLINICAL HISTORY: Shortness of breath. COMPARISON STUDY: Chest CT December 06, 2019. Chest radiograph May 14, 2020. FINDINGS: There is no pneumothorax or pleural effusion. Cardiomegaly is unchanged. There is no evidence for pulmonary edema. No definite consolidation to suggest pneumonia. Areas of increased attenuation projecting over the lower lungs are likely related to overlying soft tissues. IMPRESSION: 1. No definite acute cardiopulmonary findings. 2. Areas of increased attenuation projecting over the lower lungs. The findings are likely artifactual related to overlying soft tissues. Although less likely, an infectious process could appear similar. ACT 112: Negative or not required by law. Electronically signed by: Sunny Bowling M.D. 11/19/2023 6:15 PM Foot X-Ray 11/19/23 19:41 LEFT FOOT 3 VIEWS CLINICAL HISTORY: Left foot pain. FINDINGS: 3 views of the left foot are obtained. No prior studies are available for comparison at the time of dictation. The skeletal structures are osteopenic. There is a minimally displaced intra-articular fracture through the base of the fourth proximal phalanx. No additional fracture is seen. Arthritic change is noted throughout the foot, greatest at the first metatarsophalangeal joint. A plantar heel spur is noted. Diffuse soft tissue edema is seen throughout the left foot. IMPRESSION: 1. Fracture through the base of the fourth proximal phalanx. 2. No additional fracture is seen. 3. Diffuse soft tissue edema. 4. Degenerative change and plantar heel spur as above. Electronically signed by: Juwan Marie M.D. 11/20/2023 6:58 AM Tibia/Fibula X-Ray 11/19/23 19:41 XR tibia fibula LT 2V CLINICAL HISTORY: Left oglesby pain. COMPARISON: Left knee radiographs April 20, 2011. FINDINGS: No fractures within the left tibia or fibula are identified. There are no osseous lesions. Left lower leg soft tissue swelling is present. Talar dome is intact. Moderate left knee osteoarthritis is present. IMPRESSION: 1. No fractures within the left tibia or fibula. 2. Left lower leg soft tissue swelling. ACT 112: Negative or not required by law. Electronically signed by: Sunny Bowling M.D. 11/20/2023 7:11 AM 11/20/23 07:06 11/20/23 07:06 Pending Results Patient Have Any Pending Studies at Discharge: No Discharge Instructions Given to Patient (Per Discharging Provider) You have small fracture base of left 4th toe (the one next to pinky toe) These usually heal well on their own The photography sales associate recommended wearing a stiff shoe (surgical shoe) for a few weeks to protect it from bending If it is painful you can also "sofie tape" it to the larger toe next to it You may schedule follow up with photography sales associate - Shira or Dirk Estes DPM Your left leg swelling is related to bruising and immobility on top of your usual leg swelling -take your lasix (furosemide) daily until your leg swelling resolves, once swelling resolves you can go back to taking it "as needed" -continue spironolactone every day -keep your leg elevated when you are sitting at rest -following a low salt diet will help reduce the edema as well You have a high risk of having sleep apnea and/or another related condition called obesity hypoventilation Treating these over the kelp cutter can reduce the risk of stroke, heart attack, heart failure and many other problems -we recommend sleep apnea testing -if you change your mind about this, ask Dr. Parnell to make a referral It was a pleasure taking care of you in the hospital Serina Lancaster MD Total Time Total Time Spent Total Time Spent (In Minutes): I personally spent: 40 minutes today on clinical care activities including: reviewing chart notes and vital signs reviewing labs reviewing studies discussion with education consultant(s) - photography sales associate examining and counseling the patient counseling the patient's family writing orders, discharge instructions documentation Coding Level of Care Code 11865 INP/OBS DISCH >30 MIN Diagnoses Pain of left lower extremity M79.605 Hypoxia R09.02 Type 2 diabetes mellitus without complication, with no history of insulin use E11.9 Atrial fibrillation, permanent I48.21 Benign prostatic hyperplasia without lower urinary tract symptoms N40.0 Lower urinary tract symptom presence: symptoms absent Hypertension, unspecified type I10 Hypertension type: unspecified
== END 2023-11-20 14:37 | disposition home or self-care (01) | DRG 563 ==
LOC: ED 17:22 → 2N 19:46 → SUATTDRO 19:46 → 2N 21:35